=== PATIENT | female | born 1995 | race Caucasian/White ===

== ENCOUNTER 2016-10-05 16:51 | Inpatient (IN) | payer OTHER ==
[~2016-10-05] VITALS: Ht 170.2 cm; Wt 50.1 kg
[~2016-10-05 16:51] MED LIST: ESOM40CA PO; FLUD0.1T PO; HYDR5TAB PO; LINA290C PO; METO25TA4 PO; OXYC1TAB7 PO; SULF1TAB24 PO
--- NOTE | 2016-10-05 19:14 | PHYS DOC ---
General Chief Complaint: FEVER Stated Complaint: FEVER Time Seen by MD: 18:40 Source: patient, family Problems: History of Present Illness Initial Comments Patient with mother for fever. Patient is no immunodeficiency actually receives outpatient immunoglobulin infusions at this facility, most recently yesterday. Last night she developed a fever as high as 101. Mother's been giving Advil and Tylenol for this at home which does bring the fever down, but it comes right back up. Patient's also mixed headache, neck pain, back pain, and nausea. Her headache is generalized in nature. She has no vision changes but does have some photophobia. There is no earache or runny nose. There is no sore throat. She complains of pain in the hand as well as the back of the neck and the back. There is no real chest pain or shortness of breath. She does have some nausea but no vomiting today. She has had decreased by mouth intake. She has some epigastric discomfort but no other abdominal pain. No change in bowel or bladder habits noted. There is no acute focal extremity or neurologic complaints. Patient as an extensive medical history and is quite complicated. Most of her care is performed by her mother, who also provides most the details of history today. Other than Advil or Tylenol, the patient did go the primary care physician today and was subsequently referred to the ER for further evaluation. There is no other increase or decreasing factors noted. Patient's past medical history is unremarkable for primary mean deficiency disorder. She receives frequent immunoglobulin infusions, last yesterday. She also has Joseph's thyroiditis, reflux, adrenal insufficiency, asthma, arrhythmias, and has a feeding tube in place. This user supplement feedings only of the patient is able tolerate by mouth food and fluids. She also is intermittently cathetered she has neurogenic bladder and she is on a bowel program according mother. Patient parents had some surgery medical brain injury in intensity, and has a diffuse neuropathy of undetermined cause as well. 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 The patient is wheelchair-bound and the vast majority of care is accomplished by the mother. She is a nonsmoker and nonuser of ethanol. Allergies: Coded Allergies: erythromycin base (Verified Allergy, Intermediate, 11/12/15) I S O L A T I O N *CONTACT* (Verified Allergy, Unknown, 11/13/15) +nasal MRSA 5-4-16 Past Medical History Medical History: other Psychosocial History: other Family History Significant Family History: no pertinent family hx Social History Smoker: non-smoker Alcohol: none Review of Systems All Other Systems: Reviewed and Negative Physical Exam General Appearance: WD/WN, no apparent distress Eyes: bilateral eye normal inspection Ear, Nose, Throat: normal ENT inspection, normal pharynx Neck: full range of motion, supple, normal inspection Respiratory: lungs clear, normal breath sounds, no respiratory distress Cardiovascular: regular rate, rhythm, no edema Gastrointestinal: non tender, soft, no organomegaly, other Back: no CVA tenderness, no vertebral tenderness Extremities: non-tender, normal inspection Neurologic/Psychiatric: alert, normal mood/affect, oriented x 3, other Skin: normal color Lymphatic: no adenopathy Comments Generally this is a pale, chronically ill-appearing white female in no acute somatic distress. Vitals are as noted. Pertinent findings on physical exam shows ears and throat to be clear. Pupils are equal and reactive light and accommodation. Extraocular movements are intact. The scalp is diffusely tender without signs of trauma. Neck is supple without gross adenopathy or JVD. There' s no swollen thyroid palpated. The patient moves the head through the full range of motion with some complaints of pain in the back of the neck. However, Kernig's and Brudzinski's are negative. Chest is clear cardiac exam shows regular rate and rhythm without murmur. The abdomen is soft and nontender without mass or megaly. There is no perineal findings. A feeding tube in place in left upper quadrant. The site looks good. Back shows no CVA tenderness. Externally show no rashes, cyanosis, or edema. Neurologic exam finds patient be awake alert oriented but with a flat affect and appears depressed. Cranial nerves II through XII appear grossly intact. Patient holds left arm flaccid with 1 over 5 strength in her known brachial plexus injury. She has good 5 over 5 strength in the right upper extremity. She has bilateral lower extremity weakness 2 over 5. There are no gross sensory deficits. Remainder of physical exam is clinically unremarkable. Orders, Labs, Meds Old charts note multiple outpatient visits for Privigen infusion. Her most recent infusion was actually done yesterday is now patient. She's been admitted the ER for syncope, headache, and adverse reaction to immunoglobulins. She was last admitted hospital in May of last year systemic inflammatory response syndrome with history of chronic immune deficiency and year retention as well as a history of DVT.. There is no specific infection identified. She was treated with broad-spectrum antibiotics and infectious disease was consult. It was noted that if she was improved, she can probably go home without further antibiotics. Labs today show white count of 5.7 with 86 polys and 6 lymphs. Hemoglobin 12.6. Chem profile and acetone are negative. Urinalysis shows only equivocal evidence for UTI 5-10 white cells few bacteria positive nitrate and trace leukocyte esterase. Blood cultures have been taken and sent to the lab. Chest x-ray shows a port in place. There are no acute changes seen by the emergency physician. 2300 Patient resting comfortably in the ER. Did apologize to patient and family on multiple occasions for place and care. Some are related to patient volume, as well as to obtain catheterized urine sample. Patient and her mother are both very gracious in understanding indicate this and the busiest they've ever seen the ED. I reevaluated the patient twice during her ED stay. She says that her somatic pain is decreased, but that just seems to make her headache more prominent. She is continuing to complain of some neck pain. I examination, however, she continues to have no real meningeal signs. She seems to indicate when she moves her head or tenderness and pain is more over the right SCM muscle , and there is some mild tenderness at that area. There is really no nuchal rigidity or specific signs of meningitis, and she overall appears to be somewhat more perky and interactive now than earlier. She did feel warm and I retook her temperature. Was 102.7 by physician evaluation. I discussed with the mother the and the patient the uncertain cause of her fever and generalized illness. It looks like in the past due to her immunodeficiency, she's been placed on broad-spectrum antibodies, admitted, and absurd with consult by infectious disease. I think given this scenario with a persistent fever and no source, that is a reasonable course of action at this time. Flu swabs have been obtained but results are not back at this time. I don't think the patient has meningeal signs this time, certainly should she have increasing headache or nuchal rigidity LP can be done. Mother is comfortable deferring lumbar puncture at this time as is the patient. Patient's primary care physician is not admitting tonight. I discussed the case with Dr. Darling of the hospitalist service. The mother. He knows Dr. Brown. He does not recall the patient. However, he graciously agrees to accept the patient for observation admission with broad-spectrum antibiotic coverage and infectious disease consultation. We' ll treat the patient symptomatically for fever with Tylenol as well as for any headache or nausea she might have. I have started some meropenem per the May guide for broad-spectrum coverage the patient was immunosuppression. I ordered urine culture in addition to blood cultures. She is resting comfortably at this time, in the company of her mother and an absolutely delightful service dog, awaiting transfer to the floor and hospitalist care. SERGE CAT MD Oct 05, 2016 19:14
[2016-10-05] MEDS ORDERED: IV NORMAL SALINE 1,000ML 1,000 ML IV ONE (19:15)
[2016-10-05] MEDS ORDERED: FENTANYL PF 100 MCG/2 ML VIAL. IV ONE (19:30)
[2016-10-05] MEDS ORDERED: ONDANSETRON PF 4 MG/2 ML VIAL. IV ONE (19:30)
--- NOTE | 2016-10-05 20:01 | PHYS DOC ---
General Chief Complaint: FEVER Stated Complaint: FEVER Time Seen by MD: 18:40 Problems: History of Present Illness Allergies: Coded Allergies: erythromycin base (Verified Allergy, Intermediate, 11/12/15) I S O L A T I O N *CONTACT* (Verified Allergy, Unknown, 11/13/15) +nasal MRSA 11-12-15 Past Medical History Medical History: other Surgical History: noncontributory Family History Significant Family History: no pertinent family hx Orders, Labs, Meds Old charts note multiple outpatient visits for Privigen infusion. Her most recent infusion was actually done yesterday is now patient. She's been admitted the ER for syncope, headache, and adverse reaction to immunoglobulins. She was last admitted hospital in November of last year systemic inflammatory response syndrome with history of chronic immune deficiency and year retention as well as a history of DVT.. There is no specific infection identified. She was treated with broad-spectrum antibiotics and infectious disease was consult. It was noted that if she was improved, she can probably go home without further antibiotics. SERGE CAT MD Oct 05, 2016 20:01
[2016-10-05 20:33] LABS: BASO % 0 % (0-3); EOS % 0 % (0-3); HEMATOCRIT 37.9 % (36.0-47.0); HEMOGLOBIN 12.6 g/dL (12.0-15.5); LYMPH # 0.5 x10^3/uL (1.0-4.8); LYMPH % 9 % (24-48); MEAN CORPUSCULAR HEMOGLOBIN 30 pg (25-35); MEAN CORPUSCULAR HGB CONC 33 g/dL (31-37); MEAN CORPUSCULAR VOLUME 91 fL (79-100); MONO # 0.3 x10^3/uL (0.0-1.1); MONO % 6 % (0-9); NEUT # 4.9 x10^3uL (1.8-7.7); NEUT % 86 % (31-73); PLATELET COUNT 153 x10^3/uL (140-400); RED BLOOD COUNT 4.15 x10^6/uL (3.50-5.40); RED CELL DISTRIBUTION WIDTH 12.6 % (11.5-14.5); WHITE BLOOD COUNT 5.7 x10^3/uL (4.0-11.0)
[2016-10-05 20:39] LABS: ALBUMIN 3.5 g/dL (3.4-5.0); ALBUMIN/GLOBULIN RATIO 0.8 (1.0-1.7); C REACTIVE PROTEIN 33.8 mg/L (0-3.3); CALCIUM 8.5 mg/dL (8.5-10.1); CREATININE 0.6 mg/dL (0.6-1.0); GFR 126.2; POTASSIUM 3.6 mmol/L (3.5-5.1); TOTAL BILIRUBIN 0.4 mg/dL (0.2-1.0); TOTAL PROTEIN 8.1 g/dL (6.4-8.2)
[2016-10-05] MEDS ORDERED: MORPHINE SULFATE 2 MG/ML DISP.SYRIN. ONE (21:24)
[2016-10-05 21:40] LABS: BACTERIA,URINE FEW /HPF (0-FEW); BILIRUBIN,URINE NEG (NEG); CLARITY,URINE CLOUDY; COLOR,URINE YELLOW; GLUCOSE,URINE NEG (NEG); NITRITE,URINE POS (NEG); UROBILINOGEN,URINE 1 mg/dL (0.2 mg/dL)
[2016-10-05 21:41] LABS: AMORPHOUS SEDIMENT,UR PRESENT /HPF; SQUAMOUS EPITHELIAL CELL,UR OCC /LPF
[2016-10-05] MEDS ORDERED: MORPHINE SULFATE 2 MG/ML DISP.SYRIN. IV ONE (21:45)
[2016-10-05] MEDS: PROMETHAZINE 12.5 MG in IV NORMAL SALINE 50ML 50 ML IV PRN (22:00)
[2016-10-05 22:01] LABS: SEDIMENTATION RATE 4 (0-25)
[2016-10-05 23:45] LABS: INFLUENZA A PATIENT NEGATIVE (NEGATIVE); INFLUENZA B PATIENT NEGATIVE (NEGATIVE)
[2016-10-06] VITALS (9 sets, daily range): BP systolic 73–108; BP diastolic 33–68
[2016-10-06] MEDS ORDERED: ACETAMINOPHEN 500 MG TABLET PO PRN (01:00)
[2016-10-06] MEDS: IV DEXTROSE 5% - 0.9 % NACL 1,000 ML IV SCH ×2 (01:28→09:36)
[2016-10-06] MEDS: FENTANYL PF 100 MCG/2 ML VIAL. IV PRN ×6 (01:31→23:57)
[2016-10-06] MEDS: ONDANSETRON PF 4 MG/2 ML VIAL. IV PRN ×2 (01:32→09:47)
--- NOTE | 2016-10-06 02:33 | ACF ---
Admission Criteria Forms FEVER Clinical Indications for Inpatient Care (Place 'X' for any and all applicable criteria): Ongoing inpatient care may be indicated for fever with ANY ONE of the following[ D] (5)(27)(28)(29)(30)(31): [ ]I. Bacteremia [ ]II. Evidence of significant systemic illness as indicated by ANY ONE of the following: [ ]a) Persistently high temperatures greater than 103.1 degrees F ( 39.5 degrees C) (oral) [ ]b) New-onset hypoxia [ ]c) Hemodynamic instability [ ]d) Mental status changes [ ]e) Decreased urine output due to developing renal insufficiency [ ]f) New focal neurologic deficit (eg, stroke) [ ]g) Seizures [ ]h) Rigors [ ]i) Dehydration or hypovolemia [ ]j) Inadequate oral intake [X]III. Patient in the immediate postoperative period with ANY ONE of the following (E)(23)(24): [ ]a) Evidence of specific localizing infection requiring ongoing inpatient evaluation or treatment (eg,abscess, severe pneumonia, wound infection ) [ X]b) Known or suspected cause of fever requiring ongoing inpatient evaluation or treatment (eg, DVT) [ ]c) Evidence of malignant hyperthermia (eg, unexplained tachycardia and muscle rigidity after depolarizing muscular blocking agent or inhaled anesthetic agent) [ ]IV. Suspected cause requiring acute care (eg, endocarditis, meningitis) [ ]V. High suspicion of bacteremia as indicated by severe constitutional symptoms in patient at high risk as indicated by ANY ONE of the following: [ ]a) Immunocompromised state [D](22) [ ]b) Age <3 years or >65 years [ ]c) Severe comorbidities (eg, poorly controlled diabetes, severe COPD) [ ]. High suspicion for fungal infection as indicated by ANY ONE of the following (22)(25): [ ]a) Febrile neutropenia (WBC <500/mm3 (0.5 X 109/L)) for >4 days despite broad spectrum antibiotics [ ]b) Imaging findings suggestive of fungal infection [ ]c) Immunocompromised state [ ]d) Immunocompromised patient colonized with Aspergillus species [ ]VII. Evidence of infection of medical devices such as implanted catheters or exposed hardware [ ]VIII. Suspected neuroleptic malignant syndrome as evidenced by ALL of the following (15): [ ]a) Recent use of neuroleptic medication (eg, haloperidol, prochlorperazine, metoclopramide) [ ]b) New-onset muscle rigidity Extended stay beyond goal length of stay for primary condition may be needed until ALL of the following are present(16)(17)(18)(19)(20)(21): [ ]a) Temperature status acceptable as indicated by ANY ONE of the following: [ ]i) Temp <38.1C (100.5 F) (oral) [ ]ii) Temp as expected for disease process and care performable at next level of care [ ]b) Hemodynamic stability [ ]c) Cultures negative or infection identified and under adequate treatment [ ]d) Behavior or mental status abnormalities absent or manageable at lower level of care (Also use Mental Status Change Criteria Form) for further information. [ ]e) Medical comorbidities absent or manageable at a lower level of care The original [facility] content created by [facility] has been revised. The portions of the content which have been revised are identified through the use of italic text or in bold, and [facility] has neither reviewed nor approved the modified material. All other unmodified content is copyright [facility]. Please see references footnoted in the original [facility] [employer] edition 2016 MUSTAPHA HERNANDEZ Oct 06, 2016 02:33
[2016-10-06] MEDS ORDERED: MEROPENEM 1 GM VIAL IV ONE (05:08)
[2016-10-06] MEDS ORDERED: IV NORMAL SALINE 100ML 100 ML ONE (05:08)
[2016-10-06] MEDS: MEROPENEM 1 GM in IV NORMAL SALINE 100ML 100 ML IV SCH ×3 (05:35→21:37)
[2016-10-06] MEDS ORDERED: MEROPENEM 1 GM in IV NORMAL SALINE 100ML 100 ML IV SCH (06:00)
[2016-10-06 06:32] LABS: BASO % 1 % (0-3); EOS % 0 % (0-3); HEMOGLOBIN 11.1 g/dL (12.0-15.5); LYMPH # 0.6 x10^3/uL (1.0-4.8); LYMPH % 20 % (24-48); MEAN CORPUSCULAR HEMOGLOBIN 31 pg (25-35); MEAN CORPUSCULAR HGB CONC 34 g/dL (31-37); MEAN CORPUSCULAR VOLUME 92 fL (79-100); MONO # 0.3 x10^3/uL (0.0-1.1); MONO % 8 % (0-9); NEUT # 2.2 x10^3uL (1.8-7.7); NEUT % 70 % (31-73); PLATELET COUNT 126 x10^3/uL (140-400); RED CELL DISTRIBUTION WIDTH 12.9 % (11.5-14.5); WHITE BLOOD COUNT 3.1 x10^3/uL (4.0-11.0)
[2016-10-06 06:34] LABS: ALBUMIN 2.8 g/dL (3.4-5.0); ALBUMIN/GLOBULIN RATIO 0.7 (1.0-1.7); CALCIUM 7.6 mg/dL (8.5-10.1); CREATININE 0.6 mg/dL (0.6-1.0); GFR 126.2; POTASSIUM 3.1 mmol/L (3.5-5.1); TOTAL BILIRUBIN 0.3 mg/dL (0.2-1.0); TOTAL PROTEIN 6.6 g/dL (6.4-8.2)
--- NOTE | 2016-10-06 08:50 | RAD ---
Portable chest, 10/05/2016: History: Fever, immunodeficiency disease Comparison is made to a study from 06/28/2016. A left Port-A-Cath remains in place with its tip lying in the inferior aspect of the superior vena cava. The heart size and pulmonary vascularity are normal. No pulmonary infiltrates are seen. There is no evidence of pleural fluid. There is a mild thoracolumbar scoliosis. IMPRESSION: No acute cardiopulmonary abnormality is detected.
[2016-10-06] MEDS ORDERED: HYDROCORTISONE 10 MG TABLET PO SCH (09:00)
[2016-10-06] MEDS: METOPROLOL TART IMMED RELEASE 25 MG TABLET PO SCH ×2 (09:37→21:00)
[2016-10-06] MEDS: FLUDROCORTISONE 0.1 MG TABLET PO SCH (11:42)
[2016-10-06] MEDS: PANTOPRAZOLE 40 MG TABLET. PO SCH (11:42)
[2016-10-06] MEDS: PROMETHAZINE 12.5 MG in IV NORMAL SALINE 50ML 50 ML IV PRN ×2 (13:37→23:58)
--- NOTE | 2016-10-06 14:14 | HP ---
ADMIT DATE: 10/06/2016 HISTORY OF PRESENT ILLNESS: The patient is a 21-year-old female patient, who came to the Emergency Room with fever. She apparently is known to have immune deficiency syndrome diagnosed about 6 years ago and she received her hemoglobin as an outpatient infusion with most recently done 2 days ago on Tuesday night, she had temperature up to 101 Fahrenheit. Her mother has been giving her Advil and Tylenol at home, but it does bring that fever down, but comes back again. She also complained of headache, neck pain, back pain, nausea. Her headache is generalized in nature. She has no vision changes, but does have some photophobia. There is no earache or runny nose. There is no sore throat. She complained of pain in her hand as well as neck and back. There is no chest pain or shortness of breath. She did complain of some nausea, but no vomiting. She has had decreased intake by mouth. She had some epigastric discomfort with no other abdominal pain, no change in bowel habits or bladder habit. She has no acute neurological deficit. She was seen in the Emergency Room, was evaluated. Blood cultures were drawn and was started on IV meropenem and was admitted for further evaluation and treatment. PAST MEDICAL HISTORY: Significant immune deficiency diagnosed about 6 years ago. She is followed by Dr. Huddleston. 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 She is normally wheelchair bound. She has neurogenic bladder, Joseph's thyroiditis, adrenal insufficiency, iron deficiency for which she received iron infusions intravenously. She has also B12 deficiency anemia, has had the history of septic cholangitis, multiple bacterial infection, gastroesophageal reflux disease, DVT and bronchial asthma. PAST SURGICAL HISTORY: Significant for fundoplication x 2, percutaneous endoscopic gastrostomy tube placement, spinal stimulator, nerve stimulator, Port-A-Cath placement twice, tonsillectomy and adenoidectomy. FAMILY HISTORY: Unremarkable. She has 2 brothers, who are healthy and her parents are healthy. SOCIAL HISTORY: She does not smoke, drink alcohol or use any recreational drugs. She lives with her parents. ALLERGIES: She is allergic to ERYTHROMYCIN BASE. MEDICATIONS: She is currently on the following medications: She is on Nexium 1 capsule once a day, fludrocortisone 100 mcg once a day, hydrocortisone 5 mg twice a day, linaclotide Linzess 90 mcg once a day, metoprolol tartrate 25 mg p.o. b.i.d. and oxycodone/APAP 5/325 one tablet every 6 hours for pain. REVIEW OF SYSTEMS: The patient denied any blurring of vision, cataract, glaucoma or macular degeneration. Did complain of photophobia. Denied any headache, tinnitus or sensorineural deafness. Denied any nosebleeds, stuffy nose or postnasal drip. Denied any sore throat, sore tongue, toothache, hoarseness of voice or difficulty swallowing. Did complain of nausea, but no vomiting. Did complain of epigastric pain, but no diarrhea or constipation. Denied any hematemesis, melena or hematochezia. Denied any dysuria, frequency or hematuria. Denied any chest pain, shortness of breath, orthopnea or paroxysmal nocturnal dyspnea. Denied any cough, phlegm or hemoptysis. Biggest complaint is severe headache, neck pain and back pain. PHYSICAL EXAMINATION: GENERAL: On arrival to the Emergency Room; she was pale, cachectic, but not jaundiced, cyanosis or thyromegaly. No jugular venous distention. No limb edema. VITAL SIGNS: Her heart rate was 97, blood pressure was 108/68, temperature was 100, respiratory rate was 16, and oxygen saturation was 98%. HEAD, EYES, EARS, NOSE AND THROAT: Showed normocephalic, atraumatic. NECK: Supple. HEART: Showed normal first and second heart sounds with no gallop, rub or murmur. CHEST: Clear to auscultation. No crepitation or rhonchi. ABDOMEN: Distended, soft, nontender. No guarding or rigidity. No organomegaly. She had gastrostomy tube in place. NEUROLOGIC: She is awake, alert, responds appropriately. Cranial nerves intact. EXTREMITIES: She moves right upper extremity. She has flaccid paralysis of left upper extremity and also paraplegia. She has no neck rigidity and Kernig's sign cannot be elicited. LABORATORY DATA: In the Emergency Room showed serum sodium 138, potassium 3.6, chloride 104, bicarbonate 23, anion gap of 11, BUN 9, creatinine 0.6, estimated GFR was 126 mL per minute. Her glucose was 87, calcium was 8.5. Total bilirubin, AST, ALT, alkaline phosphatase were normal. Her total protein was 8.1, albumin was 3.5. Amylase and lipase were normal. Her C-reactive protein was at 3.8. White cell count was 5700, hemoglobin 12.6, hematocrit 38, MCV 91, and platelet count of 153,000 with a manual differential showed 86% polymorphs, 9% lymphocytes, 6% monocytes. She had had a chest x-ray done, which was unremarkable and showed no that there are no acute cardiopulmonary abnormalities detected. ASSESSMENT AND PLAN: The patient was admitted and started on IV meropenem, IV and pain medication as well as Phenergan for nausea and vomiting. There urinalysis was essentially unremarkable. We will obviously await the result of the culture and sensitivity and decide on further management accordingly. SHANNAN COYNE MD DR: KERVIN/anthony JOB#: [id number] / [id number]
[2016-10-06] MEDS: HYDROCORTISONE SOD SUCC/PF 100 MG/2 ML VIAL. IV SCH ×2 (15:05→21:37)
[2016-10-06] MEDS: POTASSIUM CL 40MEQ D5-0.45NACL 1,000 ML IV SCH ×2 (15:05→21:36)
--- NOTE | 2016-10-06 23:08 | PN ---
DATE: 10/06/2016 SUBJECTIVE: The patient is resting slightly propped up in bed, in no apparent respiratory distress. She continued to complain of headache and neck pain. However, her temperature is down. Temperature went up to 103 Fahrenheit this morning. However, by the time I saw her this afternoon, her temperature is down at 98.4 and again at 99.3. PHYSICAL EXAMINATION: GENERAL: When I examined her, she looked pale, but no jaundice, cyanosis, or thyromegaly. No jugular venous distension. No limb edema. VITAL SIGNS: Her heart rate was 87, blood pressure was 92/58, temperature was 99.3, respiratory rate was 20, and oxygen saturation was 98%. HEAD, EYES, EARS, NOSE, AND THROAT: Normocephalic, atraumatic. NECK: Supple. HEART: Showed normal first and second heart sounds. No gallop, rub, or murmur. CHEST: Clear to auscultation. No crepitation or rhonchi. ABDOMEN: Distended, soft, nontender. No guarding or rigidity. No organomegaly. Hernial orifices intact. Bowel sounds normal. NEUROLOGIC: She was awake, alert, responding appropriately. Cranial nerves intact. She moves the right upper extremity. She has flaccid paralysis to ____ paraplegia. She is mostly bed bound and chair bound. Her intake over the last 24 hours was 1200. No output was recorded. LABORATORY DATA: Her lab work this morning showed white cell count is 3100, hemoglobin 11, hematocrit 33, MCV 92, and platelet count 126,000. Her chemistry showed serum sodium 140, potassium 3.1, chloride 107, bicarbonate 25, anion gap of 8, BUN 7, creatinine 0.6, estimated GFR was 126 mL per minute. Her glucose was 103, calcium was 7.6. Total bilirubin, AST, ALT, alkaline phosphatase were normal. Total protein was 6.6, albumin was 2.8. ASSESSMENT: This is a 21-year-old female the patient with immunodeficiency syndrome. She came with febrile illness with ____ of infections not very clear. She has a Port-A-Cath; however, her white cell count is actually ____ trending down. I did speak with Dr. Huddleston and he recommended to continue with the same management. There is no need now for vancomycin. There is no need for lumbar puncture. I did increase hydrocortisone to ____ dose of 100 mg 3 times a day intravenously and continue with all other treatment. Her potassium is low, so I switched her to D5 half normal with 40 mEq of potassium chloride and we will repeat all her lab works tomorrow and decide on further management accordingly. SHANNAN COYNE MD DR: KERVIN/anthony JOB#: [id number] / [id number]
[2016-10-06] MEDS ORDERED: PROMETHAZINE 25 MG/ML VIAL IV ONE (23:52)
[2016-10-06] MEDS ORDERED: IV NORMAL SALINE 50ML 50 ML ONE (23:52)
[2016-10-07 05:20] VITALS: BP 93/51
[2016-10-07] MEDS: POTASSIUM CL 40MEQ D5-0.45NACL 1,000 ML IV SCH ×3 (05:28→20:41)
[2016-10-07] MEDS: MEROPENEM 1 GM in IV NORMAL SALINE 100ML 100 ML IV SCH ×3 (05:28→20:40)
[2016-10-07] MEDS: HYDROCORTISONE SOD SUCC/PF 100 MG/2 ML VIAL. IV SCH ×3 (05:29→20:40)
[2016-10-07] MEDS: FENTANYL PF 100 MCG/2 ML VIAL. IV PRN ×4 (05:31→20:40)
[2016-10-07 06:11] LABS: BASO % 0 % (0-3); EOS % 0 % (0-3); HEMATOCRIT 32.3 % (36.0-47.0); HEMOGLOBIN 10.9 g/dL (12.0-15.5); LYMPH # 0.5 x10^3/uL (1.0-4.8); LYMPH % 21 % (24-48); MEAN CORPUSCULAR HEMOGLOBIN 31 pg (25-35); MEAN CORPUSCULAR HGB CONC 34 g/dL (31-37); MEAN CORPUSCULAR VOLUME 91 fL (79-100); MONO # 0.3 x10^3/uL (0.0-1.1); MONO % 10 % (0-9); NEUT # 1.8 x10^3uL (1.8-7.7); NEUT % 69 % (31-73); PLATELET COUNT 151 x10^3/uL (140-400); RED BLOOD COUNT 3.55 x10^6/uL (3.50-5.40); WHITE BLOOD COUNT 2.7 x10^3/uL (4.0-11.0)
[2016-10-07 06:26] LABS: ALBUMIN 2.8 g/dL (3.4-5.0); ALBUMIN/GLOBULIN RATIO 0.7 (1.0-1.7); CALCIUM 8.3 mg/dL (8.5-10.1); CREATININE 0.5 mg/dL (0.6-1.0); GFR 155.7; POTASSIUM 3.8 mmol/L (3.5-5.1); TOTAL BILIRUBIN 0.2 mg/dL (0.2-1.0); TOTAL PROTEIN 6.8 g/dL (6.4-8.2)
[2016-10-07] MEDS: METOPROLOL TART IMMED RELEASE 25 MG TABLET PO SCH ×2 (09:26→20:50)
[2016-10-07] MEDS: PANTOPRAZOLE 40 MG TABLET. PO SCH (12:39)
[2016-10-07] MEDS: FLUDROCORTISONE 0.1 MG TABLET PO SCH (12:39)
[2016-10-07] MEDS: PROMETHAZINE 12.5 MG in IV NORMAL SALINE 50ML 50 ML IV PRN (14:44)
[2016-10-07 14:59] VITALS: BP 97/58
[2016-10-07 19:41] VITALS: BP 106/56
[2016-10-07] MEDS: ENOXAPARIN 40 MG/0.4 ML DISP.SYRIN. SQ SCH (20:41)
[2016-10-07] MEDS ORDERED: PROMETHAZINE 25 MG/ML VIAL IV ONE (23:06)
[2016-10-07] MEDS ORDERED: IV NORMAL SALINE 50ML 50 ML ONE (23:06)
--- NOTE | 2016-10-08 03:00 | PN ---
DATE: 10/07/2016 SUBJECTIVE: The patient is resting slightly propped up and feeling much better today. The headache is much improved, although she continues to have neck pain. Her appetite has improved. She is eating and drinking. She has been afebrile and apparently her blood culture showed the growth of gram-positive cocci seen of two bottles. Once it was drawn ____ identification and sensitivity is still pending at the time of this dictation. PHYSICAL EXAMINATION: GENERAL: When I examined her, she looked well and was definitely more awake and alert. Slightly pale, but no jaundice, cyanosis, or thyromegaly. No jugular venous distention. No limb edema. VITAL SIGNS: Her heart rate was 66, blood pressure was 93/51, temperature was 98.4, respiratory rate was 16, and oxygen saturation was 98% on room air. HEAD, EYES, EARS, NOSE AND THROAT: Showed normocephalic and atraumatic. NECK: Supple. HEART: Showed normal first and second heart sounds with no gallop, rub, or murmur. CHEST: Clear to auscultation. No crepitation or rhonchi. ABDOMEN: Distended, soft, and nontender. No guarding or rigidity. No organomegaly. Hernial orifices are intact. Bowel sounds normal. NEUROLOGIC: She was awake, alert, and definitely feeling better. All her cranial nerves intact. She moves upper extremities without difficulty. She has left upper monoplegia and bilateral paraplegia. Her intake over the last 24 hours was 4470. LABORATORY DATA: Her lab work showed white cell count down to 2700, hemoglobin 11, hematocrit 32, MCV 91, and platelet count of 151,000. Her chemistry showed a serum sodium 140, potassium 3.8, chloride 109, bicarbonate 24, anion gap of 7, BUN 3, creatinine 0.5, and estimated GFR was 55 mL per minute. Her glucose was 122 mg/dL and calcium was 8.3. Total bilirubin, AST, ALT, and alkaline phosphatase are normal. Total protein was 6.8 and albumin 2.8. Amylase and lipase normal. TSH was 0.83. Urinalysis was unremarkable. Her serology was negative for influenza A and B and group A streptococcus. ASSESSMENT: A 21-year-old female patient with immune deficiency syndrome and sepsis growing gram-positive cocci that seems to be responding to meropenem; adrenal insufficiency for which I put her on stress dose of hydrocortisone at 100 mg 3 times a day. She has also Joseph's thyroiditis; however, her thyroid function test is normal. PLAN: My plan is to continue with current treatment. Continue with IV fluid. We will await for the identification and sensitivity of the bacteria tomorrow and we will adjust antibiotics accordingly. SHANNAN COYNE MD DR: KERVIN/anthony JOB#: [id number] / [id number]
[2016-10-08] MEDS: POTASSIUM CL 40MEQ D5-0.45NACL 1,000 ML IV SCH ×3 (04:58→16:51)
[2016-10-08] MEDS: MEROPENEM 1 GM in IV NORMAL SALINE 100ML 100 ML IV SCH ×3 (04:59→20:15)
[2016-10-08] MEDS: HYDROCORTISONE SOD SUCC/PF 100 MG/2 ML VIAL. IV SCH ×3 (04:59→20:15)
[2016-10-08 05:21] VITALS: BP 107/69
[2016-10-08] MEDS: FENTANYL PF 100 MCG/2 ML VIAL. IV PRN ×3 (05:22→16:45)
[2016-10-08] MEDS ORDERED: PROMETHAZINE 25 MG/ML VIAL IV ONE ×2 (05:37→14:11)
[2016-10-08] MEDS ORDERED: IV NORMAL SALINE 50ML 0 ML ONE (05:37)
[2016-10-08] MEDS: PROMETHAZINE 12.5 MG in IV NORMAL SALINE 50ML 50 ML IV PRN ×2 (05:44→15:06)
[2016-10-08] MEDS ORDERED: KETOROLAC 30 MG/ML VIAL. IV ONE (06:30)
[2016-10-08 06:41] LABS: BASO % 0 % (0-3); EOS % 0 % (0-3); HEMATOCRIT 30.7 % (36.0-47.0); HEMOGLOBIN 10.4 g/dL (12.0-15.5); LYMPH # 0.9 x10^3/uL (1.0-4.8); LYMPH % 16 % (24-48); MEAN CORPUSCULAR HEMOGLOBIN 31 pg (25-35); MEAN CORPUSCULAR HGB CONC 34 g/dL (31-37); MEAN CORPUSCULAR VOLUME 91 fL (79-100); MONO # 0.7 x10^3/uL (0.0-1.1); MONO % 12 % (0-9); NEUT # 4.1 x10^3uL (1.8-7.7); NEUT % 72 % (31-73); PLATELET COUNT 144 x10^3/uL (140-400); RED BLOOD COUNT 3.39 x10^6/uL (3.50-5.40); RED CELL DISTRIBUTION WIDTH 12.7 % (11.5-14.5); WHITE BLOOD COUNT 5.7 x10^3/uL (4.0-11.0)
[2016-10-08 07:06] LABS: ALBUMIN 2.6 g/dL (3.4-5.0); ALBUMIN/GLOBULIN RATIO 0.7 (1.0-1.7); CALCIUM 8.1 mg/dL (8.5-10.1); GFR 126.2; POTASSIUM 3.6 mmol/L (3.5-5.1); TOTAL BILIRUBIN 0.1 mg/dL (0.2-1.0); TOTAL PROTEIN 6.4 g/dL (6.4-8.2)
[2016-10-08 07:19] LABS: CREATININE 0.6 mg/dL (0.6-1.0)
[2016-10-08] MEDS: METOPROLOL TART IMMED RELEASE 25 MG TABLET PO SCH ×2 (08:48→19:27)
[2016-10-08 10:30] VITALS: BP 115/66
[2016-10-08] MEDS: PANTOPRAZOLE 40 MG TABLET. PO SCH (12:15)
[2016-10-08] MEDS: FLUDROCORTISONE 0.1 MG TABLET PO SCH (12:15)
[2016-10-08] MEDS: ONDANSETRON PF 4 MG/2 ML VIAL. IV PRN (12:22)
[2016-10-08] MEDS ORDERED: IV NORMAL SALINE 50ML 50 ML ONE (14:12)
[2016-10-08 14:22] VITALS: BP 100/62
[2016-10-08] MEDS: KETOROLAC 15 MG/ML VIAL. IV PRN (20:15)
[2016-10-08] MEDS: ENOXAPARIN 40 MG/0.4 ML DISP.SYRIN. SQ SCH (20:15)
[2016-10-08 20:27] VITALS: BP 110/64
[2016-10-09] MEDS: FENTANYL PF 100 MCG/2 ML VIAL. IV PRN ×5 (00:13→23:26)
[2016-10-09] MEDS: PROMETHAZINE 12.5 MG in IV NORMAL SALINE 50ML 50 ML IV PRN ×3 (00:13→18:50)
[2016-10-09] MEDS: POTASSIUM CL 40MEQ D5-0.45NACL 1,000 ML IV SCH ×3 (01:12→19:41)
--- NOTE | 2016-10-09 02:03 | PN ---
DATE: 10/08/2016 SUBJECTIVE: The patient is resting, slightly propped up in bed, in no apparent distress. She continued to complain of headache that responds to pain medication. She is afebrile. Her white cell count continues to be normal. Her urine culture grew more than 100,000 colony forming units per mL of gram-negative rods, the identification and sensitivity which is still pending. Her blood culture also grew gram-positive cocci, the identification and sensitivity is still pending at the time of this dictation. PHYSICAL EXAMINATION: GENERAL: When I examined her this afternoon, she looked well and was clearly in no apparent respiratory distress, pale, but not jaundiced, cyanosed. No lymphadenopathy or thyromegaly. No jugular venous distention. No limb edema. VITAL SIGNS: Her heart rate was 76, blood pressure was 115/66, temperature was 98.6, respiratory rate was 20, and oxygen saturation was 98%. The rest of clinical examination is stable and has not really changed. Her intake over the last 24-hour was 3850. No output was recorded. LABORATORY DATA: Showed a white cell count of 5700, hemoglobin 10.4, hematocrit 30.7, MCV 91, and platelet count of 144,000. Serum sodium was 142, potassium 3.6, chloride 109, bicarbonate 25, anion gap of 8, BUN 2, creatinine 0.6, estimated GFR was 126 mL per minute, her glucose was 97, calcium was 8.1. Total bilirubin, AST, ALT, alkaline phosphatase were normal. Total protein 6.4, albumin was 0.7. ASSESSMENT: 1. A 21-year-old female patient with immune deficiency syndrome. 2. She came in with febrile illness without obvious source of infection. 3. She has a Port-A-Cath; however, her white cell count remained normal. 4. She did grow more than 100,000 colony-forming units per mL of gram-negative rods in her urine and grew also gram-positive cocci from her blood. The identification and sensitivity of both organism is still pending at the time of this dictation. 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 PLAN: My plan is to continue with IV fluid, continue with pain management, continue with IV meropenem, and continue with stress dose of hydrocortisone once we will be able to narrow the antibiotic, once we have the identification and sensitivity report of organisms. SHANNAN COYNE MD DR: KERVIN/anthony JOB#: [id number] / [id number]
[2016-10-09] MEDS: MEROPENEM 1 GM in IV NORMAL SALINE 100ML 100 ML IV SCH ×3 (05:00→21:23)
[2016-10-09] MEDS: HYDROCORTISONE SOD SUCC/PF 100 MG/2 ML VIAL. IV SCH ×3 (05:01→21:23)
[2016-10-09] MEDS: KETOROLAC 15 MG/ML VIAL. IV PRN ×2 (05:01→14:54)
[2016-10-09 06:07] LABS: CREATININE 0.5 mg/dL (0.6-1.0); GFR 155.7; POTASSIUM 3.4 mmol/L (3.5-5.1)
[2016-10-09 06:20] LABS: HEMATOCRIT 27.8 % (36.0-47.0); HEMOGLOBIN 9.5 g/dL (12.0-15.5); RED BLOOD COUNT 3.05 x10^6/uL (3.50-5.40); RED CELL DISTRIBUTION WIDTH 12.7 % (11.5-14.5); WHITE BLOOD COUNT 5.2 x10^3/uL (4.0-11.0)
[2016-10-09 06:32] VITALS: BP 106/69
[2016-10-09] MEDS: METOPROLOL TART IMMED RELEASE 25 MG TABLET PO SCH ×2 (09:00→21:00)
[2016-10-09] MEDS ORDERED: PROMETHAZINE 25 MG/ML VIAL IV ONE (09:28)
[2016-10-09] MEDS ORDERED: IV NORMAL SALINE 50ML 0 ML ONE (09:28)
[2016-10-09 13:31] VITALS: BP 94/59
[2016-10-09] MEDS: PANTOPRAZOLE 40 MG TABLET. PO SCH (14:49)
[2016-10-09] MEDS: FLUDROCORTISONE 0.1 MG TABLET PO SCH (14:49)
[2016-10-09 20:01] VITALS: BP 103/71
[2016-10-09] MEDS: ENOXAPARIN 40 MG/0.4 ML DISP.SYRIN. SQ SCH (21:22)
[2016-10-09] MEDS: POTASSIUM CHLORIDE 20 MEQ TABLET.ER. PO SCH (21:22)
--- NOTE | 2016-10-09 21:27 | PN ---
DATE: 10/09/2016 SUBJECTIVE: The patient is resting, slightly propped up in bed, in no apparent distress. She continued to have headache and neck pain; however, she is eating and drinking. She has been afebrile over the last 72 hours. Her urine culture has grown Escherichia coli, which is pansensitive. However, the blood culture has grown 2 species of ____ cocci, the identification and sensitivity, which is still pending. PHYSICAL EXAMINATION: GENERAL: When I examined her this afternoon, she was pale, but no jaundice, cyanosis, or thyromegaly. No jugular venous distention. No limb edema. VITAL SIGNS: Her heart rate was 69, blood pressure was 94/59, temperature was 98.7, respiratory rate was 20, and oxygen saturation was 98%. HEAD, EYES, EARS, NOSE AND THROAT: Showed normocephalic, atraumatic. NECK: Supple. The rest of clinical examination is unremarkable, has not really changed. Her intake over the last 24 hours was 3850, no output was recorded. LABORATORY DATA: As of this morning, her white cell count was 5200, hemoglobin 9.5, hematocrit 27.8, MCV 91, and platelet count of 142,000. Her chemistry showed a serum sodium 142, potassium 3.4, chloride 109, bicarbonate 25, anion gap of 8, BUN 3, creatinine was 0.5, estimated GFR was 155 mL per minute. Her glucose was 116 and calcium was 8. ASSESSMENT: 1. A 21-year-old female patient with immunodeficiency syndrome. 2. She came in with febrile illness without obvious source of infection. 3. She has a Port-A-Cath; however, white cell count remained normal, though she did grow more than 100,000 colony forming units per mL of gram-negative rods that identified as Escherichia coli that is pansensitive. She also has grown Gram-positive cocci from blood culture. The identification and sensitivity is still pending. 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 6. Traumatic brain injury. PLAN: To cut down on IV fluid and start her on potassium supplement orally. Hopefully, we will have the identification and sensitivity of the gram-positive cocci tomorrow and we can discharge her home to continue treatment as an outpatient. SHANNAN COYNE MD DR: Jessica JOB#: [id number] / [id number]
[2016-10-09] MEDS: ONDANSETRON PF 4 MG/2 ML VIAL. IV PRN (23:27)
[2016-10-10] MEDS ORDERED: PROMETHAZINE 25 MG/ML VIAL IV ONE (00:33)
[2016-10-10] MEDS ORDERED: IV NORMAL SALINE 50ML 50 ML ONE (00:34)
[2016-10-10] MEDS: HYDROCORTISONE SOD SUCC/PF 100 MG/2 ML VIAL. IV SCH ×2 (05:01→13:34)
[2016-10-10] MEDS: MEROPENEM 1 GM in IV NORMAL SALINE 100ML 100 ML IV SCH ×2 (05:02→13:12)
[2016-10-10] MEDS: FENTANYL PF 100 MCG/2 ML VIAL. IV PRN ×2 (05:30→10:40)
[2016-10-10 05:32] VITALS: BP 122/83
[2016-10-10 05:38] LABS: CALCIUM 8.2 mg/dL (8.5-10.1); CREATININE 0.5 mg/dL (0.6-1.0); GFR 155.7; POTASSIUM 3.4 mmol/L (3.5-5.1)
[2016-10-10] MEDS: POTASSIUM CHLORIDE 20 MEQ TABLET.ER. PO SCH (07:38)
[2016-10-10] MEDS: METOPROLOL TART IMMED RELEASE 25 MG TABLET PO SCH (07:39)
[2016-10-10] MEDS: PROMETHAZINE 12.5 MG in IV NORMAL SALINE 50ML 50 ML IV PRN (07:45)
[2016-10-10] MEDS: KETOROLAC 15 MG/ML VIAL. IV PRN (07:45)
[2016-10-10] MEDS: POTASSIUM CL 40MEQ D5-0.45NACL 1,000 ML IV SCH (10:45)
[2016-10-10 10:55] VITALS: BP 118/69
[2016-10-10] MEDS: FLUDROCORTISONE 0.1 MG TABLET PO SCH (11:26)
[2016-10-10] MEDS: PANTOPRAZOLE 40 MG TABLET. PO SCH (11:26)
[2016-10-10] MEDS ORDERED: OXYC5TAB PO (13:07)
[2016-10-10] MEDS ORDERED: CEFTRIAXONE SODIUM 1 GM in IV NORMAL SALINE 50ML 50 ML IV ONE (13:15)
--- NOTE | 2016-10-10 13:56 | DS ---
DATE OF DISCHARGE: 10/10/2016 HOSPITAL COURSE: This is a 21-year-old female patient, who is known to have immune deficiency for which she gets immunoglobulin intravenously on a regular basis and who was brought to the Emergency Room with a complaint of fever, headache, neck pain, back pain, nausea. She has no vision changes, but does have some photophobia. No earache or runny nose. There is no sore throat. She was admitted and was started on IV fluid, IV meropenem after obtaining appropriate cultures including blood and urine. She actually remained afebrile for the last 4 days. Her white cell count was normal. Her urine culture grew more than 100,000 colony forming units per mL of Escherichia coli sensitive to almost all antibiotics and her blood culture grew Streptococcus salivarius as well as Streptococcus mitis. All the 3 bacteria are sensitive to ceftriaxone. I spoke with , he recommended treating her with IV ceftriaxone 1 gram daily for 10 days, to arrange for her to have an echocardiogram as an outpatient and to repeat her blood culture and to monitor her lab work. She should continue with tapering course of hydrocortisone as directed. PHYSICAL EXAMINATION: GENERAL: When I saw her this afternoon, she looked well and was clearly in no apparent respiratory distress. She was slightly pale, but no jaundice, cyanosis or thyromegaly. No jugular venous distention. No limb edema. VITAL SIGNS: Her heart rate was 60, blood pressure 118/69, temperature was 98.6, respiratory rate 20, and oxygen saturation was 97% on room air. The rest of the clinical exam is stable, has not really changed. Her intake over the last 24 hours was 3000, output was 2850. LABORATORY DATA: As of this morning, her serum sodium was 143, potassium 3.4, chloride 107, bicarbonate 28, anion gap of 8, BUN 3, creatinine 0.5, estimated GFR was 155 mL per minute. Her glucose was 101 and calcium was 8.2. Her total bilirubin, AST, ALT, and alkaline phosphatase were normal. Total protein was 6.4, albumin was 2.6. DISCHARGE MEDICATIONS: The patient was discharged home to continue on oxycodone immediate release 5 mg every 4 hours, Nexium 40 mg once a day, fludrocortisone acetate 100 mcg once a day, hydrocortisone 10 mg once a day for 2 days and then 10 mg in the morning and 5 in the afternoon for 2 days, eventually should go back to 5 mg twice a day. She is on Linzess 290 mcg once a day, metoprolol tartrate 25 mg p.o. b.i.d. FINAL DISCHARGE DIAGNOSES: 1. Immune deficiency syndrome. 2. Gram-positive bacteremia growing 2 strains of bacteria, Streptococcus salivarius and Streptococcus mitis. 3. Urinary tract infection growing Escherichia coli sensitive to almost all antibiotics. 4. Other issues include Roland disease. 5. Joseph's thyroiditis, although her TSH is normal. The patient will come as an outpatient daily for 10 days to get her IV antibiotics and she will follow with . on an as needed basis. SHANNAN COYNE MD DR: KERVIN/anthony JOB#: [id number] / [id number]
== END 2016-10-10 14:33 | disposition home or self-care (01) | DRG 872 ==
LOC: ER 16:51 → 1 SOUTH 23:30
PROVIDERS: ADMIT Internal Medicine; ATTEND Internal Medicine
DX: A41.9 Sepsis, unspecified organism (principal); N39.0 Urinary tract infection, site not specified; E27.1 Primary adrenocortical insufficiency; D84.9 Immunodeficiency, unspecified; M54.2 Cervicalgia; B96.20 Unspecified Escherichia coli [E. coli] as the cause of diseases classified elsewhere; K21.9 Gastro-esophageal reflux disease without esophagitis; E06.3 Autoimmune thyroiditis; B96.89 Other specified bacterial agents as the cause of diseases classified elsewhere; N31.9 Neuromuscular dysfunction of bladder, unspecified; J45.909 Unspecified asthma, uncomplicated; D51.9 Vitamin B12 deficiency anemia, unspecified; Z88.1 Allergy status to other antibiotic agents; Z87.820 Personal history of traumatic brain injury
CPT/HCPCS: 36415; 71010; 80048; 80053; 81001; 82010; 82150; 83690; 84443; 85027; 85651; 86140; 87040; 87070; 87086; 87186; 87205; 87804; 87880; 96361; 96374; 96375; J0696; J1650; J1885; J2185; J2270; J2405; J2550; J3010; J7042; 99285-25; J7030

== ENCOUNTER 2017-01-02 21:00 | Emergency (ER) | payer OTHER ==
[~2017-01-02 21:00] MED LIST changes: +OXYC5TAB PO
[2017-01-02 21:25] VITALS: BP 117/87
--- NOTE | 2017-01-02 21:51 | PHYS DOC ---
Past History Past Medical History: Asthma, DVT, GERD, Other Additional Past Medical Histor: history of TBI, history of autoimmune disorder. Past Surgical History: Tonsillectomy, Other Smoking: Non-smoker Alcohol Use: None Drug Use: None Adult General Chief Complaint Chief Complaint: HIP PAIN HPI HPI Is a very pleasant 21-year-old female with a history of traumatic brain injury and residual weakness in her lower extremities bilaterally so she is now wheelchair bound. She's had a history of prior surgery to the right hip and a history of sepsis in the past. She presents with right hip pain that began spontaneously with no occult trauma. She did not feel a pop or she did not sustain a fall or an injury while TRANSFERRING. She notes a dull ache in her hip is worse with range of motion although not reproducible on exam. She says is mostly dull and 810 most of the time with sharp as weeks of pain that become tendon a 10. She denies any fevers, chills, nausea, vomiting, UTI symptoms or vaginal bleeding or discharge. She denies any localized swelling or rash. She denies any change to medications. Is concerned without actual immune system she may be suffering from an infection. She receives frequent immunoglobulin infusions. She also has Joseph's thyroiditis, reflux, adrenal insufficiency, asthma, arrhythmias, and has a feeding tube in place. This user supplement feedings only of the patient is able tolerate by mouth food and fluids. She also is intermittently cathetered she has neurogenic bladder and she is on a bowel program according mother. Patient parents had some surgery and has a diffuse neuropathy of undetermined cause as well. 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 The patient is wheelchair-bound and the vast majority of care is accomplished by the mother. She is a nonsmoker and nonuser of ethanol. Review of Systems Review of Systems Constitutional: Denies fever or chills [] Eyes: Denies change in visual acuity, redness, or eye pain [] HENT: Denies nasal congestion or sore throat [] Respiratory: Denies cough or shortness of breath [] Cardiovascular: No additional information not addressed in HPI [] GI: Denies abdominal pain, nausea, vomiting, bloody stools or diarrhea [] : Denies dysuria or hematuria [] Musculoskeletal: She is complaining primarily of right hip pain. Integument: Denies rash or skin lesions [] Neurologic: Denies headache, focal weakness or sensory changes [] Endocrine: Denies polyuria or polydipsia [] Current Medications Current Medications Current Medications Medications (Trade) Dose Ordered Sig/Jimmy Start Time Stop Time Status Last Admin Dose Admin Acetaminophen/ Hydrocodone Bitart (Lortab 5/325) 2 tab 1X ONCE 01/02/17 22:00 01/02/17 22:01 Allergies Allergies Allergies Coded Allergies Type Severity Reaction Last Updated Verified erythromycin base Allergy Intermediate 11/12/15 Yes I S O L A T I O N *CONTACT* Allergy Unknown 11/13/15 Yes Physical Exam Physical Exam Constitutional: She is thin and mildly pale but she is well-nourished because of a G-tube has been placed in her abdomen secondary to traumatic brain injury she was not eating. HENT: Normocephalic, atraumatic, bilateral external ears normal, oropharynx moist, no oral exudates, nose normal. [] Eyes: PERRLA, EOMI, conjunctiva normal, no discharge. [] Neck: Normal range of motion, no tenderness, supple, no stridor. [] Cardiovascular:Heart rate regular rhythm, no murmur [] Lungs & Thorax: Bilateral breath sounds clear to auscultation [] Abdomen: Bowel sounds normal, soft, no tenderness, no masses, no pulsatile masses. [] Skin: Warm, dry, no erythema, no rash. [] Extremities: Her muscles are thin and cachectic, she has normal rom at the hip with no clicking or popping with rom. no warmth or swelling in the joint. no rash. no pain with axial loading of the joint. Neurologic: Alert and oriented X 3, normal motor function, normal sensory function, no focal deficits noted. [] Psychologic: Affect normal, judgement normal, mood normal. [] Current Patient Data Vital Signs Vital Signs Date Time Temp Pulse Resp B/P (MAP) Pulse Ox O2 Delivery O2 Flow Rate FiO2 01/02/17 21:25 98.9 90 18 99 Room Air EKG EKG [] Radiology/Procedures Radiology/Procedures [] [address] [address] IMAGING REPORT Signed PATIENT: МАРИЯ HARRIS ACCOUNT: [id number] : 1995 LOCATION: ER AGE: 21 SEX: F EXAM STATUS: PRE ER ORD. PHYSICIAN: LIBORIO RODRIGUEZ MD REASON: right hip pain non truamatic PROCEDURE: CT PELVIS WO CONTRAST CT pelvis without contrast HISTORY: Right hip pain Axial helical images were obtained of the pelvis without contrast and axial coronal and sagittal reconstruction was performed. The visualized osseous structures appear normal. There is a stimulator on the left. The uterus and bladder appear within normal limits and ovaries appear within normal limits. There is no free fluid or free air. There is no pericolonic inflammation. There appears to be a tampon in place. IMPRESSION: No acute findings. Electronically signed by: Jean Conley III, MD (01/02/2017 10:37 PM) DICTATED AND SIGNED BY: JEAN CONLEY III, MD DATE: 01/02/172233 CC: LIBORIO RODRIGUEZ MD; ANNETTE SANDRA ~ Course & Med Decision Making Course & Med Decision Making Pertinent Labs and Imaging studies reviewed. (See chart for details) I have reviewed patient's nursing notes, [] Time is now 10:45 PM Patient tells me that their symptoms given during CC are improved. Although still present patient is getting a little nauseated. Laboratory work and radiology reports and not returned. Time is now 11:28 PM Patient tells me that their symptoms given during CC are improved but she is still nauseated. I will provide her him Zofran. We reviewed labs and radiology reports with patient and any family at bedside. She has no white count although she has a slight left shift, her sedimentation rate is still pending and her CRP is normal. CT scan is reviewed by me and read by the radiologist demonstrates no bony fracture, no fluid collection, no evidence of intrapelvic issue causing her pain. Her history of autoimmune disorder and inability to form a proper inflammatory response I do not believe this is a septic joint at this time but I would advise early follow-up with her primary care doctor tomorrow and schedule a possible MRI of the hip to ensure that she does not develop infection locally in her hip. At this point I do not believe this is a urinary tract infection. Patient is afebrile at this time she has no tenderness on axial loading into the hip itself. This may be a little osteoarthritis secondary to prior surgery. I would advise using oral pain medications and nausea medications and early follow-up with repeat evaluation by her primary care physician. Patient and family are okay with plan and will return here for any spiked fever or worsening symptoms despite treatment. Impression: Right hip pain of unclear etiology Disposition: PCP follow-up in the a.m. repeat evaluation referral for MRI of the hip. Dragon Disclaimer Dragon Disclaimer This chart was dictated in whole or in part using Voice Recognition software in a busy, high-work load, and often noisy Emergency Department environment. It may contain unintended and wholly unrecognized errors or omissions. Departure Departure: Impression: Primary Impression: Immune deficiency disorder Additional Impression: Hip pain, right Disposition: 01 HOME, SELF-CARE Condition: STABLE Referrals: ANNETTE SANDRA (PCP) Patient Instructions: Hip Pain, Nausea, Adult Additional Instructions: Although there is no evidence on my examination or with looking at your laboratory work that this is a septic joint, history of autoimmune disorder may prevent her from responding in a positive way. Although your CT scan not supine answer for your hip pain there is no evidence of fracture, fluid in the joint and is abnormal or localized soft tissue inflammation or infection. I would advise that we follow you up with her primary care doctor in the morning for referral for an MRI and possibly tapping the joint if your symptoms persist. Scripts Oxycodone Hcl/Acetaminophen (PERCOCET 5-325 MG TABLET) 1 Each Tablet 1-2 TAB PO Q4-6HRS, #10 TAB Prov: LIBORIO RODRIGUEZ MD 01/02/17 Ondansetron (ZOFRAN ODT) 8 Mg Tab.rapdis 8 MG PO TID for 7 Days Prov: LIBORIO RODRIGUEZ MD 01/02/17 Problem Qualifiers LIBORIO RODRIGUEZ MD Jan 02, 2017 21:51
[2017-01-02] MEDS ORDERED: HYDROcodone/APAP 5/325MG 1 TAB TABLET PO ONE (22:00)
[2017-01-02 22:13] LABS: BASO % 1 % (0-3); EOS % 0 % (0-3); HEMATOCRIT 39.4 % (36.0-47.0); HEMOGLOBIN 13.4 g/dL (12.0-15.5); LYMPH # 0.8 x10^3/uL (1.0-4.8); LYMPH % 13 % (24-48); MEAN CORPUSCULAR HEMOGLOBIN 30 pg (25-35); MEAN CORPUSCULAR HGB CONC 34 g/dL (31-37); MEAN CORPUSCULAR VOLUME 90 fL (79-100); MONO # 0.2 x10^3/uL (0.0-1.1); MONO % 3 % (0-9); NEUT % 83 % (31-73); PLATELET COUNT 261 x10^3/uL (140-400); RED BLOOD COUNT 4.39 x10^6/uL (3.50-5.40); RED CELL DISTRIBUTION WIDTH 12.4 % (11.5-14.5)
--- NOTE | 2017-01-02 22:40 | RAD ---
CT pelvis without contrast HISTORY: Right hip pain Axial helical images were obtained of the pelvis without contrast and axial coronal and sagittal reconstruction was performed. The visualized osseous structures appear normal. There is a stimulator on the left. The uterus and bladder appear within normal limits and ovaries appear within normal limits. There is no free fluid or free air. There is no pericolonic inflammation. There appears to be a tampon in place. IMPRESSION: No acute findings. Electronically signed by: Donte Ruggiero III, MD (01/02/2017 10:37 PM)
[2017-01-02 23:21] LABS: SEDIMENTATION RATE 34 (0-25)
[2017-01-02] MEDS ORDERED: ONDANSETRON ODT 4 MG TAB.RAPDIS PO ONE (23:30)
[2017-01-02] MEDS ORDERED: OXYC-323 PO (23:33)
[2017-01-02] MEDS ORDERED: ONDA8TAB12 PO (23:33)
[2017-01-03] MEDS ORDERED: HYDROmorphone PF 1 MG/ML DISP.SYRIN IM ONE (00:15)
== END 2017-01-02 23:57 | disposition home or self-care (01) ==
LOC: ER 21:00
DX: M25.551 Pain in right hip (principal); D84.9 Immunodeficiency, unspecified; R53.1 Weakness; J45.909 Unspecified asthma, uncomplicated; K21.9 Gastro-esophageal reflux disease without esophagitis; Z87.820 Personal history of traumatic brain injury; Z86.718 Personal history of other venous thrombosis and embolism; Z99.3 Dependence on wheelchair; Z98.890 Other specified postprocedural states; Z88.1 Allergy status to other antibiotic agents; Z91.041 Radiographic dye allergy status
CPT/HCPCS: 36415; 72192; 85027; 85651; 86140; 96372; 99285; J1170; Q0162

== ENCOUNTER 2017-01-06 21:38 | Inpatient (IN) | payer OTHER ==
[~2017-01-06] VITALS: Ht 168.9 cm; Wt 49.2 kg
[~2017-01-06 21:38] MED LIST changes: +ONDA8TAB12 PO; +OXYC-323 PO
[2017-01-06] MEDS ORDERED: IV NORMAL SALINE 1,000ML 1,000 ML IV ONE (23:00)
[2017-01-06] MEDS ORDERED: PROMETHAZINE 25 MG in IV NORMAL SALINE 50ML 50 ML IV ONE (23:15)
[2017-01-06] MEDS ORDERED: PROMETHAZINE 25 MG/ML VIAL IV ONE (23:15)
[2017-01-06] MEDS ORDERED: ACETAMINOPHEN 650 MG/20.3 ML SOLUTION. PO ONE (23:15)
[2017-01-06] MEDS ORDERED: fentaNYL PF 100 MCG/2 ML VIAL IV PRN (23:15)
[2017-01-06] MEDS ORDERED: IV NORMAL SALINE 50ML 50 ML ONE (23:16)
[2017-01-06 23:25] LABS: BASO % 0 % (0-3); EOS % 0 % (0-3); HEMATOCRIT 36.5 % (36.0-47.0); HEMOGLOBIN 12.3 g/dL (12.0-15.5); LYMPH # 0.3 x10^3/uL (1.0-4.8); LYMPH % 2 % (24-48); MEAN CORPUSCULAR HEMOGLOBIN 30 pg (25-35); MEAN CORPUSCULAR HGB CONC 34 g/dL (31-37); MEAN CORPUSCULAR VOLUME 89 fL (79-100); MONO # 0.2 x10^3/uL (0.0-1.1); MONO % 2 % (0-9); NEUT # 11.8 x10^3uL (1.8-7.7); NEUT % 96 % (31-73); PLATELET COUNT 159 x10^3/uL (140-400); RED BLOOD COUNT 4.08 x10^6/uL (3.50-5.40); RED CELL DISTRIBUTION WIDTH 12.5 % (11.5-14.5); WHITE BLOOD COUNT 12.3 x10^3/uL (4.0-11.0)
[2017-01-06 23:34] LABS: BILIRUBIN,URINE NEG (NEG); CLARITY,URINE CLEAR; COLOR,URINE YELLOW; GLUCOSE,URINE NEG (NEG)
[2017-01-06 23:35] LABS: BACTERIA,URINE 0 /HPF (0-FEW); NITRITE,URINE NEG (NEG); RBC,URINE 0 /HPF (0-2); SQUAMOUS EPITHELIAL CELL,UR FEW /LPF; UROBILINOGEN,URINE 1 mg/dL (0.2 mg/dL); WBC,URINE OCC /HPF (0-4)
[2017-01-06 23:38] LABS: ALBUMIN 3.6 g/dL (3.4-5.0); ALBUMIN/GLOBULIN RATIO 0.9 (1.0-1.7); CALCIUM 8.1 mg/dL (8.5-10.1); CREATININE 0.5 mg/dL (0.6-1.0); GFR 155.7; POTASSIUM 3.6 mmol/L (3.5-5.1); TOTAL BILIRUBIN 0.6 mg/dL (0.2-1.0); TOTAL PROTEIN 7.4 g/dL (6.4-8.2)
[2017-01-07] VITALS (14 sets, daily range): BP systolic 85–106; BP diastolic 48–67
[2017-01-07 00:13] LABS: BARBITURATES NEG (NEG); BENZODIAZEPINES NEG (NEG); CANNABINOIDS NEG (NEG); COCAINE NEG (NEG); METHADONE NEG (NEG); OPIATES POS (NEG); PHENCYCLIDINE NEG (NEG)
[2017-01-07 00:14] LABS: AMPHETAMINE/METHAMPHETAMINE NEG (NEG)
[2017-01-07] MEDS ORDERED: ACETAMINOPHEN 500 MG TABLET PO ONE (00:30)
[2017-01-07] MEDS ORDERED: IV NORMAL SALINE 1,000ML 1,000 ML IV ONE (00:45)
--- NOTE | 2017-01-07 01:16 | EKG ---
[address] [address] Test Date: 2017-01-06 Test Time: 22:47:28 Pat Name: МАРИЯ HARRIS Department: Room: Gender: F Hoisting Engineer: : 1995 Requested By: NINO WARD Order Number: [id number] Reading MD: Measurements Intervals [place] Rate: 123 P: 37 TN: 170 QRS: 84 QRSD: 70 T: -44 QT: 262 QTc: 380 Interpretive Statements SINUS TACHYCARDIA QRS(T) CONTOUR ABNORMALITY CONSISTENT WITH ANTEROSEPTAL INFARCT AGE UNDETERMINED T ABNORMALITY IN INFERIOR LEADS RI6.01 Unconfirmed report No previous ECG available for comparison
--- NOTE | 2017-01-07 02:14 | ED.ADGEN ---
Past History Past Medical History: Asthma, DVT, GERD, Other Additional Past Medical Histor: history of TBI, history of autoimmune disorder. 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 Patient is been evaluated for pain in the right hip over the past week. [place] at that time she was noted to have a urine concerning for infection, and hip which per her mother's report, had concern for possible infection. They did set up for an MRI of the hip, but it was delayed due to the patient's neural implant. Patient was seen in the emergency department at [facility] earlier today, at that time she was given a dose of Levaquin for a urinary tract infection per patient and family report. At that time the patient was not experiencing any fever, and her labs were normal, therefore she was discharged home with plan to follow-up with a [facility] for continued evaluation of her hip pain. They state that she was not discharged with antibiotics to be taken orally. Patient has since developed a fever, with a temperature of 100.2 at home, was given ibuprofen shortly before coming to the ED, currently is febrile with temperature 100.8 in the emergency part, tachycardic with a heart rate in the 120s, blood pressure of 90s over 60s, complaining of generalized malaise and right hip pain. She denies any abdominal pain, states that she's had 2 episodes of vomiting, and nausea today. Denies any focal weakness, numbness, tingling, any injuries, any headache, any respiratory or HEENT complaints. Patient states she has been compliant with all medications. Review of Systems Review of Systems Constitutional: Fever, chills, generalized malaise. Eyes: Denies change in visual acuity, redness, or eye pain [] HENT: Denies nasal congestion or sore throat [] Respiratory: Denies cough or shortness of breath [] Cardiovascular: No additional information not addressed in HPI [] GI: Denies abdominal pain, bloody stools or diarrhea. Complaining of nausea and vomiting.] : Denies dysuria or hematuria [] Musculoskeletal: Soreness and lower back, and pain in the right hip. Integument: Denies rash or skin lesions [] Neurologic: Denies headache, focal weakness or sensory changes [] Endocrine: Denies polyuria or polydipsia [] Current Medications Current Medications Current Medications Medications (Trade) Dose Ordered Sig/Jimmy Start Time Stop Time Status Last Admin Dose Admin Acetaminophen (Tylenol) 1,000 mg 1X ONCE 01/07/17 00:30 01/07/17 00:31 UNV 01/07/17 00:29 1,000 MG Fentanyl Citrate (Fentanyl 2ml Vial) 25 mcg PRN Q15MIN PRN 01/06/17 23:15 01/07/17 23:14 01/06/17 23:25 25 MCG Hydrocortisone Sodium Succinate (Solu-CORTEF) 100 mg 1X ONCE 01/07/17 00:45 01/07/17 00:46 UNV Piperacillin Sod/ Tazobactam Sod (Zosyn Per Pharmacy) 1 each PRN DAILY PRN 01/07/17 00:45 UNV Promethazine HCl (Phenergan) 25 mg STK-MED ONCE 01/06/17 23:15 01/06/17 23:16 DC Promethazine HCl 25 mg/Sodium Chloride 51 ml @ 101 mls/hr 1X ONCE 01/06/17 23:15 01/06/17 23:45 DC 01/06/17 23:25 101 MLS/HR Sodium Chloride 1,000 ml @ 1,000 mls/hr 1X ONCE 01/07/17 00:45 01/07/17 01:44 UNV Vancomycin HCl (Vanco Per Pharmacy) 1 each PRN DAILY PRN 01/07/17 00:45 UNV Allergies Allergies Allergies Coded Allergies Type Severity Reaction Last Updated Verified erythromycin base Allergy Intermediate 11/12/15 Yes I S O L A T I O N *CONTACT* Allergy Unknown 11/13/15 Yes Physical Exam Physical Exam Constitutional: Well developed, well nourished, no acute distress, non-toxic appearance. [] HENT: Normocephalic, atraumatic, bilateral external ears normal, oropharynx moist, no oral exudates, nose normal. [] Eyes: PERRLA, EOMI, conjunctiva normal, no discharge. [] Neck: Normal range of motion, no tenderness, supple, no stridor. [] Cardiovascular:Heart rate regular rhythm, no murmur [] Lungs & Thorax: Bilateral breath sounds clear to auscultation [] Abdomen: Bowel sounds normal, soft, no tenderness, no masses, no pulsatile masses. [] Skin: Warm, dry, no erythema, no rash. [] Back: No tenderness, no CVA tenderness. [] Extremities: No tenderness, no cyanosis, no clubbing, ROM intact, no edema. [] Neurologic: Alert and oriented X 3, normal motor function, normal sensory function, no focal deficits noted. [] Psychologic: Affect normal, judgement normal, mood normal. [] Current Patient Data Vital Signs Vital Signs Date Time Temp Pulse Resp B/P (MAP) Pulse Ox O2 Delivery O2 Flow Rate FiO2 01/06/17 23:25 20 100 Room Air Lab Results Laboratory Tests Test 01/06/17 22:30 01/06/17 23:00 Urine Opiates Screen Pos (NEG) Urine Methadone Screen Neg (NEG) Urine Barbiturates Neg (NEG) Urine Phencyclidine Screen Neg (NEG) Urine Amphetamine/Methamphetamine Neg (NEG) Urine Benzodiazepines Screen Neg (NEG) Urine Cocaine Screen Neg (NEG) Urine Cannabinoids Screen Neg (NEG) Urine Ethyl Alcohol Neg (NEG) White Blood Count 12.3 x10^3/uL (4.0-11.0) #H Red Blood Count 4.08 x10^6/uL (3.50-5.40) Hemoglobin 12.3 g/dL (12.0-15.5) Hematocrit 36.5 % (36.0-47.0) Mean Corpuscular Volume 89 fL (79-100) Mean Corpuscular Hemoglobin 30 pg (25-35) Mean Corpuscular Hemoglobin Concent 34 g/dL (31-37) Red Cell Distribution Width 12.5 % (11.5-14.5) Platelet Count 159 x10^3/uL (140-400) Neutrophils (%) (Auto) 96 % (31-73) H Lymphocytes (%) (Auto) 2 % (24-48) L Monocytes (%) (Auto) 2 % (0-9) Eosinophils (%) (Auto) 0 % (0-3) Basophils (%) (Auto) 0 % (0-3) Neutrophils # (Auto) 11.8 x10^3uL (1.8-7.7) H Lymphocytes # (Auto) 0.3 x10^3/uL (1.0-4.8) L Monocytes # (Auto) 0.2 x10^3/uL (0.0-1.1) Eosinophils # (Auto) 0.0 x10^3/uL (0.0-0.7) Basophils # (Auto) 0.0 x10^3/uL (0.0-0.2) Urine Collection Type U cath Urine Color Yellow Urine Clarity Clear Urine pH 7.0 Urine Specific [place] 1.015 Urine Protein 30 mg/dl (NEG-TRACE) Urine Glucose (UA) Neg mg/dL (NEG) Urine Ketones (Stick) 80 mg/dL (NEG) Urine Blood Neg (NEG) Urine Nitrite Neg (NEG) Urine Bilirubin Neg (NEG) Urine Urobilinogen Dipstick 1 mg/dL (0.2 mg/dL) Urine Leukocyte Esterase Neg (NEG) Urine RBC 0 /HPF (0-2) Urine WBC Occ /HPF (0-4) Urine Squamous Epithelial Cells Few /LPF Urine Bacteria 0 /HPF (0-FEW) Sodium Level 136 mmol/L (136-145) Potassium Level 3.6 mmol/L (3.5-5.1) Chloride Level 101 mmol/L (98-107) Carbon Dioxide Level 22 mmol/L (21-32) Anion Gap 13 (6-14) Blood Urea Nitrogen 5 mg/dL (7-20) L Creatinine 0.5 mg/dL (0.6-1.0) L Estimated GFR (Cockcroft-Gault) 155.7 BUN/Creatinine Ratio 10 (6-20) Glucose Level 97 mg/dL (70-99) Lactic Acid Level 0.9 mmol/L (0.4-2.0) Calcium Level 8.1 mg/dL (8.5-10.1) L Total Bilirubin 0.6 mg/dL (0.2-1.0) Aspartate Amino Transferase (AST) 11 U/L (15-37) L Alanine Aminotransferase (ALT) 12 U/L (14-59) L Alkaline Phosphatase 57 U/L (46-116) Total Protein 7.4 g/dL (6.4-8.2) Albumin 3.6 g/dL (3.4-5.0) Albumin/Globulin Ratio 0.9 (1.0-1.7) L EKG EKG EC: Sinus tachycardia, heart rate 123 beats minute, QTC of 380, CO of 170 , QRS of 70, patient with contour abnormality noted in the inferior and anterioseptal leads, but no ST depressions or elevations, abnormal ECG, but does not meet STEMI criteria. As interpreted by me. [] Radiology/Procedures Radiology/Procedures Chest x-ray: One view: Normal cardiopulmonary silhouette, no infiltrates, no effusions, no pneumothorax, no soft tissue or bony abnormalities identified. As interpreted by me. [] Course & Med Decision Making Course & Med Decision Making Pertinent Labs and Imaging studies reviewed. (See chart for details) [] Final Impression Final Impression Patient with presentation concerning for sepsis, laboratory studies, including urine, and blood cultures were obtained. Urinalysis did not reveal any anterior other concerning findings, however patient has received antibiotics today per her report, which may cloud the issue somewhat. Patient does have a leukocytosis of 12.3, concerning in light of her medical history, with fever, and relative hypotension. Lactic at 0.9. Patient received IV fluid bolus 2, Tylenol the emergency department, on reevaluation heart rate is 100, temperature is 99.2, blood pressure is 93/46, she is resting more comfortably after receiving pain medication and antiemetics as well. I had lengthy discussion at bedside with patient and mother, at this time we have not identified a source for the infection, with the patient's history and presenting illness, she is agreeable for admission to the hospital for broad- spectrum antibiotics and additional monitoring and evaluation. She states she is feeling better at this time after receiving antiemetics and pain medication as stated. I did discuss findings as above with Dr. Boyce, who is familiar with the patient from previous admissions, patient accepted his service as a full admission to the ICU, will start broad-spectrum antibiotics with Zosyn and vancomycin per pharmacy, patient also administered stress dose steroids, with 100 mg of hydrocortisone given IV 1, will continue IV fluids, repeat laboratory studies in the morning, and close monitoring. Bridge orders entered per discussion. Problems: Dragon Disclaimer Dragon Disclaimer This electronic medical record was generated, in whole or in part, using a voice recognition dictation system. Departure: Impression: Primary Impression: Fever Additional Impression: SIRS (systemic inflammatory response syndrome) Disposition: 09 ADMITTED INPATIENT Admitting Physician: Hussein Boyce Condition: IMPROVED NINO WARD DO Jan 07, 2017 02:14
[2017-01-07] MEDS ORDERED: ACETAMINOPHEN 325 MG TABLET PO PRN (02:30)
[2017-01-07] MEDS ORDERED: ONDANSETRON PF 4 MG/2 ML VIAL. IV PRN (02:30)
[2017-01-07] MEDS: IV NORMAL SALINE 1,000ML 1,000 ML IV SCH ×4 (02:30→22:42)
[2017-01-07] MEDS ORDERED: HYDROCORTISONE SOD SUCC/PF 100 MG/2 ML VIAL. IV ONE (02:45)
[2017-01-07] MEDS ORDERED: VANCOMYCIN 1 GM in IV NORMAL SALINE 250ML 250 ML IV ONE (03:00)
[2017-01-07] MEDS ORDERED: PIP/TAZO PER PHARMACY MC PRN (04:00)
[2017-01-07] MEDS ORDERED: PIPERACILLIN/TAZOBACTAM 3.375 GM in IV NORMAL SALINE 50ML 50 ML IV ONE (04:00)
[2017-01-07] MEDS ORDERED: diphenhydrAMINE 50 MG/ML VIAL IVP ONE (04:45)
[2017-01-07] MEDS ORDERED: PROM25TA10 PO (04:47)
[2017-01-07] MEDS ORDERED: ONDA8TAB12 PO (04:47)
[2017-01-07] MEDS ORDERED: METO10TA81 PO (04:47)
[2017-01-07] MEDS ORDERED: HYDR-971 PO (04:47)
[2017-01-07] MEDS ORDERED: BUDE10.22 IH (04:47)
[2017-01-07] MEDS ORDERED: ALBU18HF IH (04:47)
[2017-01-07] MEDS ORDERED: ALBU2.5V5 NEB (04:47)
[2017-01-07] MEDS ORDERED: VANCOMYCIN 1 GM VIAL. ONE (05:32)
[2017-01-07] MEDS ORDERED: IV NORMAL SALINE 50ML 50 ML ONE ×2 (05:32→22:48)
[2017-01-07] MEDS ORDERED: IV NORMAL SALINE 250ML 250 ML ONE (05:32)
[2017-01-07] MEDS ORDERED: PIPERACILLIN/TAZOBACTAM 3.375 GM VIAL IV ONE (05:32)
--- NOTE | 2017-01-07 07:30 | RAD ---
Portable AP upright view CXR: Clinical indications: Fever and tachycardia Comparison: October 05, 2016.. Findings: No acute lung infiltrate or pleural effusion or pulmonary edema or lung mass or pneumothorax is seen. The heart size, pulmonary vasculature, mediastinum and both mikki are unremarkable. Scoliosis is seen. Left subclavian Port-A-Cath is in place and unchanged in position. A PEG tube is in place. Impression: No acute radiographic abnormality is seen.
[2017-01-07] MEDS: VANCOMYCIN PER PHARMACY MC PRN (08:05)
[2017-01-07] MEDS: fentaNYL PF 100 MCG/2 ML VIAL IV PRN ×5 (08:20→21:07)
--- NOTE | 2017-01-07 10:22 | ACF ---
Admission Criteria Forms SEPSIS and OTHER FEBRILE ILLNESS, W/O FOCAL INFECTION Clinical Indications for Admission to Inpatient Care ( Place 'X' for any and all applicable criteria): Admission is indicated for ANY ONE of the following (1)(2)(3)(4): [ ] I. Bacteremia [ ]II. Suspected or identified specific infection requiring hospitalization (eg, meningitis, endocarditis) [ ]III. Hemodynamic instability [ ]IV. Altered mental status [X]V. Failure or unavailability of outpatient antimicrobial treatment [ ]. Hypoxemia [ ]VII. Seizures [ ]VIII. High-risk febrile neutropenia [ ]IX. Need for parenteral antibiotic in patient who is likely to abuse vascular access device (eg, injection drug user) [A](7) [ ]X. Temperature greater than 104.9 degrees F (40.5 degrees C) (oral) [ ]XI. Inpatient admission required rather than observation care because of ANY ONE of the following: [ ]1) Specific infection identified that is too severe for outpatient treatment or observation care trial [ ]2) Metabolic disorder (eg, hypoglycemia, hyperglycemia, metabolic acidosis) that is severe or persistent [ ]3) Temperature greater than 103.1 degrees F (39.5 degrees C) ( oral) that is not responsive to observation care treatment [ ]4) IV fluid to replace significant ongoing (eg, for over 24 hours) losses (> 3 L/m2 per day) [ ]5) Supplemental oxygen or respiratory treatments for over 24 hours that is performable only in acute inpatient setting [ ]6) Parenteral nutrition regimen need that must be implemented on inpatient basis [ ]7) Strict or protective (eg, laminar flow) isolation [ ]8) Other condition, treatment or monitoring requiring inpatient admission Extended stay beyond goal length of stay may be needed for(1)(3) [ ]a) Sepsis or septic shock(22) [ ]b) Positive blood cultures [ ]c) Insufficient oral intake [ ]d) High-risk febrile neutropenia(29)(30) [ ]e) Continued fever and clinical instability [ ]f) Clinically active comorbid illness (e.g,heart failure, renal failure , diabetes) The original [employer] content created by Roger Graf has been revised. The portions of the content which have been revised are identified through the use of italic text or in bold, and Roger Graf has neither reviewed nor approved the modified material. All other unmodified content is copyright [facility]. Please see references footnoted in the original [facility] edition 2016 Admission Criteria Met?: Yes ORVILLE MERCADO. Jan 07, 2017 10:22
[2017-01-07] MEDS ORDERED: ALBUTEROL SULFATE 8GM INHALER. IH PRN (10:30)
[2017-01-07] MEDS ORDERED: ALBUTEROL SULFATE 2.5 MG/3 ML NEBU. NEB PRN (10:30)
[2017-01-07] MEDS ORDERED: LINACLOTIDE 145 MCG CAPSULE. PO PRN (10:30)
[2017-01-07] MEDS: METOPROLOL TART IMMED RELEASE 25 MG TABLET PO SCH ×2 (10:47→20:40)
[2017-01-07] MEDS: ENOXAPARIN 30 MG/0.3 ML DISP.SYRIN. SQ SCH (10:56)
[2017-01-07] MEDS ORDERED: ONDANSETRON ODT 4 MG TAB.RAPDIS PO PRN (11:00)
[2017-01-07] MEDS ORDERED: HYDROCORTISONE 10 MG TABLET PO SCH (11:00)
[2017-01-07] MEDS: ALBUTEROL SULFATE 2.5 MG/3 ML NEBU. NEB SCH ×3 (11:07→20:51)
[2017-01-07] MEDS: PANTOPRAZOLE 40 MG TABLET. PO SCH (11:56)
[2017-01-07] MEDS: FLUDROCORTISONE 0.1 MG TABLET PO SCH (11:56)
[2017-01-07] MEDS: PIPERACILLIN/TAZOBACTAM 3.375 GM in IV NORMAL SALINE 50ML 50 ML IV SCH ×2 (11:56→18:01)
[2017-01-07] MEDS: HYDROCORTISONE SOD SUCC/PF 100 MG/2 ML VIAL. IV SCH ×2 (11:56→22:42)
[2017-01-07] MEDS: PROMETHAZINE 12.5 MG in IV NORMAL SALINE 50ML 50 ML IV PRN ×2 (11:57→22:54)
[2017-01-07] MEDS: VANCOMYCIN 750 MG in IV NORMAL SALINE 250ML 250 ML IV SCH ×2 (13:47→21:08)
[2017-01-07] MEDS: diphenhydrAMINE 50 MG/ML VIAL IVP PRN ×2 (13:58→21:08)
--- NOTE | 2017-01-07 16:47 | PDOC1 ---
History and Physicial Street and physical on [facility] Date of admission 01/06/17 REASON FOR ADMISSION: FEVER, RIGHT HIP PAIN, UTI, SEPSIS, BACTEREMIA HPI: This is a 21-year-old female presented to the emergency room complaining of fever, continued right hip pain. She has a history of "common variable immune deficiency"and PIDD. Yesterday she had a temperature of 102. She also had a temp of 99.8. Other than the hip pain she has had some vomiting. She receives her medical care at [facility] as well as is under the infectious disease care of Dr. Huddleston. PMI: She has a history of sepsis in September 2016 with bacteremia also Escherichia coli urinary tract infection. She has a history of traumatic brain injury, lower extremity neuropathy and motor dysfunction, common variable immune deficiency, narcotic induced constipation, [place]'s disease, neurogenic bladder , B12 deficiency, adrenal insufficiency. Allergies: erythromycin base Medications were reviewed and are available on the [facility] Review of systems positive for right-sided hip pain without history of injury. Positive for fever positive for weakness. Physical exam: Constitutional 21-year-old in no acute distress. Height 66.5 inches weight 101 pound. Radial appearing. Just received pain medication as is and is in no acute distress. HEENT eyes were clear,, throat clear, posterior pharynx unremarkable Neck was supple without adenopathy Cardiovascular regular rhythm and rate without murmur Lungs are clear to auscultation Abdomen soft nontender bowel sounds are positive the only area of concern is she has a deep right inguinal pain maneuvering of the leg does not produce increase in the right inguinal pain. Inguinal ligament is not necessarily is not tender. Skin is warm and dry Extremities are without edema neurologic he is alert and oriented 3 and there is dysfunction of the lower extremities Laboratory: Patient has positive urine culture from [place] from 07 January growing out Escherichia coli greater than 100,000. She has positive blood culture of gram-positive cocci in the hip ultrasound and CT of the abdomen and pelvis were negative. Laboratory she has an elevated white count. Assessment #1 sepsis with bacteremia and urinary tract infection growing out Escherichia coli #2 right inguinal pain question etiology #3 neurogenic bladder number for adrenal insufficiency #5 lower extremity weakness and neuropathy #6 TBI 7 history of bacteremia and UTI in September 2016 8 immune deficiency #9 [place]"s DZ PLAN: IV antibiotics, broad-spectrum, IV fluids, along the lines of the severe sepsis protocol. Treat her pain. Dose her with stress. Stress dose of hydrocortisone. Problems: (1) Sepsis (2) Immune deficiency disorder (3) Fever (4) SIRS (systemic inflammatory response syndrome) YOLI FINLEY DO Jan 07, 2017 16:47
[2017-01-07] MEDS: BUDESONIDE 0.5 MG/2 ML NEBU NEB SCH (20:51)
[2017-01-07] MEDS ORDERED: NON FORMULARY ITEM (Budesonide/Formoterol Fumarate (Symbicort 80-4.5 Mcg Inhaler) 2 PUFF) IH SCH (21:00)
[2017-01-07] MEDS ORDERED: PROMETHAZINE 25 MG/ML VIAL IV ONE (22:47)
[2017-01-08] MEDS: PIPERACILLIN/TAZOBACTAM 3.375 GM in IV NORMAL SALINE 50ML 50 ML IV SCH ×4 (00:09→18:00)
[2017-01-08] MEDS: fentaNYL PF 100 MCG/2 ML VIAL IV PRN ×6 (00:15→19:36)
[2017-01-08] MEDS: VANCOMYCIN 750 MG in IV NORMAL SALINE 250ML 250 ML IV SCH (04:53)
[2017-01-08 05:02] VITALS: BP 117/76
[2017-01-08] MEDS: diphenhydrAMINE 50 MG/ML VIAL IVP PRN ×3 (05:04→20:37)
[2017-01-08 05:11] LABS: BASO % 0 % (0-3); EOS % 0 % (0-3); HEMATOCRIT 29.6 % (36.0-47.0); LYMPH # 0.4 x10^3/uL (1.0-4.8); LYMPH % 11 % (24-48); MEAN CORPUSCULAR HEMOGLOBIN 31 pg (25-35); MEAN CORPUSCULAR HGB CONC 34 g/dL (31-37); MEAN CORPUSCULAR VOLUME 90 fL (79-100); MONO # 0.1 x10^3/uL (0.0-1.1); MONO % 3 % (0-9); NEUT # 2.8 x10^3uL (1.8-7.7); NEUT % 85 % (31-73); PLATELET COUNT 130 x10^3/uL (140-400); RED BLOOD COUNT 3.28 x10^6/uL (3.50-5.40); WHITE BLOOD COUNT 3.3 x10^3/uL (4.0-11.0)
[2017-01-08 05:17] LABS: CALCIUM 7.6 mg/dL (8.5-10.1); CREATININE 0.5 mg/dL (0.6-1.0); GFR 155.7; POTASSIUM 3.3 mmol/L (3.5-5.1)
[2017-01-08] MEDS: ALBUTEROL SULFATE 2.5 MG/3 ML NEBU. NEB SCH ×4 (06:03→20:29)
[2017-01-08] MEDS: HYDROCORTISONE SOD SUCC/PF 100 MG/2 ML VIAL. IV SCH ×3 (06:39→22:34)
[2017-01-08] MEDS: METOPROLOL TART IMMED RELEASE 25 MG TABLET PO SCH ×2 (08:51→20:36)
[2017-01-08 10:05] VITALS: BP 116/82
[2017-01-08] MEDS: VANCOMYCIN PER PHARMACY MC PRN ×2 (10:35→14:36)
[2017-01-08] MEDS: ENOXAPARIN 30 MG/0.3 ML DISP.SYRIN. SQ SCH (10:47)
[2017-01-08] MEDS: BUDESONIDE 0.5 MG/2 ML NEBU NEB SCH ×2 (11:52→20:29)
--- NOTE | 2017-01-08 12:10 | PDOC ---
PROGRESS NOTES Diagnosis Problem Problems Medical Problems: (1) Fever Status: Acute (2) SIRS (systemic inflammatory response syndrome) Status: Acute Assessment Problems Medical Problems: (1) Fever Status: Acute (2) SIRS (systemic inflammatory response syndrome) Status: Acute (3)Sepsis with bacteremia-2 positive blood cultures growing out gm positive cocci in chains (4) E. 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 I discussed her case with her ID physician Dr. Huddleston. Will continue on the current antibiotics until final cultures are back. DVT prophylaxis and receiving stress dose of hydrocortisone. Replace potassium. Subjective Had a reasonable night. Complaining of some neck pain and still complaining of the deep right groin pain. Mother states that she wanted to the leg table, [employer] and she had been to being aware she was sitting in some kind of apparatus and her brother was holding onto her. This certainly could explain pain in her groin. We're awaiting the results of her blood cultures as far as the final ID goes. She has a U Escherichia coli UTI. Taking in food and fluids adequately. Receiving vancomycin and Zosyn. Objective L 21-year-old in no acute distress. HEENT her eyes were clear nose was patent her throat was clear. Lungs were clear to auscultation cardiovascular regular rhythm without murmur abdomen soft nontender to palpation, no masses palpated Memories without edema Noted on her right thigh some areas where she had some bug bites at the [place]. He is around circular like nummular eczema barely above the skin. Slight site is free of any evidence of infection Vital Signs Date Time Temp Pulse Resp B/P (MAP) Pulse Ox O2 Delivery O2 Flow Rate FiO2 01/08/17 10:50 97 Room Air 01/08/17 10:05 98.4 57 20 116/82 (93) Intake and Output 01/08/17 07:00 Intake Total 2397.5 ml Output Total 2200 ml Balance 197.5 ml Intake Oral 460 ml IV Total 1937.5 ml Output Urine Total 2200 ml Physical Exam Also neck was palpated and just mild tenderness no nuchal rigidity whatsoever right groin could not produce the deep groin pain Review of Relevant I have reviewed the following items candelario (where applicable) has been applied. Blood cultures, urine culture, C, CMP Labs Laboratory Tests Test 01/06/17 22:30 01/06/17 23:00 01/07/17 05:00 01/08/17 05:00 Urine Opiates Screen Pos (NEG) Urine Methadone Screen Neg (NEG) Urine Barbiturates Neg (NEG) Urine Phencyclidine Screen Neg (NEG) Urine Amphetamine/Methamphetamine Neg (NEG) Urine Benzodiazepines Screen Neg (NEG) Urine Cocaine Screen Neg (NEG) Urine Cannabinoids Screen Neg (NEG) Urine Ethyl Alcohol Neg (NEG) White Blood Count 12.3 x10^3/uL (4.0-11.0) 3.3 x10^3/uL (4.0-11.0) Red Blood Count 4.08 x10^6/uL (3.50-5.40) 3.28 x10^6/uL (3.50-5.40) Hemoglobin 12.3 g/dL (12.0-15.5) 10.0 g/dL (12.0-15.5) Hematocrit 36.5 % (36.0-47.0) 29.6 % (36.0-47.0) Mean Corpuscular Volume 89 fL (79-100) 90 fL (79-100) Mean Corpuscular Hemoglobin 30 pg (25-35) 31 pg (25-35) Mean Corpuscular Hemoglobin Concent 34 g/dL (31-37) 34 g/dL (31-37) Red Cell Distribution Width 12.5 % (11.5-14.5) 13.0 % (11.5-14.5) Platelet Count 159 x10^3/uL (140-400) 130 x10^3/uL (140-400) Neutrophils (%) (Auto) 96 % (31-73) 85 % (31-73) Lymphocytes (%) (Auto) 2 % (24-48) 11 % (24-48) Monocytes (%) (Auto) 2 % (0-9) 3 % (0-9) Eosinophils (%) (Auto) 0 % (0-3) 0 % (0-3) Basophils (%) (Auto) 0 % (0-3) 0 % (0-3) Neutrophils # (Auto) 11.8 x10^3uL (1.8-7.7) 2.8 x10^3uL (1.8-7.7) Lymphocytes # (Auto) 0.3 x10^3/uL (1.0-4.8) 0.4 x10^3/uL (1.0-4.8) Monocytes # (Auto) 0.2 x10^3/uL (0.0-1.1) 0.1 x10^3/uL (0.0-1.1) Eosinophils # (Auto) 0.0 x10^3/uL (0.0-0.7) 0.0 x10^3/uL (0.0-0.7) Basophils # (Auto) 0.0 x10^3/uL (0.0-0.2) 0.0 x10^3/uL (0.0-0.2) Urine Collection Type U cath Urine Color Yellow Urine Clarity Clear Urine pH 7.0 Urine Specific [place] 1.015 Urine Protein 30 mg/dl (NEG-TRACE) Urine Glucose (UA) Neg mg/dL (NEG) Urine Ketones (Stick) 80 mg/dL (NEG) Urine Blood Neg (NEG) Urine Nitrite Neg (NEG) Urine Bilirubin Neg (NEG) Urine Urobilinogen Dipstick 1 mg/dL (0.2 mg/dL) Urine Leukocyte Esterase Neg (NEG) Urine RBC 0 /HPF (0-2) Urine WBC Occ /HPF (0-4) Urine Squamous Epithelial Cells Few /LPF Urine Bacteria 0 /HPF (0-FEW) Sodium Level 136 mmol/L (136-145) 141 mmol/L (136-145) Potassium Level 3.6 mmol/L (3.5-5.1) 3.3 mmol/L (3.5-5.1) Chloride Level 101 mmol/L (98-107) 109 mmol/L (98-107) Carbon Dioxide Level 22 mmol/L (21-32) 24 mmol/L (21-32) Anion Gap 13 (6-14) 8 (6-14) Blood Urea Nitrogen 5 mg/dL (7-20) 2 mg/dL (7-20) Creatinine 0.5 mg/dL (0.6-1.0) 0.5 mg/dL (0.6-1.0) Estimated GFR (Cockcroft-Gault) 155.7 155.7 BUN/Creatinine Ratio 10 (6-20) Glucose Level 97 mg/dL (70-99) 140 mg/dL (70-99) Lactic Acid Level 0.9 mmol/L (0.4-2.0) Calcium Level 8.1 mg/dL (8.5-10.1) 7.6 mg/dL (8.5-10.1) Total Bilirubin 0.6 mg/dL (0.2-1.0) Aspartate Amino Transf (AST/SGOT) 11 U/L (15-37) Alanine Aminotransferase (ALT/SGPT) 12 U/L (14-59) Alkaline Phosphatase 57 U/L (46-116) Total Protein 7.4 g/dL (6.4-8.2) Albumin 3.6 g/dL (3.4-5.0) Albumin/Globulin Ratio 0.9 (1.0-1.7) Nasal Screen MRSA (PCR) Positive (Negative) Microbiology 01/06/17 Blood Culture - Preliminary, Resulted NO GROWTH AFTER 1 DAY Medications Current Medications Sodium Chloride 1,000 ml @ 1,000 mls/hr 1X ONCE IV Last administered on 23:25; Start 01/06/17 at 23:00; Stop 01/06/17 at 23:59; Status DC Acetaminophen (Tylenol) 1,000 mg 1X ONCE PO ; Start 01/06/17 at 23:15; Stop at 00:22; Status DC Promethazine HCl 25 mg/Sodium Chloride 51 ml @ 101 mls/hr 1X ONCE IV Last administered on 01/06/17 23:25; Start 01/06/17 at 23:15; Stop 01/06/17 at 23:45 ; Status DC Fentanyl Citrate (Fentanyl 2ml Vial) 25 mcg PRN Q15MIN PRN IV PAIN GREATER THAN 3/10 Last administered on 01/06/17 23:25; Start 01/06/17 at 23:15; Stop at 10:48; Status DC Promethazine HCl (Phenergan) 25 mg STK-MED ONCE IV ; Start 01/06/17 at 23:15; Stop 01/06/17 at 23:16; Status DC Sodium Chloride 50 ml @ As Directed STK-MED ONCE .ROUTE ; Start 01/06/17 at 23: 16; Stop 01/06/17 at 23:17; Status DC Acetaminophen (Tylenol) 1,000 mg 1X ONCE PO Last administered on 01/07/17 00: 29; Start 01/07/17 at 00:30; Stop 01/07/17 at 02:41; Status DC Sodium Chloride 1,000 ml @ 1,000 mls/hr 1X ONCE IV Last administered on 02:30; Start 01/07/17 at 00:45; Stop 01/07/17 at 02:41; Status DC Vancomycin HCl (Vanco Per Pharmacy) 1 each PRN DAILY PRN MC SEE COMMENTS Last administered on 01/08/17 10:35; Start 01/07/17 at 00:45 Piperacillin Sod/ Tazobactam Sod (Zosyn Per Pharmacy) 1 each PRN DAILY PRN MC SEE COMMENTS Last administered on 01/08/17 10:34; Start 01/07/17 at 04:00 Hydrocortisone Sodium Succinate (Solu-CORTEF) 100 mg 1X ONCE IV Last administered on 01/07/17 03:00; Start 01/07/17 at 02:45; Stop 01/07/17 at 02:46 ; Status DC Ondansetron HCl (Zofran) 4 mg PRN Q4HRS PRN IV NAUSEA/VOMITING; Start 01/07/17 at 02:30; Stop 01/08/17 at 02:29; Status DC Fentanyl Citrate (Fentanyl 2ml Vial) 50 mcg PRN Q2HR PRN IV PAIN Last administered on 01/08/17 00:15; Start 01/07/17 at 02:30; Stop 01/08/17 at 02:29; Status DC Sodium Chloride 1,000 ml @ 150 mls/hr Q6H40M IV Last administered on 22:42; Start 01/07/17 at 02:30; Stop 01/08/17 at 02:29; Status DC Acetaminophen (Tylenol) 650 mg PRN Q4HRS PRN PO FEVER Last administered on 01/07 22:42; Start 01/07/17 at 02:30; Stop 01/08/17 at 02:29; Status DC Vancomycin HCl 1 gm/Sodium Chloride 250 ml @ 250 mls/hr ONCE ONCE IV ; Start 01/07/17 at 03:00; Stop 01/07/17 at 03:59; Status DC Piperacillin Sod/ Tazobactam Sod 3.375 gm/Sodium Chloride 50 ml @ 100 mls/hr 1X ONCE IV Last administered on 01/07/17 05:58; Start 01/07/17 at 04:00; Stop 01/07/17 at 04:29; Status DC Diphenhydramine HCl (Benadryl) 25 mg 1X ONCE IVP Last administered on 05:57; Start 01/07/17 at 04:45; Stop 01/07/17 at 04:46; Status DC Piperacillin Sod/ Tazobactam Sod 3.375 gm/Sodium Chloride 50 ml @ 100 mls/hr Q6HRS IV Last administered on 01/08/17 06:39; Start 01/07/17 at 12:00 Vancomycin HCl 1 gm STK-MED ONCE .ROUTE Last administered on 01/07/17 06:37; Start 01/07/17 at 05:32; Stop 01/07/17 at 05:33; Status DC Piperacillin Sod/ Tazobactam Sod (Zosyn) 3.375 gm STK-MED ONCE IV ; Start at 05:32; Stop 01/07/17 at 05:33; Status DC Sodium Chloride 250 ml @ As Directed STK-MED ONCE .ROUTE Last administered on 01/07/17 06:37; Start 01/07/17 at 05:32; Stop 01/07/17 at 05:33; Status DC Sodium Chloride 50 ml @ As Directed STK-MED ONCE .ROUTE ; Start 01/07/17 at 05: 32; Stop 01/07/17 at 05:33; Status DC Vancomycin HCl 750 mg/Sodium Chloride 250 ml @ 250 mls/hr Q8H IV Last administered on 01/08/17 04:53; Start 01/07/17 at 13:00 Vancomycin HCl 1 each 1X ONCE MC ; Start 01/08/17 at 12:30; Stop 01/08/17 at 12: 31 Albuterol Sulfate (Ventolin) 2.5 mg PRN Q4HRS PRN NEB SHORTNESS OF BREATH; Start 01/07/17 at 10:30 Albuterol Sulfate (Ventolin Hfa) 2 puff PRN Q4HRS PRN IH SHORTNESS OF BREATH; Start 01/07/17 at 10:30; Status UNV Fludrocortisone Acetate (Florinef) 0.1 mg NOON PO Last administered on 11:56; Start 01/07/17 at 12:00 Acetaminophen/ Hydrocodone Bitart (Lortab 5/325) 1 tab PRN Q6HRS PRN PO PAIN; Start 01/07/17 at 10:30 Metoclopramide HCl (Reglan) 10 mg PRN TID PRN PO NAUSEA/VOMITING; Start at 10:30 Metoprolol Tartrate (Lopressor) 25 mg BID PO Last administered on 01/08/17 08: 51; Start 01/07/17 at 10:30 Promethazine HCl (Phenergan) 25 mg PRN Q4HRS PRN PO NAUSEA/VOMITING; Start at 10:30 Non-Formulary Medication 2 puff BID IH ; Start 01/07/17 at 21:00; Stop 01/07/17 at 21:00; Status DC Pantoprazole Sodium (Protonix) 40 mg NOON PO Last administered on 01/07/17 11: 56; Start 01/07/17 at 12:00 Hydrocortisone (Cortef) 5 mg BID PO Last administered on 01/07/17 11:16; Start 01/07/17 at 11:00; Stop 01/07/17 at 11:39; Status DC Non-Formulary Medication 290 mcg PRN DAILY PRN PO CONSTIPATION; Start 01/07/17 at 10:30; Status UNV Ondansetron HCl (Zofran Odt) 8 mg PRN Q4HRS PRN PO NAUSEA/VOMITING; Start 01/07 at 11:00 Enoxaparin Sodium (Lovenox) 30 mg Q24H SQ Last administered on 01/08/17 10:47; Start 01/07/17 at 10:30 Albuterol Sulfate (Ventolin) 2.5 mg Q6H NEB Last administered on 01/08/17 06:03 ; Start 01/07/17 at 11:00 Budesonide (Pulmicort) 0.5 mg RTBID NEB Last administered on 01/07/17 20:51; Start 01/07/17 at 20:00 Promethazine HCl 12.5 mg/Sodium Chloride 50.5 ml @ 101 mls/hr PRN Q6HRS PRN IV NAUSEA/VOMITING Last administered on 01/07/17 22:54; Start 01/07/17 at 11:15 Hydrocortisone Sodium Succinate (Solu-CORTEF) 100 mg Q8HRS IV Last administered on 01/08/17 06:39; Start 01/07/17 at 12:00 Diphenhydramine HCl (Benadryl) 25 mg PRN Q6HRS PRN IVP ITCHING Last administered on 01/08/17 05:04; Start 01/07/17 at 14:00 Promethazine HCl (Phenergan) 25 mg STK-MED ONCE IV ; Start 01/07/17 at 22:47; Stop 01/07/17 at 22:48; Status DC Sodium Chloride 50 ml @ As Directed STK-MED ONCE .ROUTE ; Start 01/07/17 at 22: 48; Stop 01/07/17 at 22:49; Status DC Fentanyl Citrate (Fentanyl 2ml Vial) 50 mcg PRN Q2HR PRN IV PAIN Last administered on 01/08/17 10:18; Start 01/08/17 at 04:00 Active Scripts Active Reported Albuterol Sulfate Neb Soln (Albuterol Sulfate) 2.5 Mg/3 Ml Vial.neb 2.5 Mg NEB PRN Q4HRS PRN Ventolin Hfa Inhaler (Albuterol Sulfate) 18 Gm Hfa.aer.ad 2 Puff IH PRN Q4HRS PRN Symbicort 80-4.5 Mcg Inhaler (Budesonide/Formoterol Fumarate) 10.2 Gm Hfa.aer.ad 2 Puff IH BID [place] 5-325 Tablet (Hydrocodone Bit/Acetaminophen) 1 Each Tablet 1-2 Tab PO Q4- 6HRS Reglan (Metoclopramide Hcl) 10 Mg Tablet 10 Mg PO PRN TID PRN Promethazine Hcl 25 Mg Tablet 25 Mg PO PRN Q4HRS PRN Zofran Odt (Ondansetron) 8 Mg Tab.rapdis 8 Mg PO PRN Q4HRS PRN Metoprolol Tartrate 25 Mg Tablet 25 Mg PO BID Nexium Capsule (Esomeprazole Magnesium) 40 Mg Capsule.dr 40 Mg PO NOON Fludrocortisone Acetate 0.1 Mg Tablet 0.1 Mg PO NOON Cortef (Hydrocortisone) 5 Mg Tablet 5 Mg PO BID Linzess (Linaclotide) 290 Mcg Capsule 290 Mcg PO PRN DAILY PRN Vitals/I & O Vital Sign - Last 24 Hours 01/07/17 01/07/17 01/07/17 01/07/17 12:06 13:40 13:49 14:49 Pulse 75 78 69 66 Resp 21 21 22 20 B/P (MAP) 95/52 (66) 97/61 (73) 105/54 (71) 98/58 (71) Pulse Ox 99 100 100 99 O2 Delivery Room Air Room Air Room Air Room Air 01/07/17 01/07/17 01/07/17 01/07/17 15:49 19:17 20:30 20:40 Temp 98.7 Pulse 62 69 69 Resp 14 18 B/P (MAP) 100/54 (69) 106/64 (78) 106/64 Pulse Ox 98 99 O2 Delivery Room Air Room Air Room Air 01/07/17 01/07/17 01/07/17 01/07/17 20:55 20:58 21:07 22:38 Temp 99.0 Pulse 100 Resp 18 20 B/P (MAP) 99/67 (78) Pulse Ox 97 100 O2 Delivery Room Air Room Air Room Air Room Air 01/08/17 01/08/17 01/08/17 01/08/17 00:15 00:45 04:13 04:45 Resp 18 18 18 18 O2 Delivery Room Air Room Air Room Air 01/08/17 01/08/17 01/08/17 01/08/17 05:02 06:05 07:28 08:00 Temp 98.4 Pulse 65 Resp 18 B/P (MAP) 117/76 (90) Pulse Ox 99 96 96 O2 Delivery Room Air Room Air Room Air Room Air 01/08/17 01/08/17 01/08/17 01/08/17 08:51 10:05 10:18 10:50 Temp 98.4 Pulse 61 57 Resp 20 B/P (MAP) 116/76 116/82 (93) Pulse Ox 97 97 97 O2 Delivery Room Air Room Air Room Air Intake and Output 01/07/17 01/07/17 01/08/17 15:00 23:00 07:00 Intake Total 450.5 ml 1487 ml 460 ml Output Total 625 ml 1575 ml Balance 450.5 ml 862 ml -1115 ml YOLI FINLEY DO Jan 08, 2017 12:10
[2017-01-08] MEDS: PANTOPRAZOLE 40 MG TABLET. PO SCH (12:16)
[2017-01-08] MEDS: FLUDROCORTISONE 0.1 MG TABLET PO SCH (12:16)
[2017-01-08] MEDS ORDERED: IV NORMAL SALINE 250ML 250 ML ONE (12:24)
[2017-01-08] MEDS ORDERED: POTASSIUM CHLORIDE 20 MEQ TABLET.ER. PO ONE ×2 (12:30→17:00)
[2017-01-08] MEDS: PROMETHAZINE 12.5 MG in IV NORMAL SALINE 50ML 50 ML IV PRN (12:49)
[2017-01-08 13:51] LABS: VANC TR 6.5 mcg/mL (10.0-20.0)
[2017-01-08 15:07] VITALS: BP 122/81
[2017-01-08] MEDS: IV NORMAL SALINE 1,000ML 1,000 ML IV SCH (16:35)
[2017-01-08 18:16] VITALS: BP 124/79
[2017-01-08] MEDS ORDERED: IV NORMAL SALINE 50ML 50 ML ONE ×4 (18:37→23:50)
[2017-01-08] MEDS ORDERED: PIPERACILLIN/TAZOBACTAM 3.375 GM VIAL IV ONE ×2 (18:37→23:46)
[2017-01-08] MEDS: VANCOMYCIN 1 GM in IV NORMAL SALINE 250ML 250 ML IV SCH (20:42)
[2017-01-08] MEDS ORDERED: PROMETHAZINE 25 MG/ML VIAL IV ONE (23:49)
[2017-01-08 23:52] VITALS: BP 128/87
[2017-01-09] MEDS: fentaNYL PF 100 MCG/2 ML VIAL IV PRN ×6 (00:22→20:15)
[2017-01-09] MEDS: IV NORMAL SALINE 1,000ML 1,000 ML IV SCH (02:00)
[2017-01-09] MEDS: diphenhydrAMINE 50 MG/ML VIAL IVP PRN ×2 (04:44→12:59)
[2017-01-09] MEDS: VANCOMYCIN 1 GM in IV NORMAL SALINE 250ML 250 ML IV SCH (04:45)
[2017-01-09 05:47] LABS: HEMATOCRIT 32.4 % (36.0-47.0); HEMOGLOBIN 10.8 g/dL (12.0-15.5); RED BLOOD COUNT 3.59 x10^6/uL (3.50-5.40); RED CELL DISTRIBUTION WIDTH 12.8 % (11.5-14.5); WHITE BLOOD COUNT 5.4 x10^3/uL (4.0-11.0)
[2017-01-09] MEDS: ALBUTEROL SULFATE 2.5 MG/3 ML NEBU. NEB SCH ×4 (05:59→20:36)
[2017-01-09 06:04] VITALS: BP 156/104
[2017-01-09 06:05] LABS: ALBUMIN 2.8 g/dL (3.4-5.0); ALBUMIN/GLOBULIN RATIO 0.8 (1.0-1.7); CALCIUM 7.7 mg/dL (8.5-10.1); CREATININE 0.5 mg/dL (0.6-1.0); GFR 155.7; MAGNESIUM 1.7 mg/dL (1.8-2.4); TOTAL BILIRUBIN 0.2 mg/dL (0.2-1.0); TOTAL PROTEIN 6.1 g/dL (6.4-8.2)
[2017-01-09] MEDS: PIPERACILLIN/TAZOBACTAM 3.375 GM in IV NORMAL SALINE 50ML 50 ML IV SCH ×3 (06:27)
[2017-01-09] MEDS: HYDROCORTISONE SOD SUCC/PF 100 MG/2 ML VIAL. IV SCH ×3 (06:27→22:02)
[2017-01-09] MEDS ORDERED: MAGNESIUM SULFATE 2GM 50 ML IV ONE (06:30)
[2017-01-09] MEDS: METOPROLOL TART IMMED RELEASE 25 MG TABLET PO SCH ×2 (07:56→20:14)
[2017-01-09] MEDS: POTASSIUM CHLORIDE 20 MEQ TABLET.ER. PO SCH ×3 (07:57→17:58)
[2017-01-09] MEDS: POTASSIUM CHLORIDE 40 MEQ in IV 1/2 NORMAL SALINE 1,000 ML IV SCH ×2 (07:58→20:20)
[2017-01-09 08:12] VITALS: BP 143/90
[2017-01-09] MEDS: MICAFUNGIN 100 MG in IV DEXTROSE 5% 100 ML IV SCH (10:12)
[2017-01-09] MEDS: ENOXAPARIN 30 MG/0.3 ML DISP.SYRIN. SQ SCH (10:13)
[2017-01-09] MEDS: BUDESONIDE 0.5 MG/2 ML NEBU NEB SCH ×2 (11:25→20:36)
[2017-01-09] MEDS: FLUDROCORTISONE 0.1 MG TABLET PO SCH (11:55)
[2017-01-09] MEDS: PANTOPRAZOLE 40 MG TABLET. PO SCH (11:55)
[2017-01-09 12:01] VITALS: BP 117/77
--- NOTE | 2017-01-09 15:21 | PDOC ---
PROGRESS NOTES Diagnosis Problem Problems Medical Problems: (1) Fever Status: Acute (2) SIRS (systemic inflammatory response syndrome) #3 sepsis with bacteremia growing out strep viridans For sepsis with fungemia growing out yeast 5 right groin pain #6 immune deficiency assessment pain management a Port-A-Cath status #7 mild hypokalemia #8 traumatic brain injury #9 Sharpe catheter 10 normochromic normocytic anemia 11 DVT prophylaxis Status: Acute Assessment Problems Medical Problems: (1) Fever Status: Acute (2) SIRS (systemic inflammatory response syndrome) Status: Acute PLAN The plan is for her to start on the micafungin and she has already received a dose. She will continue on Rocephin. At some point next week she will have to most likely be transferred to [place] to have the Port-A-Cath removed. And some other type of IV access done. For now she remains in isolation under the care of her mother the nursing staff and is actually doing quite well. She is being medicated for pain. And we'll give her Benadryl as needed Subjective 21-year-old female admitted for positive cultures. 2 blood cultures have grown out strep viridans. Sensitivities are still pending. 2 more sets of blood cultures have grown out [place]. These of the blood cultures from [place]. I discussed her case with Dr. Ibarra and she will will start on antifungal IV today as well as downgrading the other antibiotics and will be just on Rocephin. I have discussed this with her mother. Became a little itchy Starting the DARIUSZ FUNGiN did get some relief with Benadryl. She is having excellent urine output. Also Dr. Pickard said that the Port-A-Cath will have to come out after 2 or 3 days on the antifungal medication. She will need continued IV access. Do not think we will be able to take support out here at [facility] so she possibly will need to be transferred to [facility] early next week. Objective Vital Signs Date Time Temp Pulse Resp B/P (MAP) Pulse Ox O2 Delivery O2 Flow Rate FiO2 01/09/17 13:04 98 Room Air 01/09/17 12:01 98.5 60 18 117/77 (90) Intake and Output 01/09/17 07:00 Intake Total 721 ml Output Total 1000 ml Balance -279 ml Intake Oral 721 ml Output Urine Total 1000 ml Physical Exam Color is pale, tongue is moist, eyes are clear, her neck was supple, her lungs were clear, cardiovascular regular rhythm and rate, abdomen soft nontender, Sharpe catheter in place draining large amounts of yellow urine, extremities without edema. Review of Relevant Blood cultures were reviewed .I have reviewed the following items candelario (where applicable) has been applied. Labs Laboratory Tests Test 01/08/17 05:00 01/08/17 13:00 01/09/17 05:40 White Blood Count 3.3 x10^3/uL (4.0-11.0) 5.4 x10^3/uL (4.0-11.0) Red Blood Count 3.28 x10^6/uL (3.50-5.40) 3.59 x10^6/uL (3.50-5.40) Hemoglobin 10.0 g/dL (12.0-15.5) 10.8 g/dL (12.0-15.5) Hematocrit 29.6 % (36.0-47.0) 32.4 % (36.0-47.0) Mean Corpuscular Volume 90 fL (79-100) 90 fL (79-100) Mean Corpuscular Hemoglobin 31 pg (25-35) 30 pg (25-35) Mean Corpuscular Hemoglobin Concent 34 g/dL (31-37) 33 g/dL (31-37) Red Cell Distribution Width 13.0 % (11.5-14.5) 12.8 % (11.5-14.5) Platelet Count 130 x10^3/uL (140-400) 186 x10^3/uL (140-400) Neutrophils (%) (Auto) 85 % (31-73) Lymphocytes (%) (Auto) 11 % (24-48) Monocytes (%) (Auto) 3 % (0-9) Eosinophils (%) (Auto) 0 % (0-3) Basophils (%) (Auto) 0 % (0-3) Neutrophils # (Auto) 2.8 x10^3uL (1.8-7.7) Lymphocytes # (Auto) 0.4 x10^3/uL (1.0-4.8) Monocytes # (Auto) 0.1 x10^3/uL (0.0-1.1) Eosinophils # (Auto) 0.0 x10^3/uL (0.0-0.7) Basophils # (Auto) 0.0 x10^3/uL (0.0-0.2) Sodium Level 141 mmol/L (136-145) 144 mmol/L (136-145) Potassium Level 3.3 mmol/L (3.5-5.1) 3.0 mmol/L (3.5-5.1) Chloride Level 109 mmol/L (98-107) 110 mmol/L (98-107) Carbon Dioxide Level 24 mmol/L (21-32) 27 mmol/L (21-32) Anion Gap 8 (6-14) 7 (6-14) Blood Urea Nitrogen 2 mg/dL (7-20) 2 mg/dL (7-20) Creatinine 0.5 mg/dL (0.6-1.0) 0.5 mg/dL (0.6-1.0) Estimated GFR (Cockcroft-Gault) 155.7 155.7 Glucose Level 140 mg/dL (70-99) 113 mg/dL (70-99) Calcium Level 7.6 mg/dL (8.5-10.1) 7.7 mg/dL (8.5-10.1) Vancomycin Level Trough 6.5 mcg/mL (10.0-20.0) Vancomycin Last Dose Date 01/08/2017 Vancomycin Last Dose Time 0500 BUN/Creatinine Ratio 4 (6-20) Magnesium Level 1.7 mg/dL (1.8-2.4) Total Bilirubin 0.2 mg/dL (0.2-1.0) Aspartate Amino Transf (AST/SGOT) 29 U/L (15-37) Alanine Aminotransferase (ALT/SGPT) 58 U/L (14-59) Alkaline Phosphatase 53 U/L (46-116) Total Protein 6.1 g/dL (6.4-8.2) Albumin 2.8 g/dL (3.4-5.0) Albumin/Globulin Ratio 0.8 (1.0-1.7) Microbiology 01/06/17 Blood Culture - Preliminary, Resulted 01/06/17 Blood Culture Result 1 (AYAH) - Preliminary, Resulted Medications Current Medications Sodium Chloride 1,000 ml @ 1,000 mls/hr 1X ONCE IV Last administered on 23:25; Start 01/06/17 at 23:00; Stop 01/06/17 at 23:59; Status DC Acetaminophen (Tylenol) 1,000 mg 1X ONCE PO ; Start 01/06/17 at 23:15; Stop at 00:22; Status DC Promethazine HCl 25 mg/Sodium Chloride 51 ml @ 101 mls/hr 1X ONCE IV Last administered on 01/06/17 23:25; Start 01/06/17 at 23:15; Stop 01/06/17 at 23:45 ; Status DC Fentanyl Citrate (Fentanyl 2ml Vial) 25 mcg PRN Q15MIN PRN IV PAIN GREATER THAN 3/10 Last administered on 01/06/17 23:25; Start 01/06/17 at 23:15; Stop at 10:48; Status DC Promethazine HCl (Phenergan) 25 mg STK-MED ONCE IV ; Start 01/06/17 at 23:15; Stop 01/06/17 at 23:16; Status DC Sodium Chloride 50 ml @ As Directed STK-MED ONCE .ROUTE ; Start 01/06/17 at 23: 16; Stop 01/06/17 at 23:17; Status DC Acetaminophen (Tylenol) 1,000 mg 1X ONCE PO Last administered on 01/07/17 00: 29; Start 01/07/17 at 00:30; Stop 01/07/17 at 02:41; Status DC Sodium Chloride 1,000 ml @ 1,000 mls/hr 1X ONCE IV Last administered on 02:30; Start 01/07/17 at 00:45; Stop 01/07/17 at 02:41; Status DC Vancomycin HCl (Vanco Per Pharmacy) 1 each PRN DAILY PRN MC SEE COMMENTS Last administered on 01/08/17 14:36; Start 01/07/17 at 00:45; Stop 01/09/17 at 10:00; Status DC Piperacillin Sod/ Tazobactam Sod (Zosyn Per Pharmacy) 1 each PRN DAILY PRN MC SEE COMMENTS Last administered on 01/08/17 10:34; Start 01/07/17 at 04:00; Stop 01/09/17 at 10:00; Status DC Hydrocortisone Sodium Succinate (Solu-CORTEF) 100 mg 1X ONCE IV Last administered on 01/07/17 03:00; Start 01/07/17 at 02:45; Stop 01/07/17 at 02:46 ; Status DC Ondansetron HCl (Zofran) 4 mg PRN Q4HRS PRN IV NAUSEA/VOMITING; Start 01/07/17 at 02:30; Stop 01/08/17 at 02:29; Status DC Fentanyl Citrate (Fentanyl 2ml Vial) 50 mcg PRN Q2HR PRN IV PAIN Last administered on 01/08/17 00:15; Start 01/07/17 at 02:30; Stop 01/08/17 at 02:29; Status DC Sodium Chloride 1,000 ml @ 150 mls/hr Q6H40M IV Last administered on 22:42; Start 01/07/17 at 02:30; Stop 01/08/17 at 02:29; Status DC Acetaminophen (Tylenol) 650 mg PRN Q4HRS PRN PO FEVER Last administered on 01/07 22:42; Start 01/07/17 at 02:30; Stop 01/08/17 at 02:29; Status DC Vancomycin HCl 1 gm/Sodium Chloride 250 ml @ 250 mls/hr ONCE ONCE IV ; Start 01/07/17 at 03:00; Stop 01/07/17 at 03:59; Status DC Piperacillin Sod/ Tazobactam Sod 3.375 gm/Sodium Chloride 50 ml @ 100 mls/hr 1X ONCE IV Last administered on 01/07/17 05:58; Start 01/07/17 at 04:00; Stop 01/07/17 at 04:29; Status DC Diphenhydramine HCl (Benadryl) 25 mg 1X ONCE IVP Last administered on 05:57; Start 01/07/17 at 04:45; Stop 01/07/17 at 04:46; Status DC Piperacillin Sod/ Tazobactam Sod 3.375 gm/Sodium Chloride 50 ml @ 100 mls/hr Q6HRS IV Last administered on 01/09/17 06:27; Start 01/07/17 at 12:00; Stop 01/09/17 at 09:32; Status DC Vancomycin HCl 1 gm STK-MED ONCE .ROUTE Last administered on 01/07/17 06:37; Start 01/07/17 at 05:32; Stop 01/07/17 at 05:33; Status DC Piperacillin Sod/ Tazobactam Sod (Zosyn) 3.375 gm STK-MED ONCE IV ; Start at 05:32; Stop 01/07/17 at 05:33; Status DC Sodium Chloride 250 ml @ As Directed STK-MED ONCE .ROUTE Last administered on 01/07/17 06:37; Start 01/07/17 at 05:32; Stop 01/07/17 at 05:33; Status DC Sodium Chloride 50 ml @ As Directed STK-MED ONCE .ROUTE ; Start 01/07/17 at 05: 32; Stop 01/07/17 at 05:33; Status DC Vancomycin HCl 750 mg/Sodium Chloride 250 ml @ 250 mls/hr Q8H IV Last administered on 01/08/17 04:53; Start 01/07/17 at 13:00; Stop 01/08/17 at 14:08; Status DC Vancomycin HCl 1 each 1X ONCE MC Last administered on 01/08/17 12:30; Start at 12:30; Stop 01/08/17 at 12:31; Status DC Albuterol Sulfate (Ventolin) 2.5 mg PRN Q4HRS PRN NEB SHORTNESS OF BREATH; Start 01/07/17 at 10:30 Albuterol Sulfate (Ventolin Hfa) 2 puff PRN Q4HRS PRN IH SHORTNESS OF BREATH; Start 01/07/17 at 10:30; Status UNV Fludrocortisone Acetate (Florinef) 0.1 mg NOON PO Last administered on 11:55; Start 01/07/17 at 12:00 Acetaminophen/ Hydrocodone Bitart (Lortab 5/325) 1 tab PRN Q6HRS PRN PO PAIN; Start 01/07/17 at 10:30 Metoclopramide HCl (Reglan) 10 mg PRN TID PRN PO NAUSEA/VOMITING; Start at 10:30 Metoprolol Tartrate (Lopressor) 25 mg BID PO Last administered on 01/09/17 07: 56; Start 01/07/17 at 10:30 Promethazine HCl (Phenergan) 25 mg PRN Q4HRS PRN PO NAUSEA/VOMITING; Start at 10:30 Non-Formulary Medication 2 puff BID IH ; Start 01/07/17 at 21:00; Stop 01/07/17 at 21:00; Status DC Pantoprazole Sodium (Protonix) 40 mg NOON PO Last administered on 01/09/17 11: 55; Start 01/07/17 at 12:00 Hydrocortisone (Cortef) 5 mg BID PO Last administered on 01/07/17 11:16; Start 01/07/17 at 11:00; Stop 01/07/17 at 11:39; Status DC Non-Formulary Medication 290 mcg PRN DAILY PRN PO CONSTIPATION; Start 01/07/17 at 10:30; Status UNV Ondansetron HCl (Zofran Odt) 8 mg PRN Q4HRS PRN PO NAUSEA/VOMITING; Start 01/07 at 11:00 Enoxaparin Sodium (Lovenox) 30 mg Q24H SQ Last administered on 01/09/17 10:13; Start 01/07/17 at 10:30 Albuterol Sulfate (Ventolin) 2.5 mg Q6H NEB Last administered on 01/09/17 11:25 ; Start 01/07/17 at 11:00 Budesonide (Pulmicort) 0.5 mg RTBID NEB Last administered on 01/09/17 11:25; Start 01/07/17 at 20:00 Promethazine HCl 12.5 mg/Sodium Chloride 50.5 ml @ 101 mls/hr PRN Q6HRS PRN IV NAUSEA/VOMITING Last administered on 01/08/17 12:49; Start 01/07/17 at 11:15 Hydrocortisone Sodium Succinate (Solu-CORTEF) 100 mg Q8HRS IV Last administered on 01/09/17 14:45; Start 01/07/17 at 12:00 Diphenhydramine HCl (Benadryl) 25 mg PRN Q6HRS PRN IVP ITCHING Last administered on 01/09/17 12:59; Start 01/07/17 at 14:00 Promethazine HCl (Phenergan) 25 mg STK-MED ONCE IV ; Start 01/07/17 at 22:47; Stop 01/07/17 at 22:48; Status DC Sodium Chloride 50 ml @ As Directed STK-MED ONCE .ROUTE ; Start 01/07/17 at 22: 48; Stop 01/07/17 at 22:49; Status DC Fentanyl Citrate (Fentanyl 2ml Vial) 50 mcg PRN Q2HR PRN IV PAIN Last administered on 01/09/17 12:27; Start 01/08/17 at 04:00 Potassium Chloride (Klor-Con) 20 meq 1X ONCE PO Last administered on 01/08/17 12:47; Start 01/08/17 at 12:30; Stop 01/08/17 at 12:31; Status DC Sodium Chloride 250 ml @ As Directed STK-MED ONCE .ROUTE Last administered on 01/08/17 12:47; Start 01/08/17 at 12:24; Stop 01/08/17 at 12:25; Status DC Sodium Chloride 1,000 ml @ 100 mls/hr Q10H IV Last administered on 01/08/17 16 :35; Start 01/08/17 at 16:00; Stop 01/09/17 at 06:14; Status DC Vancomycin HCl 1 gm/Sodium Chloride 250 ml @ 250 mls/hr Q8H IV Last administered on 01/09/17 04:45; Start 01/08/17 at 21:00; Stop 01/09/17 at 09:32; Status DC Vancomycin HCl 1 each 1X ONCE MC ; Start 01/09/17 at 20:30; Stop 01/09/17 at 20: 31; Status Cancel Potassium Chloride (Klor-Con) 20 meq 1X ONCE PO Last administered on 01/08/17 16:34; Start 01/08/17 at 17:00; Stop 01/08/17 at 17:01; Status DC Piperacillin Sod/ Tazobactam Sod (Zosyn) 3.375 gm STK-MED ONCE IV Last administered on 01/08/17 18:37; Start 01/08/17 at 18:37; Stop 01/08/17 at 18:38; Status DC Sodium Chloride 50 ml @ As Directed STK-MED ONCE .ROUTE Last administered on 18:37; Start 01/08/17 at 18:37; Stop 01/08/17 at 18:38; Status DC Sodium Chloride 50 ml @ As Directed STK-MED ONCE .ROUTE Last administered on 18:45; Start 01/08/17 at 18:45; Stop 01/08/17 at 18:46; Status DC Piperacillin Sod/ Tazobactam Sod (Zosyn) 3.375 gm STK-MED ONCE IV Last administered on 01/09/17 00:22; Start 01/08/17 at 23:46; Stop 01/08/17 at 23:47; Status DC Sodium Chloride 50 ml @ As Directed STK-MED ONCE .ROUTE Last administered on 23:46; Start 01/08/17 at 23:46; Stop 01/08/17 at 23:47; Status DC Promethazine HCl (Phenergan) 25 mg STK-MED ONCE IV Last administered on 00:21; Start 01/08/17 at 23:49; Stop 01/08/17 at 23:50; Status DC Sodium Chloride 50 ml @ As Directed STK-MED ONCE .ROUTE Last administered on 23:50; Start 01/08/17 at 23:50; Stop 01/08/17 at 23:51; Status DC Magnesium Sulfate 50 ml @ 25 mls/hr 1X ONCE IV Last administered on 01/09/17 07:57; Start 01/09/17 at 06:30; Stop 01/09/17 at 08:29; Status DC Potassium Chloride 40 meq/ Sodium Chloride 1,020 ml @ 75 mls/hr [id number] IV Last administered on 01/09/17 07:58; Start 01/09/17 at 06:30 Potassium Chloride (Klor-Con) 20 meq TIDWMEALS PO Last administered on 11:56; Start 01/09/17 at 08:00 Micafungin Sodium 100 mg/Dextrose 100 ml @ 100 mls/hr Q24H IV Last administered on 01/09/17 10:12; Start 01/09/17 at 10:00 Ceftriaxone Sodium 1 gm/ Sodium Chloride 50 ml @ 100 mls/hr Q24H IV ; Start 01/09/17 at 11:00; Stop 01/09/17 at 11:00; Status DC Ceftriaxone Sodium 1 gm/ Sodium Chloride 50 ml @ 100 mls/hr Q24H IV ; Start 01/09/17 at 11:00; Stop 01/09/17 at 11:00; Status DC Ceftriaxone Sodium 1 gm/ Sodium Chloride 50 ml @ 100 mls/hr Q24H IV Last administered on 01/09/17t 11:56; Start 01/09/17 at 11:00 Active Scripts Active Reported Albuterol Sulfate Neb Soln (Albuterol Sulfate) 2.5 Mg/3 Ml Vial.neb 2.5 Mg NEB PRN Q4HRS PRN Ventolin Hfa Inhaler (Albuterol Sulfate) 18 Gm Hfa.aer.ad 2 Puff IH PRN Q4HRS PRN Symbicort 80-4.5 Mcg Inhaler (Budesonide/Formoterol Fumarate) 10.2 Gm Hfa.aer.ad 2 Puff IH BID [place] 5-325 Tablet (Hydrocodone Bit/Acetaminophen) 1 Each Tablet 1-2 Tab PO Q4- 6HRS Reglan (Metoclopramide Hcl) 10 Mg Tablet 10 Mg PO PRN TID PRN Promethazine Hcl 25 Mg Tablet 25 Mg PO PRN Q4HRS PRN Zofran Odt (Ondansetron) 8 Mg Tab.rapdis 8 Mg PO PRN Q4HRS PRN Metoprolol Tartrate 25 Mg Tablet 25 Mg PO BID Nexium Capsule (Esomeprazole Magnesium) 40 Mg Capsule.dr 40 Mg PO NOON Fludrocortisone Acetate 0.1 Mg Tablet 0.1 Mg PO NOON Cortef (Hydrocortisone) 5 Mg Tablet 5 Mg PO BID Linzess (Linaclotide) 290 Mcg Capsule 290 Mcg PO PRN DAILY PRN Vitals/I & O Vital Sign - Last 24 Hours 01/08/17 01/08/17 01/08/17 01/08/17 16:55 18:16 19:36 20:00 Temp 99.0 Pulse 68 Resp 20 16 B/P (MAP) 124/79 (94) Pulse Ox 100 98 O2 Delivery Room Air Room Air Room Air 01/08/17 01/08/17 01/08/17 01/08/17 20:06 20:30 20:35 20:36 Pulse 50 Resp 16 B/P (MAP) 124/79 Pulse Ox 97 O2 Delivery Room Air Room Air 01/08/17 01/09/17 01/09/1717 23:52 00:22 05:31 06:00 Temp 99.1 Pulse 50 Resp 18 B/P (MAP) 128/87 (101) Pulse Ox 99 99 99 99 O2 Delivery Room Air Room Air Room Air Room Air 01/09/17 01/09/17 01/09/17 01/09/17 06:04 07:56 08:00 08:12 Temp 98.2 Pulse 57 57 66 Resp 16 18 B/P (MAP) 156/104 (121) 156/104 143/90 (107) Pulse Ox 99 99 O2 Delivery Room Air Room Air Room Air 01/09/17 01/09/17 01/09/17 01/09/17 11:25 11:25 12:01 12:27 Temp 98.5 Pulse 60 Resp 18 B/P (MAP) 117/77 (90) Pulse Ox 98 98 98 98 O2 Delivery Room Air Room Air Room Air Room Air 01/09/17 13:04 Pulse Ox 98 O2 Delivery Room Air Intake and Output 01/08/17 01/08/17 01/09/17 15:00 23:00 07:00 Intake Total 480 ml 241 ml 0 ml Output Total 1000 ml Balance 480 ml -759 ml 0 ml Nutrition Consultation Malnutrition Findings: Body Fat Depletion (Non Severe: Mild Depletion YOLI FINLEY DO Jan 09, 2017 15:21
[2017-01-09 16:35] VITALS: BP 142/90
[2017-01-09] MEDS: PROMETHAZINE 12.5 MG in IV NORMAL SALINE 50ML 50 ML IV PRN (16:58)
[2017-01-09 19:31] VITALS: BP 123/79
[2017-01-09] MEDS: PROMETHAZINE 25 MG TABLET. PO PRN (20:15)
[2017-01-10] MEDS: HYDROCORTISONE SOD SUCC/PF 100 MG/2 ML VIAL. IV SCH ×3 (05:28→21:18)
[2017-01-10 05:31] VITALS: BP 137/88
[2017-01-10] MEDS: fentaNYL PF 100 MCG/2 ML VIAL IV PRN ×6 (05:39→22:44)
[2017-01-10] MEDS: ALBUTEROL SULFATE 2.5 MG/3 ML NEBU. NEB SCH ×4 (05:45→21:29)
[2017-01-10 06:15] LABS: BASO % 0 % (0-3); EOS % 0 % (0-3); HEMATOCRIT 33.2 % (36.0-47.0); HEMOGLOBIN 11.2 g/dL (12.0-15.5); LYMPH # 1.4 x10^3/uL (1.0-4.8); LYMPH % 25 % (24-48); MEAN CORPUSCULAR HEMOGLOBIN 30 pg (25-35); MEAN CORPUSCULAR HGB CONC 34 g/dL (31-37); MEAN CORPUSCULAR VOLUME 89 fL (79-100); MONO # 0.3 x10^3/uL (0.0-1.1); MONO % 6 % (0-9); NEUT # 3.9 x10^3uL (1.8-7.7); NEUT % 69 % (31-73); PLATELET COUNT 183 x10^3/uL (140-400); RED BLOOD COUNT 3.71 x10^6/uL (3.50-5.40); WHITE BLOOD COUNT 5.7 x10^3/uL (4.0-11.0)
[2017-01-10 06:28] LABS: ALBUMIN/GLOBULIN RATIO 0.8 (1.0-1.7); CALCIUM 8.2 mg/dL (8.5-10.1); CREATININE 0.5 mg/dL (0.6-1.0); GFR 155.7; POTASSIUM 3.2 mmol/L (3.5-5.1); TOTAL BILIRUBIN 0.2 mg/dL (0.2-1.0); TOTAL PROTEIN 6.6 g/dL (6.4-8.2)
[2017-01-10] MEDS: METOPROLOL TART IMMED RELEASE 25 MG TABLET PO SCH ×2 (08:01→21:18)
[2017-01-10] MEDS: POTASSIUM CHLORIDE 20 MEQ TABLET.ER. PO SCH ×3 (08:01→18:22)
[2017-01-10] MEDS: PROMETHAZINE 12.5 MG in IV NORMAL SALINE 50ML 50 ML IV PRN ×3 (08:42→22:44)
[2017-01-10] MEDS: diphenhydrAMINE 50 MG/ML VIAL IVP PRN (10:11)
[2017-01-10] MEDS: MICAFUNGIN 100 MG in IV DEXTROSE 5% 100 ML IV SCH (10:13)
[2017-01-10] MEDS: ENOXAPARIN 30 MG/0.3 ML DISP.SYRIN. SQ SCH (10:13)
[2017-01-10 10:57] VITALS: BP_SYST 115; BP_SYST 160; BP_DIAS 74; BP_DIAS 78
[2017-01-10] MEDS: BUDESONIDE 0.5 MG/2 ML NEBU NEB SCH ×2 (11:26→21:29)
[2017-01-10] MEDS: FLUDROCORTISONE 0.1 MG TABLET PO SCH (11:48)
[2017-01-10] MEDS: POTASSIUM CHLORIDE 40 MEQ in IV 1/2 NORMAL SALINE 1,000 ML IV SCH ×2 (11:52→21:19)
[2017-01-10] MEDS: PANTOPRAZOLE 40 MG TABLET. PO SCH (11:52)
--- NOTE | 2017-01-10 14:59 | PDOC ---
PROGRESS NOTES Diagnosis ANEMIA: Other (immune defeciency ) SEPSIS: Streptococcus, Other (yeast) SEVERE SEPSIS: Other (hypokalemia) Problem Problems Medical Problems: (1) Fever Status: Acute (2) SIRS (systemic inflammatory response syndrome) Status: Acute Assessment Problems Medical Problems: (1) Fever Status: Acute (2) SIRS (systemic inflammatory response syndrome) Status: Acute Problems: Objective Vital Signs Date Time Temp Pulse Resp B/P (MAP) Pulse Ox O2 Delivery O2 Flow Rate FiO2 01/10/17 11:27 98 Room Air 01/10/17 11:15 20 01/10/17 10:57 98.5 57 115/74 (88) Intake and Output 01/10/17 07:00 Intake Total 920 ml Output Total 5900 ml Balance -4980 ml Intake Oral 920 ml Output Urine Total 5900 ml Review of Relevant I have reviewed the following items candelario (where applicable) has been applied. Labs Laboratory Tests Test 01/09/17 05:40 01/10/17 05:35 White Blood Count 5.4 x10^3/uL (4.0-11.0) 5.7 x10^3/uL (4.0-11.0) Red Blood Count 3.59 x10^6/uL (3.50-5.40) 3.71 x10^6/uL (3.50-5.40) Hemoglobin 10.8 g/dL (12.0-15.5) 11.2 g/dL (12.0-15.5) Hematocrit 32.4 % (36.0-47.0) 33.2 % (36.0-47.0) Mean Corpuscular Volume 90 fL (79-100) 89 fL (79-100) Mean Corpuscular Hemoglobin 30 pg (25-35) 30 pg (25-35) Mean Corpuscular Hemoglobin Concent 33 g/dL (31-37) 34 g/dL (31-37) Red Cell Distribution Width 12.8 % (11.5-14.5) 13.0 % (11.5-14.5) Platelet Count 186 x10^3/uL (140-400) 183 x10^3/uL (140-400) Sodium Level 144 mmol/L (136-145) 141 mmol/L (136-145) Potassium Level 3.0 mmol/L (3.5-5.1) 3.2 mmol/L (3.5-5.1) Chloride Level 110 mmol/L (98-107) 105 mmol/L (98-107) Carbon Dioxide Level 27 mmol/L (21-32) 29 mmol/L (21-32) Anion Gap 7 (6-14) 7 (6-14) Blood Urea Nitrogen 2 mg/dL (7-20) 3 mg/dL (7-20) Creatinine 0.5 mg/dL (0.6-1.0) 0.5 mg/dL (0.6-1.0) Estimated GFR (Cockcroft-Gault) 155.7 155.7 BUN/Creatinine Ratio 4 (6-20) 6 (6-20) Glucose Level 113 mg/dL (70-99) 93 mg/dL (70-99) Calcium Level 7.7 mg/dL (8.5-10.1) 8.2 mg/dL (8.5-10.1) Magnesium Level 1.7 mg/dL (1.8-2.4) 2.0 mg/dL (1.8-2.4) Total Bilirubin 0.2 mg/dL (0.2-1.0) 0.2 mg/dL (0.2-1.0) Aspartate Amino Transf (AST/SGOT) 29 U/L (15-37) 18 U/L (15-37) Alanine Aminotransferase (ALT/SGPT) 58 U/L (14-59) 48 U/L (14-59) Alkaline Phosphatase 53 U/L (46-116) 51 U/L (46-116) Total Protein 6.1 g/dL (6.4-8.2) 6.6 g/dL (6.4-8.2) Albumin 2.8 g/dL (3.4-5.0) 3.0 g/dL (3.4-5.0) Albumin/Globulin Ratio 0.8 (1.0-1.7) 0.8 (1.0-1.7) Neutrophils (%) (Auto) 69 % (31-73) Lymphocytes (%) (Auto) 25 % (24-48) Monocytes (%) (Auto) 6 % (0-9) Eosinophils (%) (Auto) 0 % (0-3) Basophils (%) (Auto) 0 % (0-3) Neutrophils # (Auto) 3.9 x10^3uL (1.8-7.7) Lymphocytes # (Auto) 1.4 x10^3/uL (1.0-4.8) Monocytes # (Auto) 0.3 x10^3/uL (0.0-1.1) Eosinophils # (Auto) 0.0 x10^3/uL (0.0-0.7) Basophils # (Auto) 0.0 x10^3/uL (0.0-0.2) Microbiology 01/06/17 Blood Culture - Preliminary, Resulted 01/06/17 Blood Culture Result 1 (AYAH) - Preliminary, Resulted Medications Current Medications Sodium Chloride 1,000 ml @ 1,000 mls/hr 1X ONCE IV Last administered on 23:25; Start 01/06/17 at 23:00; Stop 01/06/17 at 23:59; Status DC Acetaminophen (Tylenol) 1,000 mg 1X ONCE PO ; Start 01/06/17 at 23:15; Stop at 00:22; Status DC Promethazine HCl 25 mg/Sodium Chloride 51 ml @ 101 mls/hr 1X ONCE IV Last administered on 01/06/17 23:25; Start 01/06/17 at 23:15; Stop 01/06/17 at 23:45 ; Status DC Fentanyl Citrate (Fentanyl 2ml Vial) 25 mcg PRN Q15MIN PRN IV PAIN GREATER THAN 3/10 Last administered on 01/06/17 23:25; Start 01/06/17 at 23:15; Stop at 10:48; Status DC Promethazine HCl (Phenergan) 25 mg STK-MED ONCE IV ; Start 01/06/17 at 23:15; Stop 01/06/17 at 23:16; Status DC Sodium Chloride 50 ml @ As Directed STK-MED ONCE .ROUTE ; Start 01/06/17 at 23: 16; Stop 01/06/17 at 23:17; Status DC Acetaminophen (Tylenol) 1,000 mg 1X ONCE PO Last administered on 01/07/17 00: 29; Start 01/07/17 at 00:30; Stop 01/07/17 at 02:41; Status DC Sodium Chloride 1,000 ml @ 1,000 mls/hr 1X ONCE IV Last administered on 02:30; Start 01/07/17 at 00:45; Stop 01/07/17 at 02:41; Status DC Vancomycin HCl (Vanco Per Pharmacy) 1 each PRN DAILY PRN MC SEE COMMENTS Last administered on 01/08/17 14:36; Start 01/07/17 at 00:45; Stop 01/09/17 at 10:00; Status DC Piperacillin Sod/ Tazobactam Sod (Zosyn Per Pharmacy) 1 each PRN DAILY PRN MC SEE COMMENTS Last administered on 01/08/17 10:34; Start 01/07/17 at 04:00; Stop 01/09/17 at 10:00; Status DC Hydrocortisone Sodium Succinate (Solu-CORTEF) 100 mg 1X ONCE IV Last administered on 01/07/17 03:00; Start 01/07/17 at 02:45; Stop 01/07/17 at 02:46 ; Status DC Ondansetron HCl (Zofran) 4 mg PRN Q4HRS PRN IV NAUSEA/VOMITING; Start 01/07/17 at 02:30; Stop 01/08/17 at 02:29; Status DC Fentanyl Citrate (Fentanyl 2ml Vial) 50 mcg PRN Q2HR PRN IV PAIN Last administered on 01/08/17 00:15; Start 01/07/17 at 02:30; Stop 01/08/17 at 02:29; Status DC Sodium Chloride 1,000 ml @ 150 mls/hr Q6H40M IV Last administered on 22:42; Start 01/07/17 at 02:30; Stop 01/08/17 at 02:29; Status DC Acetaminophen (Tylenol) 650 mg PRN Q4HRS PRN PO FEVER Last administered on 01/07 22:42; Start 01/07/17 at 02:30; Stop 01/08/17 at 02:29; Status DC Vancomycin HCl 1 gm/Sodium Chloride 250 ml @ 250 mls/hr ONCE ONCE IV ; Start 01/07/17 at 03:00; Stop 01/07/17 at 03:59; Status DC Piperacillin Sod/ Tazobactam Sod 3.375 gm/Sodium Chloride 50 ml @ 100 mls/hr 1X ONCE IV Last administered on 01/07/17 05:58; Start 01/07/17 at 04:00; Stop 01/07/17 at 04:29; Status DC Diphenhydramine HCl (Benadryl) 25 mg 1X ONCE IVP Last administered on 05:57; Start 01/07/17 at 04:45; Stop 01/07/17 at 04:46; Status DC Piperacillin Sod/ Tazobactam Sod 3.375 gm/Sodium Chloride 50 ml @ 100 mls/hr Q6HRS IV Last administered on 01/09/17 06:27; Start 01/07/17 at 12:00; Stop 01/09/17 at 09:32; Status DC Vancomycin HCl 1 gm STK-MED ONCE .ROUTE Last administered on 01/07/17 06:37; Start 01/07/17 at 05:32; Stop 01/07/17 at 05:33; Status DC Piperacillin Sod/ Tazobactam Sod (Zosyn) 3.375 gm STK-MED ONCE IV ; Start at 05:32; Stop 01/07/17 at 05:33; Status DC Sodium Chloride 250 ml @ As Directed STK-MED ONCE .ROUTE Last administered on 01/07/17 06:37; Start 01/07/17 at 05:32; Stop 01/07/17 at 05:33; Status DC Sodium Chloride 50 ml @ As Directed STK-MED ONCE .ROUTE ; Start 01/07/17 at 05: 32; Stop 01/07/17 at 05:33; Status DC Vancomycin HCl 750 mg/Sodium Chloride 250 ml @ 250 mls/hr Q8H IV Last administered on 01/08/17 04:53; Start 01/07/17 at 13:00; Stop 01/08/17 at 14:08; Status DC Vancomycin HCl 1 each 1X ONCE MC Last administered on 01/08/17 12:30; Start at 12:30; Stop 01/08/17 at 12:31; Status DC Albuterol Sulfate (Ventolin) 2.5 mg PRN Q4HRS PRN NEB SHORTNESS OF BREATH; Start 01/07/17 at 10:30 Albuterol Sulfate (Ventolin Hfa) 2 puff PRN Q4HRS PRN IH SHORTNESS OF BREATH; Start 01/07/17 at 10:30; Status UNV Fludrocortisone Acetate (Florinef) 0.1 mg NOON PO Last administered on 11:48; Start 01/07/17 at 12:00 Acetaminophen/ Hydrocodone Bitart (Lortab 5/325) 1 tab PRN Q6HRS PRN PO PAIN; Start 01/07/17 at 10:30 Metoclopramide HCl (Reglan) 10 mg PRN TID PRN PO NAUSEA/VOMITING; Start at 10:30 Metoprolol Tartrate (Lopressor) 25 mg BID PO Last administered on 01/10/17 08: 01; Start 01/07/17 at 10:30 Promethazine HCl (Phenergan) 25 mg PRN Q4HRS PRN PO NAUSEA/VOMITING Last administered on 01/09/17 20:15; Start 01/07/17 at 10:30 Non-Formulary Medication 2 puff BID IH ; Start 01/07/17 at 21:00; Stop 01/07/17 at 21:00; Status DC Pantoprazole Sodium (Protonix) 40 mg NOON PO Last administered on 01/10/17 11: 52; Start 01/07/17 at 12:00 Hydrocortisone (Cortef) 5 mg BID PO Last administered on 01/07/17 11:16; Start 01/07/17 at 11:00; Stop 01/07/17 at 11:39; Status DC Non-Formulary Medication 290 mcg PRN DAILY PRN PO CONSTIPATION; Start 01/07/17 at 10:30; Status UNV Ondansetron HCl (Zofran Odt) 8 mg PRN Q4HRS PRN PO NAUSEA/VOMITING; Start 01/07 at 11:00 Enoxaparin Sodium (Lovenox) 30 mg Q24H SQ Last administered on 01/10/17 10:13; Start 01/07/17 at 10:30 Albuterol Sulfate (Ventolin) 2.5 mg Q6H NEB Last administered on 01/10/17 11:26 ; Start 01/07/17 at 11:00 Budesonide (Pulmicort) 0.5 mg RTBID NEB Last administered on 01/10/17 11:26; Start 01/07/17 at 20:00 Promethazine HCl 12.5 mg/Sodium Chloride 50.5 ml @ 101 mls/hr PRN Q6HRS PRN IV NAUSEA/VOMITING Last administered on 01/10/17 08:42; Start 01/07/17 at 11:15 Hydrocortisone Sodium Succinate (Solu-CORTEF) 100 mg Q8HRS IV Last administered on 01/10/17 14:21; Start 01/07/17 at 12:00 Diphenhydramine HCl (Benadryl) 25 mg PRN Q6HRS PRN IVP ITCHING Last administered on 01/10/17 10:11; Start 01/07/17 at 14:00 Promethazine HCl (Phenergan) 25 mg STK-MED ONCE IV ; Start 01/07/17 at 22:47; Stop 01/07/17 at 22:48; Status DC Sodium Chloride 50 ml @ As Directed STK-MED ONCE .ROUTE ; Start 01/07/17 at 22: 48; Stop 01/07/17 at 22:49; Status DC Fentanyl Citrate (Fentanyl 2ml Vial) 50 mcg PRN Q2HR PRN IV PAIN Last administered on 01/10/17 10:44; Start 01/08/17 at 04:00 Potassium Chloride (Klor-Con) 20 meq 1X ONCE PO Last administered on 01/08/17 12:47; Start 01/08/17 at 12:30; Stop 01/08/17 at 12:31; Status DC Sodium Chloride 250 ml @ As Directed STK-MED ONCE .ROUTE Last administered on 01/08/17 12:47; Start 01/08/17 at 12:24; Stop 01/08/17 at 12:25; Status DC Sodium Chloride 1,000 ml @ 100 mls/hr Q10H IV Last administered on 01/08/17 16 :35; Start 01/08/17 at 16:00; Stop 01/09/17 at 06:14; Status DC Vancomycin HCl 1 gm/Sodium Chloride 250 ml @ 250 mls/hr Q8H IV Last administered on 01/09/17 04:45; Start 01/08/17 at 21:00; Stop 01/09/17 at 09:32; Status DC Vancomycin HCl 1 each 1X ONCE MC ; Start 01/09/17 at 20:30; Stop 01/09/17 at 20: 31; Status Cancel Potassium Chloride (Klor-Con) 20 meq 1X ONCE PO Last administered on 01/08/17 16:34; Start 01/08/17 at 17:00; Stop 01/08/17 at 17:01; Status DC Piperacillin Sod/ Tazobactam Sod (Zosyn) 3.375 gm STK-MED ONCE IV Last administered on 01/08/17 18:37; Start 01/08/17 at 18:37; Stop 01/08/17 at 18:38; Status DC Sodium Chloride 50 ml @ As Directed STK-MED ONCE .ROUTE Last administered on 18:37; Start 01/08/17 at 18:37; Stop 01/08/17 at 18:38; Status DC Sodium Chloride 50 ml @ As Directed STK-MED ONCE .ROUTE Last administered on 18:45; Start 01/08/17 at 18:45; Stop 01/08/17 at 18:46; Status DC Piperacillin Sod/ Tazobactam Sod (Zosyn) 3.375 gm STK-MED ONCE IV Last administered on 01/09/17 00:22; Start 01/08/17 at 23:46; Stop 01/08/17 at 23:47; Status DC Sodium Chloride 50 ml @ As Directed STK-MED ONCE .ROUTE Last administered on 23:46; Start 01/08/17 at 23:46; Stop 01/08/17 at 23:47; Status DC Promethazine HCl (Phenergan) 25 mg STK-MED ONCE IV Last administered on 00:21; Start 01/08/17 at 23:49; Stop 01/08/17 at 23:50; Status DC Sodium Chloride 50 ml @ As Directed STK-MED ONCE .ROUTE Last administered on 23:50; Start 01/08/17 at 23:50; Stop 01/08/17 at 23:51; Status DC Magnesium Sulfate 50 ml @ 25 mls/hr 1X ONCE IV Last administered on 01/09/17 07:57; Start 01/09/17 at 06:30; Stop 01/09/17 at 08:29; Status DC Potassium Chloride 40 meq/ Sodium Chloride 1,020 ml @ 75 mls/hr [id number] IV Last administered on 01/10/17 11:52; Start 01/09/17 at 06:30 Potassium Chloride (Klor-Con) 20 meq TIDWMEALS PO Last administered on 11:49; Start 01/09/17 at 08:00 Micafungin Sodium 100 mg/Dextrose 100 ml @ 100 mls/hr Q24H IV Last administered on 01/10/17 10:13; Start 01/09/17 at 10:00 Ceftriaxone Sodium 1 gm/ Sodium Chloride 50 ml @ 100 mls/hr Q24H IV ; Start 01/09/17 at 11:00; Stop 01/09/17 at 11:00; Status DC Ceftriaxone Sodium 1 gm/ Sodium Chloride 50 ml @ 100 mls/hr Q24H IV ; Start 01/09/17 at 11:00; Stop 01/09/17 at 11:00; Status DC Ceftriaxone Sodium 1 gm/ Sodium Chloride 50 ml @ 100 mls/hr Q24H IV Last administered on 01/10/17 11:50; Start 01/09/17 at 11:00 Active Scripts Active Reported Albuterol Sulfate Neb Soln (Albuterol Sulfate) 2.5 Mg/3 Ml Vial.neb 2.5 Mg NEB PRN Q4HRS PRN Ventolin Hfa Inhaler (Albuterol Sulfate) 18 Gm Hfa.aer.ad 2 Puff IH PRN Q4HRS PRN Symbicort 80-4.5 Mcg Inhaler (Budesonide/Formoterol Fumarate) 10.2 Gm Hfa.aer.ad 2 Puff IH BID Orange 5-325 Tablet (Hydrocodone Bit/Acetaminophen) 1 Each Tablet 1-2 Tab PO Q4- 6HRS Reglan (Metoclopramide Hcl) 10 Mg Tablet 10 Mg PO PRN TID PRN Promethazine Hcl 25 Mg Tablet 25 Mg PO PRN Q4HRS PRN Zofran Odt (Ondansetron) 8 Mg Tab.rapdis 8 Mg PO PRN Q4HRS PRN Metoprolol Tartrate 25 Mg Tablet 25 Mg PO BID Nexium Capsule (Esomeprazole Magnesium) 40 Mg Capsule.dr 40 Mg PO NOON Fludrocortisone Acetate 0.1 Mg Tablet 0.1 Mg PO NOON Cortef (Hydrocortisone) 5 Mg Tablet 5 Mg PO BID Linzess (Linaclotide) 290 Mcg Capsule 290 Mcg PO PRN DAILY PRN Vitals/I & O Vital Sign - Last 24 Hours 01/09/17 01/09/17 01/09/17 01/09/17 16:35 16:36 16:42 19:20 Temp 98.6 Pulse 60 Resp 18 B/P (MAP) 142/90 (107) Pulse Ox 99 98 96 O2 Delivery Room Air Room Air Room Air Room Air 01/09/17 01/09/17 01/09/17 01/09/17 19:31 20:14 20:15 20:35 Temp 98.7 Pulse 66 66 Resp 20 18 B/P (MAP) 123/79 (94) 123/79 Pulse Ox 99 98 O2 Delivery Room Air Room Air Room Air 01/09/17 01/10/17 01/10/17 01/10/17 20:40 05:31 05:39 05:45 Temp 98.3 Pulse 51 Resp 18 24 B/P (MAP) 137/88 (104) Pulse Ox 97 98 O2 Delivery Room Air Room Air Room Air Room Air 01/10/17 01/10/17 01/10/17 01/10/17 08:01 08:07 08:13 10:44 Pulse 51 Resp 20 20 B/P (MAP) 137/88 Pulse Ox 98 98 O2 Delivery Room Air Room Air Room Air 01/10/17 01/10/17 01/10/17 01/10/17 10:57 11:15 11:26 11:27 Temp 98.5 Pulse 57 Resp 20 20 B/P (MAP) 115/74 (88) Pulse Ox 97 98 98 98 O2 Delivery Room Air Room Air Room Air Room Air Intake and Output 01/09/17 01/09/17 01/10/17 15:00 23:00 07:00 Intake Total 800 ml 120 ml Output Total 3800 ml 2100 ml Balance -3000 ml -1980 ml SHANNAN COYNE MD Jan 10, 2017 14:59
[2017-01-10] MEDS: METOCLOPRAMIDE 10 MG TABLET PO PRN (15:53)
[2017-01-10 16:57] VITALS: BP 120/75
[2017-01-10 18:45] VITALS: BP 123/77
[2017-01-10 22:04] VITALS: BP 121/77
[2017-01-10] MEDS ORDERED: PROMETHAZINE 25 MG/ML VIAL IV ONE (22:33)
[2017-01-10] MEDS ORDERED: IV NORMAL SALINE 50ML 50 ML ONE (22:33)
[2017-01-11] MEDS: fentaNYL PF 100 MCG/2 ML VIAL IV PRN ×7 (02:05→23:18)
[2017-01-11] MEDS: ALBUTEROL SULFATE 2.5 MG/3 ML NEBU. NEB SCH ×4 (04:49→20:28)
[2017-01-11 05:13] LABS: CALCIUM 8.1 mg/dL (8.5-10.1); CREATININE 0.6 mg/dL (0.6-1.0); GFR 126.2; POTASSIUM 3.5 mmol/L (3.5-5.1)
[2017-01-11 05:19] VITALS: BP 137/92
[2017-01-11] MEDS: HYDROCORTISONE SOD SUCC/PF 100 MG/2 ML VIAL. IV SCH ×3 (05:56→21:08)
[2017-01-11] MEDS: PROMETHAZINE 12.5 MG in IV NORMAL SALINE 50ML 50 ML IV PRN ×3 (08:33→23:18)
[2017-01-11] MEDS: METOPROLOL TART IMMED RELEASE 25 MG TABLET PO SCH ×2 (09:09→21:11)
[2017-01-11] MEDS: POTASSIUM CHLORIDE 20 MEQ TABLET.ER. PO SCH ×3 (09:09→17:42)
[2017-01-11] MEDS: BUDESONIDE 0.5 MG/2 ML NEBU NEB SCH ×2 (09:48→20:28)
[2017-01-11 10:19] VITALS: BP 128/88
[2017-01-11] MEDS: diphenhydrAMINE 50 MG/ML VIAL IVP PRN (10:32)
[2017-01-11] MEDS: MICAFUNGIN 100 MG in IV DEXTROSE 5% 100 ML IV SCH (10:41)
[2017-01-11] MEDS: ENOXAPARIN 30 MG/0.3 ML DISP.SYRIN. SQ SCH (10:41)
[2017-01-11] MEDS: FLUDROCORTISONE 0.1 MG TABLET PO SCH (11:28)
[2017-01-11] MEDS: PANTOPRAZOLE 40 MG TABLET. PO SCH (11:28)
[2017-01-11] MEDS: METOCLOPRAMIDE 10 MG TABLET PO PRN (12:30)
[2017-01-11] MEDS: POTASSIUM CHLORIDE 40 MEQ in IV 1/2 NORMAL SALINE 1,000 ML IV SCH (12:32)
--- NOTE | 2017-01-11 13:00 | PDOC ---
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 Streptococcal bacteremia 5 Fungemia 6 Roland Disease 7 Traumatic brain injury Assessment Problems Medical Problems: (1) Fever Status: Acute (2) SIRS (systemic inflammatory response syndrome) Status: Acute PLAN Continue I V Micafungin Continue I V Ceftriaxone Continue I V Fluids continue steroid replacement Monitor electrolytes Nutritional support Subjective Sleepy but arousal VSS Objective Vital Signs Date Time Temp Pulse Resp B/P (MAP) Pulse Ox O2 Delivery O2 Flow Rate FiO2 01/11/17 12:30 96 Room Air 01/11/17 10:19 98.0 57 20 128/88 (101) Intake and Output 01/11/17 07:00 Intake Total 2231.38 ml Output Total 2900 ml Balance -668.62 ml Intake Oral 870 ml IV Total 1361.38 ml Output Urine Total 2900 ml Physical Exam vss otherwise unremarkable Review of Relevant I have reviewed the following items candelario (where applicable) has been applied. Labs Laboratory Tests Test 01/10/17 05:35 01/11/17 04:59 White Blood Count 5.7 x10^3/uL (4.0-11.0) Red Blood Count 3.71 x10^6/uL (3.50-5.40) Hemoglobin 11.2 g/dL (12.0-15.5) Hematocrit 33.2 % (36.0-47.0) Mean Corpuscular Volume 89 fL (79-100) Mean Corpuscular Hemoglobin 30 pg (25-35) Mean Corpuscular Hemoglobin Concent 34 g/dL (31-37) Red Cell Distribution Width 13.0 % (11.5-14.5) Platelet Count 183 x10^3/uL (140-400) Neutrophils (%) (Auto) 69 % (31-73) Lymphocytes (%) (Auto) 25 % (24-48) Monocytes (%) (Auto) 6 % (0-9) Eosinophils (%) (Auto) 0 % (0-3) Basophils (%) (Auto) 0 % (0-3) Neutrophils # (Auto) 3.9 x10^3uL (1.8-7.7) Lymphocytes # (Auto) 1.4 x10^3/uL (1.0-4.8) Monocytes # (Auto) 0.3 x10^3/uL (0.0-1.1) Eosinophils # (Auto) 0.0 x10^3/uL (0.0-0.7) Basophils # (Auto) 0.0 x10^3/uL (0.0-0.2) Sodium Level 141 mmol/L (136-145) 139 mmol/L (136-145) Potassium Level 3.2 mmol/L (3.5-5.1) 3.5 mmol/L (3.5-5.1) Chloride Level 105 mmol/L (98-107) 104 mmol/L (98-107) Carbon Dioxide Level 29 mmol/L (21-32) 29 mmol/L (21-32) Anion Gap 7 (6-14) 6 (6-14) Blood Urea Nitrogen 3 mg/dL (7-20) 5 mg/dL (7-20) Creatinine 0.5 mg/dL (0.6-1.0) 0.6 mg/dL (0.6-1.0) Estimated GFR (Cockcroft-Gault) 155.7 126.2 BUN/Creatinine Ratio 6 (6-20) Glucose Level 93 mg/dL (70-99) 103 mg/dL (70-99) Calcium Level 8.2 mg/dL (8.5-10.1) 8.1 mg/dL (8.5-10.1) Magnesium Level 2.0 mg/dL (1.8-2.4) Total Bilirubin 0.2 mg/dL (0.2-1.0) Aspartate Amino Transf (AST/SGOT) 18 U/L (15-37) Alanine Aminotransferase (ALT/SGPT) 48 U/L (14-59) Alkaline Phosphatase 51 U/L (46-116) Total Protein 6.6 g/dL (6.4-8.2) Albumin 3.0 g/dL (3.4-5.0) Albumin/Globulin Ratio 0.8 (1.0-1.7) Microbiology 01/06/17 Blood Culture - Final, Complete 01/06/17 Blood Culture Result 1 (AYAH) - Final, Complete Medications Current Medications Sodium Chloride 1,000 ml @ 1,000 mls/hr 1X ONCE IV Last administered on 23:25; Start 01/06/17 at 23:00; Stop 01/06/17 at 23:59; Status DC Acetaminophen (Tylenol) 1,000 mg 1X ONCE PO ; Start 01/06/17 at 23:15; Stop at 00:22; Status DC Promethazine HCl 25 mg/Sodium Chloride 51 ml @ 101 mls/hr 1X ONCE IV Last administered on 01/06/17 23:25; Start 01/06/17 at 23:15; Stop 01/06/17 at 23:45 ; Status DC Fentanyl Citrate (Fentanyl 2ml Vial) 25 mcg PRN Q15MIN PRN IV PAIN GREATER THAN 3/10 Last administered on 01/06/17 23:25; Start 01/06/17 at 23:15; Stop at 10:48; Status DC Promethazine HCl (Phenergan) 25 mg STK-MED ONCE IV ; Start 01/06/17 at 23:15; Stop 01/06/17 at 23:16; Status DC Sodium Chloride 50 ml @ As Directed STK-MED ONCE .ROUTE ; Start 01/06/17 at 23: 16; Stop 01/06/17 at 23:17; Status DC Acetaminophen (Tylenol) 1,000 mg 1X ONCE PO Last administered on 01/07/17 00: 29; Start 01/07/17 at 00:30; Stop 01/07/17 at 02:41; Status DC Sodium Chloride 1,000 ml @ 1,000 mls/hr 1X ONCE IV Last administered on 02:30; Start 01/07/17 at 00:45; Stop 01/07/17 at 02:41; Status DC Vancomycin HCl (Vanco Per Pharmacy) 1 each PRN DAILY PRN MC SEE COMMENTS Last administered on 01/08/17 14:36; Start 01/07/17 at 00:45; Stop 01/09/17 at 10:00; Status DC Piperacillin Sod/ Tazobactam Sod (Zosyn Per Pharmacy) 1 each PRN DAILY PRN MC SEE COMMENTS Last administered on 01/08/17 10:34; Start 01/07/17 at 04:00; Stop 01/09/17 at 10:00; Status DC Hydrocortisone Sodium Succinate (Solu-CORTEF) 100 mg 1X ONCE IV Last administered on 01/07/17 03:00; Start 01/07/17 at 02:45; Stop 01/07/17 at 02:46 ; Status DC Ondansetron HCl (Zofran) 4 mg PRN Q4HRS PRN IV NAUSEA/VOMITING; Start 01/07/17 at 02:30; Stop 01/08/17 at 02:29; Status DC Fentanyl Citrate (Fentanyl 2ml Vial) 50 mcg PRN Q2HR PRN IV PAIN Last administered on 01/08/17 00:15; Start 01/07/17 at 02:30; Stop 01/08/17 at 02:29; Status DC Sodium Chloride 1,000 ml @ 150 mls/hr Q6H40M IV Last administered on 22:42; Start 01/07/17 at 02:30; Stop 01/08/17 at 02:29; Status DC Acetaminophen (Tylenol) 650 mg PRN Q4HRS PRN PO FEVER Last administered on 01/07 22:42; Start 01/07/17 at 02:30; Stop 01/08/17 at 02:29; Status DC Vancomycin HCl 1 gm/Sodium Chloride 250 ml @ 250 mls/hr ONCE ONCE IV ; Start 01/07/17 at 03:00; Stop 01/07/17 at 03:59; Status DC Piperacillin Sod/ Tazobactam Sod 3.375 gm/Sodium Chloride 50 ml @ 100 mls/hr 1X ONCE IV Last administered on 01/07/17 05:58; Start 01/07/17 at 04:00; Stop 01/07/17 at 04:29; Status DC Diphenhydramine HCl (Benadryl) 25 mg 1X ONCE IVP Last administered on 05:57; Start 01/07/17 at 04:45; Stop 01/07/17 at 04:46; Status DC Piperacillin Sod/ Tazobactam Sod 3.375 gm/Sodium Chloride 50 ml @ 100 mls/hr Q6HRS IV Last administered on 01/09/17 06:27; Start 01/07/17 at 12:00; Stop 01/09/17 at 09:32; Status DC Vancomycin HCl 1 gm STK-MED ONCE .ROUTE Last administered on 01/07/17 06:37; Start 01/07/17 at 05:32; Stop 01/07/17 at 05:33; Status DC Piperacillin Sod/ Tazobactam Sod (Zosyn) 3.375 gm STK-MED ONCE IV ; Start at 05:32; Stop 01/07/17 at 05:33; Status DC Sodium Chloride 250 ml @ As Directed STK-MED ONCE .ROUTE Last administered on 01/07/17 06:37; Start 01/07/17 at 05:32; Stop 01/07/17 at 05:33; Status DC Sodium Chloride 50 ml @ As Directed STK-MED ONCE .ROUTE ; Start 01/07/17 at 05: 32; Stop 01/07/17 at 05:33; Status DC Vancomycin HCl 750 mg/Sodium Chloride 250 ml @ 250 mls/hr Q8H IV Last administered on 01/08/17 04:53; Start 01/07/17 at 13:00; Stop 01/08/17 at 14:08; Status DC Vancomycin HCl 1 each 1X ONCE MC Last administered on 01/08/17 12:30; Start at 12:30; Stop 01/08/17 at 12:31; Status DC Albuterol Sulfate (Ventolin) 2.5 mg PRN Q4HRS PRN NEB SHORTNESS OF BREATH; Start 01/07/17 at 10:30 Albuterol Sulfate (Ventolin Hfa) 2 puff PRN Q4HRS PRN IH SHORTNESS OF BREATH; Start 01/07/17 at 10:30; Status UNV Fludrocortisone Acetate (Florinef) 0.1 mg NOON PO Last administered on 11:28; Start 01/07/17 at 12:00 Acetaminophen/ Hydrocodone Bitart (Lortab 5/325) 1 tab PRN Q6HRS PRN PO PAIN; Start 01/07/17 at 10:30 Metoclopramide HCl (Reglan) 10 mg PRN TID PRN PO NAUSEA/VOMITING Last administered on 01/11/17 12:30; Start 01/07/17 at 10:30 Metoprolol Tartrate (Lopressor) 25 mg BID PO Last administered on 01/11/17 09: 09; Start 01/07/17 at 10:30 Promethazine HCl (Phenergan) 25 mg PRN Q4HRS PRN PO NAUSEA/VOMITING Last administered on 01/09/17 20:15; Start 01/07/17 at 10:30 Non-Formulary Medication 2 puff BID IH ; Start 01/07/17 at 21:00; Stop 01/07/17 at 21:00; Status DC Pantoprazole Sodium (Protonix) 40 mg NOON PO Last administered on 01/11/17 11: 28; Start 01/07/17 at 12:00 Hydrocortisone (Cortef) 5 mg BID PO Last administered on 01/07/17 11:16; Start 01/07/17 at 11:00; Stop 01/07/17 at 11:39; Status DC Non-Formulary Medication 290 mcg PRN DAILY PRN PO CONSTIPATION; Start 01/07/17 at 10:30; Status UNV Ondansetron HCl (Zofran Odt) 8 mg PRN Q4HRS PRN PO NAUSEA/VOMITING; Start 01/07 at 11:00 Enoxaparin Sodium (Lovenox) 30 mg Q24H SQ Last administered on 01/11/17 10:41; Start 01/07/17 at 10:30 Albuterol Sulfate (Ventolin) 2.5 mg Q6H NEB Last administered on 01/11/17 09:48 ; Start 01/07/17 at 11:00 Budesonide (Pulmicort) 0.5 mg RTBID NEB Last administered on 01/11/17 09:48; Start 01/07/17 at 20:00 Promethazine HCl 12.5 mg/Sodium Chloride 50.5 ml @ 101 mls/hr PRN Q6HRS PRN IV NAUSEA/VOMITING Last administered on 01/11/17 08:33; Start 01/07/17 at 11:15 Hydrocortisone Sodium Succinate (Solu-CORTEF) 100 mg Q8HRS IV Last administered on 01/11/17 05:56; Start 01/07/17 at 12:00 Diphenhydramine HCl (Benadryl) 25 mg PRN Q6HRS PRN IVP ITCHING Last administered on 01/11/17 10:32; Start 01/07/17 at 14:00 Promethazine HCl (Phenergan) 25 mg STK-MED ONCE IV ; Start 01/07/17 at 22:47; Stop 01/07/17 at 22:48; Status DC Sodium Chloride 50 ml @ As Directed STK-MED ONCE .ROUTE ; Start 01/07/17 at 22: 48; Stop 01/07/17 at 22:49; Status DC Fentanyl Citrate (Fentanyl 2ml Vial) 50 mcg PRN Q2HR PRN IV PAIN Last administered on 01/11/17 12:30; Start 01/08/17 at 04:00 Potassium Chloride (Klor-Con) 20 meq 1X ONCE PO Last administered on 01/08/17 12:47; Start 01/08/17 at 12:30; Stop 01/08/17 at 12:31; Status DC Sodium Chloride 250 ml @ As Directed STK-MED ONCE .ROUTE Last administered on 01/08/17 12:47; Start 01/08/17 at 12:24; Stop 01/08/17 at 12:25; Status DC Sodium Chloride 1,000 ml @ 100 mls/hr Q10H IV Last administered on 01/08/17 16 :35; Start 01/08/17 at 16:00; Stop 01/09/17 at 06:14; Status DC Vancomycin HCl 1 gm/Sodium Chloride 250 ml @ 250 mls/hr Q8H IV Last administered on 01/09/17 04:45; Start 01/08/17 at 21:00; Stop 01/09/17 at 09:32; Status DC Vancomycin HCl 1 each 1X ONCE MC ; Start 01/09/17 at 20:30; Stop 01/09/17 at 20: 31; Status Cancel Potassium Chloride (Klor-Con) 20 meq 1X ONCE PO Last administered on 01/08/17 16:34; Start 01/08/17 at 17:00; Stop 01/08/17 at 17:01; Status DC Piperacillin Sod/ Tazobactam Sod (Zosyn) 3.375 gm STK-MED ONCE IV Last administered on 01/08/17 18:37; Start 01/08/17 at 18:37; Stop 01/08/17 at 18:38; Status DC Sodium Chloride 50 ml @ As Directed STK-MED ONCE .ROUTE Last administered on 18:37; Start 01/08/17 at 18:37; Stop 01/08/17 at 18:38; Status DC Sodium Chloride 50 ml @ As Directed STK-MED ONCE .ROUTE Last administered on 18:45; Start 01/08/17 at 18:45; Stop 01/08/17 at 18:46; Status DC Piperacillin Sod/ Tazobactam Sod (Zosyn) 3.375 gm STK-MED ONCE IV Last administered on 01/09/17 00:22; Start 01/08/17 at 23:46; Stop 01/08/17 at 23:47; Status DC Sodium Chloride 50 ml @ As Directed STK-MED ONCE .ROUTE Last administered on 23:46; Start 01/08/17 at 23:46; Stop 01/08/17 at 23:47; Status DC Promethazine HCl (Phenergan) 25 mg STK-MED ONCE IV Last administered on 00:21; Start 01/08/17 at 23:49; Stop 01/08/17 at 23:50; Status DC Sodium Chloride 50 ml @ As Directed STK-MED ONCE .ROUTE Last administered on 23:50; Start 01/08/17 at 23:50; Stop 01/08/17 at 23:51; Status DC Magnesium Sulfate 50 ml @ 25 mls/hr 1X ONCE IV Last administered on 01/09/17 07:57; Start 01/09/17 at 06:30; Stop 01/09/17 at 08:29; Status DC Potassium Chloride 40 meq/ Sodium Chloride 1,020 ml @ 75 mls/hr [id number] IV Last administered on 01/11/17 12:32; Start 01/09/17 at 06:30 Potassium Chloride (Klor-Con) 20 meq TIDWMEALS PO Last administered on 11:49; Start 01/09/17 at 08:00; Stop 01/10/17 at 15:01; Status DC Micafungin Sodium 100 mg/Dextrose 100 ml @ 100 mls/hr Q24H IV Last administered on 01/11/17 10:41; Start 01/09/17 at 10:00 Ceftriaxone Sodium 1 gm/ Sodium Chloride 50 ml @ 100 mls/hr Q24H IV ; Start 01/09/17 at 11:00; Stop 01/09/17 at 11:00; Status DC Ceftriaxone Sodium 1 gm/ Sodium Chloride 50 ml @ 100 mls/hr Q24H IV ; Start 01/09/17 at 11:00; Stop 01/09/17 at 11:00; Status DC Ceftriaxone Sodium 1 gm/ Sodium Chloride 50 ml @ 100 mls/hr Q24H IV Last administered on 01/11/17 11:28; Start 01/09/17 at 11:00 Potassium Chloride (Klor-Con) 40 meq TIDWMEALS PO Last administered on 11:28; Start 01/10/17 at 17:00 Promethazine HCl (Phenergan) 25 mg STK-MED ONCE IV ; Start 01/10/17 at 22:33; Stop 01/10/17 at 22:34; Status DC Sodium Chloride 50 ml @ As Directed STK-MED ONCE .ROUTE ; Start 01/10/17 at 22:33 ; Stop 01/10/17 at 22:34; Status DC Active Scripts Active Reported Albuterol Sulfate Neb Soln (Albuterol Sulfate) 2.5 Mg/3 Ml Vial.neb 2.5 Mg NEB PRN Q4HRS PRN Ventolin Hfa Inhaler (Albuterol Sulfate) 18 Gm Hfa.aer.ad 2 Puff IH PRN Q4HRS PRN Symbicort 80-4.5 Mcg Inhaler (Budesonide/Formoterol Fumarate) 10.2 Gm Hfa.aer.ad 2 Puff IH BID [place] 5-325 Tablet (Hydrocodone Bit/Acetaminophen) 1 Each Tablet 1-2 Tab PO Q4- 6HRS Reglan (Metoclopramide Hcl) 10 Mg Tablet 10 Mg PO PRN TID PRN Promethazine Hcl 25 Mg Tablet 25 Mg PO PRN Q4HRS PRN Zofran Odt (Ondansetron) 8 Mg Tab.rapdis 8 Mg PO PRN Q4HRS PRN Metoprolol Tartrate 25 Mg Tablet 25 Mg PO BID Nexium Capsule (Esomeprazole Magnesium) 40 Mg Capsule.dr 40 Mg PO NOON Fludrocortisone Acetate 0.1 Mg Tablet 0.1 Mg PO NOON Cortef (Hydrocortisone) 5 Mg Tablet 5 Mg PO BID Linzess (Linaclotide) 290 Mcg Capsule 290 Mcg PO PRN DAILY PRN Vitals/I & O Vital Sign - Last 24 Hours 01/10/17 01/10/17 01/10/17 01/10/17 15:53 16:30 16:57 18:23 Temp 98.5 Pulse 63 Resp 20 20 16 B/P (MAP) 120/75 (90) Pulse Ox 98 96 98 O2 Delivery Room Air Room Air Room Air 01/10/17 01/10/17 01/10/17 01/10/17 18:45 19:20 21:18 21:31 Temp 98.6 Pulse 65 65 Resp 18 B/P (MAP) 123/77 (92) 123/77 Pulse Ox 98 98 O2 Delivery Room Air Room Air Room Air 01/10/17 01/10/17 01/10/17 01/11/17 21:32 22:04 22:44 02:05 Pulse 64 Resp 18 18 18 B/P (MAP) 121/77 (92) Pulse Ox 98 99 O2 Delivery Room Air Room Air Room Air Room Air 01/11/17 01/11/17 01/11/17 01/11/17 02:35 04:50 05:19 05:56 Temp 98.0 Pulse 52 Resp 18 16 18 B/P (MAP) 137/92 (107) Pulse Ox 98 94 O2 Delivery Room Air Room Air Room Air 01/11/17 01/11/17 01/11/17 01/11/17 08:00 08:17 09:09 09:11 Pulse 56 B/P (MAP) 137/92 Pulse Ox 94 94 O2 Delivery Room Air Room Air Room Air 01/11/17 01/11/17 01/11/17 09:50 10:19 12:30 Temp 98.0 Pulse 57 Resp 20 B/P (MAP) 128/88 (101) Pulse Ox 97 96 96 O2 Delivery Room Air Room Air Room Air Intake and Output 01/10/17 01/10/17 01/11/17 15:00 23:00 07:00 Intake Total 200.5 ml 1880.88 ml 150 ml Output Total 1950 ml 950 ml Balance 200.5 ml -69.12 ml -800 ml Nutrition Consultation Malnutrition Findings: Body Fat Depletion (Non Severe: Mild Depletion SHANNAN COYNE MD Jan 11, 2017 13:00
[2017-01-11 16:10] VITALS: BP 115/74
[2017-01-11 19:57] VITALS: BP 120/76
[2017-01-11] MEDS ORDERED: PROMETHAZINE 25 MG/ML VIAL IV ONE (23:11)
[2017-01-11] MEDS ORDERED: IV NORMAL SALINE 50ML 50 ML ONE (23:11)
[2017-01-12] VITALS (16 sets, daily range): BP systolic 11–173; BP diastolic 60–104
[2017-01-12] MEDS: POTASSIUM CHLORIDE 40 MEQ in IV 1/2 NORMAL SALINE 1,000 ML IV SCH (04:17)
[2017-01-12] MEDS: fentaNYL PF 100 MCG/2 ML VIAL IV PRN ×6 (04:20→22:34)
[2017-01-12] MEDS: ALBUTEROL SULFATE 2.5 MG/3 ML NEBU. NEB SCH ×4 (05:00→20:44)
[2017-01-12] MEDS: HYDROCORTISONE SOD SUCC/PF 100 MG/2 ML VIAL. IV SCH ×3 (05:09→21:03)
[2017-01-12 05:27] LABS: BASO % 0 % (0-3); EOS % 0 % (0-3); HEMATOCRIT 35.2 % (36.0-47.0); HEMOGLOBIN 11.9 g/dL (12.0-15.5); LYMPH # 1.6 x10^3/uL (1.0-4.8); LYMPH % 19 % (24-48); MEAN CORPUSCULAR HEMOGLOBIN 30 pg (25-35); MEAN CORPUSCULAR HGB CONC 34 g/dL (31-37); MEAN CORPUSCULAR VOLUME 90 fL (79-100); MONO # 0.5 x10^3/uL (0.0-1.1); MONO % 6 % (0-9); NEUT # 6.6 x10^3uL (1.8-7.7); NEUT % 75 % (31-73); PLATELET COUNT 207 x10^3/uL (140-400); RED BLOOD COUNT 3.92 x10^6/uL (3.50-5.40); RED CELL DISTRIBUTION WIDTH 12.9 % (11.5-14.5); WHITE BLOOD COUNT 8.7 x10^3/uL (4.0-11.0)
[2017-01-12 06:07] LABS: % LYMPHS 26 % (24-48); % MONOS 3 % (0-10); % SEGS 69 % (35-66); PLT ESTIMATE ADEQUATE (ADEQUATE)
[2017-01-12 06:08] LABS: ANISOCYTOSIS SLIGHT
[2017-01-12 06:09] LABS: MICROCYTOSIS SLIGHT
[2017-01-12 07:34] LABS: ALBUMIN 2.8 g/dL (3.4-5.0); ALBUMIN/GLOBULIN RATIO 0.8 (1.0-1.7); CALCIUM 8.2 mg/dL (8.5-10.1); CREATININE 0.5 mg/dL (0.6-1.0); GFR 155.7; POTASSIUM 3.8 mmol/L (3.5-5.1); TOTAL BILIRUBIN 0.2 mg/dL (0.2-1.0); TOTAL PROTEIN 6.3 g/dL (6.4-8.2)
[2017-01-12] MEDS: POTASSIUM CHLORIDE 20 MEQ TABLET.ER. PO SCH ×4 (08:00→16:15)
[2017-01-12] MEDS: METOPROLOL TART IMMED RELEASE 25 MG TABLET PO SCH ×2 (09:00→21:02)
[2017-01-12] MEDS: BUDESONIDE 0.5 MG/2 ML NEBU NEB SCH ×2 (09:32→20:44)
[2017-01-12] MEDS: MICAFUNGIN 100 MG in IV DEXTROSE 5% 100 ML IV SCH (09:39)
[2017-01-12] MEDS: diphenhydrAMINE 50 MG/ML VIAL IVP PRN (09:39)
[2017-01-12] MEDS ORDERED: PROPOFOL 100 ML IV ONE (10:45)
[2017-01-12] MEDS: ENOXAPARIN 30 MG/0.3 ML DISP.SYRIN. SQ SCH (10:55)
[2017-01-12] MEDS ORDERED: LIDOCAINE 2% VISCOUS 15 ML SOLUTION. ONE (11:00)
[2017-01-12] MEDS ORDERED: BENZOCAINE ONE 20% MUCOSAL SPRAY. (11:00)
[2017-01-12] MEDS ORDERED: MIDAZOLAM HCL 5 MG/5 ML VIAL ONE (11:12)
[2017-01-12] MEDS ORDERED: LIDOCAINE 2% TOPICAL JELLY 30GM TUBE. TP ONE (11:15)
[2017-01-12] MEDS ORDERED: LIDOCAINE 2% VISCOUS 15 ML SOLUTION. SWSW ONE (11:15)
[2017-01-12] MEDS ORDERED: BENZOCAINE ONE 20% MUCOSAL SPRAY. MM (11:30)
[2017-01-12] MEDS: PROMETHAZINE 12.5 MG in IV NORMAL SALINE 50ML 50 ML IV PRN ×2 (13:24→22:34)
[2017-01-12] MEDS: FLUDROCORTISONE 0.1 MG TABLET PO SCH (14:10)
[2017-01-12] MEDS: PANTOPRAZOLE 40 MG TABLET. PO SCH (14:11)
--- NOTE | 2017-01-12 14:42 | PDOC ---
SUBJECTIVE: The patient continues to complain of weakness and poor appetite. Mostly bedbound. She did complain of pain in her throat after they did the transfusion echocardiogram which was negative for any valvular "vegetation OBJECTIVE: Vital Signs: Vital Signs Date Time Temp Pulse Resp B/P (MAP) Pulse Ox O2 Delivery O2 Flow Rate FiO2 01/12/17 14:22 98.4 77 18 104/60 (75) 98 Room Air I & O Intake and Output 01/12/17 07:00 Intake Total 3411.98 ml Output Total 2975 ml Balance 436.98 ml Intake Oral 1260 ml IV Total 2151.98 ml Output Urine Total 2975 ml Labs: Laboratory Tests Test 01/11/17 04:59 01/12/17 05:00 Sodium Level 139 mmol/L (136-145) 139 mmol/L (136-145) Potassium Level 3.5 mmol/L (3.5-5.1) 3.8 mmol/L (3.5-5.1) Chloride Level 104 mmol/L (98-107) 104 mmol/L (98-107) Carbon Dioxide Level 29 mmol/L (21-32) 31 mmol/L (21-32) Anion Gap 6 (6-14) 4 (6-14) Blood Urea Nitrogen 5 mg/dL (7-20) 6 mg/dL (7-20) Creatinine 0.6 mg/dL (0.6-1.0) 0.5 mg/dL (0.6-1.0) Estimated GFR (Cockcroft-Gault) 126.2 155.7 Glucose Level 103 mg/dL (70-99) 104 mg/dL (70-99) Calcium Level 8.1 mg/dL (8.5-10.1) 8.2 mg/dL (8.5-10.1) White Blood Count 8.7 x10^3/uL (4.0-11.0) Red Blood Count 3.92 x10^6/uL (3.50-5.40) Hemoglobin 11.9 g/dL (12.0-15.5) Hematocrit 35.2 % (36.0-47.0) Mean Corpuscular Volume 90 fL (79-100) Mean Corpuscular Hemoglobin 30 pg (25-35) Mean Corpuscular Hemoglobin Concent 34 g/dL (31-37) Red Cell Distribution Width 12.9 % (11.5-14.5) Platelet Count 207 x10^3/uL (140-400) Neutrophils (%) (Auto) 75 % (31-73) Lymphocytes (%) (Auto) 19 % (24-48) Monocytes (%) (Auto) 6 % (0-9) Eosinophils (%) (Auto) 0 % (0-3) Basophils (%) (Auto) 0 % (0-3) Neutrophils # (Auto) 6.6 x10^3uL (1.8-7.7) Lymphocytes # (Auto) 1.6 x10^3/uL (1.0-4.8) Monocytes # (Auto) 0.5 x10^3/uL (0.0-1.1) Eosinophils # (Auto) 0.0 x10^3/uL (0.0-0.7) Basophils # (Auto) 0.0 x10^3/uL (0.0-0.2) Segmented Neutrophils % 69 % (35-66) Lymphocytes % 26 % (24-48) Monocytes % 3 % (0-10) Platelet Estimate Adequate (ADEQUATE) Anisocytosis Slight Microcytosis Slight BUN/Creatinine Ratio 12 (6-20) Total Bilirubin 0.2 mg/dL (0.2-1.0) Aspartate Amino Transf (AST/SGOT) 9 U/L (15-37) Alanine Aminotransferase (ALT/SGPT) 31 U/L (14-59) Alkaline Phosphatase 50 U/L (46-116) Total Protein 6.3 g/dL (6.4-8.2) Albumin 2.8 g/dL (3.4-5.0) Albumin/Globulin Ratio 0.8 (1.0-1.7) Physical Exam: Constitutional: Well developed, well nourished, no acute distress, non-toxic appearance. HENT: Normocephalic, atraumatic, bilateral external ears normal, oropharynx moist, no oral exudates, nose normal. Eyes: REDDY, EOMI, conjunctiva normal, no discharge. Neck: Normal range of motion, no tenderness, supple, no stridor. Cardiovascular: JVP not elevated. No carotid bruit. Nor precordial pulsations or heaves. S1 N,S2N. No murmurs. No rubs or clicks. Thorax and Lungs: NOrmal respiration. Normal chest expansion. Normal to percuss. Equal breath sounds. No crackles. No wheeze. Abdomen: Bowel sounds normal, soft, no tenderness, no masses, no pulsatile masses. Skin: Warm, dry, no erythema, no rash. Back: No tenderness, no CVA tenderness. Extremities: Intact distal pulses, no tenderness, no cyanosis, no clubbing, ROM intact, no edema. Neurologic: Alert and oriented X 3, and has paraplegia and neurogenic bladder, normal sensory function,. Psychologic: Affect normal, judgement normal, mood normal. ASSESSMENT: streptococcal bacteremia Fungemia Archer disease Traumatic brain injury paraplegia Marked waekness and deconditioning PLAN: I'll continue ceftriaxone IV daily continue with micafungin 100 mg IV daily. Continue Synthroid replacement Continue electrolyte replacement I will contact Dr. Huddleston the infectious disease specialist see whether it is worthwhile starting her on her IV immunoglobulin earlier than normal Her blood culture grew Frances albicans that seems to be clinically responding. SHANNAN COYNE MD Jan 12, 2017 14:41
--- NOTE | 2017-01-12 16:36 | CARD ---
APPROVED REPORT EXAM: Transesophageal echocardiogram with color flow Doppler. INDICATION Infection:Rule out subacute bacterial endocarditis Reason For Test : Rule out endocarditis. PROCEDURE After obtaining informed consent, patient underwent transesophageal echo in the ICU. Type of Sedation : Conscious Sedation Sedation was administered by SUMIT Pichardo. Sedation was achieved with Versed 2 mg intravenously. Sedation was achieved with Fentanyl 50mg intravenously. Transesophageal probe was inserted and advanced into esophagus by [place] MD. The DANITA was performed without complications. Throughout the procedure, the blood pressure, pulse oximetry, cardiac rhythm, and rate were monitored . The patient tolerated the procedure without adverse effects. Recovery from conscious sedation was une ventful and vital signs were stable. LEFT VENTRICLE The left ventricle is normal size. There is normal left ventricular wall thickness. Left ventricle sy stolic function is normal. The Ejection Fraction is 65-70%. There is normal LV segmental wall motion. No left ventricle thrombus noted on this study. There is no ventricular septal defect visualized. RIGHT VENTRICLE The right ventricle is normal size. The right ventricular systolic function is normal. ATRIA The left atrium size is normal. The right atrium size is normal. There is an catheter noted at the SV C/RA junction, although a biofilm is noted on this catheter, a clear vegetation is not seen. The inte ratrial septum is intact with no evidence for an atrial septal defect or patent foramen ovale as note d on 2-D or Doppler imaging. There is no thrombus noted in the left atrial appendage. AORTIC VALVE The aortic valve is normal in structure and function. The aortic valve is trileaflet. Doppler and Col or Flow revealed no significant aortic regurgitation. There is no aortic valvular vegetation. MITRAL VALVE The mitral valve is normal in structure and function. There are no vegetations seen on mitral valve. A slight mitral valve prolapse is present on P2 of the posterior leaflet. Doppler and Color Flow reve aled trace to mild mitral regurgitation. TRICUSPID VALVE The tricuspid valve is normal in structure and function. Doppler and Color Flow revealed no significa nt tricuspid valve regurgitation noted. There is no tricuspid valve vegetation seen. PULMONIC VALVE The pulmonic valve is not well visualized but appears normal in structure and function. No vegetation seen on pulmonic valve. Doppler and Color Flow revealed no pulmonic valvular regurgitation. GREAT VESSELS The aortic root is normal in size. The ascending aorta is normal in size. Normal pulmonary venous ricardo w (Doppler). The IVC was visualized and appears normal in size. The SVC was visualized and appears no rmal in size.. PERICARDIAL EFFUSION There is no evidence of significant pericardial effusion. Critical Notification Critical Value: No <Conclusion> Left ventricle systolic function is normal. The Ejection Fraction is 65-70%. There is normal LV segmental wall motion. The right atrium size is normal. There is an catheter noted at the SVC/RA junction, although a biofil m is noted on this catheter, a clear vegetation is not seen.
[2017-01-13] MEDS: POTASSIUM CHLORIDE 40 MEQ in IV 1/2 NORMAL SALINE 1,000 ML IV SCH ×3 (01:06→20:17)
[2017-01-13] MEDS: fentaNYL PF 100 MCG/2 ML VIAL IV PRN ×4 (01:07→14:08)
[2017-01-13] MEDS: HYDROCORTISONE SOD SUCC/PF 100 MG/2 ML VIAL. IV SCH ×2 (05:17→14:08)
[2017-01-13 05:28] LABS: BASO % 0 % (0-3); EOS % 0 % (0-3); HEMATOCRIT 34.5 % (36.0-47.0); HEMOGLOBIN 11.6 g/dL (12.0-15.5); LYMPH # 1.4 x10^3/uL (1.0-4.8); LYMPH % 16 % (24-48); MEAN CORPUSCULAR HEMOGLOBIN 30 pg (25-35); MEAN CORPUSCULAR HGB CONC 34 g/dL (31-37); MEAN CORPUSCULAR VOLUME 90 fL (79-100); MONO # 0.6 x10^3/uL (0.0-1.1); MONO % 7 % (0-9); NEUT % 77 % (31-73); PLATELET COUNT 211 x10^3/uL (140-400); RED BLOOD COUNT 3.84 x10^6/uL (3.50-5.40); RED CELL DISTRIBUTION WIDTH 12.7 % (11.5-14.5)
[2017-01-13 05:39] LABS: ALBUMIN 2.8 g/dL (3.4-5.0); ALBUMIN/GLOBULIN RATIO 0.8 (1.0-1.7); CALCIUM 7.9 mg/dL (8.5-10.1); CREATININE 0.4 mg/dL (0.6-1.0); GFR 201.5; POTASSIUM 3.5 mmol/L (3.5-5.1); TOTAL BILIRUBIN 0.2 mg/dL (0.2-1.0); TOTAL PROTEIN 6.1 g/dL (6.4-8.2)
[2017-01-13] MEDS: ALBUTEROL SULFATE 2.5 MG/3 ML NEBU. NEB SCH ×4 (05:48→20:54)
[2017-01-13 05:50] VITALS: BP 125/81
[2017-01-13] MEDS ORDERED: PROMETHAZINE 25 MG/ML VIAL IV ONE (06:05)
[2017-01-13] MEDS ORDERED: IV NORMAL SALINE 50ML 50 ML ONE (06:05)
[2017-01-13] MEDS: PROMETHAZINE 12.5 MG in IV NORMAL SALINE 50ML 50 ML IV PRN ×2 (06:14→12:39)
[2017-01-13] MEDS: diphenhydrAMINE 50 MG/ML VIAL IVP PRN (09:07)
[2017-01-13] MEDS: FLUCONAZOLE 100MG/50ML PREMIX 50 ML IV SCH (09:08)
[2017-01-13] MEDS: METOPROLOL TART IMMED RELEASE 25 MG TABLET PO SCH ×2 (09:08→20:15)
[2017-01-13] MEDS: POTASSIUM CHLORIDE 20 MEQ TABLET.ER. PO SCH ×3 (09:08→17:14)
[2017-01-13] MEDS: HYDROcodone/APAP 5/325MG 1 TAB TABLET PO PRN ×2 (09:08→17:28)
[2017-01-13] MEDS: ENOXAPARIN 30 MG/0.3 ML DISP.SYRIN. SQ SCH (09:09)
[2017-01-13 09:38] VITALS: BP 139/87
[2017-01-13] MEDS: PANTOPRAZOLE 40 MG TABLET. PO SCH (11:46)
[2017-01-13] MEDS: FLUDROCORTISONE 0.1 MG TABLET PO SCH (11:47)
[2017-01-13] MEDS: BUDESONIDE 0.5 MG/2 ML NEBU NEB SCH ×2 (12:06→20:53)
--- NOTE | 2017-01-13 16:01 | PDOC ---
SUBJECTIVE: Continues to be weak and mostly sleepy Eating a little bit more OBJECTIVE: The patient is sleepy but arousable Vital Signs: Vital Signs Date Time Temp Pulse Resp B/P (MAP) Pulse Ox O2 Delivery O2 Flow Rate FiO2 01/13/17 14:08 96 Room Air 01/13/17 09:38 98.4 60 20 139/87 (104) I & O Intake and Output 01/13/17 07:00 Intake Total 2241.16 ml Output Total 2050 ml Balance 191.16 ml Intake Oral 580 ml IV Total 1661.16 ml Output Urine Total 2050 ml Labs: Laboratory Tests Test 01/12/17 05:00 01/13/17 05:20 White Blood Count 8.7 x10^3/uL (4.0-11.0) 9.0 x10^3/uL (4.0-11.0) Red Blood Count 3.92 x10^6/uL (3.50-5.40) 3.84 x10^6/uL (3.50-5.40) Hemoglobin 11.9 g/dL (12.0-15.5) 11.6 g/dL (12.0-15.5) Hematocrit 35.2 % (36.0-47.0) 34.5 % (36.0-47.0) Mean Corpuscular Volume 90 fL (79-100) 90 fL (79-100) Mean Corpuscular Hemoglobin 30 pg (25-35) 30 pg (25-35) Mean Corpuscular Hemoglobin Concent 34 g/dL (31-37) 34 g/dL (31-37) Red Cell Distribution Width 12.9 % (11.5-14.5) 12.7 % (11.5-14.5) Platelet Count 207 x10^3/uL (140-400) 211 x10^3/uL (140-400) Neutrophils (%) (Auto) 75 % (31-73) 77 % (31-73) Lymphocytes (%) (Auto) 19 % (24-48) 16 % (24-48) Monocytes (%) (Auto) 6 % (0-9) 7 % (0-9) Eosinophils (%) (Auto) 0 % (0-3) 0 % (0-3) Basophils (%) (Auto) 0 % (0-3) 0 % (0-3) Neutrophils # (Auto) 6.6 x10^3uL (1.8-7.7) 7.0 x10^3uL (1.8-7.7) Lymphocytes # (Auto) 1.6 x10^3/uL (1.0-4.8) 1.4 x10^3/uL (1.0-4.8) Monocytes # (Auto) 0.5 x10^3/uL (0.0-1.1) 0.6 x10^3/uL (0.0-1.1) Eosinophils # (Auto) 0.0 x10^3/uL (0.0-0.7) 0.0 x10^3/uL (0.0-0.7) Basophils # (Auto) 0.0 x10^3/uL (0.0-0.2) 0.0 x10^3/uL (0.0-0.2) Segmented Neutrophils % 69 % (35-66) Lymphocytes % 26 % (24-48) Monocytes % 3 % (0-10) Platelet Estimate Adequate (ADEQUATE) Anisocytosis Slight Microcytosis Slight Sodium Level 139 mmol/L (136-145) 138 mmol/L (136-145) Potassium Level 3.8 mmol/L (3.5-5.1) 3.5 mmol/L (3.5-5.1) Chloride Level 104 mmol/L (98-107) 103 mmol/L (98-107) Carbon Dioxide Level 31 mmol/L (21-32) 33 mmol/L (21-32) Anion Gap 4 (6-14) 2 (6-14) Blood Urea Nitrogen 6 mg/dL (7-20) 9 mg/dL (7-20) Creatinine 0.5 mg/dL (0.6-1.0) 0.4 mg/dL (0.6-1.0) Estimated GFR (Cockcroft-Gault) 155.7 201.5 BUN/Creatinine Ratio 12 (6-20) 23 (6-20) Glucose Level 104 mg/dL (70-99) 95 mg/dL (70-99) Calcium Level 8.2 mg/dL (8.5-10.1) 7.9 mg/dL (8.5-10.1) Total Bilirubin 0.2 mg/dL (0.2-1.0) 0.2 mg/dL (0.2-1.0) Aspartate Amino Transf (AST/SGOT) 9 U/L (15-37) 7 U/L (15-37) Alanine Aminotransferase (ALT/SGPT) 31 U/L (14-59) 24 U/L (14-59) Alkaline Phosphatase 50 U/L (46-116) 50 U/L (46-116) Total Protein 6.3 g/dL (6.4-8.2) 6.1 g/dL (6.4-8.2) Albumin 2.8 g/dL (3.4-5.0) 2.8 g/dL (3.4-5.0) Albumin/Globulin Ratio 0.8 (1.0-1.7) 0.8 (1.0-1.7) ASSESSMENT: Vital signs are stable the rset of physical exam is stable Problem List: Immune deficiency disorder Sepsis SIRS (systemic inflammatory response syndrome) PLAN: To continue I V Ceftriaxone To continue I V Fluconazole D/C IV HYRDOCORTISONE Switch to oral hydrocortisone 15mg po tid await the results of blood c/s SHANNAN COYNE MD Jan 13, 2017 16:01
[2017-01-13 16:44] VITALS: BP 115/74
[2017-01-13 19:10] VITALS: BP 117/74
[2017-01-13] MEDS: PROMETHAZINE 25 MG TABLET. PO PRN (20:14)
[2017-01-13] MEDS: HYDROCORTISONE 10 MG TABLET PO SCH (20:15)
[2017-01-13 23:27] VITALS: BP 111/68
[2017-01-14] MEDS ORDERED: IV NORMAL SALINE 50ML 50 ML ONE (00:20)
[2017-01-14] MEDS ORDERED: PROMETHAZINE 25 MG/ML VIAL IV ONE (00:20)
[2017-01-14] MEDS: PROMETHAZINE 12.5 MG in IV NORMAL SALINE 50ML 50 ML IV PRN ×2 (00:26→14:17)
[2017-01-14] MEDS: fentaNYL PF 100 MCG/2 ML VIAL IV PRN ×4 (00:27→14:17)
[2017-01-14] MEDS: ALBUTEROL SULFATE 2.5 MG/3 ML NEBU. NEB SCH ×3 (05:00→15:36)
[2017-01-14 05:48] VITALS: BP 117/77
[2017-01-14 06:39] LABS: CALCIUM 7.9 mg/dL (8.5-10.1); CREATININE 0.4 mg/dL (0.6-1.0); GFR 201.5
[2017-01-14 06:42] LABS: POTASSIUM 2.9 mmol/L (3.5-5.1)
[2017-01-14] MEDS ORDERED: POTASSIUM CHLORIDE 20 MEQ TABLET.ER. PO ONE ×3 (08:00→12:00)
[2017-01-14] MEDS: BUDESONIDE 0.5 MG/2 ML NEBU NEB SCH (08:00)
[2017-01-14] MEDS: PROMETHAZINE 25 MG TABLET. PO PRN (08:10)
[2017-01-14] MEDS: diphenhydrAMINE 50 MG/ML VIAL IVP PRN ×2 (08:10→10:02)
[2017-01-14] MEDS: ENOXAPARIN 30 MG/0.3 ML DISP.SYRIN. SQ SCH (08:10)
[2017-01-14] MEDS: FLUCONAZOLE 100MG/50ML PREMIX 50 ML IV SCH (08:10)
[2017-01-14] MEDS: METOPROLOL TART IMMED RELEASE 25 MG TABLET PO SCH (08:11)
[2017-01-14] MEDS: HYDROcodone/APAP 5/325MG 1 TAB TABLET PO PRN (08:11)
[2017-01-14] MEDS: POTASSIUM CHLORIDE 40 MEQ in IV 1/2 NORMAL SALINE 1,000 ML IV SCH (08:12)
[2017-01-14] MEDS: HYDROCORTISONE 10 MG TABLET PO SCH ×2 (08:13→12:21)
[2017-01-14 10:40] VITALS: BP 136/90
[2017-01-14] MEDS: FLUDROCORTISONE 0.1 MG TABLET PO SCH (12:00)
[2017-01-14] MEDS: PANTOPRAZOLE 40 MG TABLET. PO SCH (12:20)
[2017-01-14 14:07] VITALS: BP 113/71
[2017-01-14] MEDS ORDERED: HYDR10TA PO (16:11)
[2017-01-14] MEDS ORDERED: POTA20TA82 PO (16:13)
[2017-01-14 16:20] LABS: CALCIUM 7.9 mg/dL (8.5-10.1); CREATININE 0.5 mg/dL (0.6-1.0); GFR 155.7; POTASSIUM 3.8 mmol/L (3.5-5.1)
[2017-01-14] MEDS ORDERED: CEFT1FRO2 IV (16:25)
--- NOTE | 2017-01-14 16:36 | PDOC3 ---
Discharge Summary Visit Information Date of Admission: Jan 07, 2017 Date of Discharge: Jan 14, 2017 Admitting Diagnosis: streptococcal bacteremia gabbi albican sepsis Admitting Diagnosis Comments She did grew E coli sensitive to rociphen Final Diagnosis Problems Medical Problems: (1) Fever Status: Acute (2) SIRS (systemic inflammatory response syndrome) Status: Acute Problems: Brief Hospital Course Allergies Allergies Coded Allergies Type Severity Reaction Last Updated Verified erythromycin base Allergy Intermediate 11/12/15 Yes I S O L A T I O N *CONTACT* Allergy Unknown 11/13/15 Yes Vital Signs Vital Signs Date Time Temp Pulse Resp B/P (MAP) Pulse Ox O2 Delivery O2 Flow Rate FiO2 01/14/17 14:07 98.7 69 20 113/71 (85) 98 Room Air Lab Results Laboratory Tests Test 01/13/17 05:20 01/14/17 05:50 01/14/17 16:00 White Blood Count 9.0 x10^3/uL (4.0-11.0) Red Blood Count 3.84 x10^6/uL (3.50-5.40) Hemoglobin 11.6 g/dL (12.0-15.5) Hematocrit 34.5 % (36.0-47.0) Mean Corpuscular Volume 90 fL (79-100) Mean Corpuscular Hemoglobin 30 pg (25-35) Mean Corpuscular Hemoglobin Concent 34 g/dL (31-37) Red Cell Distribution Width 12.7 % (11.5-14.5) Platelet Count 211 x10^3/uL (140-400) Neutrophils (%) (Auto) 77 % (31-73) Lymphocytes (%) (Auto) 16 % (24-48) Monocytes (%) (Auto) 7 % (0-9) Eosinophils (%) (Auto) 0 % (0-3) Basophils (%) (Auto) 0 % (0-3) Neutrophils # (Auto) 7.0 x10^3uL (1.8-7.7) Lymphocytes # (Auto) 1.4 x10^3/uL (1.0-4.8) Monocytes # (Auto) 0.6 x10^3/uL (0.0-1.1) Eosinophils # (Auto) 0.0 x10^3/uL (0.0-0.7) Basophils # (Auto) 0.0 x10^3/uL (0.0-0.2) Sodium Level 138 mmol/L (136-145) 140 mmol/L (136-145) 139 mmol/L (136-145) Potassium Level 3.5 mmol/L (3.5-5.1) 2.9 mmol/L (3.5-5.1) 3.8 mmol/L (3.5-5.1) Chloride Level 103 mmol/L (98-107) 106 mmol/L (98-107) 105 mmol/L (98-107) Carbon Dioxide Level 33 mmol/L (21-32) 28 mmol/L (21-32) 32 mmol/L (21-32) Anion Gap 2 (6-14) 6 (6-14) 2 (6-14) Blood Urea Nitrogen 9 mg/dL (7-20) 4 mg/dL (7-20) 4 mg/dL (7-20) Creatinine 0.4 mg/dL (0.6-1.0) 0.4 mg/dL (0.6-1.0) 0.5 mg/dL (0.6-1.0) Estimated GFR (Cockcroft-Gault) 201.5 201.5 155.7 BUN/Creatinine Ratio 23 (6-20) Glucose Level 95 mg/dL (70-99) 110 mg/dL (70-99) 94 mg/dL (70-99) Calcium Level 7.9 mg/dL (8.5-10.1) 7.9 mg/dL (8.5-10.1) 7.9 mg/dL (8.5-10.1) Total Bilirubin 0.2 mg/dL (0.2-1.0) Aspartate Amino Transf (AST/SGOT) 7 U/L (15-37) Alanine Aminotransferase (ALT/SGPT) 24 U/L (14-59) Alkaline Phosphatase 50 U/L (46-116) Total Protein 6.1 g/dL (6.4-8.2) Albumin 2.8 g/dL (3.4-5.0) Albumin/Globulin Ratio 0.8 (1.0-1.7) Brief Hospital Course Ms. 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 culture for which she was treated with diflucan Urine c/s vivian E Coli sensitive to Rociphen Discharge Information Condition at Discharge: Improved, Comment Dischare Medications Current Medications Sodium Chloride 1,000 ml @ 1,000 mls/hr 1X ONCE IV Last administered on 23:25; Start 01/06/17 at 23:00; Stop 01/06/17 at 23:59; Status DC Acetaminophen (Tylenol) 1,000 mg 1X ONCE PO ; Start 01/06/17 at 23:15; Stop at 00:22; Status DC Promethazine HCl 25 mg/Sodium Chloride 51 ml @ 101 mls/hr 1X ONCE IV Last administered on 01/06/17 23:25; Start 01/06/17 at 23:15; Stop 01/06/17 at 23:45 ; Status DC Fentanyl Citrate (Fentanyl 2ml Vial) 25 mcg PRN Q15MIN PRN IV PAIN GREATER THAN 3/10 Last administered on 01/06/17 23:25; Start 01/06/17 at 23:15; Stop at 10:48; Status DC Promethazine HCl (Phenergan) 25 mg STK-MED ONCE IV ; Start 01/06/17 at 23:15; Stop 01/06/17 at 23:16; Status DC Sodium Chloride 50 ml @ As Directed STK-MED ONCE .ROUTE ; Start 01/06/17 at 23: 16; Stop 01/06/17 at 23:17; Status DC Acetaminophen (Tylenol) 1,000 mg 1X ONCE PO Last administered on 01/07/17 00: 29; Start 01/07/17 at 00:30; Stop 01/07/17 at 02:41; Status DC Sodium Chloride 1,000 ml @ 1,000 mls/hr 1X ONCE IV Last administered on 02:30; Start 01/07/17 at 00:45; Stop 01/07/17 at 02:41; Status DC Vancomycin HCl (Vanco Per Pharmacy) 1 each PRN DAILY PRN MC SEE COMMENTS Last administered on 01/08/17 14:36; Start 01/07/17 at 00:45; Stop 01/09/17 at 10:00; Status DC Piperacillin Sod/ Tazobactam Sod (Zosyn Per Pharmacy) 1 each PRN DAILY PRN MC SEE COMMENTS Last administered on 01/08/17 10:34; Start 01/07/17 at 04:00; Stop 01/09/17 at 10:00; Status DC Hydrocortisone Sodium Succinate (Solu-CORTEF) 100 mg 1X ONCE IV Last administered on 01/07/17 03:00; Start 01/07/17 at 02:45; Stop 01/07/17 at 02:46 ; Status DC Ondansetron HCl (Zofran) 4 mg PRN Q4HRS PRN IV NAUSEA/VOMITING; Start 01/07/17 at 02:30; Stop 01/08/17 at 02:29; Status DC Fentanyl Citrate (Fentanyl 2ml Vial) 50 mcg PRN Q2HR PRN IV PAIN Last administered on 01/08/17 00:15; Start 01/07/17 at 02:30; Stop 01/08/17 at 02:29; Status DC Sodium Chloride 1,000 ml @ 150 mls/hr Q6H40M IV Last administered on 22:42; Start 01/07/17 at 02:30; Stop 01/08/17 at 02:29; Status DC Acetaminophen (Tylenol) 650 mg PRN Q4HRS PRN PO FEVER Last administered on 01/07 22:42; Start 01/07/17 at 02:30; Stop 01/08/17 at 02:29; Status DC Vancomycin HCl 1 gm/Sodium Chloride 250 ml @ 250 mls/hr ONCE ONCE IV ; Start 01/07/17 at 03:00; Stop 01/07/17 at 03:59; Status DC Piperacillin Sod/ Tazobactam Sod 3.375 gm/Sodium Chloride 50 ml @ 100 mls/hr 1X ONCE IV Last administered on 01/07/17 05:58; Start 01/07/17 at 04:00; Stop 01/07/17 at 04:29; Status DC Diphenhydramine HCl (Benadryl) 25 mg 1X ONCE IVP Last administered on 05:57; Start 01/07/17 at 04:45; Stop 01/07/17 at 04:46; Status DC Piperacillin Sod/ Tazobactam Sod 3.375 gm/Sodium Chloride 50 ml @ 100 mls/hr Q6HRS IV Last administered on 01/09/17 06:27; Start 01/07/17 at 12:00; Stop 01/09/17 at 09:32; Status DC Vancomycin HCl 1 gm STK-MED ONCE .ROUTE Last administered on 01/07/17 06:37; Start 01/07/17 at 05:32; Stop 01/07/17 at 05:33; Status DC Piperacillin Sod/ Tazobactam Sod (Zosyn) 3.375 gm STK-MED ONCE IV ; Start at 05:32; Stop 01/07/17 at 05:33; Status DC Sodium Chloride 250 ml @ As Directed STK-MED ONCE .ROUTE Last administered on 01/07/17 06:37; Start 01/07/17 at 05:32; Stop 01/07/17 at 05:33; Status DC Sodium Chloride 50 ml @ As Directed STK-MED ONCE .ROUTE ; Start 01/07/17 at 05: 32; Stop 01/07/17 at 05:33; Status DC Vancomycin HCl 750 mg/Sodium Chloride 250 ml @ 250 mls/hr Q8H IV Last administered on 01/08/17 04:53; Start 01/07/17 at 13:00; Stop 01/08/17 at 14:08; Status DC Vancomycin HCl 1 each 1X ONCE MC Last administered on 01/08/17 12:30; Start at 12:30; Stop 01/08/17 at 12:31; Status DC Albuterol Sulfate (Ventolin) 2.5 mg PRN Q4HRS PRN NEB SHORTNESS OF BREATH; Start 01/07/17 at 10:30 Albuterol Sulfate (Ventolin Hfa) 2 puff PRN Q4HRS PRN IH SHORTNESS OF BREATH; Start 01/07/17 at 10:30; Status UNV Fludrocortisone Acetate (Florinef) 0.1 mg NOON PO Last administered on 12:00; Start 01/07/17 at 12:00 Acetaminophen/ Hydrocodone Bitart (Lortab 5/325) 1 tab PRN Q6HRS PRN PO PAIN Last administered on 01/14/17 08:11; Start 01/07/17 at 10:30 Metoclopramide HCl (Reglan) 10 mg PRN TID PRN PO NAUSEA/VOMITING Last administered on 01/11/17 12:30; Start 01/07/17 at 10:30 Metoprolol Tartrate (Lopressor) 25 mg BID PO Last administered on 01/14/17 08: 11; Start 01/07/17 at 10:30 Promethazine HCl (Phenergan) 25 mg PRN Q4HRS PRN PO NAUSEA/VOMITING Last administered on 01/14/17 08:10; Start 01/07/17 at 10:30 Non-Formulary Medication 2 puff BID IH ; Start 01/07/17 at 21:00; Stop 01/07/17 at 21:00; Status DC Pantoprazole Sodium (Protonix) 40 mg NOON PO Last administered on 01/14/17 12: 20; Start 01/07/17 at 12:00 Hydrocortisone (Cortef) 5 mg BID PO Last administered on 01/07/17 11:16; Start 01/07/17 at 11:00; Stop 01/07/17 at 11:39; Status DC Non-Formulary Medication 290 mcg PRN DAILY PRN PO CONSTIPATION; Start 01/07/17 at 10:30; Status UNV Ondansetron HCl (Zofran Odt) 8 mg PRN Q4HRS PRN PO NAUSEA/VOMITING; Start 01/07 at 11:00 Enoxaparin Sodium (Lovenox) 30 mg Q24H SQ Last administered on 01/14/17 08:10; Start 01/07/17 at 10:30 Albuterol Sulfate (Ventolin) 2.5 mg Q6H NEB Last administered on 01/14/17 05:00 ; Start 01/07/17 at 11:00 Budesonide (Pulmicort) 0.5 mg RTBID NEB Last administered on 01/13/17 20:53; Start 01/07/17 at 20:00 Promethazine HCl 12.5 mg/Sodium Chloride 50.5 ml @ 101 mls/hr PRN Q6HRS PRN IV NAUSEA/VOMITING Last administered on 01/14/17 14:17; Start 01/07/17 at 11:15 Hydrocortisone Sodium Succinate (Solu-CORTEF) 100 mg Q8HRS IV Last administered on 01/13/17 14:08; Start 01/07/17 at 12:00; Stop 01/13/17 at 15:55; Status DC Diphenhydramine HCl (Benadryl) 25 mg PRN Q6HRS PRN IVP ITCHING Last administered on 01/14/17 10:02; Start 01/07/17 at 14:00 Promethazine HCl (Phenergan) 25 mg STK-MED ONCE IV ; Start 01/07/17 at 22:47; Stop 01/07/17 at 22:48; Status DC Sodium Chloride 50 ml @ As Directed STK-MED ONCE .ROUTE ; Start 01/07/17 at 22: 48; Stop 01/07/17 at 22:49; Status DC Fentanyl Citrate (Fentanyl 2ml Vial) 50 mcg PRN Q2HR PRN IV PAIN Last administered on 01/14/17 14:17; Start 01/08/17 at 04:00 Potassium Chloride (Klor-Con) 20 meq 1X ONCE PO Last administered on 01/08/17 12:47; Start 01/08/17 at 12:30; Stop 01/08/17 at 12:31; Status DC Sodium Chloride 250 ml @ As Directed STK-MED ONCE .ROUTE Last administered on 01/08/17 12:47; Start 01/08/17 at 12:24; Stop 01/08/17 at 12:25; Status DC Sodium Chloride 1,000 ml @ 100 mls/hr Q10H IV Last administered on 01/08/17 16 :35; Start 01/08/17 at 16:00; Stop 01/09/17 at 06:14; Status DC Vancomycin HCl 1 gm/Sodium Chloride 250 ml @ 250 mls/hr Q8H IV Last administered on 01/09/17 04:45; Start 01/08/17 at 21:00; Stop 01/09/17 at 09:32; Status DC Vancomycin HCl 1 each 1X ONCE MC ; Start 01/09/17 at 20:30; Stop 01/09/17 at 20: 31; Status Cancel Potassium Chloride (Klor-Con) 20 meq 1X ONCE PO Last administered on 01/08/17 16:34; Start 01/08/17 at 17:00; Stop 01/08/17 at 17:01; Status DC Piperacillin Sod/ Tazobactam Sod (Zosyn) 3.375 gm STK-MED ONCE IV Last administered on 01/08/17 18:37; Start 01/08/17 at 18:37; Stop 01/08/17 at 18:38; Status DC Sodium Chloride 50 ml @ As Directed STK-MED ONCE .ROUTE Last administered on 18:37; Start 01/08/17 at 18:37; Stop 01/08/17 at 18:38; Status DC Sodium Chloride 50 ml @ As Directed STK-MED ONCE .ROUTE Last administered on 18:45; Start 01/08/17 at 18:45; Stop 01/08/17 at 18:46; Status DC Piperacillin Sod/ Tazobactam Sod (Zosyn) 3.375 gm STK-MED ONCE IV Last administered on 01/09/17 00:22; Start 01/08/17 at 23:46; Stop 01/08/17 at 23:47; Status DC Sodium Chloride 50 ml @ As Directed STK-MED ONCE .ROUTE Last administered on 23:46; Start 01/08/17 at 23:46; Stop 01/08/17 at 23:47; Status DC Promethazine HCl (Phenergan) 25 mg STK-MED ONCE IV Last administered on 00:21; Start 01/08/17 at 23:49; Stop 01/08/17 at 23:50; Status DC Sodium Chloride 50 ml @ As Directed STK-MED ONCE .ROUTE Last administered on 23:50; Start 01/08/17 at 23:50; Stop 01/08/17 at 23:51; Status DC Magnesium Sulfate 50 ml @ 25 mls/hr 1X ONCE IV Last administered on 01/09/17 07:57; Start 01/09/17 at 06:30; Stop 01/09/17 at 08:29; Status DC Potassium Chloride 40 meq/ Sodium Chloride 1,020 ml @ 75 mls/hr [id number] IV Last administered on 01/14/17 08:12; Start 01/09/17 at 06:30 Potassium Chloride (Klor-Con) 20 meq TIDWMEALS PO Last administered on 7/3/ 17at 11:49; Start 01/09/17 at 08:00; Stop 01/10/17 at 15:01; Status DC Micafungin Sodium 100 mg/Dextrose 100 ml @ 100 mls/hr Q24H IV Last administered on 01/12/17 09:39; Start 01/09/17 at 10:00; Stop 01/12/17 at 16:29; Status DC Ceftriaxone Sodium 1 gm/ Sodium Chloride 50 ml @ 100 mls/hr Q24H IV ; Start 01/09/17 at 11:00; Stop 01/09/17 at 11:00; Status DC Ceftriaxone Sodium 1 gm/ Sodium Chloride 50 ml @ 100 mls/hr Q24H IV ; Start 01/09/17 at 11:00; Stop 01/09/17 at 11:00; Status DC Ceftriaxone Sodium 1 gm/ Sodium Chloride 50 ml @ 100 mls/hr Q24H IV Last administered on 01/14/17 10:21; Start 01/09/17 at 11:00 Potassium Chloride (Klor-Con) 40 meq TIDWMEALS PO Last administered on 17:14; Start 01/10/17 at 17:00; Stop 01/14/17 at 07:07; Status DC Promethazine HCl (Phenergan) 25 mg STK-MED ONCE IV ; Start 01/10/17 at 22:33; Stop 01/10/17 at 22:34; Status DC Sodium Chloride 50 ml @ As Directed STK-MED ONCE .ROUTE ; Start 01/10/17 at 22:33 ; Stop 01/10/17 at 22:34; Status DC Promethazine HCl (Phenergan) 25 mg STK-MED ONCE IV ; Start 01/11/17 at 23:11; Stop 01/11/17 at 23:12; Status DC Sodium Chloride 50 ml @ As Directed STK-MED ONCE .ROUTE ; Start 01/11/17 at 23:11 ; Stop 01/11/17 at 23:12; Status DC Propofol 100 ml @ As Directed STK-MED ONCE IV ; Start 01/12/17 at 10:45; Stop at 10:46; Status DC Benzocaine (Hurricaine One) 1 spray STK-MED ONCE .ROUTE ; Start 01/12/17 at 11:00 ; Stop 01/12/17 at 11:01; Status DC Lidocaine HCl 15 ml STK-MED ONCE .ROUTE ; Start 01/12/17 at 11:00; Stop 01/12/17 at 11:01; Status DC Lidocaine HCl (Xylocaine 2% Topical 30gm Tube) 1 christine 1X ONCE TP Last administered on 01/12/17 11:50; Start 01/12/17 at 11:15; Stop 01/12/17 at 11:16; Status DC Benzocaine (Hurricaine One) 3 spray 1X ONCE MM Last administered on 01/12/17 11:18; Start 01/12/17 at 11:30; Stop 01/12/17 at 11:31; Status DC Lidocaine HCl 30 ml 1X ONCE SWSW Last administered on 01/12/17 11:17; Start at 11:15; Stop 01/12/17 at 11:16; Status DC Midazolam HCl (Versed) 5 mg STK-MED ONCE .ROUTE Last administered on 01/12/17 11:51; Start 01/12/17 at 11:12; Stop 01/12/17 at 11:13; Status DC Fluconazole/ Sodium Chloride 50 ml @ 100 mls/hr Q24H IV Last administered on 08:10; Start 01/13/17 at 09:00 Promethazine HCl (Phenergan) 25 mg STK-MED ONCE IV ; Start 01/13/17 at 06:05; Stop 01/13/17 at 06:06; Status DC Sodium Chloride 50 ml @ As Directed STK-MED ONCE .ROUTE ; Start 01/13/17 at 06:05 ; Stop 01/13/17 at 06:06; Status DC Hydrocortisone (Cortef) 15 mg TID PO Last administered on 01/14/17 12:21; Start 01/13/17 at 21:00 Promethazine HCl (Phenergan) 25 mg STK-MED ONCE IV ; Start 01/14/17 at 00:20; Stop 01/14/17 at 00:21; Status DC Sodium Chloride 50 ml @ As Directed STK-MED ONCE .ROUTE ; Start 01/14/17 at 00:20 ; Stop 01/14/17 at 00:21; Status DC Potassium Chloride (Klor-Con) 40 meq 1X ONCE PO Last administered on 01/14/17 08:11; Start 01/14/17 at 08:00; Stop 01/14/17 at 08:02; Status DC Potassium Chloride (Klor-Con) 40 meq 1X ONCE PO Last administered on 01/14/17 10:00; Start 01/14/17 at 10:00; Stop 01/14/17 at 10:01; Status DC Potassium Chloride (Klor-Con) 40 meq 1X ONCE PO Last administered on 01/14/17 12:20; Start 01/14/17 at 12:00; Stop 01/14/17 at 12:01; Status DC Potassium Chloride (Klor-Con) 40 meq [id number] PO ; Start 01/14/17 at 17:00 Active Scripts Active Reported Albuterol Sulfate Neb Soln (Albuterol Sulfate) 2.5 Mg/3 Ml Vial.neb 2.5 Mg NEB PRN Q4HRS PRN Ventolin Hfa Inhaler (Albuterol Sulfate) 18 Gm Hfa.aer.ad 2 Puff IH PRN Q4HRS PRN Symbicort 80-4.5 Mcg Inhaler (Budesonide/Formoterol Fumarate) 10.2 Gm Hfa.aer.ad 2 Puff IH BID [place] 5-325 Tablet (Hydrocodone Bit/Acetaminophen) 1 Each Tablet 1-2 Tab PO Q4- 6HRS Reglan (Metoclopramide Hcl) 10 Mg Tablet 10 Mg PO PRN TID PRN Promethazine Hcl 25 Mg Tablet 25 Mg PO PRN Q4HRS PRN Zofran Odt (Ondansetron) 8 Mg Tab.rapdis 8 Mg PO PRN Q4HRS PRN Metoprolol Tartrate 25 Mg Tablet 25 Mg PO BID Nexium Capsule (Esomeprazole Magnesium) 40 Mg Capsule.dr 40 Mg PO NOON Fludrocortisone Acetate 0.1 Mg Tablet 0.1 Mg PO NOON Cortef (Hydrocortisone) 5 Mg Tablet 5 Mg PO BID Linzess (Linaclotide) 290 Mcg Capsule 290 Mcg PO PRN DAILY PRN Patient Instructions Patient Instuctions Should come to the hospital daily for 1) rociphen 1 gram i v daily 2) diflucan 200 mg I V daily 3) check BMP daily 4) stop Fluodrocortisone SHANNAN COYNE MD Jan 14, 2017 16:36
[2017-01-14] MEDS ORDERED: POTASSIUM CHLORIDE 20 MEQ TABLET.ER. PO SCH (17:00)
== END 2017-01-14 18:15 | disposition home or self-care (01) | DRG 872 ==
LOC: ER 21:38 → ICU 01-07 02:28 → 1 SOUTH 01-07 17:43
PROVIDERS: ADMIT Family Medicine; ATTEND Family Medicine
DX: A40.8 Other streptococcal sepsis (principal); D83.9 Common variable immunodeficiency, unspecified; G82.20 Paraplegia, unspecified; N39.0 Urinary tract infection, site not specified; E27.1 Primary adrenocortical insufficiency; B49 Unspecified mycosis; D84.9 Immunodeficiency, unspecified; R65.20 Severe sepsis without septic shock; B96.20 Unspecified Escherichia coli [E. coli] as the cause of diseases classified elsewhere; E87.6 Hypokalemia; J45.909 Unspecified asthma, uncomplicated; K21.9 Gastro-esophageal reflux disease without esophagitis; D64.9 Anemia, unspecified; K59.03 Drug induced constipation; G57.90 Unspecified mononeuropathy of unspecified lower limb; E53.8 Deficiency of other specified B group vitamins; N31.9 Neuromuscular dysfunction of bladder, unspecified; T40.605A Adverse effect of unspecified narcotics, initial encounter; M25.551 Pain in right hip; Z79.51 Long term (current) use of inhaled steroids; Z79.899 Other long term (current) drug therapy; Z87.820 Personal history of traumatic brain injury; Z88.1 Allergy status to other antibiotic agents
CPT/HCPCS: 36415; 71010; 80048; 80053; 80202; 81001; 83605; 83735; 85007; 85027; 87040; 87205; 87641; 93005; 93312; 93325; 94640; 96374; 96375; G0481; J0696; J1200; J1450; J1650; J2248; J2250; J2543; J2550; J3010; J3370; J3475; J7030; J7050; J7613; J7626; J8597; Q0169; 99285-25

== ENCOUNTER 2017-03-16 20:36 | Inpatient (IN) | payer OTHER ==
[~2017-03-16] VITALS: Ht 168.9 cm; Wt 45.4 kg
[~2017-03-16 20:36] MED LIST changes: +ALBU18HF IH; +ALBU2.5V5 NEB; +BUDE10.22 IH; +CEFT1FRO2 IV; +HYDR-971 PO; +HYDR10TA PO; +METO10TA81 PO; +POTA20TA82 PO; +PROM25TA10 PO
--- NOTE | 2017-03-16 20:44 | ED.ADGEN ---
Past History Past Medical History: Asthma, DVT, GERD, UTI, Other Additional Past Medical Histor: history of TBI, history of autoimmune disorder. Past Surgical History: Tonsillectomy, Other Smoking: Non-smoker Alcohol Use: None Drug Use: None Adult General Chief Complaint Chief Complaint " I think my pic line is infected.. " Pt ".. she was to get another port.. at 3 week...its past 3 weeks now.. and it looks like port is coming out.. and sutures are out... and now she had a fever..." ( Mother) Miss Mirian Whatley is a 21 yr. old female with hx of KARI , and get IG infusions every other day. Pt. follows with Dr Huddleston and Dr. Deleon at [facility]. Pt. Follows with Dr. Perdomo . Pt. pic line Rt anti cubital has erythema, and pus at site. Sutures are gone, and some skin breakdown at suture site. HPI HPI Patient is a 21 year old female who presents with above hx and complaints of fever and chills. Pt. has hx. of Traumatic Brain Injury and Immunosuppression disorder. Patient's right antecubital PICC line appears to be infected at insertion site. PICC line has been in over 3 weeks. No streaking or adenopathy in right arm. Pt. had multiple episodes of SIRS, Sepsis, Strept bacteremia, Candid sepsis, Aseptic meningitis, patient follows with Dr. Huddleston - [facility], and receives compliment every other day. Pt. has had prior ports placement , planned new port placement this coming week. Pt. denies travel or ill contacts. Pt. is wheel chair bound secondary to Traumatic brain injury. Pt. to received Benadryl prior to vanco. given. Pt. Hx. TBI age 8, from fall - can move Rt. arm, but weak. Very limited motor function remaining limbs.-Chronic findings. Review of Systems Review of Systems Constitutional: Hx. fever or chills [] Eyes: Denies change in visual acuity, redness, or eye pain [] HENT: Denies nasal congestion or sore throat [] Respiratory: Denies cough or shortness of breath [] Cardiovascular: No additional information not addressed in HPI [] GI: Denies abdominal pain, nausea, vomiting, bloody stools or diarrhea [] : Denies dysuria or hematuria [] Musculoskeletal: Denies back pain or joint pain [] Integument: Denies rash or skin lesions [] Neurologic: Denies headache, focal weakness or sensory changes- from baseline TBI chronic findings Endocrine: Denies polyuria or polydipsia [] Family History Family History Non- contributory Current Medications Current Medications Current Medications Medications (Trade) Dose Ordered Sig/Jimmy Start Time Stop Time Status Last Admin Dose Admin Ceftriaxone Sodium 1 gm/ Sodium Chloride 50 ml @ 100 mls/hr 1X ONCE 03/16/17 23:30 03/16/17 23:39 DC Diphenhydramine HCl (Benadryl) 50 mg 1X ONCE 03/16/17 23:30 03/16/17 23:49 DC 03/16/17 23:30 50 MG Nitroglycerin (Nitrostat) 0.4 mg PRN Q5MIN PRN 03/16/17 21:15 03/16/17 23:41 DC Vancomycin HCl 1 gm/Sodium Chloride 250 ml @ 250 mls/hr 1X ONCE 03/16/17 23:30 03/17/17 00:29 DC 03/16/17 23:30 250 MLS/HR See Nursing for home meds Allergies Allergies Allergies Coded Allergies Type Severity Reaction Last Updated Verified erythromycin base Allergy Intermediate 11/12/15 Yes I S O L A T I O N *CONTACT* Allergy Unknown 11/13/15 Yes Physical Exam Physical Exam Constitutional: in mild distress, non-toxic appearance. [] HENT: Normocephalic, atraumatic, bilateral external ears normal, oropharynx moist, no oral exudates, nose normal. [] Eyes: PERRLA, EOMI, conjunctiva normal, no discharge. [] Neck: Normal range of motion, no tenderness, supple, no stridor. [] Scar. Cardiovascular:Heart rate regular rhythm, no murmur [] Lungs & Thorax: Bilateral breath sounds equal at apex on auscultation []Scars from previous ports. Abdomen: Bowel sounds normal, soft, no tenderness, no masses, no pulsatile masses. [] Skin: Warm, dry, no erythema, no rash. [] Except Rt. anti cubital cellulitis findings as per HPI. Back: No tenderness, no CVA tenderness. [] Extremities: Rt anti cubital tenderness and redness, as per HPI, , no cyanosis , no clubbing, ROM decreased due weakness, no edema. . Rt pic line site appears infected, pus and erythemic. Chronic limb weakness from old TBI, chronic findings - stable per family. Neurologic: Alert and oriented X 3, normal motor function, normal sensory function, no focal deficits noted. [] Psychologic: Affect normal, judgement normal, mood normal. [] Current Patient Data Vital Signs Vital Signs Date Time Temp Pulse Resp B/P (MAP) Pulse Ox O2 Delivery O2 Flow Rate FiO2 03/16/17 23:20 99.1 99 18 98 Room Air Lab Results Laboratory Tests Test 03/16/17 21:20 White Blood Count 9.9 x10^3/uL (4.0-11.0) Red Blood Count 4.54 x10^6/uL (3.50-5.40) Hemoglobin 13.6 g/dL (12.0-15.5) Hematocrit 40.1 % (36.0-47.0) Mean Corpuscular Volume 88 fL (79-100) Mean Corpuscular Hemoglobin 30 pg (25-35) Mean Corpuscular Hemoglobin Concent 34 g/dL (31-37) Red Cell Distribution Width 12.7 % (11.5-14.5) Platelet Count 237 x10^3/uL (140-400) Sodium Level 140 mmol/L (136-145) Potassium Level 3.6 mmol/L (3.5-5.1) Chloride Level 105 mmol/L (98-107) Carbon Dioxide Level 24 mmol/L (21-32) Anion Gap 11 (6-14) Blood Urea Nitrogen 7 mg/dL (7-20) Creatinine 0.5 mg/dL (0.6-1.0) L Estimated GFR (Cockcroft-Gault) 155.7 BUN/Creatinine Ratio 14 (6-20) Glucose Level 108 mg/dL (70-99) H Calcium Level 8.9 mg/dL (8.5-10.1) Total Bilirubin 0.3 mg/dL (0.2-1.0) Aspartate Amino Transferase (AST) 14 U/L (15-37) L Alanine Aminotransferase (ALT) 13 U/L (14-59) L Alkaline Phosphatase 72 U/L (46-116) Total Protein 7.8 g/dL (6.4-8.2) Albumin 3.7 g/dL (3.4-5.0) Albumin/Globulin Ratio 0.9 (1.0-1.7) L EKG EKG [] Radiology/Procedures Radiology/Procedures CXR pending at time of admit. [] Course & Med Decision Making Course & Med Decision Making Pertinent Labs and Imaging studies reviewed. (See chart for details) Discussed presentation, testing and tx. plan with 's ID- rack production worker and Dr. Ramon.- pt to be admitted for IV antibiotic and anti fungal, until cultures. Line pulled and tip line sent for cultures. Culture from and peripheral draws sent. Pt. is to be started on Vancomycin, Zosyn, and Micafungin. Dr. Perdomo is DrJohn. who planned for new port if infection cleared. [] Final Impression Final Impression 1. Fever and Chills 2. Hx. Immuno Suppression.- 3. Hx. Traumatic Brain Injury - quad plegic findings Problems: Dragon Disclaimer Dragon Disclaimer This electronic medical record was generated, in whole or in part, using a voice recognition dictation system. NAN MORGAN MD Mar 16, 2017 20:44
[2017-03-16] MEDS ORDERED: NITROGLYCERIN SUBLINGUAL 0.4 MG BOTTLE OF 25. SL PRN (21:15)
[2017-03-16 21:46] LABS: HEMATOCRIT 40.1 % (36.0-47.0); HEMOGLOBIN 13.6 g/dL (12.0-15.5); RED BLOOD COUNT 4.54 x10^6/uL (3.50-5.40); RED CELL DISTRIBUTION WIDTH 12.7 % (11.5-14.5); WHITE BLOOD COUNT 9.9 x10^3/uL (4.0-11.0)
[2017-03-16 21:57] LABS: ALBUMIN 3.7 g/dL (3.4-5.0); ALBUMIN/GLOBULIN RATIO 0.9 (1.0-1.7); CALCIUM 8.9 mg/dL (8.5-10.1); CREATININE 0.5 mg/dL (0.6-1.0); GFR 155.7; POTASSIUM 3.6 mmol/L (3.5-5.1); TOTAL BILIRUBIN 0.3 mg/dL (0.2-1.0); TOTAL PROTEIN 7.8 g/dL (6.4-8.2)
[2017-03-16] MEDS ORDERED: VANCOMYCIN 1 GM in IV NORMAL SALINE 250ML 250 ML IV ONE (23:30)
[2017-03-16] MEDS ORDERED: diphenhydrAMINE 50 MG/ML VIAL IVP ONE (23:30)
[2017-03-16] MEDS ORDERED: PIPERACILLIN/TAZOBACTAM 3.375 GM in IV NORMAL SALINE 50ML 50 ML IV ONE (23:45)
[2017-03-16] MEDS ORDERED: diphenhydrAMINE 50 MG/ML VIAL IV ONE (23:45)
[2017-03-16] MEDS ORDERED: PIPERACILLIN/TAZOBACTAM 3.375 GM VIAL IV ONE ×2 (23:48→23:58)
[2017-03-16] MEDS ORDERED: IV NORMAL SALINE 50ML 50 ML ONE (23:58)
[2017-03-17] MEDS ORDERED: IV RINGERS SOLUTION,LACTATED 1,000 ML IV ONE (00:30)
[2017-03-17] MEDS ORDERED: IV NORMAL SALINE 250ML 250 ML ONE ×2 (00:43→02:42)
[2017-03-17] MEDS ORDERED: VANCOMYCIN 1 GM VIAL. ONE (00:44)
[2017-03-17 01:44] VITALS: BP 111/77
[2017-03-17] MEDS ORDERED: PIP/TAZO PER PHARMACY MC PRN (02:30)
[2017-03-17] MEDS ORDERED: ONDANSETRON PF 4 MG/2 ML VIAL. IV PRN (02:30)
[2017-03-17] MEDS ORDERED: diphenhydrAMINE 50 MG/ML VIAL IVP PRN (02:30)
[2017-03-17] MEDS: MICAFUNGIN 100 MG in IV DEXTROSE 5% 100 ML IV SCH ×2 (02:50→23:40)
[2017-03-17] MEDS: diphenhydrAMINE 50 MG/ML VIAL IVP PRN ×4 (02:51→23:40)
[2017-03-17] MEDS: VANCOMYCIN PER PHARMACY MC PRN ×3 (02:54→03:02)
[2017-03-17 05:47] VITALS: BP 113/69
[2017-03-17] MEDS: PIPERACILLIN/TAZOBACTAM 3.375 GM in IV NORMAL SALINE 50ML 50 ML IV SCH ×3 (05:50→17:00)
[2017-03-17 06:47] LABS: BASO # 0.1 x10^3/uL (0.0-0.2); BASO % 1 % (0-3); EOS # 0.2 x10^3/uL (0.0-0.7); EOS % 2 % (0-3); HEMATOCRIT 34.9 % (36.0-47.0); HEMOGLOBIN 11.8 g/dL (12.0-15.5); LYMPH # 2.3 x10^3/uL (1.0-4.8); LYMPH % 22 % (24-48); MEAN CORPUSCULAR HEMOGLOBIN 30 pg (25-35); MEAN CORPUSCULAR HGB CONC 34 g/dL (31-37); MEAN CORPUSCULAR VOLUME 88 fL (79-100); MONO # 1.1 x10^3/uL (0.0-1.1); MONO % 10 % (0-9); NEUT % 66 % (31-73); PLATELET COUNT 199 x10^3/uL (140-400); RED BLOOD COUNT 3.96 x10^6/uL (3.50-5.40); RED CELL DISTRIBUTION WIDTH 12.5 % (11.5-14.5); WHITE BLOOD COUNT 10.7 x10^3/uL (4.0-11.0)
[2017-03-17 06:49] LABS: ALBUMIN 3.2 g/dL (3.4-5.0); ALBUMIN/GLOBULIN RATIO 0.9 (1.0-1.7); CALCIUM 8.6 mg/dL (8.5-10.1); CREATININE 0.5 mg/dL (0.6-1.0); GFR 155.7; MAGNESIUM 1.8 mg/dL (1.8-2.4); POTASSIUM 3.7 mmol/L (3.5-5.1); TOTAL BILIRUBIN 0.4 mg/dL (0.2-1.0); TOTAL PROTEIN 6.8 g/dL (6.4-8.2)
--- NOTE | 2017-03-17 07:55 | RAD ---
Portable chest, 03/17/2017: History: Fever and chills Comparison is made to a study from 01/06/2017. A left Port-A-Cath has been removed. The heart size and pulmonary vascularity are normal. No pulmonary infiltrates are seen. There is no evidence of pleural fluid. IMPRESSION: No acute cardiopulmonary abnormality is detected.
--- NOTE | 2017-03-17 08:01 | ACF ---
Admit Criteria Forms Admit Criteria Forms Admit Criteria Forms SEPSIS and Other Febrile Illness Without Focal Infection (Place 'X' for any and all applicable criteria): Admission to inpatient status for two midnights or more is indicated for ANY ONE of the following (1)(2)(3): [ ] I. Bacteremia [X]II. Suspected or identified specific infection requiring hospitalization (eg, meningitis, endocarditis) [ ]III. Hemodynamic instability [ ]IV. Temperature > 104.9 0F (40.5 0C) (oral) [ ]V. Core (rectal) temperature < 95 0F (35 0C) (eg, thought to be due to infection) [ ]. Altered mental status that is severe or persistent [ ]VII. Failure or unavailability of outpatient antimicrobial treatment [ ]VIII. Hypoxemia [ ]IX. Seizures [ ]X. New coagulopathy (eg, reduced platelet count consistent with disseminated intravascular coagulation) [ ]XI. Inpatient admission required [B] rather than observation care because of 1 or more of the following 1) Tachypnea not responsive to outpatient or observation treatment 2) Metabolic disorder (eg, hypoglycemia, hyperglycemia, metabolic acidosis ) that persists despite outpatient and observation care treatment 3) Evidence of end-organ dysfunction (eg, rising creatinine, myocardial ischemia, rising liver function tests) that is severe or persists despite observation care treatment 4) Temperature > 103.1 0F (39.5 0C) (oral) that is not responsive to observation care treatment 5) Dehydration that is severe or persistent 6) Parenteral antimicrobial regimen that must be implemented on inpatient basis (eg, infusion or monitoring needs beyond capabilities of outpatient parenteral therapy) 7) Strict or protective (eg, laminar flow) isolation 8) Other condition, treatment or monitoring requiring inpatient admission Extended stay beyond goal length of stay may be needed for(1)(3) [ ]a) Persistent Hypotension [ ]b) Positive blood cultures [ ]c) Lack of improvement on antimicrobial treatment (eg, continued fever) [ ]d) Active comorbid illness (eg, heart failure, renal failure) [ ]e) High-risk febrile neutropenia [ ]f) Insufficient oral intake [ ]g) insufficient oral intake The original [employer] content created by [employer] has been revised. The portions of the content which have been revised are identified through the use of italic text, and [employer] [employer] [facility] has neither reviewed nor approved the modified material. All other unmodified content is copyright [facility]. Please see references footnoted in the original [facility] edition 2014 LORELEI AVITIA Mar 17, 2017 08:01
[2017-03-17] MEDS: VANCOMYCIN 750 MG in IV NORMAL SALINE 250ML 250 ML IV SCH ×3 (08:14→23:30)
[2017-03-17] MEDS: HYDROCORTISONE SOD SUCC/PF 100 MG/2 ML VIAL. IV SCH ×3 (08:14→21:15)
[2017-03-17] MEDS ORDERED: MVI, ADULT NO.4 WITH VIT K 10 ML, FOLIC ACID 1 MG, THIAMINE 100 MG in IV DEXTROSE 5%-LA... IV SCH ×4 (09:00)
[2017-03-17] MEDS ORDERED: METOCLOPRAMIDE 10 MG TABLET PO PRN (09:30)
[2017-03-17] MEDS ORDERED: ALBUTEROL SULFATE 8GM INHALER. IH PRN (09:30)
[2017-03-17] MEDS ORDERED: ACETAMINOPHEN 500 MG TABLET PO PRN (09:30)
[2017-03-17] MEDS ORDERED: NON FORMULARY ITEM (Linaclotide (Linzess) 290 MCG) PO PRN (09:30)
[2017-03-17] MEDS ORDERED: ONDANSETRON ODT 4 MG TAB.RAPDIS PO PRN (10:15)
[2017-03-17] MEDS ORDERED: ALBUTEROL SULFATE 2.5 MG/3 ML NEBU. NEB PRN (10:15)
[2017-03-17] MEDS: ALBUTEROL SULFATE 2.5 MG/3 ML NEBU. NEB SCH ×4 (10:48→19:59)
[2017-03-17 11:05] VITALS: BP 101/61
[2017-03-17] MEDS: METOPROLOL TART IMMED RELEASE 25 MG TABLET PO SCH ×2 (11:25→21:15)
[2017-03-17] MEDS: PANTOPRAZOLE 40 MG TABLET. PO SCH (11:26)
[2017-03-17] MEDS: ENOXAPARIN 40 MG/0.4 ML DISP.SYRIN. SQ SCH (11:26)
[2017-03-17] MEDS: PROMETHAZINE 25 MG TABLET. PO PRN ×2 (11:42→23:46)
[2017-03-17] MEDS: HYDROcodone/APAP 5/325MG 1 TAB TABLET PO PRN ×3 (11:43→23:47)
[2017-03-17] MEDS ORDERED: LINACLOTIDE 145 MCG CAPSULE. PO SCH (12:00)
[2017-03-17] MEDS ORDERED: PANTOPRAZOLE 40 MG TABLET. PO ONE (12:00)
[2017-03-17] MEDS: MVI, ADULT NO.4 WITH VIT K 10 ML, FOLIC ACID 1 MG, THIAMINE 100 MG in IV DEXTROSE 5%-LA... IV SCH ×4 (12:13)
--- NOTE | 2017-03-17 14:38 | RAD ---
Right upper extremity venous duplex ultrasound 03/17/2017 Indication: Right upper extremity swelling. Recent PICC line removal. Discussion: Ultrasound evaluation of the right upper extremity is performed including color Doppler imaging spectral analysis. Evaluation of venous compressibility was also performed. There is partially occlusive thrombus within the right basilic vein (a superficial vein). Brachial veins, axillary vein, visualized subclavian vein are patent. Cephalic vein is patent. Impression: Partially occlusive, superficial venous thrombosis involving the right basilic vein.
[2017-03-17 15:19] VITALS: BP 100/65
--- NOTE | 2017-03-17 17:44 | HP ---
ADMIT DATE: 03/17/2017 REASON FOR ADMISSION: This is a 21-year-old female, who started having problems with her PICC line on Tuesday, it started hurting. Mother noted the stitches had come out. Tuesday called Dr. Huddleston, the Infectious Disease doctor noted that there was some oozing coming from there. She also had a fever of 100.5 at home. Presented to the Emergency Room and PICC line was pulled and she was admitted for possible cellulitis. PAST MEDICAL HISTORY: Common variable immunodeficiency, bacteremia, sepsis, E. coli urinary tract infections, traumatic brain injury, lower extremity neuropathy and motor dysfunction, narcotic-induced constipation, Sherburne's disease, neurogenic bladder, B12 deficiency, adrenal insufficiency. ALLERGIES: ERYTHROMYCIN BASE MEDICATIONS: Reviewed with her mother and are available on the MAR. SOCIAL HISTORY: As stated, she had a traumatic brain injury in high school and is confined to a wheelchair. She lives at home with her mother. She has a service dog. REVIEW OF SYSTEMS: As per HPI, pain in the right upper arm. OBJECTIVE: VITAL SIGNS: Temperature yesterday evening was 100.2, this morning 99, pulse 92, blood pressure 101/61, pulse ox 98% on room air. Height 66-1/2 inches and weight 98.38 pounds. GENERAL: This is a 21-year-old, in no acute distress. HEENT: Her eyes look good. Nose was patent. Throat was clear. Tongue was moist. NECK: Supple. LUNGS: Clear. CARDIOVASCULAR: Regular rhythm and rate. ABDOMEN: Soft, nontender. EXTREMITIES: Without edema. The right arm where the PICC line was has some external dermatitis with a little bit of drainage. The arm itself was slightly swollen. The chest x-ray is negative. LABORATORY DATA: White blood cell count was 10.7. Sed rate is 33. Hemoglobin 11.8, hematocrit 34.9. Chemistry normal except for albumin of 3.2, but that is after IV fluids. Culture of PICC line pending. Ultrasound of right upper arm pending. ASSESSMENT: 1. Cellulitis of the right upper arm. 2. Rule out ultrasound pending for deep venous thrombosis of the right upper venous system. 3. Combined immunodeficiency. 4. Traumatic brain injury. 5. History of bacteremia with fungemia. PLAN: Emergency Room doctor spoke with ID and will cover her with oral antibiotics for now until the culture comes back. ____ rule out DVT prophylaxis currently until the ultrasound comes back. YOLI FINLEY DO DR: LISA/anthony JOB#: [id number] / [id number]
[2017-03-17 19:15] VITALS: BP 104/63
[2017-03-17] MEDS: BUDESONIDE 0.5 MG/2 ML NEBU NEB SCH (19:59)
[2017-03-17] MEDS ORDERED: NON FORMULARY ITEM (Budesonide/Formoterol Fumarate (Symbicort 80-4.5 Mcg Inhaler) 2 PUFF) IH SCH (21:00)
[2017-03-17] MEDS: LINACLOTIDE 145 MCG CAPSULE. PO SCH (21:16)
[2017-03-17 23:00] VITALS: BP 101/58
[2017-03-17 23:38] LABS: VANC TR 7.5 mcg/mL (10.0-20.0)
[2017-03-18] MEDS: VANCOMYCIN PER PHARMACY MC PRN (00:37)
[2017-03-18] MEDS: PIPERACILLIN/TAZOBACTAM 3.375 GM in IV NORMAL SALINE 50ML 50 ML IV SCH ×5 (00:40→23:59)
[2017-03-18] MEDS: VANCOMYCIN 1 GM in IV NORMAL SALINE 250ML 250 ML IV SCH ×3 (01:11→16:22)
[2017-03-18] MEDS: ALBUTEROL SULFATE 2.5 MG/3 ML NEBU. NEB SCH ×4 (04:21→21:22)
[2017-03-18] MEDS: HYDROCORTISONE SOD SUCC/PF 100 MG/2 ML VIAL. IV SCH ×3 (05:25→21:22)
[2017-03-18 05:44] VITALS: BP 97/58
[2017-03-18 06:57] LABS: BASO % 0 % (0-3); EOS % 0 % (0-3); HEMATOCRIT 34.9 % (36.0-47.0); HEMOGLOBIN 12.2 g/dL (12.0-15.5); LYMPH # 1.3 x10^3/uL (1.0-4.8); LYMPH % 13 % (24-48); MEAN CORPUSCULAR HEMOGLOBIN 31 pg (25-35); MEAN CORPUSCULAR HGB CONC 35 g/dL (31-37); MEAN CORPUSCULAR VOLUME 89 fL (79-100); MONO # 0.5 x10^3/uL (0.0-1.1); MONO % 5 % (0-9); NEUT # 8.1 x10^3uL (1.8-7.7); NEUT % 82 % (31-73); PLATELET COUNT 204 x10^3/uL (140-400); RED BLOOD COUNT 3.92 x10^6/uL (3.50-5.40); RED CELL DISTRIBUTION WIDTH 12.7 % (11.5-14.5); WHITE BLOOD COUNT 9.9 x10^3/uL (4.0-11.0)
[2017-03-18 07:16] LABS: ALBUMIN 3.2 g/dL (3.4-5.0); ALBUMIN/GLOBULIN RATIO 0.9 (1.0-1.7); CALCIUM 8.3 mg/dL (8.5-10.1); CREATININE 0.6 mg/dL (0.6-1.0); GFR 126.2; MAGNESIUM 1.8 mg/dL (1.8-2.4); POTASSIUM 3.2 mmol/L (3.5-5.1); TOTAL BILIRUBIN 0.3 mg/dL (0.2-1.0); TOTAL PROTEIN 6.7 g/dL (6.4-8.2)
[2017-03-18] MEDS: diphenhydrAMINE 50 MG/ML VIAL IVP PRN ×3 (08:24→22:56)
[2017-03-18] MEDS: BUDESONIDE 0.5 MG/2 ML NEBU NEB SCH ×2 (09:00→21:22)
[2017-03-18] MEDS: METOPROLOL TART IMMED RELEASE 25 MG TABLET PO SCH ×2 (09:31→21:22)
[2017-03-18] MEDS: MVI, ADULT NO.4 WITH VIT K 10 ML, FOLIC ACID 1 MG, THIAMINE 100 MG in IV DEXTROSE 5%-LA... IV SCH ×4 (09:32)
[2017-03-18 11:15] VITALS: BP 110/69
[2017-03-18] MEDS ORDERED: PANTOPRAZOLE 40 MG TABLET. PO ONE (12:00)
[2017-03-18] MEDS: PANTOPRAZOLE 40 MG TABLET. PO SCH (12:21)
[2017-03-18] MEDS: POTASSIUM CHLORIDE 20 MEQ TABLET.ER. PO SCH ×2 (12:21→16:21)
[2017-03-18] MEDS: ENOXAPARIN 40 MG/0.4 ML DISP.SYRIN. SQ SCH (12:21)
[2017-03-18] MEDS: PROMETHAZINE 25 MG TABLET. PO PRN ×2 (12:43→23:17)
[2017-03-18] MEDS: HYDROcodone/APAP 5/325MG 1 TAB TABLET PO PRN ×3 (12:44→23:59)
[2017-03-18 15:15] VITALS: BP 110/69
[2017-03-18] MEDS ORDERED: POTASSIUM CHLORIDE 20 MEQ TABLET.ER. PO ONE (15:15)
[2017-03-18 19:19] VITALS: BP 123/80
[2017-03-18] MEDS: LINACLOTIDE 145 MCG CAPSULE. PO SCH (21:21)
[2017-03-18] MEDS: MICAFUNGIN 100 MG in IV DEXTROSE 5% 100 ML IV SCH (22:56)
[2017-03-18 23:16] VITALS: BP 146/87
[2017-03-19] MEDS: VANCOMYCIN 1 GM in IV NORMAL SALINE 250ML 250 ML IV SCH ×2 (00:18→07:47)
[2017-03-19] MEDS ORDERED: IV NORMAL SALINE 100ML 100 ML ONE (05:14)
[2017-03-19] MEDS: HYDROCORTISONE SOD SUCC/PF 100 MG/2 ML VIAL. IV SCH (05:17)
[2017-03-19] MEDS: PIPERACILLIN/TAZOBACTAM 3.375 GM in IV NORMAL SALINE 50ML 50 ML IV SCH (05:18)
[2017-03-19] MEDS: ALBUTEROL SULFATE 2.5 MG/3 ML NEBU. NEB SCH ×2 (05:21→11:43)
[2017-03-19] MEDS: PROMETHAZINE 25 MG TABLET. PO PRN ×2 (05:35→11:58)
[2017-03-19 05:50] VITALS: BP 135/89
[2017-03-19 07:41] LABS: VANC TR 27.6 mcg/mL (10.0-20.0)
[2017-03-19] MEDS: POTASSIUM CHLORIDE 20 MEQ TABLET.ER. PO SCH ×2 (07:55→12:00)
[2017-03-19] MEDS: METOPROLOL TART IMMED RELEASE 25 MG TABLET PO SCH (07:55)
[2017-03-19] MEDS: HYDROcodone/APAP 5/325MG 1 TAB TABLET PO PRN ×3 (08:07→11:58)
[2017-03-19] MEDS: VANCOMYCIN PER PHARMACY MC PRN (08:17)
[2017-03-19 09:36] LABS: CALCIUM 8.3 mg/dL (8.5-10.1); CREATININE 1.2 mg/dL (0.6-1.0); GFR 56.7; POTASSIUM 3.2 mmol/L (3.5-5.1)
[2017-03-19 09:44] LABS: HEMATOCRIT 30.5 % (36.0-47.0); HEMOGLOBIN 10.6 g/dL (12.0-15.5); RED BLOOD COUNT 3.45 x10^6/uL (3.50-5.40); RED CELL DISTRIBUTION WIDTH 12.6 % (11.5-14.5); WHITE BLOOD COUNT 10.2 x10^3/uL (4.0-11.0)
[2017-03-19 10:19] VITALS: BP 137/89
[2017-03-19] MEDS ORDERED: CEPH-264 PO (11:14)
[2017-03-19] MEDS: BUDESONIDE 0.5 MG/2 ML NEBU NEB SCH (11:44)
[2017-03-19] MEDS: PANTOPRAZOLE 40 MG TABLET. PO SCH (11:58)
[2017-03-19] MEDS ORDERED: PANTOPRAZOLE 40 MG TABLET. PO ONE (12:00)
[2017-03-19] MEDS ORDERED: CEPHALEXIN 250 MG CAPSULE PO SCH (12:04)
--- NOTE | 2017-03-19 14:19 | DS ---
DATE OF DISCHARGE: 03/19/2017 DISCHARGE DIAGNOSES: 1. Peripherally inserted central catheter line tip infection with Staphylococcus aureus. 2. Acute kidney injury secondary to nephrotoxic drugs. 3. Deep venous thrombosis prophylaxis. 4. Right superficial brachial vein thrombosis secondary to peripherally inserted central catheter line. 5. Chronic methicillin-resistant Staphylococcus aureus. 6. Combined immune deficiency, chronic. 7. Cellulitis surrounding the area of the peripherally inserted central catheter on the right arm. HOSPITAL COURSE: A 21-year-old female admitted with infected PICC line, which was removed. The area had a [id number] cellulitis, dermatitis surrounding the area. She was seen by wound, also she received triple antibiotic therapy, this was somewhat nephrotoxic and her creatinine had bumped up in spite of adequate fluid resuscitation. AYAH of the staph came back on the day of discharge. She grew out Staph aureus, it was resistant to penicillin. I discussed with Dr. Huddleston, her Infectious Disease doctor and recommended that she be discharged on p.o. Keflex. She has an appointment with him on Tuesday. She will be getting a PICC line at some point. OBJECTIVE PHYSICAL EXAMINATION: VITAL SIGNS: On the day of discharge, blood pressure 135/89, pulse 79, respirations 20, pulse ox 97% on room air, temperature 98.4. GENERAL: Color is pale. She looks well hydrated. HEENT: Tongue was moist. NECK: Supple. LUNGS: Clear. CARDIOVASCULAR: Regular rhythm and rate. ABDOMEN: Soft, mild midepigastric tenderness and nausea. EXTREMITIES: Without edema. PLAN: Discussed in detail with her mother. I did discuss that the external lines are not a good idea with all of her problems. She misunderstood what I said and thought that Dr. Huddleston was saying that she could have a Port-A-Cath. I reassured her. She did become very upset. She will be discharged home on Keflex. I have given her a 10-day prescription, she might check with Dr. Huddleston in the length of prescription. We will also await the other cultures. Mother will treat her hypokalemia at home and she has p.o. potassium at home and gave her a list of high potassium foods. YOLI FINLEY DO DR: LISA/anthony JOB#: [id number] / [id number]
[2017-03-19] MEDS ORDERED: VANCOMYCIN 750 MG in IV NORMAL SALINE 250ML 250 ML IV SCH (15:00)
--- NOTE | 2017-03-19 21:40 | PN ---
DATE: 03/18/2017 This is a late progress note. PROBLEMS: 1. Cellulitis of the right upper arm. 2. PICC line tip catheter growing out Staphylococcus aureus - Mitul pending. 2. Superficial thrombosis of the right cephalic vein. 3. Combined immunodeficiency. 4. Hypokalemia. 5. Methicillin-resistant Staphylococcus aureus positive, this is chronic. 6. Traumatic brain injury. 7. History of bacteremia. 8. Roland's disease. SUBJECTIVE: A 21-year-old female admitted with an infected PICC line. So far, her blood cultures have been negative, the PICC line tip is growing out Staph aureus. Mics are pending. Fungal culture is pending. She is little hypokalemic today, that will need to be replaced. She continues with her IV fluids and is slightly nauseated, otherwise, is doing fairly well. OBJECTIVE: VITAL SIGNS: Blood pressure 110/69, pulse 80, respirations 20, temperature 98.5, pulse ox is 96% on room air. GENERAL: Color is pale. HEENT: Her tongue is moist. Throat is clear. LUNGS: Clear. CARDIOVASCULAR: Regular rhythm and rate. ABDOMEN: Soft, nontender. EXTREMITIES: Without edema. LABORATORY DATA: Hemoglobin 12.2, hematocrit 34.9. Chemistry: Potassium 3.2 yesterday. Her albumin is 3.2, it was 3.7 on admission, probably due to dilutional. PLAN: Replace the potassium. She remains on vancomycin, Zosyn, and micafungin therapy. PICC line has been removed. She is on stress dose of her hydrocortisone and we will treat her nausea with Phenergan. YOLI FINLEY DO DR: LISA/anthony JOB#: [id number] / [id number]
== END 2017-03-19 13:00 | disposition home or self-care (01) | DRG 315 ==
LOC: ER 20:36 → 1 SOUTH 23:30 → UNDOADMIN 23:30 → ICU 23:30
PROVIDERS: ADMIT Family Medicine; ATTEND Family Medicine
PROC: 05PYX3Z Removal of Infusion Device from Upper Vein, External Approach (ICD-10-PCS; principal; 2017-03-17)
DX: T80.219A Unspecified infection due to central venous catheter, initial encounter (principal); D81.9 Combined immunodeficiency, unspecified; N17.9 Acute kidney failure, unspecified; T82.868A Thrombosis due to vascular prosthetic devices, implants and grafts, initial encounter; L03.113 Cellulitis of right upper limb; E27.1 Primary adrenocortical insufficiency; T50.995A Adverse effect of other drugs, medicaments and biological substances, initial encounter; N31.9 Neuromuscular dysfunction of bladder, unspecified; E87.6 Hypokalemia; J45.909 Unspecified asthma, uncomplicated; K21.9 Gastro-esophageal reflux disease without esophagitis; N14.1 Nephropathy induced by other drugs, medicaments and biological substances; B95.62 Methicillin resistant Staphylococcus aureus infection as the cause of diseases classified elsewhere; L30.9 Dermatitis, unspecified; Y84.8 Other medical procedures as the cause of abnormal reaction of the patient, or of later complication, without mention of misadventure at the time of the procedure; Z86.61 Personal history of infections of the central nervous system; Y92.89 Other specified places as the place of occurrence of the external cause; Z87.820 Personal history of traumatic brain injury; Z99.3 Dependence on wheelchair; Z87.440 Personal history of urinary (tract) infections; Z88.8 Allergy status to other drugs, medicaments and biological substances; Z90.49 Acquired absence of other specified parts of digestive tract; Z86.718 Personal history of other venous thrombosis and embolism; Z79.01 Long term (current) use of anticoagulants
CPT/HCPCS: 36415; 71010; 80048; 80053; 80202; 83605; 83735; 85025; 85027; 85651; 86140; 87040; 87070; 87102; 87641; 93971; 94640; 96365; 96368; 96375; J1200; J1650; J2248; J2405; J2543; J3370; J7050; J7120; J7613; J7626; J8597; Q0169; 99285-25

== ENCOUNTER 2017-09-08 20:38 | Inpatient (IN) | payer OTHER ==
[~2017-09-08] VITALS: Ht 168.9 cm; Wt 50.5 kg
[~2017-09-08 20:38] MED LIST changes: +CEPH-264 PO; -OXYC5TAB PO; +OXYC5TAB95 PO
[2017-09-08] MEDS ORDERED: IV NORMAL SALINE 1,000ML 500 ML IV SCH (21:11)
[2017-09-08] MEDS ORDERED: MORPHINE SULFATE 4 MG/ML DISP.SYRIN. IV/SQ PRN (21:15)
[2017-09-08] MEDS ORDERED: KETOROLAC 30 MG/ML VIAL. IV ONE (21:30)
[2017-09-08] MEDS ORDERED: cefTRIAXone IV Push 1 GM VIAL. IVP ONE (21:30)
[2017-09-08] MEDS ORDERED: ONDANSETRON PF 4 MG/2 ML VIAL. IV ONE (21:30)
--- NOTE | 2017-09-08 21:45 | PHYS DOC ---
General Chief Complaint: RAPID HEART RATE Stated Complaint: FAST HEART RATE,LIPS TINGLY,THINKS SEPTIC Time Seen by MD: 20:39 Source: patient, family Exam Limitations: no limitations Problems: History of Present Illness Initial Comments 22-year-old female brought to the ED by her mother for possible sepsis. Patient states that she developed left flank pain during the night last night, she awoke this morning with severe left-sided flank pain. She's had urinary frequency and thirst, throughout the day she has become achy all over and nauseous with face and lip tingling. Mom states this is how she typically presents with sepsis. Patient has neurogenic bladder mom caths, also history of kidney stones and DVT among others. Patient has immunodeficiency is treated with Privigen mom says she is had sepsis 3 times this past year. Due to her immunodeficiency patient typically does not manifest a fever, ED vitals: 99.2, 116, 20, 108/56, 97% room air. Patient denies cough, sore throat, dyspnea, nasal discharge, hematuria, diarrhea. 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, common variable immunodeficiency, neurogenic bladder, sepsis/bacteremia, Escherichia coli UTIs, lower extremity neuropathy and motor dysfunction, [place]'s disease, kidney stones, DVT, MRSA) Surgical History: other Family History Significant Family History: no pertinent family hx Social History Smoker: non-smoker Alcohol: none Drugs: none Review of Systems Constitutional: chills, denies diaphoresis, denies fever, malaise, weakness EENTM: denies eye pain, denies ear pain, denies nose pain, denies nose congestion, denies throat pain Respiratory: denies cough, denies shortness of breath, denies wheezing Cardiovascular: denies chest pain, palpitations, denies syncope Gastrointestinal: abdominal pain, denies diarrhea, nausea Genitourinary: see HPI, denies dysuria, frequency, denies hematuria Musculoskeletal: see HPI, back pain (left flank), denies joint swelling, muscle pain, denies neck pain Psychiatric/Neurological: see HPI, denies headache Hematologic/Lymphatic: see HPI, blood clots, denies easy bleeding, denies easy bruising Physical Exam General Appearance: no apparent distress (pale, ill-appearing) Ear, Nose, Throat: hearing grossly normal, normal ENT inspection (dry membranes ), normal pharynx Neck: non-tender, supple Respiratory: normal breath sounds, no respiratory distress Cardiovascular: normal peripheral pulses, tachycardia Gastrointestinal: normal bowel sounds, non tender, soft Back: no vertebral tenderness, CVA tenderness (L) Extremities: normal range of motion, non-tender, normal inspection Neurologic/Psychiatric: creative technologist II-XII nml as tested, no motor/sensory deficits, alert, oriented x 3, depressed affect Skin: pallor (poor turgor) Orders, Labs, Meds Urine preg neg UA: 5-10 WBCs, positive nitrites, Rocephin 1 g IV given WBC 2.6, potassium 3.0, lactic acid 1.6, d-dimer 6.9 CT abdomen to rule out kidney stones. PATIENT: МАРИЯ HARRIS ACCOUNT: [id number] : 1995 LOCATION: ER AGE: 22 SEX: F EXAM STATUS: REG ER ORD. PHYSICIAN: ANDREY AGUIAR DO REASON: L flank pain h/o stones PROCEDURE: CT ABDOMEN PELVIS WO CONTRAST Indication: Left flank pain. History of kidney stone. TECHNIQUE: CT abdomen and pelvis without IV contrast with multiplanar reformats. COMPARISON: None FINDINGS: Limited study due to lack of IV contrast. Heart is normal in size. No pericardial or pleural effusion. Clear lung bases. Noncontrast appearance of the Liver, spleen, gallbladder, pancreas, adrenals are within normal limits. No nephrolithiasis or hydronephrosis. No enlarged retroperitoneal or pelvic adenopathy. No bowel obstruction. G-tube noted. Appendix not visualized. Anteverted uterus. Bladder show no radiopaque stones. Right gluteal soft tissue spinal cord stimulator noted with its leads in the left presacral soft tissue. No free intraperitoneal air. No suspicious bony lesion. IMPRESSION: Limited study due to lack of IV contrast. 1. No nephrolithiasis or hydronephrosis. 2. No bowel obstruction. Electronically signed by: Edwin Garcia DO (09/08/2017 10:37 PM) [facility] DICTATED AND SIGNED BY: EDWIN GARCIA DO DATE: 09/08/172230 CC: YOLI CHEW MD; ANDREY AGUIAR DO ~ CTA of the chest with tachycardia and elevated d-dimer to rule out PE PATIENT: МАРИЯ HARRIS ACCOUNT: [id number] : 1995 LOCATION: ER AGE: 22 SEX: F EXAM STATUS: REG ER ORD. PHYSICIAN: ANDREY AGUIAR DO REASON: sob, tachycardia, elev d-dimer PROCEDURE: CT ANGIOGRAPHY CHEST CT ANGIOGRAPHY CHEST dated 09/09/2017 1:13 AM Indication: Elevated d-dimer, tachycardiaOmni 300, 75ml IV. SOB, Elevated d-dimer, tachycardia. Hx DVT. Hx powerport in chest. Previous angio test 11/12/2015 . Comparison: 11/12/2015 Technique: Contiguous axial imaging the chest performed following the intravenous administration of 75 cc Omnipaque 300. Study performed as dedicated PE protocol with thin cut coronal MIPS 3-D reconstruction. One or more of the following individualized dose reduction techniques were utilized for this examination: 1. Automated exposure control 2. Adjustment of the mA and/or kV according to patient size 3. Use of iterative reconstruction technique Findings: Contrast bolus is adequate. No evidence of central, lobar or segmental pulmonary embolus. Subsegmental branches not well evaluated based on technique. Heart size within normal limits. No pericardial effusion. No mediastinal or axillary lymphadenopathy. There is a borderline enlarged right hilar lymph node that measures 12 mm short axis. Mild wall thickening of the thoracic esophagus with fluid filling the lumen. Thyroid gland unremarkable. Central airways are patent. There is mild diffuse bronchial wall thickening. Prominent reticular nodular markings throughout both lungs, left greater than right. Noncalcified pulmonary nodule in the left lower lobe on image 78 measures 6 mm. Left lower lobe noncalcified pulmonary nodule on image 67 measures 7 mm. Numerous additional noncalcified subpleural nodules in the bilateral lower lobes. There is also a vague nodularity of the left upper lobe. No pleural effusion. Limited images of upper abdomen unremarkable. No acute bony abnormality. IMPRESSION: 1. No evidence of central, lobar or segmental pulmonary embolus. 2. Prominent reticular nodular markings throughout both lungs, left greater than right, new from prior study. This is nonspecific but could be related to bronchiolitis or other atypical infection. Given the thickened fluid-filled thoracic esophagus, aspiration is another consideration 3. More dominant noncalcified pulmonary nodules in the left lower lobe are most likely related to the same process. Recommend short-term follow-up exam after treatment to ensure resolution. 4. Borderline enlarged right hilar lymph node, nonspecific. Electronically signed by: Martin Gomez MD (09/09/2017 2:53 AM) [facility] DICTATED AND SIGNED BY: MARTIN GOMEZ MD DATE: 09/09/17244 CC: YOLI CHEW MD; ANDREY AGUIAR DO ~ 0325: Despite 3 L normal saline IV boluses patient remains tachycardic in the 115 to 120 bpm range. ED course: 22-year-old immunocompromised female to the emergency department with symptoms consistent with left ureterolithiasis or pyelonephritis and vital signs indicative of possible sepsis. CT abdomen pelvis negative for stone and urine positive Rocephin 1 g given initially for pyelonephritis. 40 mEq of KCl given by mouth due to hypokalemia, and CTA of the chest negative for PE with d-dimer 6.9. Lactic acid 1.6, patient's blood pressure did drop throughout the ED course to 80s over 50s. She has received 3 L of normal saline intravenously and blood pressure has stabilized currently 112/58, she remains tachycardic. I discussed the need for inpatient admission and IV antibiotics, adding vancomycin and Zosyn (needs pre-treatment for vancomycin has history of red man syndrome). Will also need lower extremity Dopplers to rule out DVT. 0337: Patient discussed with Dr. Darling who accepts inpatient ICU admission. Impressions: SIRS/sepsis Left pyelonephritis Hypokalemia Hypovolemia Elevated d-dimer Immunocompromised Departure Disposition: ADMITTED INPATIENT Condition: STABLE ANDREY AGUIAR DO Sep 08, 2017 21:45
[2017-09-08 22:14] LABS: BASO % 1 % (0-3); EOS % 0 % (0-3); HEMATOCRIT 39.9 % (36.0-47.0); HEMOGLOBIN 13.6 g/dL (12.0-15.5); LYMPH # 0.7 x10^3/uL (1.0-4.8); LYMPH % 26 % (24-48); MEAN CORPUSCULAR HEMOGLOBIN 30 pg (25-35); MEAN CORPUSCULAR HGB CONC 34 g/dL (31-37); MEAN CORPUSCULAR VOLUME 88 fL (79-100); MONO # 0.1 x10^3/uL (0.0-1.1); MONO % 3 % (0-9); NEUT # 1.8 x10^3uL (1.8-7.7); NEUT % 70 % (31-73); PLATELET COUNT 196 x10^3/uL (140-400); RED BLOOD COUNT 4.56 x10^6/uL (3.50-5.40); RED CELL DISTRIBUTION WIDTH 13.3 % (11.5-14.5); WHITE BLOOD COUNT 2.6 x10^3/uL (4.0-11.0)
[2017-09-08 22:14] LABS: BACTERIA,URINE MANY /HPF (0-FEW); BILIRUBIN,URINE NEG (NEG); CLARITY,URINE HAZY; COLOR,URINE STRAW; GLUCOSE,URINE NEG (NEG); NITRITE,URINE POS (NEG); SQUAMOUS EPITHELIAL CELL,UR FEW /LPF; UROBILINOGEN,URINE 0.2 mg/dL (0.2 mg/dL)
[2017-09-08 22:15] LABS: AMORPHOUS SEDIMENT,UR PRESENT /HPF
[2017-09-08 22:24] LABS: ALBUMIN 3.5 g/dL (3.4-5.0); CALCIUM 8.8 mg/dL (8.5-10.1); CREATININE 0.6 mg/dL (0.6-1.0); DIRECT BILIRUBIN 0.1 mg/dL (0.0-0.2); TOTAL BILIRUBIN 0.6 mg/dL (0.2-1.0); TOTAL PROTEIN 7.7 g/dL (6.4-8.2)
--- NOTE | 2017-09-08 22:39 | RAD ---
Indication: Left flank pain. History of kidney stone. TECHNIQUE: CT abdomen and pelvis without IV contrast with multiplanar reformats. COMPARISON: None FINDINGS: Limited study due to lack of IV contrast. Heart is normal in size. No pericardial or pleural effusion. Clear lung bases. Noncontrast appearance of the Liver, spleen, gallbladder, pancreas, adrenals are within normal limits. No nephrolithiasis or hydronephrosis. No enlarged retroperitoneal or pelvic adenopathy. No bowel obstruction. G-tube noted. Appendix not visualized. Anteverted uterus. Bladder show no radiopaque stones. Right gluteal soft tissue spinal cord stimulator noted with its leads in the left presacral soft tissue. No free intraperitoneal air. No suspicious bony lesion. IMPRESSION: Limited study due to lack of IV contrast. 1. No nephrolithiasis or hydronephrosis. 2. No bowel obstruction. Electronically signed by: Edwin Garcia DO (09/08/2017 10:37 PM) [facility]
[2017-09-08] MEDS ORDERED: POTASSIUM CHLORIDE 20 MEQ TABLET.ER. PO ONE (23:00)
[2017-09-08 23:07] LABS: % BANDS 7 % (0-9); % LYMPHS 24 % (24-48); % SEGS 69 % (35-66); PLT ESTIMATE ADEQUATE (ADEQUATE)
[2017-09-08] MEDS ORDERED: PHENAZOPYRIDINE 100 MG TABLET. PO ONE (23:15)
[2017-09-08] MEDS ORDERED: IV NORMAL SALINE 1,000ML 1,000 ML IV SCH (23:30)
[2017-09-09] VITALS (18 sets, daily range): BP systolic 90–125; BP diastolic 48–74
[2017-09-09] MEDS ORDERED: ONDANSETRON PF 4 MG/2 ML VIAL. IV ONE (01:00)
[2017-09-09] MEDS ORDERED: HYDROcodone/APAP 5/325MG 1 TAB TABLET PO ONE (01:00)
[2017-09-09] MEDS ORDERED: CONTRAST GIVEN MC PRN (01:30)
[2017-09-09] MEDS ORDERED: IOHEXOL 300 MG/ML 75 ML VIAL. IV ONE (01:45)
--- NOTE | 2017-09-09 02:56 | RAD ---
CT ANGIOGRAPHY CHEST dated 09/09/2017 1:13 AM Indication: Elevated d-dimer, tachycardiaOmni 300, 75ml IV. SOB, Elevated d-dimer, tachycardia. Hx DVT. Hx powerport in chest. Previous angio test 11/12/2015 . Comparison: 11/12/2015 Technique: Contiguous axial imaging the chest performed following the intravenous administration of 75 cc Omnipaque 300. Study performed as dedicated PE protocol with thin cut coronal MIPS 3-D reconstruction. One or more of the following individualized dose reduction techniques were utilized for this examination: 1. Automated exposure control 2. Adjustment of the mA and/or kV according to patient size 3. Use of iterative reconstruction technique Findings: Contrast bolus is adequate. No evidence of central, lobar or segmental pulmonary embolus. Subsegmental branches not well evaluated based on technique. Heart size within normal limits. No pericardial effusion. No mediastinal or axillary lymphadenopathy. There is a borderline enlarged right hilar lymph node that measures 12 mm short axis. Mild wall thickening of the thoracic esophagus with fluid filling the lumen. Thyroid gland unremarkable. Central airways are patent. There is mild diffuse bronchial wall thickening. Prominent reticular nodular markings throughout both lungs, left greater than right. Noncalcified pulmonary nodule in the left lower lobe on image 78 measures 6 mm. Left lower lobe noncalcified pulmonary nodule on image 67 measures 7 mm. Numerous additional noncalcified subpleural nodules in the bilateral lower lobes. There is also a vague nodularity of the left upper lobe. No pleural effusion. Limited images of upper abdomen unremarkable. No acute bony abnormality. IMPRESSION: 1. No evidence of central, lobar or segmental pulmonary embolus. 2. Prominent reticular nodular markings throughout both lungs, left greater than right, new from prior study. This is nonspecific but could be related to bronchiolitis or other atypical infection. Given the thickened fluid-filled thoracic esophagus, aspiration is another consideration 3. More dominant noncalcified pulmonary nodules in the left lower lobe are most likely related to the same process. Recommend short-term follow-up exam after treatment to ensure resolution. 4. Borderline enlarged right hilar lymph node, nonspecific. Electronically signed by: Martin Gomez MD (09/09/2017 2:53 AM) [facility]
[2017-09-09] MEDS ORDERED: ACETAMINOPHEN 325 MG TABLET PO PRN (03:30)
[2017-09-09] MEDS ORDERED: POTASSIUM CHLORIDE IV SCH (03:30)
[2017-09-09] MEDS ORDERED: MORPHINE SULFATE 2 MG/ML DISP.SYRIN. IV PRN (03:30)
[2017-09-09] MEDS ORDERED: NORMAL SALINE IV SCH (03:30)
[2017-09-09] MEDS ORDERED: VANCOMYCIN 1 GM in IV NORMAL SALINE 250ML 250 ML IV ONE (04:00)
[2017-09-09] MEDS ORDERED: PIPERACILLIN/TAZOBACTAM 3.375 GM in IV NORMAL SALINE 50ML 50 ML IV ONE (04:00)
--- NOTE | 2017-09-09 04:31 | NUR ---
Pt had positive SIRS screening in ER, protocol started in ER via orders by Dr Whiting.
--- NOTE | 2017-09-09 05:10 | NUR ---
Shana Whatley a 22 y/o female was admitted by Dr Darling, ICU status dx of SIRS, hypovolemia, hypokalemia, pyelonephritis. Pt and mother were given written copies of hospital polices and procedures. Pt and mother oriented to unit, room. Admission assessment and process completed. Reviewed poc with pt and mother, both in agreement. Will proceed with poc.
[2017-09-09] MEDS ORDERED: diphenhydrAMINE 50 MG/ML VIAL ONE (05:43)
[2017-09-09] MEDS: ONDANSETRON PF 4 MG/2 ML VIAL. IV PRN ×3 (05:54→21:07)
[2017-09-09] MEDS: POTASSIUM CL 20MEQ IN 0.9%NACL 1,000 ML IV SCH ×4 (05:54→17:00)
[2017-09-09] MEDS ORDERED: ENOXAPARIN ** NOTE DOSE ** SYRINGE SQ SCH (06:00)
[2017-09-09] MEDS: diphenhydrAMINE 50 MG/ML VIAL IVP PRN ×3 (06:06→21:28)
[2017-09-09] MEDS: VANCOMYCIN PER PHARMACY MC PRN ×4 (06:15→15:49)
--- NOTE | 2017-09-09 06:35 | NUR ---
Pharmacy Vancomycin Dosing Note S:Consulted to monitor and dose vancomycin started 09/09/17. O:МАРИЯ HARRIS is a 22 year old F with Sepsis SIRS . Height: 5 feet, 6 inches Weight: 44.6 kg [place] Body Weight: 59.30 Adjusted Body Weight: 53.38 Dosing Weight: Adjusted Other Antibiotics: ZOSYN 3.375 Q6H LABS: Last BUN: 9 Last Creatinine: 0.6 Creatinine Clearance: 103 Last WBC: 2.6 Last Platelets: 196 Tmax (past 24 hours): Microbiology: I/O: Drug Levels: Last level: on at Last dose given 09/09/17 at 0614 Vancomycin Dosing: Loading Dose: 1000 mg x1 Dosing Weight: Adjusted Target Trough: 15-20 A: Based on: WT AND CRCL P: 1. Begin Vancomycin 750 mg IV q8h 2. Follow up Trough level on 09/10/17 at 0530 3. Pharmacy will continue to monitor, follow and adjust therapy as needed. GLORIA RANDLE RPH, 09/09/17 0635 Signed: 09/09/17 at 0636 by GLORIA RANDLE RPH PHA
[2017-09-09] MEDS: POTASSIUM CHLORIDE 20 MEQ TABLET.ER. PO SCH ×2 (08:00→16:00)
--- NOTE | 2017-09-09 08:29 | NUR ---
IP: patient has long hx of MRSA, requires contact precautions until 2 negative results 7 days apart.
[2017-09-09 08:35] LABS: BASO % 0 % (0-3); EOS % 0 % (0-3); HEMATOCRIT 30.3 % (36.0-47.0); HEMOGLOBIN 10.3 g/dL (12.0-15.5); LYMPH # 0.6 x10^3/uL (1.0-4.8); LYMPH % 6 % (24-48); MEAN CORPUSCULAR HEMOGLOBIN 30 pg (25-35); MEAN CORPUSCULAR HGB CONC 34 g/dL (31-37); MEAN CORPUSCULAR VOLUME 89 fL (79-100); MONO # 0.2 x10^3/uL (0.0-1.1); MONO % 2 % (0-9); NEUT # 8.6 x10^3uL (1.8-7.7); NEUT % 91 % (31-73); PLATELET COUNT 125 x10^3/uL (140-400); RED BLOOD COUNT 3.42 x10^6/uL (3.50-5.40); RED CELL DISTRIBUTION WIDTH 13.2 % (11.5-14.5); WHITE BLOOD COUNT 9.4 x10^3/uL (4.0-11.0)
[2017-09-09 08:43] LABS: ALBUMIN 2.5 g/dL (3.4-5.0); ALBUMIN/GLOBULIN RATIO 0.7 (1.0-1.7); CALCIUM 7.3 mg/dL (8.5-10.1); CREATININE 0.7 mg/dL (0.6-1.0); GFR 104.6; TOTAL BILIRUBIN 0.4 mg/dL (0.2-1.0); TOTAL PROTEIN 5.9 g/dL (6.4-8.2)
[2017-09-09] MEDS: LACTOBACILLUS RHAMNOSUS GG 1 CAPSULE. PO SCH ×2 (09:00→21:00)
[2017-09-09 09:09] LABS: % BANDS 14 % (0-9); % LYMPHS 15 % (24-48); % MONOS 3 % (0-10); % SEGS 68 % (35-66); PLT ESTIMATE ADEQUATE (ADEQUATE)
[2017-09-09] MEDS: FAMOTIDINE 20 MG/2 ML VIAL IVP SCH ×2 (09:31→21:07)
[2017-09-09] MEDS: HYDROmorphone PF 1 MG/ML DISP.SYRIN IV PRN ×4 (10:10→21:07)
[2017-09-09 11:09] LABS: INFLUENZA A PATIENT NEGATIVE (NEGATIVE); INFLUENZA B PATIENT NEGATIVE (NEGATIVE)
--- NOTE | 2017-09-09 11:36 | RAD ---
Bilateral lower extremity venous ultrasound, 09/09/2017: History: Elevated d-dimer Duplex evaluation of the deep veins in the lower extremities was performed including grayscale, color-flow and spectral Doppler analysis. The femoral and popliteal veins demonstrate normal compressibility and normal responses to distal augmentation maneuvers. Color imaging of those vessels shows no evidence of intraluminal clot. The visualized deep veins in both calves are patent. IMPRESSION: There is no sonographic evidence of deep vein thrombosis in either lower extremity.
[2017-09-09] MEDS: PIPERACILLIN/TAZOBACTAM 3.375 GM in IV NORMAL SALINE 50ML 50 ML IV SCH ×2 (11:39→16:57)
[2017-09-09] MEDS ORDERED: TRAM50TA PO (14:09)
[2017-09-09] MEDS: PROMETHAZINE 25 MG TABLET. PO PRN (14:14)
[2017-09-09] MEDS: VANCOMYCIN 750 MG in IV NORMAL SALINE 250ML 250 ML IV SCH ×2 (14:15→21:08)
[2017-09-09] MEDS ORDERED: METOCLOPRAMIDE 10 MG TABLET PO PRN (14:30)
[2017-09-09] MEDS ORDERED: ALBUTEROL SULFATE 8GM INHALER. IH PRN (14:30)
[2017-09-09] MEDS ORDERED: ALBUTEROL SULFATE 2.5 MG/3 ML NEBU. NEB PRN (14:45)
--- NOTE | 2017-09-09 15:38 | HP ---
ADMIT DATE: 09/09/2017 HISTORY OF PRESENT ILLNESS: The patient is a 22-year-old female patient who was brought to the Emergency Room by her mother for possible sepsis. The patient stated that she developed left flank pain during the night last night and awoke this morning with severe left-sided flank pain. She has had urinary frequency and thirst throughout the day. She has become achy all over and nauseous with face and lip tingling. She stated this is how she usually typically presents with sepsis. The patient has neurogenic bladder and her mom catheterize her. She apparently has history of kidney stones and DVT among others. She has also history of immunodeficiency treated with Privigen and the last time she received her injection was last Tuesday. The patient denied any cough, sore throat, dyspnea, nasal discharge, hematuria, or diarrhea. The patient was investigated in the Emergency Room and her urinalysis showed only 5-10 wbc's but too many bacteria, was sent for culture and sensitivity. Her chemistry showed that her lactic acid went up slightly higher at 2.1. She has hypomagnesemia and her white cell count initially was low at 2.6. She has had a CT scan of the abdomen and pelvis, which basically showed that her heart is normal in size, no pericardial or pleural effusion, clear lung bases. Non-contrasted appearance of the liver, spleen, gallbladder, pancreas, and adrenals are within normal limits. No nephrolithiasis or hydronephrosis, no enlarged peritoneal or pelvic adenopathy. No bowel obstruction. G-tube noted. Appendix not visualized, anteverted uterus. Bladder swab, no radiopaque stones. Right gluteal soft tissue spinal cord stimulator noted with its leads in the left presacral soft tissue. No free intraperitoneal air. No suspicious bony lesions and the impression is that the patient has no nephrolithiasis or hydronephrosis, no bowel obstruction. Given that she has a history of DVT, she has had venous Doppler ultrasound of both lower extremities, which showed there is no sonographic evidence of deep vein thrombosis in either lower extremity. Her CT angio was done for elevated D-dimer and history of DVT showed that she has no evidence of central lobar or segmental pulmonary emboli. She has prominent reticular nodular markings throughout both lungs, left greater than right, new from prior study. This is nonspecific, but could be related to bronchiolitis or other atypical infection given the thickened fluid filled thoracic esophagus. Aspiration is another consideration. More dominant calcified pulmonary nodule in the left lower lobe are most likely related to the same process and she has borderline enlarged right hilar lymph nodes, nonspecific. Her mother stated that she did have esophageal stricture that was dilated about a year ago by dining room helper at [facility]. In any case, the patient was admitted with sepsis and was started on IV vancomycin as well as Zosyn. I will probably add Levaquin to cover atypical bacteria. We will cover her also with the stress dose of steroids as she is known to have Roland's disease. PAST MEDICAL HISTORY: Significant for: 1. Immunodeficiency syndrome diagnosed about 6 years ago. She is followed by Dr. Huddleston. 2. She has traumatic brain injury. 3. 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 She is normally wheelchair bound. 4. She has neurogenic bladder requiring straight catheterization. 5. Joseph's thyroiditis. 6. Adrenal insufficiency. 7. Iron deficiency anemia for which she received iron infusion intravenously. She also has B12 deficiency anemia. She had a history of septic ascending cholangitis, multiple bacterial infection, gastroesophageal reflux disease, DVT, nephrolithiasis, and bronchial asthma. She is also known to have esophageal stricture that required dilatation. PAST SURGICAL HISTORY: Significant for Sarai fundoplication x 2, percutaneous endoscopic gastrostomy tube placement, nerve stimulator, Port-A-Cath placement, tonsillectomy, adenoidectomy, and esophageal stricture. FAMILY HISTORY: Unremarkable. She has 2 brothers who are healthy and her parents are healthy. SOCIAL HISTORY: She does not smoke, drink alcohol, or recreational drugs. She lives with her parents. ALLERGIES: She is allergic to ERYTHROMYCIN. MEDICATIONS: She is currently on following medications: She is on albuterol sulfate 2 puffs every 4 hours as needed, Symbicort 2 puffs twice a day, Nexium 40 mg noon. She is on hydrocodone/APAP 5/325 one to two tablets every 4-6 hours, linaclotide or Linzess 290 mcg p.o. daily p.r.n. for constipation, metoclopramide 10 mg 3 times a day, metoprolol tartrate 25 mg p.o. b.i.d., ondansetron 8 mg every 4 hours p.r.n. for nausea and vomiting, potassium chloride 20 mEq 3 times a day, promethazine 25 mg every 4 hours as needed for nausea and vomiting, tramadol 50 mg every 6 hours as needed. REVIEW OF SYSTEMS: As per history of present illness. PHYSICAL EXAMINATION: GENERAL: On arrival to the Emergency Room, the patient looked pale, cachectic, but not jaundiced, cyanosed from thyromegaly. No jugular venous distension. No lower limb edema. VITAL SIGNS: Her heart rate was 116, blood pressure was 104/59, her temperature was 99.2, respiratory rate 20, and oxygen saturation was 97% on room air. HEAD, EYES, EARS, NOSE, AND THROAT: Showed normocephalic, atraumatic. NECK: Supple. HEART: Showed normal first and second heart sounds. No gallop, rub, or murmur. CHEST: Clear to auscultation. No crepitation or rhonchi. ABDOMEN: Scaphoid, soft, nontender. No guarding or rigidity. No organomegaly. All hernial orifices intact. Bowel sounds normal. NEUROLOGIC: She is awake, alert, responding appropriately. All cranial nerves intact. She has left upper and bilateral lower extremity weakness. She has neurogenic bladder requiring straight catheterization. She is able to move her right upper extremity without difficulty. LABORATORY DATA: Her lab work on arrival to the Emergency Room showed that her white cell count was 2600, hemoglobin 13.6, hematocrit 39.9, MCV 88, and platelet count of 196,000. Her D-dimer was high at 6.9 mg/dL. Her chemistry on arrival showed a serum sodium of 138, potassium 3, chloride 104, bicarbonate 22, anion gap of 12, BUN 9, creatinine 0.6. Estimated GFR was 125 mL per minute. Her glucose was 98, calcium was 8.8. Total bilirubin, AST, ALT, alkaline phosphatase were normal. Her total protein was 7.7, albumin 3.5 and serum lipase was 250. Her urinalysis showed the urine was straw colored, hazy with a pH of 5.5, specific gravity 1.015. There is large amount of protein. The urine was negative for glucose, negative for ketones, just small amount of blood, positive for nitrite and negative for leukocyte esterase, 1-2 rbc's, 5-10 wbc's, many bacteria. The urine test was negative. Her influenza A and B were negative. As stated, her CT scan of the abdomen and pelvis was basically unremarkable and showed no evidence of nephrolithiasis or hydronephrosis. No bowel obstruction. CT angio showed no evidence of pulmonary emboli, however, did show prominent reticular nodular markings throughout both lungs, left greater than right, new from previous study. This is nonspecific, but could be related to bronchiolitis or other atypical infection given the thickened fluid filled thoracic esophagus. Aspiration is another consideration. Borderline enlarged hilar lymph nodes. Given her history of DVT and also high D-dimer, she underwent venous ultrasound of both lower extremities which showed no sonographic evidence of deep vein thrombosis in either lower extremity. PLAN: My plan is to continue with IV fluid, continue with IV antibiotic. Continue to monitor her electrolytes as she came in with hypokalemia. We will start her on stress dose of steroids and add Levaquin and await the results of culture and sensitivity. There are multiple possible sources of infection including aspiration pneumonia, community-acquired pneumonia, and urosepsis due to urinary tract infection. SHANNAN COYNE MD DR: KERVIN/anthony JOB#: [id number] / [id number]
[2017-09-09] MEDS: ALBUTEROL SULFATE 2.5 MG/3 ML NEBU. NEB SCH ×2 (16:57→20:00)
[2017-09-09] MEDS: PROMETHAZINE 12.5 MG in IV NORMAL SALINE 50ML 50 ML IV PRN (18:58)
[2017-09-09] MEDS: BUDESONIDE 0.5 MG/2 ML NEBU NEB SCH (20:00)
[2017-09-09] MEDS ORDERED: NON FORMULARY ITEM (Budesonide/Formoterol Fumarate (Symbicort 80-4.5 Mcg Inhaler) 2 PUFF) IH SCH (21:00)
[2017-09-09] MEDS: METOPROLOL TART IMMED RELEASE 25 MG TABLET PO SCH (21:00)
[2017-09-09] MEDS: HYDROCORTISONE SOD SUCC/PF 100 MG/2 ML VIAL. IV SCH (21:07)
[2017-09-09] MEDS ORDERED: ACETAMINOPHEN 650 MG SUPP.RECT. PR PRN (21:45)
[2017-09-10] VITALS (16 sets, daily range): BP systolic 86–132; BP diastolic 52–85
[2017-09-10] MEDS: HYDROmorphone PF 1 MG/ML DISP.SYRIN IV PRN ×8 (00:03→22:10)
[2017-09-10] MEDS: PIPERACILLIN/TAZOBACTAM 3.375 GM in IV NORMAL SALINE 50ML 50 ML IV SCH ×4 (00:03→18:19)
[2017-09-10] MEDS: PROMETHAZINE 12.5 MG in IV NORMAL SALINE 50ML 50 ML IV PRN ×4 (01:19→22:37)
[2017-09-10] MEDS: POTASSIUM CL 20MEQ IN 0.9%NACL 1,000 ML IV SCH ×3 (04:11→14:26)
[2017-09-10] MEDS: ALBUTEROL SULFATE 2.5 MG/3 ML NEBU. NEB SCH ×4 (05:05→20:19)
[2017-09-10] MEDS: HYDROCORTISONE SOD SUCC/PF 100 MG/2 ML VIAL. IV SCH ×3 (05:39→21:12)
[2017-09-10] MEDS: ENOXAPARIN 40 MG/0.4 ML DISP.SYRIN. SQ SCH (05:39)
[2017-09-10 06:11] LABS: ALBUMIN 2.7 g/dL (3.4-5.0); ALBUMIN/GLOBULIN RATIO 0.7 (1.0-1.7); CALCIUM 8.3 mg/dL (8.5-10.1); CREATININE 0.5 mg/dL (0.6-1.0); GFR 154.3; POTASSIUM 4.1 mmol/L (3.5-5.1); TOTAL BILIRUBIN 0.3 mg/dL (0.2-1.0); TOTAL PROTEIN 6.6 g/dL (6.4-8.2)
[2017-09-10 06:16] LABS: VANC TR 7.8 mcg/mL (10.0-20.0)
[2017-09-10 06:23] LABS: BASO % 0 % (0-3); EOS % 0 % (0-3); HEMATOCRIT 32.1 % (36.0-47.0); HEMOGLOBIN 10.8 g/dL (12.0-15.5); LYMPH # 0.4 x10^3/uL (1.0-4.8); LYMPH % 11 % (24-48); MEAN CORPUSCULAR HEMOGLOBIN 30 pg (25-35); MEAN CORPUSCULAR HGB CONC 34 g/dL (31-37); MEAN CORPUSCULAR VOLUME 89 fL (79-100); MONO # 0.1 x10^3/uL (0.0-1.1); MONO % 3 % (0-9); NEUT # 3.5 x10^3uL (1.8-7.7); NEUT % 86 % (31-73); PLATELET COUNT 124 x10^3/uL (140-400); RED BLOOD COUNT 3.62 x10^6/uL (3.50-5.40); RED CELL DISTRIBUTION WIDTH 13.2 % (11.5-14.5); WHITE BLOOD COUNT 4.1 x10^3/uL (4.0-11.0)
[2017-09-10] MEDS: VANCOMYCIN 750 MG in IV NORMAL SALINE 250ML 250 ML IV SCH (06:42)
[2017-09-10] MEDS: diphenhydrAMINE 50 MG/ML VIAL IVP PRN ×3 (06:42→22:10)
[2017-09-10] MEDS ORDERED: LINACLOTIDE 145 MCG CAPSULE. PO PRN (07:00)
[2017-09-10] MEDS: PIP/TAZO PER PHARMACY MC PRN (08:15)
[2017-09-10] MEDS: VANCOMYCIN PER PHARMACY MC PRN (08:22)
[2017-09-10] MEDS: FAMOTIDINE 20 MG/2 ML VIAL IVP SCH ×2 (08:33→21:12)
--- NOTE | 2017-09-10 08:48 | NUR ---
Pharmacy Vancomycin Dosing Note S:Consulted to monitor and dose vancomycin started 09/09/17. O:МАРИЯ HARRIS is a 22 year old F with Sepsis SIRS . Height: 5 feet, 6.5 inches Weight: 52.524324 kg [place] Body Weight: 60.45 Adjusted Body Weight: 57.15 Dosing Weight: Adjusted Other Antibiotics: ZOSYN 3.375 Q6H [place] LABS: Last BUN: 5 Last Creatinine: 0.5 Creatinine Clearance: 145.49 Last WBC: 4.1 Last Platelets: 124 Drug Levels: Last Trough level: 7.8 on 09/10/17 at 0530 Last dose given 09/10/17 at 0600 Vancomycin Dosing: Loading Dose: 1000 mg x1 Dosing Weight: Adjusted Target Trough: 15-20 A: Based on: Trough and increased renal function P: 1. Begin Vancomycin 1000 mg IV q8h 2. Follow up Trough level on 09/11/17 at 1330 3. Pharmacy will continue to monitor, follow and adjust therapy as needed. ALBERTA MC, 09/10/17 0843
[2017-09-10] MEDS ORDERED: POTASSIUM CHLORIDE 20 MEQ TABLET.ER. PO SCH (09:00)
[2017-09-10] MEDS: BUDESONIDE 0.5 MG/2 ML NEBU NEB SCH ×2 (09:43→20:19)
[2017-09-10] MEDS: METOPROLOL TART IMMED RELEASE 25 MG TABLET PO SCH ×2 (11:04→21:13)
[2017-09-10] MEDS: PANTOPRAZOLE 40 MG TABLET. PO SCH (12:20)
[2017-09-10] MEDS: VANCOMYCIN 1 GM in IV NORMAL SALINE 250ML 250 ML IV SCH ×2 (14:43→22:09)
[2017-09-10] MEDS ORDERED: MAGNESIUM SULFATE 2GM 50 ML IV ONE (15:00)
--- NOTE | 2017-09-10 19:37 | PN ---
DATE: 09/10/2017 SUBJECTIVE: The patient is resting slightly propped up in bed, in no apparent distress. She is awake, alert, feeling generally better, although she has itching, although no obvious rash. OBJECTIVE: GENERAL: When I examined her, she was pale, but no jaundice, cyanosis, lymphadenopathy or thyromegaly. No jugular venous distension. No lower limb edema. VITAL SIGNS: Her heart rate was 74, blood pressure was 101/59, temperature was 98.6, respiratory rate was 16, and oxygen saturation was 98%. HEAD, EYES, EARS, NOSE AND THROAT: Showed normocephalic, atraumatic. NECK: Supple. HEART: Showed normal first and second heart sounds with no gallop, rub or murmur. CHEST: Clear to auscultation. No crepitation or rhonchi. ABDOMEN: Distended, soft, nontender. NEUROLOGIC: She is awake, alert, responding appropriately. She moves her upper extremities, her right upper extremity to much good extent than the left upper extremity. She has paraplegia. She was mostly bedbound, chair bound. Her intake was 4750, output was 3700. LABORATORY DATA: This morning, her serum sodium was 135, potassium 4.1, chloride 104, bicarbonate 21, anion gap of 10, BUN 5, creatinine 0.5, estimated GFR was 154 mL per minute. Her glucose was 98, calcium was 8.3. Total bilirubin, AST, ALT, alkaline phosphatase were normal. Total protein 6.6, albumin 2.7. Her white cell count was 4100, hemoglobin 11, hematocrit 32, MCV 89 and platelet count of 124,000. Her vancomycin trough level was 7.8. Her urine culture showed gram-negative rods, greater than 100,000 colony forming units per mL. Her blood culture showed gram-positive cocci in chains, seen in 2 out of 2 bottles. ASSESSMENT: 1. Sepsis with possible multiple potential sources of infection including her UTI, aspiration pneumonia. She has a Port-A-Cath also, with a possible potential source of infection. 2. Hypomagnesemia. 3. Esophageal stricture, possible aspiration pneumonia. 4. Adrenal insufficiency, on stress dose of steroids. PLAN: My plan is to continue with all the antibiotics and await the identification and sensitivity tomorrow. We will replenish her magnesium today and once we have the identity and sensitivity, we will deescalate her antibiotic. SHANNAN COYNE MD DR: KERVIN/anthony JOB#: [id number] / [id number]
[2017-09-10] MEDS: PROMETHAZINE 25 MG TABLET. PO PRN (21:12)
[2017-09-10] MEDS ORDERED: PROMETHAZINE 25 MG/ML VIAL IV ONE (22:05)
[2017-09-11] VITALS (9 sets, daily range): BP systolic 110–146; BP diastolic 69–99
[2017-09-11] MEDS: HYDROmorphone PF 1 MG/ML DISP.SYRIN IV PRN ×2 (02:03→05:59)
[2017-09-11] MEDS: PROMETHAZINE 12.5 MG in IV NORMAL SALINE 50ML 50 ML IV PRN ×3 (04:45→18:06)
[2017-09-11] MEDS: ALBUTEROL SULFATE 2.5 MG/3 ML NEBU. NEB SCH ×4 (05:40→20:10)
[2017-09-11] MEDS: ENOXAPARIN 40 MG/0.4 ML DISP.SYRIN. SQ SCH (05:58)
[2017-09-11] MEDS: PIPERACILLIN/TAZOBACTAM 3.375 GM in IV NORMAL SALINE 50ML 50 ML IV SCH ×5 (05:58→18:30)
[2017-09-11] MEDS: HYDROCORTISONE SOD SUCC/PF 100 MG/2 ML VIAL. IV SCH ×3 (05:58→21:20)
[2017-09-11] MEDS: diphenhydrAMINE 50 MG/ML VIAL IVP PRN ×3 (05:59→21:21)
[2017-09-11] MEDS: VANCOMYCIN 1 GM in IV NORMAL SALINE 250ML 250 ML IV SCH ×3 (06:40→21:22)
[2017-09-11] MEDS: FAMOTIDINE 20 MG/2 ML VIAL IVP SCH ×2 (08:41→21:21)
[2017-09-11] MEDS: POTASSIUM CL 20MEQ IN 0.9%NACL 1,000 ML IV SCH ×2 (08:41→14:21)
[2017-09-11] MEDS: HYDROmorphone PF 2 MG/ML VIAL IV PRN ×5 (08:44→21:26)
[2017-09-11] MEDS: BUDESONIDE 0.5 MG/2 ML NEBU NEB SCH ×2 (09:12→20:10)
[2017-09-11 09:18] LABS: HEMATOCRIT 28.9 % (36.0-47.0); HEMOGLOBIN 9.9 g/dL (12.0-15.5); RED BLOOD COUNT 3.31 x10^6/uL (3.50-5.40); RED CELL DISTRIBUTION WIDTH 12.8 % (11.5-14.5); WHITE BLOOD COUNT 4.7 x10^3/uL (4.0-11.0)
[2017-09-11 09:20] LABS: CALCIUM 8.2 mg/dL (8.5-10.1); CREATININE 0.4 mg/dL (0.6-1.0); GFR 199.6; MAGNESIUM 1.9 mg/dL (1.8-2.4)
[2017-09-11 09:29] LABS: POTASSIUM 2.9 mmol/L (3.5-5.1)
[2017-09-11] MEDS: METOPROLOL TART IMMED RELEASE 25 MG TABLET PO SCH ×2 (09:46→21:22)
[2017-09-11] MEDS: POTASSIUM CHLORIDE 20MEQ 100 ML IV SCH ×2 (10:02→12:09)
[2017-09-11] MEDS: POTASSIUM CL 40MEQ IN 0.9%NACL 1,000 ML IV SCH ×2 (10:03→18:06)
[2017-09-11] MEDS: PANTOPRAZOLE 40 MG TABLET. PO SCH (12:01)
--- NOTE | 2017-09-11 14:37 | PN ---
DATE: 09/11/2017 SUBJECTIVE: The patient is resting, slightly propped up in bed, awake, alert, continued to complain of back pain and able to lie flat on her back, continued to have difficulty swallowing; however, she is afebrile and otherwise hemodynamically stable. Nursing staff were concerned about her hypokalemia as her potassium dropped down to 2.9. OBJECTIVE: GENERAL: When I examined her, she looked pale, but no jaundice, cyanosis, or thyromegaly. No jugular venous distension. No limb edema. VITAL SIGNS: Her heart rate was 73, blood pressure 128/83, temperature was 98.8, respiratory rate was 16, and oxygen saturation was 98% on room air. HEAD, EYES, EARS, NOSE AND THROAT: Showed normocephalic, atraumatic. NECK: Supple. HEART: Showed normal first and second heart sounds. No gallop, rub or murmur. CHEST: Clear to auscultation. No crepitation or rhonchi. ABDOMEN: Distended, soft, nontender. NEUROLOGIC: She is awake, alert, responding appropriately. All cranial nerves intact. She moves the right upper extremity to a greater extent than her left upper extremity. She has paraplegia. She is mostly bedbound, chair bound. She has neurogenic bladder requiring indwelling Sharpe catheter. Her intake was 900, output was 2300. LABORATORY DATA: Showed a white cell count of 4700, hemoglobin 10, hematocrit 29, MCV 87, and platelet count of 142,000. Her chemistry showed a serum sodium 141, potassium 2.9, chloride 108, bicarbonate 25, anion gap of 8, BUN 3, creatinine 0.4, estimated GFR was 199 mL per minute. Her glucose was 110, calcium was 8.2, magnesium was 1.9. Her urine culture has grown more than 100,000 colony forming units per mL of gram-negative rods. The identification and sensitivity is still pending at the time of this dictation. Her blood culture has grown gram-positive cocci in chains, seen in 2/2. Again, the identification and sensitivity is still pending. ASSESSMENT: 1. Sepsis with multiple possible potential source of infection including her urinary tract infection, aspiration pneumonia, she has a Port-A-Cath that was a potential also source of infection. CT scan showed fluid in her esophagus and her mom stated that she has esophageal stricture. 2. She has already grown gram-positive cocci and gram-negative rods. Unfortunately, the identification and sensitivity is still pending at the time of this dictation, 3. Hypomagnesemia, resolved. 4. Adrenal insufficiency, on stress dose of steroids. 5. Neurogenic bladder, requiring indwelling Sharpe catheter. 6. She has history of deep venous thrombosis; however, Doppler ultrasound and a CT angio revealed no evidence of deep venous thrombosis or pulmonary embolism. PLAN: 1. My plan is to continue with antibiotic in the form of vancomycin, Zosyn and Levaquin. 2. Continue with deep venous thrombosis prophylaxis in the form of Lovenox 40 mg subq once a day. Continue with pain medication in the form of hydromorphone. 3. 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 4. Continue with albuterol sulfate as well as budesonide. She is known to have bronchial asthma. 5. Once we have the identification and sensitivity, antibiotics can be deescalated. SHANNAN COYNE MD DR: KERVIN/anthony JOB#: [id number] / [id number]
[2017-09-11 14:39] LABS: CALCIUM 8.3 mg/dL (8.5-10.1); CREATININE 0.5 mg/dL (0.6-1.0); GFR 154.3; POTASSIUM 3.9 mmol/L (3.5-5.1)
[2017-09-11 14:44] LABS: VANC TR 11.7 mcg/mL (10.0-20.0)
[2017-09-11] MEDS: PIP/TAZO PER PHARMACY MC PRN (15:32)
[2017-09-11] MEDS: VANCOMYCIN PER PHARMACY MC PRN (15:53)
--- NOTE | 2017-09-11 16:15 | NUR ---
Pharmacy Vancomycin Dosing Note S:Consulted to monitor and dose vancomycin started 09/09/17. O:МАРИЯ HARRIS is a 22 year old F with Sepsis SIRS . Height: 5 feet, 6.5 inches Weight: 52.548943 kg [place] Body Weight: 198.45 Adjusted Body Weight: 139.95 Dosing Weight: Adjusted Other Antibiotics: ZOSYN 3.375 Q6H LEVAQUIN LABS: Last BUN: 3 Last Creatinine: 0.4 Creatinine Clearance: 146.83 Last WBC: 4.7 Last Platelets: 142 Tmax (past 24 hours): Microbiology: I/O: Drug Levels: Last Trough level: 11.7 on 09/11/17 at 1330 Last dose given 09/11/17 at 0600 Vancomycin Dosing: Loading Dose: 1000 mg x1 Dosing Weight: Adjusted Target Trough: 15-20 A: Based on: Trough P: 1. Continue Vancomycin 1000 mg IV q8h 2. Follow up Trough level on 09/12/17 at 2130 3. Pharmacy will continue to monitor, follow and adjust therapy as needed. ALBERTA MC, 09/11/17 [id number]
[2017-09-11] MEDS ORDERED: PROMETHAZINE 25 MG/ML VIAL IV ONE (23:43)
[2017-09-12] MEDS: PIPERACILLIN/TAZOBACTAM 3.375 GM in IV NORMAL SALINE 50ML 50 ML IV SCH ×4 (00:13→17:06)
[2017-09-12] MEDS: HYDROmorphone PF 2 MG/ML VIAL IV PRN ×6 (00:13→22:41)
[2017-09-12] MEDS: PROMETHAZINE 12.5 MG in IV NORMAL SALINE 50ML 50 ML IV PRN ×3 (00:14→18:09)
[2017-09-12 05:29] VITALS: BP 121/82
[2017-09-12] MEDS: ALBUTEROL SULFATE 2.5 MG/3 ML NEBU. NEB SCH ×4 (05:47→21:20)
[2017-09-12] MEDS: HYDROCORTISONE SOD SUCC/PF 100 MG/2 ML VIAL. IV SCH ×3 (05:51→22:41)
[2017-09-12] MEDS: ENOXAPARIN 40 MG/0.4 ML DISP.SYRIN. SQ SCH (05:51)
[2017-09-12] MEDS: diphenhydrAMINE 50 MG/ML VIAL IVP PRN ×3 (05:52→22:51)
[2017-09-12 06:34] LABS: HEMATOCRIT 29.7 % (36.0-47.0); RED BLOOD COUNT 3.38 x10^6/uL (3.50-5.40); RED CELL DISTRIBUTION WIDTH 13.3 % (11.5-14.5); WHITE BLOOD COUNT 5.6 x10^3/uL (4.0-11.0)
[2017-09-12 06:38] LABS: CALCIUM 8.3 mg/dL (8.5-10.1); CREATININE 0.5 mg/dL (0.6-1.0); GFR 154.3; POTASSIUM 3.8 mmol/L (3.5-5.1)
[2017-09-12 06:46] LABS: BGAS PH 7.41 (7.35-7.45)
[2017-09-12] MEDS ORDERED: ALBUTEROL SULFATE 2.5 MG/3 ML NEBU. CONT NEB ONE (07:00)
[2017-09-12] MEDS ORDERED: FUROSEMIDE 20 MG/2 ML VIAL IVP ONE (07:00)
[2017-09-12] MEDS: VANCOMYCIN 1 GM in IV NORMAL SALINE 250ML 250 ML IV SCH ×3 (07:23→22:38)
--- NOTE | 2017-09-12 07:26 | RAD ---
Portable AP upright view CXR: Clinical indications: Low O2 saturation. Difficulty breathing. It started this morning. Comparison: March 17, 2017. Findings: Infiltrate is present within the left lung base. Chong B-lines are seen within the right lateral costophrenic angle. Typically seen with interstitial pulmonary edema. No pleural effusion or pneumothorax is seen. Right IJ Port-A-Cath is in place and the tip is seen within the lower SVC above the level of the right atrium. The heart size, pulmonary vasculature, mediastinum and both mikki are unremarkable. Impression: Left lung base infiltrate. Chong B lines are seen within the right lateral costophrenic angle typically noted with interstitial pulmonary edema..
[2017-09-12] MEDS: FAMOTIDINE 20 MG/2 ML VIAL IVP SCH ×2 (09:23→21:17)
[2017-09-12] MEDS: METOPROLOL TART IMMED RELEASE 25 MG TABLET PO SCH ×2 (09:23→21:16)
[2017-09-12] MEDS: POTASSIUM CL 40MEQ IN 0.9%NACL 1,000 ML IV SCH ×2 (09:24→09:25)
[2017-09-12] MEDS: BUDESONIDE 0.5 MG/2 ML NEBU NEB SCH ×2 (09:24→21:20)
[2017-09-12 11:03] VITALS: BP 140/99
[2017-09-12] MEDS: PANTOPRAZOLE 40 MG TABLET. PO SCH (12:06)
[2017-09-12 15:03] VITALS: BP 128/91
[2017-09-12 19:00] VITALS: BP 141/98
[2017-09-12 21:41] LABS: VANC TR 17.4 mcg/mL (10.0-20.0)
[2017-09-12 23:00] VITALS: BP 151/110
[2017-09-12 23:45] VITALS: BP 138/88
[2017-09-13] MEDS: PIPERACILLIN/TAZOBACTAM 3.375 GM in IV NORMAL SALINE 50ML 50 ML IV SCH ×5 (00:16→23:59)
[2017-09-13] MEDS ORDERED: PROMETHAZINE 25 MG/ML VIAL IV ONE (01:28)
[2017-09-13] MEDS: PROMETHAZINE 12.5 MG in IV NORMAL SALINE 50ML 50 ML IV PRN ×3 (01:33→19:35)
--- NOTE | 2017-09-13 02:02 | PN ---
DATE: 09/12/2017 CURRENT PROBLEMS: 1. Sepsis with urinary tract infection. 2. Sepsis with left upper lobe pneumonia. 3. Sepsis with Gram-positive bacteremia, but this may be a contaminant. 4. Hypomagnesemia. 5. Adrenal insufficiency. 6. Neurogenic bladder with Sharpe. 7. Abdominal pain. 8. Fluid overload with pulmonary edema. 9. Acute hypoxic respiratory failure. 10. Deep vein thrombosis prophylaxis, on Lovenox. 11. MRSA screen positive. SUBJECTIVE: This is a 22-year-old female who was admitted for sepsis. This morning she became acutely short of breath. Her saturations were down in the 80s and chest x-ray showing pulmonary edema. She was given 20 mg of Lasix as well as 1-hour breathing treatment and recovered very nicely, sats are back up now. She did have some good output from the Lasix and will need to cut back on her IV fluids. Labs, spoke to me regarding the gram-positive cocci in her blood cultures and this may be a contaminant, but we will pursue identification. OBJECTIVE: VITAL SIGNS: Blood pressure 121/82, pulse 75, respirations 14, temperature 99.1, pulse ox is 95% on room air. GENERAL: Her color is pale. She looks a little puffy. She is up 8 pounds. LUNGS: With crackles in the left base. CARDIOVASCULAR: Regular rhythm and rate. ABDOMEN: Soft, mildly tender in the lower quadrants. EXTREMITIES: Without edema. Poor muscle tone and development noted. LABORATORY DATA: Today, white blood cell count is 5.6, hemoglobin 10, hematocrit 29.7. ABG this morning at 6:20, her pO2 was 56 with a sat of 88. Other values were normal. BMP very delusional appearing BUN of 4, creatinine of 0.5, potassium 3.8. MRSA screen is positive. PLAN: Monitor for fluid overload. Await the identification on the blood cultures, but may be a contaminant. Continue the IV antibiotics for now. They give her another dose of Lasix later on today and monitor closely. YOLI FINLEY DO DR: LISA/anthony JOB#: [id number] / [id number]
[2017-09-13 03:00] VITALS: BP 129/89
[2017-09-13] MEDS: HYDROCORTISONE SOD SUCC/PF 100 MG/2 ML VIAL. IV SCH ×3 (05:32→21:55)
[2017-09-13] MEDS: ENOXAPARIN 40 MG/0.4 ML DISP.SYRIN. SQ SCH (05:33)
[2017-09-13] MEDS: VANCOMYCIN 1 GM in IV NORMAL SALINE 250ML 250 ML IV SCH ×3 (05:39→21:56)
[2017-09-13] MEDS: diphenhydrAMINE 50 MG/ML VIAL IVP PRN ×3 (05:43→21:55)
[2017-09-13] MEDS: ALBUTEROL SULFATE 2.5 MG/3 ML NEBU. NEB SCH ×4 (05:49→21:35)
[2017-09-13] MEDS: HYDROmorphone PF 2 MG/ML VIAL IV PRN ×4 (05:54→19:35)
[2017-09-13 06:25] LABS: BASO % 0 % (0-3); EOS % 0 % (0-3); HEMATOCRIT 32.2 % (36.0-47.0); HEMOGLOBIN 11.1 g/dL (12.0-15.5); LYMPH # 0.8 x10^3/uL (1.0-4.8); LYMPH % 13 % (24-48); MEAN CORPUSCULAR HEMOGLOBIN 30 pg (25-35); MEAN CORPUSCULAR HGB CONC 34 g/dL (31-37); MEAN CORPUSCULAR VOLUME 87 fL (79-100); MONO # 0.6 x10^3/uL (0.0-1.1); MONO % 10 % (0-9); NEUT % 78 % (31-73); PLATELET COUNT 186 x10^3/uL (140-400); RED BLOOD COUNT 3.72 x10^6/uL (3.50-5.40); RED CELL DISTRIBUTION WIDTH 13.1 % (11.5-14.5); WHITE BLOOD COUNT 6.4 x10^3/uL (4.0-11.0)
[2017-09-13 06:37] LABS: ALBUMIN 2.6 g/dL (3.4-5.0); ALBUMIN/GLOBULIN RATIO 0.7 (1.0-1.7); CALCIUM 8.3 mg/dL (8.5-10.1); CREATININE 0.6 mg/dL (0.6-1.0); MAGNESIUM 1.7 mg/dL (1.8-2.4); TOTAL BILIRUBIN 0.3 mg/dL (0.2-1.0); TOTAL PROTEIN 6.2 g/dL (6.4-8.2)
[2017-09-13 06:38] LABS: POTASSIUM 2.6 mmol/L (3.5-5.1)
[2017-09-13 07:35] VITALS: BP 105/75
[2017-09-13] MEDS: FAMOTIDINE 20 MG/2 ML VIAL IVP SCH ×2 (07:51→20:53)
[2017-09-13] MEDS: POTASSIUM CHLORIDE 20MEQ 100 ML IV SCH ×2 (08:08→10:15)
[2017-09-13] MEDS: BUDESONIDE 0.5 MG/2 ML NEBU NEB SCH ×2 (09:14→21:35)
[2017-09-13 11:03] VITALS: BP 128/97
[2017-09-13] MEDS: METOPROLOL TART IMMED RELEASE 25 MG TABLET PO SCH ×2 (11:30→20:52)
[2017-09-13] MEDS: PANTOPRAZOLE 40 MG TABLET. PO SCH (12:30)
[2017-09-13 15:03] VITALS: BP 134/96
--- NOTE | 2017-09-13 18:41 | PN ---
DATE: 09/13/2017 CURRENT PROBLEMS: 1. Sepsis with urinary tract infection, gram-negative. 2. Sepsis with left upper lobe pneumonia, probably aspiration. 3. Sepsis with Gram-positive bacteremia growing out Strep viridans. 4. Hypomagnesemia. 5. Adrenal insufficiency. 6. Neurogenic bladder with a Sharpe catheter. 7. Abdominal pain. 8. Fluid overload, pulmonary edema. Good response to Lasix. 9. Acute hypoxic respiratory failure, resolved. 10. Deep vein thrombosis prophylaxis. 11. Methicillin-resistant Staphylococcus aureus screen positive. The patient is doing better today, did very well with the Lasix IV, a amount of apparently very dilute urine over 6000 mL. Much less short of breath now. The patient is still on antibiotics. Discontinue the IV fluids. She is drinking some, but probably has an esophageal stricture and will need an EGD, which mother plans on having done as an outpatient. OBJECTIVE: VITAL SIGNS: Blood pressure 128/97, pulse 66, respirations 13, pulse ox 96% on room air. GENERAL: Puffiness has improved in her face. Color is pale. HEENT: Tongue moist. NECK: Supple. LUNGS: Clear without crackles or wheezes. CARDIOVASCULAR: Regular rhythm and rate. ABDOMEN: Soft, mild midepigastric tenderness. GENITOURINARY: Sharpe catheter draining clear yellow urine. LABORATORY DATA: Today, CBC is unremarkable. Chemistry: Potassium was 2.6. Liver function tests slightly elevated. Albumin 2.6. PLAN: Move toward discharge, wait for the sensitivity on the culture. YOLI FINLEY DO DR: LISA/anthony JOB#: [id number] / [id number]
[2017-09-13 19:00] VITALS: BP 119/87
[2017-09-13 23:00] VITALS: BP 148/97
[2017-09-14 03:03] VITALS: BP 112/76
[2017-09-14] MEDS: HYDROmorphone PF 2 MG/ML VIAL IV PRN ×2 (04:04→14:26)
[2017-09-14] MEDS: PIPERACILLIN/TAZOBACTAM 3.375 GM in IV NORMAL SALINE 50ML 50 ML IV SCH (05:17)
[2017-09-14] MEDS: ALBUTEROL SULFATE 2.5 MG/3 ML NEBU. NEB SCH ×2 (05:45→09:23)
[2017-09-14] MEDS: diphenhydrAMINE 50 MG/ML VIAL IVP PRN (05:53)
[2017-09-14] MEDS: HYDROCORTISONE SOD SUCC/PF 100 MG/2 ML VIAL. IV SCH ×3 (05:53→20:38)
[2017-09-14] MEDS: VANCOMYCIN 1 GM in IV NORMAL SALINE 250ML 250 ML IV SCH (05:54)
[2017-09-14] MEDS: ENOXAPARIN 40 MG/0.4 ML DISP.SYRIN. SQ SCH (05:54)
[2017-09-14 06:38] LABS: BASO % 0 % (0-3); EOS % 0 % (0-3); HEMATOCRIT 32.2 % (36.0-47.0); HEMOGLOBIN 11.2 g/dL (12.0-15.5); LYMPH # 0.9 x10^3/uL (1.0-4.8); LYMPH % 16 % (24-48); MEAN CORPUSCULAR HEMOGLOBIN 30 pg (25-35); MEAN CORPUSCULAR HGB CONC 35 g/dL (31-37); MEAN CORPUSCULAR VOLUME 86 fL (79-100); MONO # 0.6 x10^3/uL (0.0-1.1); MONO % 11 % (0-9); NEUT # 3.9 x10^3uL (1.8-7.7); NEUT % 73 % (31-73); PLATELET COUNT 171 x10^3/uL (140-400); RED BLOOD COUNT 3.74 x10^6/uL (3.50-5.40); RED CELL DISTRIBUTION WIDTH 13.2 % (11.5-14.5); WHITE BLOOD COUNT 5.4 x10^3/uL (4.0-11.0)
[2017-09-14 06:49] LABS: ALBUMIN 2.5 g/dL (3.4-5.0); ALBUMIN/GLOBULIN RATIO 0.7 (1.0-1.7); CREATININE 0.7 mg/dL (0.6-1.0); GFR 104.6; MAGNESIUM 1.8 mg/dL (1.8-2.4); TOTAL BILIRUBIN 0.3 mg/dL (0.2-1.0)
[2017-09-14 06:51] LABS: POTASSIUM 2.2 mmol/L (3.5-5.1)
[2017-09-14 07:00] VITALS: BP 134/92
[2017-09-14] MEDS ORDERED: POTASSIUM CHLORIDE 20 MEQ/15 ML ORAL LIQUID. PEG SCH (07:30)
[2017-09-14] MEDS: METOPROLOL TART IMMED RELEASE 25 MG TABLET PO SCH ×2 (07:54→20:38)
[2017-09-14] MEDS: PROMETHAZINE 25 MG TABLET. PO PRN ×3 (07:54→20:37)
[2017-09-14] MEDS: FAMOTIDINE 20 MG/2 ML VIAL IVP SCH ×2 (07:55→20:38)
[2017-09-14] MEDS ORDERED: POTASSIUM CHLORIDE 20 MEQ TABLET.ER. PO ONE ×4 (08:30→23:59)
[2017-09-14] MEDS: BUDESONIDE 0.5 MG/2 ML NEBU NEB SCH (09:23)
--- NOTE | 2017-09-14 10:00 | NUR ---
Pt sitting up in bed this morning, seems to be doing much better today. Potassium critically low at 2.2, plan is to replace with oral potassium and then recheck labs. Pt breathing treatments discontinued and changed to PRN. Lungs clear to auscultate, no soa or dyspnea noted. Pt able to tolerate food today and plans to try lunch to increase potassium level.
[2017-09-14 12:34] VITALS: BP 126/86
[2017-09-14] MEDS: PANTOPRAZOLE 40 MG TABLET. PO SCH (14:10)
[2017-09-14 14:47] LABS: CREATININE 0.6 mg/dL (0.6-1.0)
[2017-09-14 14:49] LABS: POTASSIUM 2.3 mmol/L (3.5-5.1)
[2017-09-14] MEDS: POTASSIUM CHLORIDE 20MEQ 100 ML IV SCH ×2 (15:21→17:07)
[2017-09-14 15:39] VITALS: BP 127/80
--- NOTE | 2017-09-14 16:11 | NUR ---
Pt Potassium critically low at 2.3, plan is to place with IV potassium then recheck. Physician and patient aware of plan of care, will continue to monitor.
[2017-09-14] MEDS ORDERED: HYDROmorphone PF 2 MG/ML VIAL IV PRN (18:45)
[2017-09-14 19:10] VITALS: BP 131/88
[2017-09-14 21:03] LABS: CALCIUM 8.3 mg/dL (8.5-10.1); CREATININE 0.9 mg/dL (0.6-1.0); GFR 78.3
[2017-09-14 21:07] LABS: POTASSIUM 2.4 mmol/L (3.5-5.1)
--- NOTE | 2017-09-14 21:48 | PN ---
DATE: 09/14/2017 CURRENT PROBLEMS: 1. Sepsis with urinary tract infection, gram-negative. 2. Sepsis with left upper lobe pneumonia. 3. Gram-positive blood culture; however, most likely contaminant. 4. Hypomagnesemia. 5. Severe hypokalemia. 6. Neurogenic bladder. 7. Abdominal pain. 8. Fluid overload, good response to Lasix. 9. Acute hypoxic respiratory failure, resolved. 10. Deep vein thrombosis prophylaxis. 11. MRSA positive screen. SUBJECTIVE: The patient is doing a little bit better except her potassium. She is really asymptomatic and not particularly complaining of any cramping. She received 120 mEq p.o., which increased her potassium from 2.2 to 2.3. We will go ahead and start IV. Discussed with the laboratory specialist, the gram-positive cocci and the microbiology states that there are at least 5 different organisms, mostly respiratory and most likely contaminant and not recommended to pursue sensitivities. So, some of her antibiotics will be discontinued. Overall, we are moving toward discharge. PHYSICAL EXAMINATION: VITAL SIGNS: Blood pressure 126/86, pulse is 70, temperature is 97.5, pulse ox 97% on room air. Her weight today is 110 pounds, up less than a pound and she had lost about 5 pounds from the Lasix. GENERAL: Color is still pale. HEENT: Tongue is moist. NECK: Supple. LUNGS: Clear. No wheezes or rhonchi. CARDIOVASCULAR: Regular rhythm and rate. ABDOMEN: Soft, mild epigastric tenderness. EXTREMITIES: Without ankle edema. LABORATORY DATA: As stated, potassium 2.3. PLAN: Continue with potassium protocol, try to adding potassium rich foods as well. Also, p.o. intake has been very poor since admission, noted the low albumin also. Mother can resume the tube feedings if she would like and will work toward discharge tomorrow. YOLI FINLEY DO DR: LISA/anthony JOB#: [id number] / [id number]
[2017-09-14] MEDS ORDERED: POTASSIUM CHLORIDE 40 MEQ in IV DEXTROSE 5% 500 ML IV ONE (22:00)
[2017-09-14 23:00] VITALS: BP 116/74
[2017-09-15] MEDS: diphenhydrAMINE 50 MG/ML VIAL IVP PRN (00:55)
[2017-09-15] MEDS: HYDROCORTISONE SOD SUCC/PF 100 MG/2 ML VIAL. IV SCH ×2 (05:47→13:59)
[2017-09-15] MEDS: ENOXAPARIN 40 MG/0.4 ML DISP.SYRIN. SQ SCH (05:47)
[2017-09-15] MEDS: KETOROLAC 30 MG/ML VIAL. IV PRN ×2 (06:02→14:14)
[2017-09-15 06:10] VITALS: BP 131/83
[2017-09-15 06:33] LABS: ALBUMIN 2.4 g/dL (3.4-5.0); ALBUMIN/GLOBULIN RATIO 0.7 (1.0-1.7); CALCIUM 7.9 mg/dL (8.5-10.1); CREATININE 0.6 mg/dL (0.6-1.0); MAGNESIUM 1.7 mg/dL (1.8-2.4); TOTAL BILIRUBIN 0.3 mg/dL (0.2-1.0); TOTAL PROTEIN 5.7 g/dL (6.4-8.2)
[2017-09-15 06:39] LABS: POTASSIUM 2.9 mmol/L (3.5-5.1)
[2017-09-15] MEDS ORDERED: MAGNESIUM SULFATE 2GM 50 ML IV ONE (07:00)
[2017-09-15] MEDS ORDERED: D5W IV ONE (07:00)
[2017-09-15] MEDS ORDERED: POTASSIUM CL IV ONE (07:00)
--- NOTE | 2017-09-15 07:00 | NUR ---
Potassium 2.9 this AM, Dr. Ramon notified. Orders to do IV K+ 40MEQ, will recheck once completed. Plan is to discharge today if potassium level starts to become within normal limits. Pt is hoping to go home as she is feeling much better. Lungs CTA, no soa or dyspnea noted. VSS. No complaints of pain or discomfort noted. Will continue to monitor.
[2017-09-15] MEDS: METOPROLOL TART IMMED RELEASE 25 MG TABLET PO SCH (07:42)
[2017-09-15] MEDS: FAMOTIDINE 20 MG/2 ML VIAL IVP SCH (07:43)
--- NOTE | 2017-09-15 10:43 | PDOC ---
SUBJECTIVE: SEEN ON 09/15 DOING BETTER. WANTS TO GO HOME. POTASSIUM UP TO 2.9 THIS MORNING. CONTINUING WITH REPLACEMENT OBJECTIVE: Problems: Problems Medical Problems: (1) Pyelonephritis Status: Acute (2) SIRS (systemic inflammatory response syndrome) Status: Acute CURRENT PROBLEMS: 1. Sepsis with urinary tract infection, gram-negative. 2. Sepsis with left upper lobe pneumonia. 3. Gram-positive blood culture; however, most likely contaminant. 4. Hypomagnesemia. 5. Severe hypokalemia. 6. Neurogenic bladder. 7. Abdominal pain. 8. Fluid overload, good response to Lasix. 9. Acute hypoxic respiratory failure, resolved. 10. Deep vein thrombosis prophylaxis. 11. MRSA positive screen. Vital Signs: Vital Signs Date Time Temp Pulse Resp B/P (MAP) Pulse Ox O2 Delivery O2 Flow Rate FiO2 09/15/17 08:16 Room Air 09/15/17 07:42 70 131/80 09/15/17 06:10 98.4 18 98 09/14/17 14:26 3.0 I & O Intake and Output 09/15/17 07:00 Intake Total 2385 ml Output Total 2325 ml Balance 60 ml Intake Oral 1060 ml IV Total 1325 ml Output Urine Total 2325 ml Labs: Laboratory Tests Test 09/14/17 05:30 09/14/17 14:30 09/14/17 20:40 09/15/17 06:05 White Blood Count 5.4 x10^3/uL (4.0-11.0) Red Blood Count 3.74 x10^6/uL (3.50-5.40) Hemoglobin 11.2 g/dL (12.0-15.5) Hematocrit 32.2 % (36.0-47.0) Mean Corpuscular Volume 86 fL (79-100) Mean Corpuscular Hemoglobin 30 pg (25-35) Mean Corpuscular Hemoglobin Concent 35 g/dL (31-37) Red Cell Distribution Width 13.2 % (11.5-14.5) Platelet Count 171 x10^3/uL (140-400) Neutrophils (%) (Auto) 73 % (31-73) Lymphocytes (%) (Auto) 16 % (24-48) Monocytes (%) (Auto) 11 % (0-9) Eosinophils (%) (Auto) 0 % (0-3) Basophils (%) (Auto) 0 % (0-3) Neutrophils # (Auto) 3.9 x10^3uL (1.8-7.7) Lymphocytes # (Auto) 0.9 x10^3/uL (1.0-4.8) Monocytes # (Auto) 0.6 x10^3/uL (0.0-1.1) Eosinophils # (Auto) 0.0 x10^3/uL (0.0-0.7) Basophils # (Auto) 0.0 x10^3/uL (0.0-0.2) Sodium Level 141 mmol/L (136-145) 140 mmol/L (136-145) 139 mmol/L (136-145) 139 mmol/L (136-145) Potassium Level 2.2 mmol/L (3.5-5.1) 2.3 mmol/L (3.5-5.1) 2.4 mmol/L (3.5-5.1) 2.9 mmol/L (3.5-5.1) Chloride Level 102 mmol/L (98-107) 102 mmol/L (98-107) 102 mmol/L (98-107) 104 mmol/L (98-107) Carbon Dioxide Level 32 mmol/L (21-32) 32 mmol/L (21-32) 30 mmol/L (21-32) 31 mmol/L (21-32) Anion Gap 7 (6-14) 6 (6-14) 7 (6-14) 4 (6-14) Blood Urea Nitrogen 6 mg/dL (7-20) 7 mg/dL (7-20) 9 mg/dL (7-20) 8 mg/dL (7- 20) Creatinine 0.7 mg/dL (0.6-1.0) 0.6 mg/dL (0.6-1.0) 0.9 mg/dL (0.6-1.0) 0.6 mg/dL (0.6-1.0) Estimated GFR (Cockcroft-Gault) 104.6 125.0 78.3 125.0 BUN/Creatinine Ratio 9 (6-20) 13 (6-20) Glucose Level 101 mg/dL (70-99) 108 mg/dL (70-99) 166 mg/dL (70-99) 101 mg/dL (70-99) Calcium Level 8.0 mg/dL (8.5-10.1) 8.0 mg/dL (8.5-10.1) 8.3 mg/dL (8.5-10.1) 7.9 mg/dL (8.5-10.1) Magnesium Level 1.8 mg/dL (1.8-2.4) 1.7 mg/dL (1.8-2.4) Total Bilirubin 0.3 mg/dL (0.2-1.0) 0.3 mg/dL (0.2-1.0) Aspartate Amino Transf (AST/SGOT) 25 U/L (15-37) 16 U/L (15-37) Alanine Aminotransferase (ALT/SGPT) 51 U/L (14-59) 34 U/L (14-59) Alkaline Phosphatase 36 U/L (46-116) 32 U/L (46-116) Total Protein 6.0 g/dL (6.4-8.2) 5.7 g/dL (6.4-8.2) Albumin 2.5 g/dL (3.4-5.0) 2.4 g/dL (3.4-5.0) Albumin/Globulin Ratio 0.7 (1.0-1.7) 0.7 (1.0-1.7) Physical Exam: PALE TONGUE MOIST, THROAT CLEAR LUNGS CTA CV RRR ABDOMEN FLAT AND SOFT, NON TENDER TODAY EXTREMITIES WITHOUT EDEMA. ASSESSMENT: ABOVE PLAN: WILL CONTINUE TO REPLACE POTASSIUM. IF WE CAN GET IT INTO THE NORMAL RANGE WILL DISCHARGE TO HOME. YOLI FINLEY DO Sep 15, 2017 10:43
[2017-09-15] MEDS ORDERED: LEVO500T59 PO (10:48)
[2017-09-15 13:01] LABS: CREATININE 0.6 mg/dL (0.6-1.0); POTASSIUM 3.3 mmol/L (3.5-5.1)
[2017-09-15] MEDS ORDERED: POTASSIUM CHLORIDE 20 MEQ TABLET.ER. PO ONE (13:30)
[2017-09-15] MEDS: PANTOPRAZOLE 40 MG TABLET. PO SCH (13:59)
[2017-09-15 14:41] VITALS: BP 101/53
--- NOTE | 2017-09-15 14:45 | NUR ---
Discharge paperwork given to mother, patient and mother understand POC. Pt to come to hospital tomorrow for outpatient blood work. Portacath to remain accessed due to having blood draw tomorrow. Sharpe discontinued at this time, pt does straight catheterization at home by mother. Pt VSS prior to discharge. Levaquin and evening medication given at this time, understands that they will be on Levaquin for 6 more days. Also understands that they will need to take Potassium TID for supplement. Pt understands POC at this time.
[2017-09-15] MEDS ORDERED: levoFLOXacin 500 MG TABLET PO SCH (15:00)
--- NOTE | 2017-09-15 15:19 | NUR ---
Pt discharged at this time, ambulated off unit via wheelchair to parents vehicle. Pt and mother understand POC, will be up to hospital tomorrow for outpatient labs. Belongings left with patient at this time.
--- NOTE | 2017-09-16 12:39 | PDOC3 ---
Discharge Summary Visit Information Date of Admission: Sep 09, 2017 Date of Discharge: Sep 15, 2017 Final Diagnosis Problems Medical Problems: (1) Pyelonephritis Status: Acute (2) SIRS (systemic inflammatory response syndrome) Status: Acute Problems: (1) Pyelonephritis Status: Acute (2) SIRS (systemic inflammatory response syndrome) Status: Acute CURRENT PROBLEMS: 1. Sepsis with urinary tract infection, gram-negative. 2. Sepsis with left upper lobe pneumonia. 3. Gram-positive blood culture; however, most likely contaminant. 4. Hypomagnesemia. 5. Severe hypokalemia. 6. Neurogenic bladder. 7. Abdominal pain. 8. Fluid overload, good response to Lasix. 9. Acute hypoxic respiratory failure, resolved. 10. Deep vein thrombosis prophylaxis. 11. MRSA positive screen. Problems: Brief Hospital Course Allergies Allergies Coded Allergies Type Severity Reaction Last Updated Verified erythromycin base Allergy Intermediate 11/12/15 Yes I S O L A T I O N *CONTACT* Allergy Unknown 11/13/15 Yes Vital Signs Vital Signs Date Time Temp Pulse Resp B/P (MAP) Pulse Ox O2 Delivery O2 Flow Rate FiO2 09/15/17 14:41 98.6 70 16 101/53 (69) 97 Room Air 09/14/17 14:26 3.0 Lab Results Laboratory Tests Test 09/14/17 14:30 09/14/17 20:40 09/15/17 06:05 09/15/17 12:47 Sodium Level 140 mmol/L (136-145) 139 mmol/L (136-145) 139 mmol/L (136-145) 137 mmol/L (136-145) Potassium Level 2.3 mmol/L (3.5-5.1) 2.4 mmol/L (3.5-5.1) 2.9 mmol/L (3.5-5.1) 3.3 mmol/L (3.5-5.1) Chloride Level 102 mmol/L (98-107) 102 mmol/L (98-107) 104 mmol/L (98-107) 102 mmol/L (98-107) Carbon Dioxide Level 32 mmol/L (21-32) 30 mmol/L (21-32) 31 mmol/L (21-32) 31 mmol/L (21-32) Anion Gap 6 (6-14) 7 (6-14) 4 (6-14) 4 (6-14) Blood Urea Nitrogen 7 mg/dL (7-20) 9 mg/dL (7-20) 8 mg/dL (7-20) 9 mg/dL (7- 20) Creatinine 0.6 mg/dL (0.6-1.0) 0.9 mg/dL (0.6-1.0) 0.6 mg/dL (0.6-1.0) 0.6 mg/dL (0.6-1.0) Estimated GFR (Cockcroft-Gault) 125.0 78.3 125.0 125.0 Glucose Level 108 mg/dL (70-99) 166 mg/dL (70-99) 101 mg/dL (70-99) 127 mg/dL (70-99) Calcium Level 8.0 mg/dL (8.5-10.1) 8.3 mg/dL (8.5-10.1) 7.9 mg/dL (8.5-10.1) 8.0 mg/dL (8.5-10.1) BUN/Creatinine Ratio 13 (6-20) Magnesium Level 1.7 mg/dL (1.8-2.4) Total Bilirubin 0.3 mg/dL (0.2-1.0) Aspartate Amino Transf (AST/SGOT) 16 U/L (15-37) Alanine Aminotransferase (ALT/SGPT) 34 U/L (14-59) Alkaline Phosphatase 32 U/L (46-116) Total Protein 5.7 g/dL (6.4-8.2) Albumin 2.4 g/dL (3.4-5.0) Albumin/Globulin Ratio 0.7 (1.0-1.7) Brief Hospital Course Ms. Whatley is a 22 old [sex] who presented with [ ] ADM Status: ADM IN ADM Date: 09/09/17 ADMIT DATE: 09/09/2017 HISTORY OF PRESENT ILLNESS: The patient is a 22-year-old female patient who was brought to the Emergency Room by her mother for possible sepsis. The patient stated that she developed left flank pain during the night last night and awoke this morning with severe left-sided flank pain. She has had urinary frequency and thirst throughout the day. She has become achy all over and nauseous with face and lip tingling. She stated this is how she usually typically presents with sepsis. The patient has neurogenic bladder and her mom catheterize her. She apparently has history of kidney stones and DVT among others. She has also history of immunodeficiency treated with Privigen and the last time she received her injection was last Tuesday. The patient denied any cough, sore throat, dyspnea, nasal discharge, hematuria, or diarrhea. The patient was investigated in the Emergency Room and her urinalysis showed only 5-10 wbc's but too many bacteria, was sent for culture and sensitivity. Her chemistry showed that her lactic acid went up slightly higher at 2.1. She has hypomagnesemia and her white cell count initially was low at 2.6. She has had a CT scan of the abdomen and pelvis, which basically showed that her heart is normal in size, no pericardial or pleural effusion, clear lung bases. Non-contrasted appearance of the liver, spleen, gallbladder, pancreas, and adrenals are within normal limits. No nephrolithiasis or hydronephrosis, no enlarged peritoneal or pelvic adenopathy. No bowel obstruction. G-tube noted. Appendix not visualized, anteverted uterus. Bladder swab, no radiopaque stones. Right gluteal soft tissue spinal cord stimulator noted with its leads in the left presacral soft tissue. No free intraperitoneal air. No suspicious bony lesions and the impression is that the patient has no nephrolithiasis or hydronephrosis, no bowel obstruction. Given that she has a history of DVT, she has had venous Doppler ultrasound of both lower extremities, which showed there is no sonographic evidence of deep vein thrombosis in either lower extremity. Her CT angio was done for elevated D-dimer and history of DVT showed that she has no evidence of central lobar or segmental pulmonary emboli. She has prominent reticular nodular markings throughout both lungs, left greater than right, new from prior study. This is nonspecific, but could be related to bronchiolitis or other atypical infection given the thickened fluid filled thoracic esophagus. Aspiration is another consideration. More dominant calcified pulmonary nodule in the left lower lobe are most likely related to the same process and she has borderline enlarged right hilar lymph nodes, nonspecific. Her mother stated that she did have esophageal stricture that was dilated about a year ago by promotions executive at [facility]. In any case, the patient was admitted with sepsis and was started on IV vancomycin as well as Zosyn. I will probably add Levaquin to cover atypical bacteria. We will cover her also with the stress dose of steroids as she is known to have Roland's disease. bLOOD CULTURES FELT TO BE A CONTAMINANT, SSMIGUEL WAS TREAATED WITH ONE DOSE OF LASIX FOR ACUTE FLUID OVERLOAD AND HYPOXIA TO WHICH SHE RESPONDED NICELY, HOWEVER SHE DEVELOPED HYPOKALEMIA WHICH TOOK A LONG TIME TO CORRECT. SHE WAS IN IMPROVED ENOUGH CONDITION TO BE DISCHARGED ON 09/15 IN THE CARE OF HER MOTHER. Discharge Information Condition at Discharge: Improved, Stable Disposition/Orders: D/C to Home Dischare Medications Current Medications Ceftriaxone Sodium 1 gm/ Sodium Chloride 50 ml @ 100 mls/hr 1X ONCE IV ; Start 09/08/17 at 21:15; Stop 09/08/17 at 21:44; Status UNV Morphine Sulfate (Morphine 4mg Syringe) 4 mg PRN Q15MIN PRN IV/SQ PAIN GREATER THAN 3/10 Last administered on 09/08/17at 21:47; Start 09/08/17 at 21:15; Stop 09/09 at 21:14; Status DC Sodium Chloride 500 ml @ 1,000 mls/hr Q30M IV Last administered on 09/08/17at 21 :11; Start 09/08/17 at 21:11; Stop 09/08/17 at 21:40; Status DC Ondansetron HCl (Zofran) 4 mg 1X ONCE IV Last administered on 09/08/17at 21:50; Start 09/08/17 at 21:30; Stop 09/08/17 at 21:31; Status DC Ketorolac Tromethamine (Toradol) 30 mg 1X ONCE IV Last administered on at 21:45; Start 09/08/17 at 21:30; Stop 09/08/17 at 21:31; Status DC Ceftriaxone Sodium (Rocephin) 1 gm 1X ONCE IVP Last administered on 09/08/17at 21:30; Start 09/08/17 at 21:30; Stop 09/08/17 at 21:31; Status DC Potassium Chloride (Klor-Con) 40 meq 1X ONCE PO Last administered on 09/08/17at 23:01; Start 09/08/17 at 23:00; Stop 09/08/17 at 23:01; Status DC Phenazopyridine HCl (Pyridium) 100 mg 1X ONCE PO Last administered on at 23:01; Start 09/08/17 at 23:15; Stop 09/08/17 at 23:16; Status DC Sodium Chloride 1,000 ml @ 1,000 mls/hr Q1H IV Last administered on 09/08/17at 23:36; Start 09/08/17 at 23:30; Stop 09/09/17 at 00:29; Status DC Acetaminophen/ Hydrocodone Bitart (Lortab 5/325) 1 tab 1X ONCE PO Last administered on 09/09/17at 00:43; Start 09/09/17 at 01:00; Stop 09/09/17 at 01:01; Status DC Ondansetron HCl (Zofran) 4 mg 1X ONCE IV ; Start 09/09/17 at 01:00; Stop at 01:01; Status DC Iohexol (Omnipaque 300 Mg/ml) 75 ml 1X ONCE IV Last administered on 09/09/17at 02:01; Start 09/09/17 at 01:45; Stop 09/09/17 at 01:46; Status DC Info (Do NOT chart on this entry -- for MONITORING) 1 each PRN DAILY PRN MC SEE COMMENTS; Start 09/09/17 at 01:30; Stop 09/11/17 at 01:30; Status DC Ondansetron HCl (Zofran) 4 mg PRN Q4HRS PRN IV NAUSEA/VOMITING Last administered on 09/09/17at 21:07; Start 09/09/17 at 03:30; Stop 09/10/17 at 03:29; Status DC Morphine Sulfate (Morphine 2mg Syringe) 2 mg PRN Q2HR PRN IV SEVERE PAIN Last administered on 09/09/17at 04:35; Start 09/09/17 at 03:30; Stop 09/10/17 at 03:29; Status DC Potassium Chloride 20 meq/ Sodium Chloride 1,010 ml @ 200 mls/hr Q5H3M IV ; Start 09/09/17 at 03:30; Stop 09/10/17 at 03:29; Status UNV Acetaminophen (Tylenol) 650 mg PRN Q4HRS PRN PO FEVER; Start 09/09/17 at 03:30; Stop 09/10/17 at 03:29; Status DC Vancomycin HCl (Vanco Per Pharmacy) 1 each PRN DAILY PRN MC SEE COMMENTS Last administered on 09/11/17at 15:53; Start 09/09/17 at 03:30; Stop 09/14/17 at 10:46; Status DC Piperacillin Sod/ Tazobactam Sod (Zosyn Per Pharmacy) 1 each PRN DAILY PRN MC SEE COMMENTS Last administered on 09/11/17at 15:32; Start 09/09/17 at 03:30; Stop 09/14/17 at 10:46; Status DC Famotidine (Pepcid Vial) 20 mg BID IVP Last administered on 09/14/17at 20:38; Start 09/09/17 at 09:00; Stop 09/15/17 at 07:45; Status DC Potassium Chloride/Sodium Chloride 1,000 ml @ 125 mls/hr Q8H IV Last administered on 09/10/17at 04:11; Start 09/09/17 at 03:45; Stop 09/10/17 at 03:44; Status DC Vancomycin HCl 1 gm/Sodium Chloride 250 ml @ 250 mls/hr 1X ONCE IV Last administered on 09/09/17at 06:15; Start 09/09/17 at 04:00; Stop 09/09/17 at 04:59; Status DC Piperacillin Sod/ Tazobactam Sod 3.375 gm/Sodium Chloride 50 ml @ 100 mls/hr 1X ONCE IV Last administered on 09/09/17at 04:11; Start 09/09/17 at 04:00; Stop 09/09/17 at 04:30; Status DC Potassium Chloride (Klor-Con) 20 meq Q8H PO ; Start 09/09/17 at 08:00; Stop at 17:03; Status DC Enoxaparin Sodium (Lovenox 80mg Syringe) 40 mg DAILY06 SQ Last administered on 09/09/17at 05:55; Start 09/09/17 at 06:00; Stop 09/09/17 at 07:23; Status DC Piperacillin Sod/ Tazobactam Sod 3.375 gm/Sodium Chloride 50 ml @ 100 mls/hr Q6HRS IV Last administered on 09/14/17at 05:17; Start 09/09/17 at 12:00; Stop 09/14 at 10:46; Status DC Lactobacillus Rhamnosus (Culturelle) 1 cap BID PO ; Start 09/09/17 at 09:00; Stop 09/10/17 at 08:53; Status DC Diphenhydramine HCl (Benadryl) 50 mg STK-MED ONCE .ROUTE ; Start 09/09/17 at 05: 43; Stop 09/09/17 at 05:44; Status DC Diphenhydramine HCl (Benadryl) 25 mg PRN Q6HRS PRN IVP ITCHING Last administered on 09/15/17at 00:55; Start 09/09/17 at 06:00; Stop 09/15/17 at 15:24; Status DC Vancomycin HCl 750 mg/Sodium Chloride 250 ml @ 250 mls/hr Q8HRS IV Last administered on 09/10/17at 06:42; Start 09/09/17 at 14:00; Stop 09/10/17 at 08:11; Status DC Vancomycin HCl (Vancomycin Trough Level) 1 each 1X ONCE MC Last administered on 09/10/17at 05:30; Start 09/10/17 at 05:30; Stop 09/10/17 at 05:31; Status DC Enoxaparin Sodium (Lovenox) 40 mg DAILY06 SQ Last administered on 09/15/17at 05: 47; Start 09/10/17 at 06:00; Stop 09/15/17 at 15:24; Status DC Hydromorphone HCl (Dilaudid) 1 mg PRN Q3HRS PRN IV PAIN Last administered on 09/11/17at 05:59; Start 09/09/17 at 10:00; Stop 09/11/17 at 08:39; Status DC Promethazine HCl (Phenergan) 25 mg PRN Q4HRS PRN PO NAUSEA/VOMITING Last administered on 09/14/17at 20:37; Start 09/09/17 at 14:00; Stop 09/15/17 at 15:24; Status DC Hydrocortisone Sodium Succinate (Solu-CORTEF) 100 mg Q8HRS IV Last administered on 09/15/17at 13:59; Start 09/09/17 at 22:00; Stop 09/15/17 at 15:24; Status DC Levofloxacin/ Dextrose 100 ml @ 100 mls/hr Q24H IV Last administered on at 14:10; Start 09/09/17 at 15:00; Stop 09/15/17 at 08:52; Status DC Albuterol Sulfate (Ventolin Hfa) 2 puff PRN Q4HRS PRN IH SHORTNESS OF BREATH; Start 09/09/17 at 14:30; Stop 09/09/17 at 14:43; Status DC Metoclopramide HCl (Reglan) 10 mg PRN TID PRN PO NAUSEA/VOMITING; Start at 14:30; Stop 09/15/17 at 15:24; Status DC Metoprolol Tartrate (Lopressor) 25 mg BID PO Last administered on 09/15/17at 07: 42; Start 09/09/17 at 21:00; Stop 09/15/17 at 15:24; Status DC Non-Formulary Medication 2 puff BID IH ; Start 09/09/17 at 21:00; Stop 09/09/17 at 21:00; Status DC Pantoprazole Sodium (Protonix) 40 mg NOON PO Last administered on 09/15/17at 13: 59; Start 09/10/17 at 12:00; Stop 09/15/17 at 15:24; Status DC Non-Formulary Medication 290 mcg PRN DAILY PRN PO CONSTIPATION; Start 09/09/17 at 14:30; Stop 09/15/17 at 15:24; Status UNV Potassium Chloride (Klor-Con) 20 meq TID PO ; Start 09/10/17 at 09:00; Stop at 09:00; Status DC Albuterol Sulfate (Ventolin) 2.5 mg PRN Q4HRS PRN NEB SHORTNESS OF BREATH; Start 09/09/17 at 14:45; Stop 09/15/17 at 15:24; Status DC Albuterol Sulfate (Ventolin) 2.5 mg RTQID NEB Last administered on 09/14/17at 09: 23; Start 09/09/17 at 16:00; Stop 09/14/17 at 10:11; Status DC Budesonide (Pulmicort) 0.5 mg RTBID NEB Last administered on 09/14/17at 09:23; Start 09/09/17 at 20:00; Stop 09/14/17 at 10:11; Status DC Promethazine HCl 12.5 mg/Sodium Chloride 50.5 ml @ 101 mls/hr PRN Q6HRS PRN IV NAUSEA/VOMITING Last administered on 09/13/17at 19:35; Start 09/09/17 at 17:30; Stop 09/14/17 at 10:11; Status DC Acetaminophen (Tylenol) 650 mg PRN Q6HRS PRN OK PAIN / TEMP Last administered on 09/09/17at 21:54; Start 09/09/17 at 21:45; Stop 09/15/17 at 15:24; Status DC Potassium Chloride/Sodium Chloride 1,000 ml @ 125 mls/hr Q8H IV Last administered on 09/10/17at 14:26; Start 09/10/17 at 06:00; Stop 09/11/17 at 09:46; Status DC Vancomycin HCl 1 gm/Sodium Chloride 250 ml @ 250 mls/hr Q8HRS IV Last administered on 09/14/17at 05:54; Start 09/10/17 at 14:00; Stop 09/14/17 at 10:46; Status DC Vancomycin HCl (Vancomycin Trough Level) 1 each 1X ONCE MC Last administered on 09/11/17at 14:00; Start 09/11/17 at 13:30; Stop 09/11/17 at 13:31; Status DC Magnesium Sulfate 50 ml @ 25 mls/hr 1X ONCE IV Last administered on 09/10/17at 15:28; Start 09/10/17 at 15:00; Stop 09/10/17 at 16:59; Status DC Promethazine HCl (Phenergan) 25 mg STK-MED ONCE IV ; Start 09/10/17 at 22:05; Stop 09/10/17 at 22:06; Status DC Hydromorphone HCl (Dilaudid) 1 mg PRN Q3HRS PRN IV PAIN Last administered on 09/12/17at 05:52; Start 09/11/17 at 08:45; Stop 09/12/17 at 11:23; Status DC Potassium Chloride/Sodium Chloride 1,000 ml @ 125 mls/hr Q8H IV Last administered on 09/12/17at 09:24; Start 09/11/17 at 10:00; Stop 09/12/17 at 11:23; Status DC Potassium Chloride 100 ml @ 50 mls/hr Q1H IV Last administered on 09/11/17at 12: 09; Start 09/11/17 at 10:00; Stop 09/11/17 at 11:59; Status DC Vancomycin HCl (Vancomycin Trough Level) 1 each 1X ONCE MC Last administered on 09/12/17at 21:30; Start 09/12/17 at 21:30; Stop 09/12/17 at 21:31; Status DC Promethazine HCl (Phenergan) 25 mg STK-MED ONCE IV ; Start 09/11/17 at 23:43; Stop 09/11/17 at 23:44; Status DC Albuterol Sulfate (Ventolin) 10 mg 1X ONCE CONT NEB Last administered on at 07:17; Start 09/12/17 at 07:00; Stop 09/12/17 at 07:14; Status DC Furosemide (Lasix) 20 mg 1X ONCE IVP Last administered on 09/12/17at 07:23; Start 09/12/17 at 07:00; Stop 09/12/17 at 07:14; Status DC Hydromorphone HCl (Dilaudid) 0.5 mg PRN Q3HRS PRN IV PAIN Last administered on 09/14/17at 14:26; Start 09/12/17 at 11:30; Stop 09/14/17 at 18:37; Status DC Promethazine HCl (Phenergan) 25 mg STK-MED ONCE IV ; Start 09/13/17 at 01:28; Stop 09/13/17 at 01:29; Status DC Potassium Chloride 100 ml @ 50 mls/hr Q2H IV Last administered on 09/13/17at 10: 15; Start 09/13/17 at 07:30; Stop 09/13/17 at 11:30; Status DC Ketorolac Tromethamine (Toradol) 30 mg PRN Q6HRS PRN IV PAIN Last administered on 09/15/17at 14:14; Start 09/14/17 at 07:15; Stop 09/15/17 at 15:24; Status DC Potassium Chloride (KCl Oral Soln) 40 meq Q2H PEG Last administered on at 07:56; Start 09/14/17 at 07:30; Stop 09/14/17 at 08:43; Status DC Potassium Chloride (Klor-Con) 20 meq 1X ONCE PO Last administered on 09/14/17 08:53; Start 09/14/17 at 08:30; Stop 09/14/17 at 08:31; Status DC Potassium Chloride (Klor-Con) 80 meq 1X ONCE PO Last administered on 09/14/17at 09:52; Start 09/14/17 at 09:00; Stop 09/14/17 at 09:01; Status DC Potassium Chloride 100 ml @ 50 mls/hr Q2H IV Last administered on 09/14/17at 17: 07; Start 09/14/17 at 15:30; Stop 09/14/17 at 19:30; Status DC Hydromorphone HCl (Dilaudid) 0.5 mg PRN Q4HRS PRN IV PAIN Last administered on 09/14/17 22:59; Start 09/14/17 at 18:45; Stop 09/15/17 at 15:24; Status DC Potassium Chloride 40 meq/ Dextrose 520 ml @ 130 mls/hr 1X ONCE IV Last administered on 09/14/17at 21:46; Start 09/14/17 at 22:00; Stop 09/15/17 at 01:59; Status DC Potassium Chloride (Klor-Con) 40 meq 1X ONCE PO Last administered on 09/14/17at 21:46; Start 09/14/17 at 21:15; Stop 09/14/17 at 21:37; Status DC Potassium Chloride (Klor-Con) 40 meq 1X ONCE PO Last administered on 09/15/17at 00:10; Start 09/14/17 at 23:59; Stop 09/15/17 at 00:00; Status DC Magnesium Sulfate 50 ml @ 25 mls/hr 1X ONCE IV Last administered on 09/15/17 07:43; Start 09/15/17 at 07:00; Stop 09/15/17 at 08:59; Status DC Potassium Chloride/Dextrose 500 ml @ 130 mls/hr 1X ONCE IV Last administered on 09/15/17 07:43; Start 09/15/17 at 07:00; Stop 09/15/17 at 10:50; Status DC Levofloxacin (Levaquin) 500 mg Q24H PO Last administered on 09/15/17at 13:58; Start 09/15/17 at 15:00; Stop 09/15/17 at 15:24; Status DC Potassium Chloride (Klor-Con) 40 meq 1X ONCE PO Last administered on 09/15/17at 13:59; Start 09/15/17 at 13:30; Stop 09/15/17 at 13:31; Status DC Active Scripts Active Levaquin (Levofloxacin) 500 Mg Tablet 1 Tab PO DAILY Potassium Chloride 20 Meq Tablet.er 20 Meq PO TID 30 Days Reported Tramadol Hcl (Tramadol HCl) 50 Mg Tablet 50 Mg PO PRN Q6HRS PRN Ventolin Hfa Inhaler (Albuterol Sulfate) 18 Gm Hfa.aer.ad 2 Puff IH PRN Q4HRS PRN USE NEEDED Symbicort 80-4.5 Mcg Inhaler (Budesonide/Formoterol Fumarate) 10.2 Gm Hfa.aer.ad 2 Puff IH BID RESUME TONIGHT [place] 5-325 Tablet (Hydrocodone Bit/Acetaminophen) 1 Each Tablet 1-2 Tab PO Q4- 6HRS LAST DOSE THIS MORNING NEXT DOSE NEEDED Reglan (Metoclopramide Hcl) 10 Mg Tablet 10 Mg PO PRN TID PRN USE NEEDED Promethazine Hcl 25 Mg Tablet 25 Mg PO PRN Q4HRS PRN LAST DOSE THIS MORNING USE NEEDED Zofran Odt (Ondansetron) 8 Mg Tab.rapdis 8 Mg PO PRN Q4HRS PRN USE NEEDED Metoprolol Tartrate 25 Mg Tablet 25 Mg PO BID LAST DOSE THIS MORNING NEXT DOSE TONIGHT Nexium Capsule (Esomeprazole Magnesium) 40 Mg Capsule.dr 40 Mg PO NOON LAST DOSE LUNCHTIME NEXT DOSE TOMORROW LUNCHTIME Linzess (Linaclotide) 290 Mcg Capsule 290 Mcg PO PRN DAILY PRN USE NEEDED Patient Instructions Patient Instuctions DISCHARGE TO HAVE BLOOD WORK AND K CHECKED TOMORROW. YOLI FINLEY DO Sep 16, 2017 12:39
== END 2017-09-15 15:15 | disposition home or self-care (01) | DRG 871 ==
LOC: ER 20:38 → ICU 09-09 03:37
PROVIDERS: ADMIT Internal Medicine; ATTEND Internal Medicine
DX: A41.59 Other Gram-negative sepsis (principal); J96.01 Acute respiratory failure with hypoxia; J18.1 Lobar pneumonia, unspecified organism; E27.1 Primary adrenocortical insufficiency; K22.2 Esophageal obstruction; E83.42 Hypomagnesemia; N10 Acute pyelonephritis; E86.1 Hypovolemia; E87.70 Fluid overload, unspecified; J45.909 Unspecified asthma, uncomplicated; B95.62 Methicillin resistant Staphylococcus aureus infection as the cause of diseases classified elsewhere; R91.1 Solitary pulmonary nodule; E06.3 Autoimmune thyroiditis; G57.93 Unspecified mononeuropathy of bilateral lower limbs; N85.4 Malposition of uterus; R79.1 Abnormal coagulation profile; E87.6 Hypokalemia; K21.9 Gastro-esophageal reflux disease without esophagitis; N31.9 Neuromuscular dysfunction of bladder, unspecified; Z79.51 Long term (current) use of inhaled steroids; Z99.3 Dependence on wheelchair; Z79.899 Other long term (current) drug therapy; Z93.1 Gastrostomy status; Z86.718 Personal history of other venous thrombosis and embolism; Z87.442 Personal history of urinary calculi; Z88.1 Allergy status to other antibiotic agents; Z87.440 Personal history of urinary (tract) infections; Z86.14 Personal history of Methicillin resistant Staphylococcus aureus infection; Z87.820 Personal history of traumatic brain injury
CPT/HCPCS: 36415; 71045; 71275; 74176; 80048; 80053; 80076; 80202; 81001; 81025; 82803; 83605; 83690; 83735; 85007; 85025; 85027; 85379; 87040; 87086; 87186; 87205; 87641; 87804; 93970; 94640; 94644; 96365; 96374; 96375; J0696; J1170; J1200; J1650; J1885; J1956; J2270; J2405; J2543; J2550; J3370; J3475; J3480; J7050; J7613; J7626; Q0169; Q9967; S0028; 99285-25; J7030

== ENCOUNTER 2018-01-21 12:28 | Emergency (ER) | payer OTHER ==
[~2018-01-21] VITALS: Ht 170.2 cm; Wt 45.8 kg
[~2018-01-21 12:28] MED LIST changes: +LEVO500T59 PO; +TRAM50TA PO
[2018-01-21] MEDS ORDERED: IPRATRPIUM/ALBUTEROL 0.5/2.5MG 3 ML NEBU. NEB ONE (13:00)
[2018-01-21] MEDS ORDERED: IPRATRPIUM/ALBUTEROL 0.5/2.5MG 3 ML NEBU. ONE (13:00)
--- NOTE | 2018-01-21 13:25 | PHYS DOC ---
Past History Past Medical History: Other Additional Past Medical Histor: history of TBI, history of autoimmune disorder. Past Surgical History: No Surgical History Smoking: Non-smoker Alcohol Use: None Drug Use: None Adult General Chief Complaint Chief Complaint: My lungs hurts [facility] 22-year-old female patient with history of TBI and asthma states she had one episode of shortness of breath and pain in her lungs one week ago with temperature of 99.9 that resolved with Tylenol. Patient had a temperature of 99.1 last night and this morning complaining of hurting in posterior chest bilaterally with feeling of shortness of breath. Patient rated her pain 8/10 at home and denies any pain at this time or shortness of breath. She denies sore throat, earache, nasal congestion, sick contact. Most of the history was taking from patient mother who is her guardian. Review of Systems Review of Systems Constitutional: Low-grade fever] Eyes: Denies change in visual acuity, redness, or eye pain [] HENT: Denies nasal congestion or sore throat [] Respiratory: Denies cough, reports shortness of breath [] Cardiovascular: No additional information not addressed in HPI [] GI: Denies abdominal pain, nausea, vomiting, bloody stools or diarrhea [] : Denies dysuria or hematuria [] Musculoskeletal: Denies back pain or joint pain [] Integument: Denies rash or skin lesions [] Neurologic: Denies headache, focal weakness or sensory changes [] Endocrine: Denies polyuria or polydipsia [] All other systems were reviewed and found to be within normal limits, except as documented in this note. Allergies Allergies Allergies Coded Allergies Type Severity Reaction Last Updated Verified erythromycin base Allergy Intermediate 11/12/15 Yes I S O L A T I O N *CONTACT* Allergy Unknown 11/13/15 Yes Physical Exam Physical Exam Constitutional: Well nourished, mild distress, non-toxic appearance. [] HENT: Normocephalic, atraumatic, bilateral external ears normal, oropharynx moist, no oral exudates, nose normal. [] Eyes: PERRLA, EOMI, conjunctiva normal, no discharge. [] Neck: Normal range of motion, no tenderness, supple, no stridor. [] Cardiovascular:Heart rate regular rhythm, no murmur [] Lungs & Thorax: Bilateral breath sounds clear to auscultation [] Abdomen: Bowel sounds normal, soft, no tenderness, no masses, no pulsatile masses. [] Skin: Warm, dry, no erythema, no rash. [] Back: No tenderness, no CVA tenderness. [] Extremities: No tenderness, no cyanosis, no clubbing, paraplegic. Neurologic: Alert and oriented X 3 Psychologic: Affect normal, judgement normal, mood normal. [] EKG EKG [] Radiology/Procedures Radiology/Procedures [address] [address] IMAGING REPORT Signed PATIENT: МАРИЯ HARRIS ACCOUNT: [id number] : 1995 LOCATION: ER AGE: 22 SEX: F EXAM STATUS: REG ER ORD. PHYSICIAN: WILMA FAITH MD REASON: shortness of breath PROCEDURE: CHEST PA & LATERAL CHEST PA LATERAL Technique: PA and lateral views of the chest were obtained. Clinical History: cough, weakness, hx of asthma, shielded Comparison: None. Findings: The heart and pulmonary vasculature appear within normal limits. There is vague linear opacities in the lower lungs. The pleural margins are clear. There is a right-sided Port-A-Cath. Impression: Vague basal infiltrates could be early pneumonia. Electronically signed by: Jean Conley III, MD (01/21/2018 2:07 PM) [id number] DICTATED AND SIGNED BY: JEAN CONLEY III, MD DATE: 01/21/18 [id number] CC: WILMA FAITH MD; YOLI CHEW MD ~ Course & Med Decision Making Course & Med Decision Making Pertinent Imaging studies reviewed. (See chart for details) Evaluation of patient in ER showed 22-year-old male patient with paraplegia and asthma brought in because of pain in bilateral lung since last night. She had stable vital signs without fever or tachycardia or hypoxia. X-ray was questionable for possible pneumonia. Plan discharge patient home with diagnosis of asthma exacerbation and any pneumonia and prescription of Augmentin and Medrol Dosepak and instruction to follow up with her primary care physician. [] Dragon Disclaimer Dragon Disclaimer This electronic medical record was generated, in whole or in part, using a voice recognition dictation system. Departure Departure: Impression: Primary Impression: Asthma exacerbation Additional Impressions: Pneumonia History of traumatic brain injury Disposition: HOME, SELF-CARE (at 1420) Condition: IMPROVED Referrals: YOLI CHEW MD (PCP) Patient Instructions: Asthma, Adult, Pneumonia, Adult Additional Instructions: Drink plenty of liquids Follow-up with your primary care physician in 3-5 days Return to emergency room if not getting better in 24 hours Scripts Amoxicillin/Potassium Clav (AUGMENTIN ES-600 SUSPENSION) 600 Mg/5 Ml Susp.recon 6 ML PO BID, #120 ML Prov: WILMA FAITH MD 01/21/18 Methylprednisolone (MEDROL) 4 Mg Tab.ds.pk 1 PKG PO UD, #1 PKG Prov: WILMA FAITH MD 01/21/18 Problem Qualifiers WILMA FAITH MD Jan 21, 2018 13:25
[2018-01-21] MEDS ORDERED: predniSONE 20 MG TABLET PO ONE (14:00)
[2018-01-21] MEDS ORDERED: methylPREDNISolone SOD SUCC PF 125 MG/2 ML VIAL. IM ONE (14:00)
--- NOTE | 2018-01-21 14:10 | RAD ---
CHEST PA LATERAL Technique: PA and lateral views of the chest were obtained. Clinical History: cough, weakness, hx of asthma, shielded Comparison: None. Findings: The heart and pulmonary vasculature appear within normal limits. There is vague linear opacities in the lower lungs. The pleural margins are clear. There is a right-sided Port-A-Cath. Impression: Vague basal infiltrates could be early pneumonia. Electronically signed by: Donte Ruggiero III, MD (01/21/2018 2:07 PM) [id number]
[2018-01-21] MEDS ORDERED: METH4TAB2 PO (14:40)
[2018-01-21] MEDS ORDERED: AMOX600S19 PO (14:40)
[2018-01-21 14:54] VITALS: BP 120/65
== END 2018-01-21 14:55 | disposition home or self-care (01) ==
LOC: ER 12:28
DX: J45.909 Unspecified asthma, uncomplicated (principal); J18.9 Pneumonia, unspecified organism; Z87.820 Personal history of traumatic brain injury; Z88.1 Allergy status to other antibiotic agents; Z91.041 Radiographic dye allergy status
CPT/HCPCS: 71046; 94640; 96372; 99284; J2930; J7620

== ENCOUNTER 2018-02-25 21:48 | Emergency (ER) | payer OTHER ==
[~2018-02-25] VITALS: Ht 170.2 cm; Wt 52.2 kg
[~2018-02-25 21:48] MED LIST changes: +AMOX600S19 PO; +METH4TAB2 PO
--- NOTE | 2018-02-25 22:20 | PHYS DOC ---
Past History Past Medical History: Asthma, GERD, Other Additional Past Medical Histor: history of TBI, history of autoimmune disorder. Past Surgical History: No Surgical History Smoking: Non-smoker Alcohol Use: None Drug Use: None Adult General Chief Complaint Chief Complaint: FEVER HPI HPI 22-year-old female presents with fever of 100.5. The patient had a port removed from her chest yesterday and wound has had drainage. The patient's mother became concerned when she had a fever of 100.5 today. She was worried that it might be getting infected so she brought her in for evaluation. The patient has a port because she is getting IVIG injections. They will install a new port soon as she has further treatment needed. Patient denies chills. She is feeling normal for her. She has had some mild tightness in her chest but is unsure if that is related to removal of the port as the pain is on the same side. She denies shortness of breath or difficulty breathing. She denies dysuria or urinary frequency. Review of Systems Review of Systems Constitutional: Denies fever or chills [] Eyes: Denies change in visual acuity, redness, or eye pain [] HENT: Denies nasal congestion or sore throat [] Respiratory: Mild shortness of breath [] Cardiovascular: No additional information not addressed in HPI [] GI: Denies abdominal pain, nausea, vomiting, bloody stools or diarrhea [] : Denies dysuria or hematuria [] Musculoskeletal: Denies back pain or joint pain [] Integument: Denies rash or skin lesions. Concern for skin infection at port site. [] Neurologic: Denies headache, focal weakness or sensory changes [] Endocrine: Denies polyuria or polydipsia [] All other systems were reviewed and found to be within normal limits, except as documented in this note. Allergies Allergies Allergies Coded Allergies Type Severity Reaction Last Updated Verified erythromycin base Allergy Intermediate 11/12/15 Yes I S O L A T I O N *CONTACT* Allergy Unknown 11/13/15 Yes Physical Exam Physical Exam Constitutional: Well developed, well nourished, no acute distress, non-toxic appearance. [] HENT: Normocephalic, atraumatic, bilateral external ears normal, oropharynx moist, no oral exudates, nose normal. [] Eyes: PERRLA, EOMI, conjunctiva normal, no discharge. [] Neck: Normal range of motion, no tenderness, supple, no stridor. [] Cardiovascular:Heart rate regular rhythm, no murmur [] Lungs & Thorax: Bilateral breath sounds clear to auscultation [] Abdomen: Bowel sounds normal, soft, no tenderness, no masses, no pulsatile masses. [] Skin: Warm, dry, no erythema, no rash. 2 sutures around a wick where the port on the right side of her chest was located. The drainage appears to have been serosanguineous. The wound is CDI. There is no sign of infection and in fact the site is in excellent condition. No current drainage.[] Back: No tenderness, no CVA tenderness. [] Extremities: No tenderness, no cyanosis, no clubbing, ROM intact, no edema. [] Neurologic: Alert and oriented X 3, normal motor function, normal sensory function, no focal deficits noted. [] Psychologic: Affect normal, judgement normal, mood normal. [] EKG EKG [] Radiology/Procedures Radiology/Procedures [] Impressions: PORTABLE CHEST 1V History: Chest wall pain, right sided. Comparison: January 21, 2018 Heart size: Within normal limits. Juli/mediastinum: Within normal limits Lungs: Small opacity identified over the right lower lung, not seen previously. Pleura: No evidence of pleural effusion. Pneumothorax: None visualized Bones: Mild right convexity thoracic scoliosis. Miscellaneous: None Impression: Development of a small opacity over the right lower lung. Nonspecific, but could represent a small infiltrate. Recommend short-term follow-up chest x-ray to document that this resolves. Electronically signed by: Martin Owens MD (02/25/2018 11:58 PM) [place] [id number] DICTATED AND SIGNED BY: MARTIN OWENS MD DATE: 02/25/18 9415 CC: GUILLERMO SPARKS DO; YOLI CHEW MD ~ Course & Med Decision Making Course & Med Decision Making Pertinent Labs and Imaging studies reviewed. (See chart for details) The patient's labs are unremarkable. Her urine is unremarkable. Her chest x-ray however shows possible small infiltrate in the right lower lobe. Given the patient's history of significant infections and rapid development, I will treat her with Levofloxacin as she is allergic to erythromycin and recommend short- term follow-up on Tuesday. I discussed these results with the patient and her mother and they're in agreement with this plan. She is stable for discharge at this time. [] Dragon Disclaimer Dragon Disclaimer This electronic medical record was generated, in whole or in part, using a voice recognition dictation system. Departure Departure: Referrals: YOLI CHEW MD (PCP) Scripts Levofloxacin (LEVOFLOXACIN) 750 Mg Tablet 1 TAB PO DAILY, #7 TAB Prov: GUILLERMO SPARKS DO 02/26/18 GUILLERMO SPARKS DO Feb 25, 2018 22:20
[2018-02-25 22:48] LABS: BASO # 0.1 x10^3/uL (0.0-0.2); BASO % 1 % (0-3); EOS % 0 % (0-3); HEMATOCRIT 41.8 % (36.0-47.0); HEMOGLOBIN 14.4 g/dL (12.0-15.5); LYMPH # 1.6 x10^3/uL (1.0-4.8); LYMPH % 18 % (24-48); MEAN CORPUSCULAR HEMOGLOBIN 29 pg (25-35); MEAN CORPUSCULAR HGB CONC 34 g/dL (31-37); MEAN CORPUSCULAR VOLUME 86 fL (79-100); MONO # 0.5 x10^3/uL (0.0-1.1); MONO % 5 % (0-9); NEUT % 76 % (31-73); PLATELET COUNT 333 x10^3/uL (140-400); RED BLOOD COUNT 4.89 x10^6/uL (3.50-5.40); RED CELL DISTRIBUTION WIDTH 14.2 % (11.5-14.5); WHITE BLOOD COUNT 9.1 x10^3/uL (4.0-11.0)
[2018-02-25 22:54] LABS: CALCIUM 9.6 mg/dL (8.5-10.1); CREATININE 0.7 mg/dL (0.6-1.0); GFR 104.6; POTASSIUM 3.9 mmol/L (3.5-5.1)
[2018-02-25 23:01] LABS: BILIRUBIN,URINE NEG (NEG); CLARITY,URINE CLEAR; COLOR,URINE YELLOW; GLUCOSE,URINE NEG (NEG)
[2018-02-25 23:02] LABS: BACTERIA,URINE FEW /HPF (0-FEW); NITRITE,URINE NEG (NEG); RBC,URINE RARE /HPF (0-2); SQUAMOUS EPITHELIAL CELL,UR FEW /LPF; UROBILINOGEN,URINE 0.2 mg/dL (0.2 mg/dL); WBC,URINE OCC /HPF (0-4)
--- NOTE | 2018-02-26 00:02 | RAD ---
PORTABLE CHEST 1V History: Chest wall pain, right sided. Comparison: January 21, 2018 Heart size: Within normal limits. Juli/mediastinum: Within normal limits Lungs: Small opacity identified over the right lower lung, not seen previously. Pleura: No evidence of pleural effusion. Pneumothorax: None visualized Bones: Mild right convexity thoracic scoliosis. Miscellaneous: None Impression: Development of a small opacity over the right lower lung. Nonspecific, but could represent a small infiltrate. Recommend short-term follow-up chest x-ray to document that this resolves. Electronically signed by: Martin Owens MD (02/25/2018 11:58 PM) [place] [id number]
[2018-02-26 00:21] VITALS: BP 109/68
[2018-02-26] MEDS ORDERED: LEVO750T5 PO (00:27)
[2018-02-26] MEDS ORDERED: levoFLOXacin 500 MG TABLET PO ONE (00:30)
== END 2018-02-26 00:35 | disposition home or self-care (01) ==
LOC: ER 21:48
DX: R50.9 Fever, unspecified (principal); R07.89 Other chest pain; R91.8 Other nonspecific abnormal finding of lung field; J45.909 Unspecified asthma, uncomplicated; K21.9 Gastro-esophageal reflux disease without esophagitis; Z88.1 Allergy status to other antibiotic agents; Z91.041 Radiographic dye allergy status
CPT/HCPCS: 36415; 71045; 80048; 81001; 85025; 99285

== ENCOUNTER → 2018-04-10 | Outpatient (CLI) | payer OTHER ==
[2018-03-20 15:18] VITALS: BP 101/61
[~2018-04-10] MED LIST changes: +LEVO750T5 PO
--- NOTE | 2018-04-10 16:59 | RAD ---
CT of the left lower leg without contrast, 04/10/2018: HISTORY: Pain Noncontrast scans were obtained as requested. No fracture or destructive bony lesion is seen. No abnormal fluid collection or mass is evident. IMPRESSION: No significant abnormality is detected. PQRS Compliance Statement: One or more of the following individualized dose reduction techniques were utilized for this examination: 1. Automated exposure control 2. Adjustment of the mA and/or kV according to patient size 3. Use of iterative reconstruction technique Electronically signed by: Thad Stephens MD (04/10/2018 4:56 PM) [facility]
== END | disposition home or self-care (01) ==
LOC: CT 12:00
PROVIDERS: ATTEND Internal Medicine
DX: M79.662 Pain in left lower leg (principal)
CPT/HCPCS: 73700

== ENCOUNTER 2018-12-12 15:10 | Emergency (ER) | payer OTHER ==
[~2018-12-12] VITALS: Ht 170.2 cm; Wt 47.6 kg
[~2018-12-12 15:10] MED LIST changes: -ALBU18HF IH; +ALBU2.5V8 IH; +HYDR-3165 PO; -HYDR-971 PO; -OXYC-323 PO; +OXYC1TAB15 PO; +OXYC5TAB4 PO; -OXYC5TAB95 PO
[2018-12-12] MEDS ORDERED: IOHEXOL 240 MG/ML 50ML VIAL. ONE (15:26)
[2018-12-12] MEDS ORDERED: KETOROLAC 15 MG/ML VIAL. IV ONE (15:30)
[2018-12-12] MEDS ORDERED: IV NORMAL SALINE 1,000ML 1,000 ML IV ONE (15:30)
[2018-12-12] MEDS ORDERED: FAMOTIDINE 20 MG/2 ML VIAL IVP ONE (15:30)
[2018-12-12] MEDS ORDERED: ONDANSETRON PF 4 MG/2 ML VIAL. IV ONE (15:30)
[2018-12-12] MEDS ORDERED: IOHEXOL 300 MG/ML 75 ML VIAL. IV ONE (15:45)
[2018-12-12 15:56] LABS: BASO # 0.1 x10^3/uL (0.0-0.2); BASO % 1 % (0-3); EOS # 0.2 x10^3/uL (0.0-0.7); EOS % 4 % (0-3); HEMATOCRIT 38.9 % (36.0-47.0); HEMOGLOBIN 13.4 g/dL (12.0-15.5); LYMPH # 1.8 x10^3/uL (1.0-4.8); LYMPH % 33 % (24-48); MEAN CORPUSCULAR HEMOGLOBIN 30 pg (25-35); MEAN CORPUSCULAR HGB CONC 34 g/dL (31-37); MEAN CORPUSCULAR VOLUME 87 fL (79-100); MONO # 0.5 x10^3/uL (0.0-1.1); MONO % 8 % (0-9); NEUT % 54 % (31-73); PLATELET COUNT 235 x10^3/uL (140-400); RED BLOOD COUNT 4.47 x10^6/uL (3.50-5.40); RED CELL DISTRIBUTION WIDTH 12.9 % (11.5-14.5); WHITE BLOOD COUNT 5.5 x10^3/uL (4.0-11.0)
[2018-12-12 16:04] LABS: ALBUMIN 3.9 g/dL (3.4-5.0); CALCIUM 9.1 mg/dL (8.5-10.1); CREATININE 0.6 mg/dL (0.6-1.0); GFR 123.9; POTASSIUM 3.8 mmol/L (3.5-5.1); TOTAL BILIRUBIN 0.5 mg/dL (0.2-1.0)
[2018-12-12 16:36] LABS: CLARITY,URINE HAZY; COLOR,URINE YELLOW
[2018-12-12 16:37] LABS: BACTERIA,URINE MANY /HPF (0-FEW); BILIRUBIN,URINE NEG (NEG); GLUCOSE,URINE NEG (NEG); NITRITE,URINE NEG (NEG); RBC,URINE OCC /HPF (0-2); SQUAMOUS EPITHELIAL CELL,UR OCC /LPF; UROBILINOGEN,URINE 0.2 mg/dL (0.2 mg/dL)
--- NOTE | 2018-12-12 16:41 | PHYS DOC ---
Past History Past Medical History: Asthma, GERD, Other Additional Past Medical Histor: history of TBI, history of autoimmune disorder. Past Surgical History: Tonsillectomy Additional Past Surgical Histo: PEG tube Smoking: Non-smoker Alcohol Use: None Drug Use: None Adult General Chief Complaint Chief Complaint: ABDOMINAL PAIN HPI HPI 23-year-old female presents with 2 day history of upper abdominal pain primarily to epigastrium with associated nausea. Denies any constipation, diarrhea, or vomiting. Denies fever or chills. Patient does have a history of frequent urinary tract/kidney infections. Patient requires straight catheterizations. Denies . Review of Systems Review of Systems Constitutional: Denies fever or chills Eyes: Denies redness or eye pain HENT: Denies nasal congestion or sore throat Respiratory: Denies cough or shortness of breath Cardiovascular: Denies chest pain or palpitations GI: Reports abdominal pain and nausea /POT FILLER: Denies dysuria or hematuria or Musculoskeletal: Denies back pain or joint pain Integument: Denies rash or skin lesions Neurologic: Denies headache, focal weakness or sensory changes Complete systems were reviewed and found to be within normal limits, except as documented in this note. Current Medications Current Medications Current Medications Medications (Trade) Dose Ordered Sig/Jimmy Start Time Stop Time Status Last Admin Dose Admin Famotidine (Pepcid Vial) 20 mg 1X ONCE 12/12/18 15:30 12/12/18 15:31 DC 12/12/18 15:45 20 MG Iohexol (Omnipaque 240 Mg/ml) 50 ml STK-MED ONCE 12/12/18 15:26 12/12/18 15:27 DC Iohexol (Omnipaque 300 Mg/ml) 75 ml 1X ONCE 12/12/18 15:45 12/12/18 15:48 DC Ketorolac Tromethamine (Toradol 15mg Vial) 15 mg 1X ONCE 12/12/18 15:30 12/12/18 15:31 DC 12/12/18 15:45 15 MG Ondansetron HCl (Zofran) 4 mg 1X ONCE 12/12/18 15:30 12/12/18 15:31 DC 12/12/18 15:45 4 MG Sodium Chloride 1,000 ml @ 1,000 mls/hr 1X ONCE 12/12/18 15:30 12/12/18 16:30 DC 12/12/18 15:45 1,000 MLS/HR Allergies Allergies Allergies Coded Allergies Type Severity Reaction Last Updated Verified erythromycin base Allergy Intermediate 02/25/18 Yes I S O L A T I O N *CONTACT* Allergy Unknown 02/25/18 Yes Physical Exam Physical Exam Constitutional: Well developed, well nourished, no acute distress, non-toxic appearance HENT: Normocephalic, atraumatic, oropharynx moist Eyes: Conjunctiva normal, no discharge Neck: Normal range of motion, no tenderness, supple Cardiovascular: Heart rate normal, regular rhythm Lungs & Thorax: Bilateral breath sounds clear to auscultation, no wheezing/rales/rhonchi Abdomen: Soft, epigastric tenderness on palpation, PEG tube to left upper quadrant Skin: Warm, dry, no erythema, no rash Back: No tenderness, mild left CVA tenderness Extremities: No tenderness, ROM intact, no edema Neurologic: Alert and oriented X 3, speech normal, patient with limited movement of lower extremities at baseline Psychologic: Affect flat, judgement normal Current Patient Data Vital Signs Vital Signs Date Time Temp Pulse Resp B/P (MAP) Pulse Ox O2 Delivery O2 Flow Rate FiO2 12/12/18 15:24 98.8 79 16 97 Room Air Lab Results Laboratory Tests Test 12/12/18 15:30 White Blood Count 5.5 x10^3/uL (4.0-11.0) Red Blood Count 4.47 x10^6/uL (3.50-5.40) Hemoglobin 13.4 g/dL (12.0-15.5) Hematocrit 38.9 % (36.0-47.0) Mean Corpuscular Volume 87 fL (79-100) Mean Corpuscular Hemoglobin 30 pg (25-35) Mean Corpuscular Hemoglobin Concent 34 g/dL (31-37) Red Cell Distribution Width 12.9 % (11.5-14.5) Platelet Count 235 x10^3/uL (140-400) Neutrophils (%) (Auto) 54 % (31-73) Lymphocytes (%) (Auto) 33 % (24-48) Monocytes (%) (Auto) 8 % (0-9) Eosinophils (%) (Auto) 4 % (0-3) H Basophils (%) (Auto) 1 % (0-3) Neutrophils # (Auto) 3.0 x10^3uL (1.8-7.7) Lymphocytes # (Auto) 1.8 x10^3/uL (1.0-4.8) Monocytes # (Auto) 0.5 x10^3/uL (0.0-1.1) Eosinophils # (Auto) 0.2 x10^3/uL (0.0-0.7) Basophils # (Auto) 0.1 x10^3/uL (0.0-0.2) Sodium Level 137 mmol/L (136-145) Potassium Level 3.8 mmol/L (3.5-5.1) Chloride Level 103 mmol/L (98-107) Carbon Dioxide Level 26 mmol/L (21-32) Anion Gap 8 (6-14) Blood Urea Nitrogen 10 mg/dL (7-20) Creatinine 0.6 mg/dL (0.6-1.0) Estimated GFR (Cockcroft-Gault) 123.9 BUN/Creatinine Ratio 17 (6-20) Glucose Level 80 mg/dL (70-99) Lactic Acid Level 0.8 mmol/L (0.4-2.0) Calcium Level 9.1 mg/dL (8.5-10.1) Magnesium Level 2.0 mg/dL (1.8-2.4) Total Bilirubin 0.5 mg/dL (0.2-1.0) Aspartate Amino Transferase (AST) 14 U/L (15-37) L Alanine Aminotransferase (ALT) 18 U/L (14-59) Alkaline Phosphatase 56 U/L (46-116) Total Protein 8.0 g/dL (6.4-8.2) Albumin 3.9 g/dL (3.4-5.0) Albumin/Globulin Ratio 1.0 (1.0-1.7) Lipase 126 U/L (73-393) EKG EKG [] Radiology/Procedures Radiology/Procedures PROCEDURE: CT ABD PELV W/ORAL&IV CONTRAST EXAM: Abdomen and pelvis CT with intravenous contrast. HISTORY: Pain and nausea. TECHNIQUE: Computed tomographic images of the abdomen and pelvis were obtained following the administration of 75 cc Isovue 370 intravenous contrast. Multiplanar reformatting was performed. *One or more of the following individualized dose reduction techniques were utilized for this examination: 1. Automated exposure control. 2. Adjustment of the mA and/or kV according to patient size. 3. Use of iterative reconstruction technique. COMPARISON: 09/08/2017. FINDINGS: Evaluation of the lower thorax demonstrates no infiltrate or pleural effusion. There is a tiny hiatal hernia or patulous distal esophagus. No focal hepatic lesion is seen. The gallbladder, pancreas, spleen and adrenal glands are unremarkable. There is a gastrostomy tube within the stomach. There is wall thickening involving the gastric antrum which may be due to relative under distention. There is a prominent renal collecting system, without clear obstructive uropathy. The urinary bladder is unremarkable. There is a 4.9 cm cyst within the posterior cul-de-sac, likely ovarian or paraovarian in etiology. There are multiple bilateral ovarian follicles. There is moderate colonic stool. The appendix is not seen. There is no evidence of bowel obstruction. There is a stimulator lead within the left presacral space. IMPRESSION: 1. Moderate colonic stool. There is no evidence of obstruction or colitis. The appendix is not seen. 2. Gastric antral wall thickening. This may be due to relative under distention or gastritis. There is a gastrostomy tube in expected position. 3. 4.9 cm cystic lesion within the right posterior cul-de-sac, likely ovarian in etiology. Course & Med Decision Making Course & Med Decision Making Pertinent Labs and Imaging studies reviewed. (See chart for details) Patient presents with 2 day history of epigastric abdominal pain with associated nausea. Afebrile. Symptomatic treatment provided. IV fluid hydration given. Labs obtained and posted to chart. CT abdomen/pelvis with findings of possible gastritis and moderate constipation. Patient stable for discharge with outpatient follow-up with PCP/GI. GI referral provided. Discussed findings and plan with patient and family, who acknowledge understanding and agreement. Dragon Disclaimer Dragon Disclaimer This electronic medical record was generated, in whole or in part, using a voice recognition dictation system. Departure Departure: Impression: Primary Impression: Epigastric abdominal pain Additional Impression: Constipation Disposition: 01 HOME, SELF-CARE Condition: STABLE Referrals: YOLI CHEW MD (PCP) XANDER ALMONTE MD Patient Instructions: Abdominal Pain (Nonspecific), Gastritis, Adult, [id number] Scripts Sucralfate (CARAFATE) 1 Gm/10 Ml Oral.susp 10 ML PO QID for gastritis, #1200 ML Prov: DEBI HILL DO 12/12/18 Magnesium Citrate (MAGNESIUM CITRATE) 296 Ml Solution 296 ML PO ONCE PRN for CONSTIPATION, #296 ML Prov: DEBI HILL DO 12/12/18 Sennosides/Docusate Sodium (Colace 2-in-1 Tablet) 1 Each Tablet 1 EACH PO QHS PRN for CONSTIPATION, #20 TAB Prov: DEBI HILL DO 12/12/18 Ondansetron (ONDANSETRON ODT) 4 Mg Tab.rapdis 1 TAB PO PRN Q6-8HRS for NAUSEA, #16 TAB Prov: DEBI HILL DO 12/12/18 Famotidine (PEPCID) 20 Mg Tablet 1 TAB PO BID for Gastritis, #30 TAB Prov: DEBI HILL DO 12/12/18 Problem Qualifiers Additional Impression: Constipation Constipation type: unspecified constipation type Qualified Codes: K59.00 - Constipation, unspecified DEBI HILL DO Dec 12, 2018 16:41
--- NOTE | 2018-12-12 17:19 | RAD ---
EXAM: Abdomen and pelvis CT with intravenous contrast. HISTORY: Pain and nausea. TECHNIQUE: Computed tomographic images of the abdomen and pelvis were obtained following the administration of 75 cc Isovue 370 intravenous contrast. Multiplanar reformatting was performed. *One or more of the following individualized dose reduction techniques were utilized for this examination: 1. Automated exposure control. 2. Adjustment of the mA and/or kV according to patient size. 3. Use of iterative reconstruction technique. COMPARISON: 09/08/2017. FINDINGS: Evaluation of the lower thorax demonstrates no infiltrate or pleural effusion. There is a tiny hiatal hernia or patulous distal esophagus. No focal hepatic lesion is seen. The gallbladder, pancreas, spleen and adrenal glands are unremarkable. There is a gastrostomy tube within the stomach. There is wall thickening involving the gastric antrum which may be due to relative under distention. There is a prominent renal collecting system, without clear obstructive uropathy. The urinary bladder is unremarkable. There is a 4.9 cm cyst within the posterior cul-de-sac, likely ovarian or paraovarian in etiology. There are multiple bilateral ovarian follicles. There is moderate colonic stool. The appendix is not seen. There is no evidence of bowel obstruction. There is a stimulator lead within the left presacral space. IMPRESSION: 1. Moderate colonic stool. There is no evidence of obstruction or colitis. The appendix is not seen. 2. Gastric antral wall thickening. This may be due to relative under distention or gastritis. There is a gastrostomy tube in expected position. 3. 4.9 cm cystic lesion within the right posterior cul-de-sac, likely ovarian in etiology. Electronically signed by: Astrid Yancey MD (12/12/2018 5:16 PM) [facility]
[2018-12-12] MEDS ORDERED: MAGN296S9 PO (17:26)
[2018-12-12] MEDS ORDERED: ONDA4TAB12 PO (17:26)
[2018-12-12] MEDS ORDERED: SENN-121 PO (17:26)
[2018-12-12] MEDS ORDERED: FAMO-63 PO (17:26)
[2018-12-12] MEDS ORDERED: SUCR1ORA5 PO (17:43)
[2018-12-12 17:46] VITALS: BP 104/67
== END 2018-12-12 17:46 | disposition home or self-care (01) ==
LOC: ER 15:10
DX: K59.00 Constipation, unspecified (principal); K21.9 Gastro-esophageal reflux disease without esophagitis; J45.909 Unspecified asthma, uncomplicated; Z88.1 Allergy status to other antibiotic agents; Z91.041 Radiographic dye allergy status
CPT/HCPCS: 36415; 74177; 80053; 81001; 83605; 83690; 83735; 85025; 87086; 96374; 96375; 99285; J1885; J2405; J3490; Q9967; 87186; J7030

== ENCOUNTER → 2019-03-12 | Outpatient (CLI) | payer OTHER ==
[~2019-03-12] MED LIST changes: +ACETAMINOPHEN 325 MG TABLET PO ONE; +FAMO-63 PO; +IMMUNE GLOBULIN GAMMA 10% IV ONE; +IMMUNE GLOBULIN,GAMMA(IGG) 10% 200 ML IV ONE; +MAGN296S9 PO; +ONDA4TAB12 PO; +SENN-121 PO; +SUCR1ORA5 PO; +diphenhydrAMINE HCL 25 MG CAPSULE PO ONE; +methylPREDNISolone SOD SUCC PF 125 MG/2 ML VIAL. IV ONE
[2019-03-12 16:19] LABS: BASO # 0.1 x10^3/uL (0.0-0.2); BASO % 3 % (0-3); EOS # 0.1 x10^3/uL (0.0-0.7); EOS % 2 % (0-3); HEMATOCRIT 38.2 % (36.0-47.0); HEMOGLOBIN 12.6 g/dL (12.0-15.5); LYMPH # 1.7 x10^3/uL (1.0-4.8); LYMPH % 42 % (24-48); MEAN CORPUSCULAR HEMOGLOBIN 29 pg (25-35); MEAN CORPUSCULAR HGB CONC 33 g/dL (31-37); MEAN CORPUSCULAR VOLUME 89 fL (79-100); MONO # 0.3 x10^3/uL (0.0-1.1); MONO % 8 % (0-9); NEUT # 1.9 x10^3uL (1.8-7.7); NEUT % 46 % (31-73); PLATELET COUNT 267 x10^3/uL (140-400); RED BLOOD COUNT 4.28 x10^6/uL (3.50-5.40); RED CELL DISTRIBUTION WIDTH 12.2 % (11.5-14.5); WHITE BLOOD COUNT 4.1 x10^3/uL (4.0-11.0)
[2019-03-12 16:31] VITALS: BP 107/62
[2019-03-12 16:33] LABS: ALBUMIN 3.8 g/dL (3.4-5.0); ALBUMIN/GLOBULIN RATIO 1.1 (1.0-1.7); CALCIUM 8.9 mg/dL (8.5-10.1); CREATININE 0.6 mg/dL (0.6-1.0); GFR 123.9; POTASSIUM 3.6 mmol/L (3.5-5.1); TOTAL BILIRUBIN 0.4 mg/dL (0.2-1.0); TOTAL PROTEIN 7.2 g/dL (6.4-8.2)
[2019-03-12 16:45] VITALS: BP 118/62
[2019-03-12 17:07] VITALS: BP 121/65
[2019-03-12 19:55] VITALS: BP 120/68
[2019-03-14 22:11] LABS: IGG1 797 mg/dL (248-810); IGG2 476 mg/dL (130-555); IGG3 28 mg/dL (15-102); IGG4 30 mg/dL (2-96); TOTAL IGG 1327 mg/dL (700-1600)
== END | disposition home or self-care (01) ==
LOC: LAB 15:40
PROVIDERS: ATTEND Internal Medicine Infectious Disease
DX: D83.9 Common variable immunodeficiency, unspecified (principal); K21.9 Gastro-esophageal reflux disease without esophagitis; J45.909 Unspecified asthma, uncomplicated
CPT/HCPCS: 36415; 80053; 82787; 85025; 96365; 96366; 96375; J1459; J2930; Q0163

== ENCOUNTER → 2020-04-14 | Outpatient (CLI) | payer OTHER ==
[~2020-04-14] MED LIST changes: +MAGN296S68 PO; -MAGN296S9 PO; +POTA20TA4 PO; -POTA20TA82 PO; +diphenhydrAMINE 50 MG/ML VIAL IVP ONE
[2020-04-14 12:57] VITALS: BP 100/59
[2020-04-14 13:01] LABS: BASO # 0.1 x10^3/uL (0.0-0.2); BASO % 1 % (0-3); EOS # 0.1 x10^3/uL (0.0-0.7); EOS % 1 % (0-3); HEMATOCRIT 37.1 % (36.0-47.0); HEMOGLOBIN 12.1 g/dL (12.0-15.5); LYMPH # 2.1 x10^3/uL (1.0-4.8); LYMPH % 44 % (24-48); MEAN CORPUSCULAR HEMOGLOBIN 29 pg (25-35); MEAN CORPUSCULAR HGB CONC 33 g/dL (31-37); MEAN CORPUSCULAR VOLUME 89 fL (79-100); MONO # 0.4 x10^3/uL (0.0-1.1); MONO % 7 % (0-9); NEUT # 2.2 x10^3uL (1.8-7.7); NEUT % 46 % (31-73); PLATELET COUNT 219 x10^3/uL (140-400); RED BLOOD COUNT 4.17 x10^6/uL (3.50-5.40); RED CELL DISTRIBUTION WIDTH 13.1 % (11.5-14.5); WHITE BLOOD COUNT 4.7 x10^3/uL (4.0-11.0)
[2020-04-14 13:10] LABS: ALBUMIN 3.6 g/dL (3.4-5.0); ALBUMIN/GLOBULIN RATIO 0.9 (1.0-1.7); CALCIUM 8.8 mg/dL (8.5-10.1); CREATININE 0.6 mg/dL (0.6-1.0); GFR 122.8; TOTAL BILIRUBIN 0.1 mg/dL (0.2-1.0); TOTAL PROTEIN 7.4 g/dL (6.4-8.2)
[2020-04-14 13:12] VITALS: BP 98/58
[2020-04-14 13:28] VITALS: BP 98/60
[2020-04-14 13:50] VITALS: BP 98/63
[2020-04-14 14:05] VITALS: BP 99/59
[2020-04-14 14:59] VITALS: BP 98/61
--- NOTE | 2020-04-14 16:12 | NUR ---
NURSING NOTE OUTPATIENT PT WHEELED TO ROOM 132 FOR OUTPATIENT INFUSION. VITALS OBTAINED. PORT ACCESSED WITH 20G 1INCH TOWNSEND NEEDLE. LABS COLLECTED. PT GIVEN IV SOLUMEDROL AND ORAL MEDICATIONS PRIOR TO INFUSION. INFUSION STARTED AND PT MONITORED CLOSELY TO INCREASE DOSAGE Q15 MIN. INFUSION INCREASE SLOWLY. INFUSION COMPLETE. PT TOLERATED WELL. PT WHEELED OFF UNIT. NO COMPLICATIONS. SUMIT ARGUELLES.
== END ==
LOC: OPINF 12:21
PROVIDERS: ATTEND Internal Medicine Infectious Disease
DX: D83.9 Common variable immunodeficiency, unspecified (principal); K21.9 Gastro-esophageal reflux disease without esophagitis; J45.909 Unspecified asthma, uncomplicated
CPT/HCPCS: 36415; 80053; 85025; 96365; 96366; 96375; J1561; J2930; Q0163; 36591; 96367; 96374

== ENCOUNTER → 2020-05-05 | Outpatient (CLI) | payer OTHER ==
[~2020-05-05] MED LIST changes: -diphenhydrAMINE 50 MG/ML VIAL IVP ONE
[2020-05-05 12:49] LABS: BASO # 0.1 x10^3/uL (0.0-0.2); BASO % 2 % (0-3); EOS # 0.1 x10^3/uL (0.0-0.7); EOS % 4 % (0-3); HEMATOCRIT 37.1 % (36.0-47.0); HEMOGLOBIN 12.4 g/dL (12.0-15.5); LYMPH # 1.5 x10^3/uL (1.0-4.8); LYMPH % 43 % (24-48); MEAN CORPUSCULAR HEMOGLOBIN 29 pg (25-35); MEAN CORPUSCULAR HGB CONC 33 g/dL (31-37); MEAN CORPUSCULAR VOLUME 88 fL (79-100); MONO # 0.3 x10^3/uL (0.0-1.1); MONO % 8 % (0-9); NEUT # 1.5 x10^3uL (1.8-7.7); NEUT % 43 % (31-73); PLATELET COUNT 185 x10^3/uL (140-400); RED BLOOD COUNT 4.21 x10^6/uL (3.50-5.40); RED CELL DISTRIBUTION WIDTH 13.2 % (11.5-14.5); WHITE BLOOD COUNT 3.4 x10^3/uL (4.0-11.0)
[2020-05-05 12:55] VITALS: BP 110/67
[2020-05-05 13:03] LABS: ALBUMIN 3.5 g/dL (3.4-5.0); CALCIUM 8.9 mg/dL (8.5-10.1); CREATININE 0.5 mg/dL (0.6-1.0); GFR 151.6; POTASSIUM 3.9 mmol/L (3.5-5.1); TOTAL BILIRUBIN 0.2 mg/dL (0.2-1.0); TOTAL PROTEIN 7.1 g/dL (6.4-8.2)
[2020-05-05 13:10] VITALS: BP 110/64
[2020-05-05 13:22] VITALS: BP 106/61
--- NOTE | 2020-05-05 13:34 | NUR ---
NURSING NOTE PT WHEELED TO ROOM 105 FOR OUTPT INFUSION. PORT ACCESSED, LABS OBTAINED, VITALS TAKEN, PT GIVEN PRE-MEDICATIONS STANDING ORDERS. INFUSION STARTED. PT MONITORED CLOSELY. SUMIT ARUGELLES.
[2020-05-05 14:22] VITALS: BP 99/63
[2020-05-05 15:34] VITALS: BP 110/68
[2020-05-05 16:26] VITALS: BP 98/67
--- NOTE | 2020-05-05 16:27 | NUR ---
NURSING NOTE OUTPT INFUSION COMPLETE. PT PORT FLUSHED WITH 20 CC NS AND CAPPED. PT LEFT ACCESSED TO DO HER NIGHT TREATMENT POST INFUSION AT HOME. NO COMPLICATIONS. SUMIT ARGUELLES.
== END | disposition home or self-care (01) ==
LOC: OPINF 12:04
PROVIDERS: ATTEND Internal Medicine Infectious Disease
DX: G61.81 Chronic inflammatory demyelinating polyneuritis (principal); K21.9 Gastro-esophageal reflux disease without esophagitis; J45.909 Unspecified asthma, uncomplicated
CPT/HCPCS: 36415; 80053; 85025; 96365; 96366; 96375; J1561; J2930; Q0163

== ENCOUNTER → 2020-10-23 | Outpatient (CLI) | payer OTHER ==
[~2020-10-23] MED LIST changes: -ACETAMINOPHEN 325 MG TABLET PO ONE; -IMMUNE GLOBULIN GAMMA 10% IV ONE; -IMMUNE GLOBULIN,GAMMA(IGG) 10% 200 ML IV ONE; -diphenhydrAMINE HCL 25 MG CAPSULE PO ONE; -methylPREDNISolone SOD SUCC PF 125 MG/2 ML VIAL. IV ONE
[2020-10-23 12:30] VITALS: BP 136/74
[2020-10-23] MEDS: ACETAMINOPHEN 325 MG TABLET PO ONE (14:00)
[2020-10-23] MEDS: methylPREDNISolone SOD SUCC PF 125 MG/2 ML VIAL. IV ONE (14:57)
[2020-10-23] MEDS: diphenhydrAMINE HCL 25 MG CAPSULE PO ONE (14:57)
[2020-10-23 15:03] LABS: BASO # 0.1 x10^3/uL (0.0-0.2); BASO % 2 % (0-3); EOS # 0.1 x10^3/uL (0.0-0.7); EOS % 1 % (0-3); HEMATOCRIT 37.7 % (36.0-47.0); LYMPH # 1.6 x10^3/uL (1.0-4.8); LYMPH % 41 % (24-48); MEAN CORPUSCULAR HEMOGLOBIN 31 pg (25-35); MEAN CORPUSCULAR HGB CONC 34 g/dL (31-37); MEAN CORPUSCULAR VOLUME 91 fL (79-100); MONO # 0.3 x10^3/uL (0.0-1.1); MONO % 7 % (0-9); NEUT # 1.9 x10^3uL (1.8-7.7); NEUT % 49 % (31-73); PLATELET COUNT 173 x10^3/uL (140-400); RED BLOOD COUNT 4.15 x10^6/uL (3.50-5.40); RED CELL DISTRIBUTION WIDTH 14.3 % (11.5-14.5); WHITE BLOOD COUNT 3.9 x10^3/uL (4.0-11.0)
[2020-10-23] MEDS: IMMUNE GLOBULIN,GAMMA(IGG) 10% 200 ML IV ONE (15:04)
[2020-10-23 15:06] LABS: ALBUMIN 3.7 g/dL (3.4-5.0); CALCIUM 8.5 mg/dL (8.5-10.1); CREATININE 0.6 mg/dL (0.6-1.0); GFR 121.8; POTASSIUM 4.5 mmol/L (3.5-5.1); TOTAL BILIRUBIN 0.3 mg/dL (0.2-1.0); TOTAL PROTEIN 7.4 g/dL (6.4-8.2)
[2020-10-23] MEDS: IMMUNE GLOBULIN GAMMA 10% IV ONE ×2 (17:11→18:18)
[2020-10-23] MEDS: ALTEPLASE 2 MG VIAL INT CAT ONE (18:48)
== END ==
LOC: OPINF 13:27
PROVIDERS: ATTEND Internal Medicine Infectious Disease
DX: D83.9 Common variable immunodeficiency, unspecified (principal); K21.9 Gastro-esophageal reflux disease without esophagitis; J45.909 Unspecified asthma, uncomplicated
CPT/HCPCS: 36415; 36593; 80053; 85025; 96365; 96366; 96375; J1561; J2930; J2997; Q0163

== ENCOUNTER 2020-12-08 19:49 | Emergency (ER) | payer OTHER ==
[~2020-12-08] VITALS: Ht 170.2 cm; Wt 50.5 kg
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
[2020-12-08] MEDS: IV RINGERS SOLUTION,LACTATED 1,000 ML IV SCH (21:06)
--- NOTE | 2020-12-08 21:12 | RAD ---
ACUTE ABDOMEN SERIES Indication: Abdominal pain Date of service:12/08/2020 .Comparison: CT abdomen and pelvis from 12/12/2018 Procedure: PA chest and upright and supine abdomen views are obtained. Findings: Chest: Cardiac size and pulmonary vessels are normal. Pneumonia, pneumothorax or pleural effusion ar e not present. There is a left-sided Port-A-Cath in place. Abdomen: No evidence of free air is present. Gas pattern is normal . There is scattered stool through out the colon. Neurostimulator device battery pack is seen in the right flank Impression: Normal Chest . Normal abdomen without obstruction, ileus or free air . If indicated, CT scan of the abdomen would be useful for further evaluation. Electronically signed by: Lianne Diop MD (12/08/2020 9:10 PM) [facility]
[2020-12-08 21:17] LABS: BASO # 0.1 x10^3/uL (0.0-0.2); BASO % 1 % (0-3); EOS % 0 % (0-3); HEMATOCRIT 36.4 % (36.0-47.0); HEMOGLOBIN 12.6 g/dL (12.0-15.5); LYMPH # 1.7 x10^3/uL (1.0-4.8); LYMPH % 21 % (24-48); MEAN CORPUSCULAR HEMOGLOBIN 32 pg (25-35); MEAN CORPUSCULAR HGB CONC 35 g/dL (31-37); MEAN CORPUSCULAR VOLUME 92 fL (79-100); MONO # 0.5 x10^3/uL (0.0-1.1); MONO % 6 % (0-9); NEUT # 5.6 x10^3uL (1.8-7.7); NEUT % 72 % (31-73); PLATELET COUNT 238 x10^3/uL (140-400); RED BLOOD COUNT 3.97 x10^6/uL (3.50-5.40); RED CELL DISTRIBUTION WIDTH 12.9 % (11.5-14.5); WHITE BLOOD COUNT 7.8 x10^3/uL (4.0-11.0)
[2020-12-08 21:18] LABS: CALCIUM 9.2 mg/dL (8.5-10.1); CREATININE 0.7 mg/dL (0.6-1.0); POTASSIUM 3.9 mmol/L (3.5-5.1)
[2020-12-08 21:22] LABS: ALBUMIN 3.4 g/dL (3.4-5.0); C REACTIVE PROTEIN 24.3 mg/L (0-3.3); DIRECT BILIRUBIN 0.1 mg/dL (0.0-0.2); MAGNESIUM 2.2 mg/dL (1.8-2.4); TOTAL BILIRUBIN 0.4 mg/dL (0.2-1.0); TOTAL PROTEIN 8.6 g/dL (6.4-8.2)
[2020-12-08 21:32] LABS: BILIRUBIN,URINE NEG (NEG); CLARITY,URINE CLEAR; COLOR,URINE YELLOW; GLUCOSE,URINE NEG (NEG); NITRITE,URINE NEG (NEG); RBC,URINE 0 /HPF (0-2); WBC,URINE 0 /HPF (0-4)
[2020-12-08 21:33] LABS: BACTERIA,URINE MOD /HPF (0-FEW); SQUAMOUS EPITHELIAL CELL,UR MANY /LPF
--- NOTE | 2020-12-08 21:53 | EKG ---
[address] [address] Test Date: 2020-12-08 Test Time: 21:06:14 Pat Name: МАРИЯ HARRIS Department: Room: Gender: F Wheel Installer: : 1995 Requested By: NAN MORGAN Order Number: [id number] Reading MD: Te Miranda Measurements Intervals Hibbs Rate: 75 P: 64 WA: 176 QRS: 86 QRSD: 68 T: 47 QT: 380 QTc: 427 Interpretive Statements SINUS RHYTHM NORMAL ECG Electronically Signed On 12-09-2020 14:55:58 CDT by Te Miranda
[2020-12-08] MEDS: KETOROLAC 30 MG/ML VIAL. IVP ONE (22:47)
[2020-12-08 23:08] VITALS: BP 106/56
== END 2020-12-08 23:08 | disposition home or self-care (01) ==
LOC: ER 19:49
DX: M53.3 Sacrococcygeal disorders, not elsewhere classified (principal); M54.5 Low back pain; D84.9 Immunodeficiency, unspecified; Z87.820 Personal history of traumatic brain injury; E06.3 Autoimmune thyroiditis; N31.9 Neuromuscular dysfunction of bladder, unspecified; Z86.2 Personal history of diseases of the blood and blood-forming organs and certain disorders involving the immune mechanism; K21.9 Gastro-esophageal reflux disease without esophagitis; J45.909 Unspecified asthma, uncomplicated; Z99.3 Dependence on wheelchair; Z87.440 Personal history of urinary (tract) infections; Z87.442 Personal history of urinary calculi; Z88.1 Allergy status to other antibiotic agents; Z88.8 Allergy status to other drugs, medicaments and biological substances
CPT/HCPCS: 36415; 51701; 74022; 80048; 80076; 81001; 82550; 83605; 83690; 83735; 84443; 84484; 84702; 85025; 86140; 87040; 87086; 93005; 96361; 96374; 99285; J1885; J7120; 87205

== ENCOUNTER 2020-12-22 12:31 | Inpatient (IN) | payer OTHER ==
[~2020-12-22] VITALS: Ht 171.4 cm; Wt 54.4 kg
[2020-12-22] MEDS ORDERED: IV NORMAL SALINE 1,000ML 1,000 ML IV ONE (13:15)
[2020-12-22] MEDS ORDERED: VANCOMYCIN 1.25 GM in IV NORMAL SALINE 500ML 500 ML IV ONE (13:15)
[2020-12-22] MEDS ORDERED: diphenhydrAMINE 50 MG/ML VIAL ONE (14:11)
--- NOTE | 2020-12-22 14:20 | PHYS DOC ---
Past History Past Medical History: Asthma, GERD, Other Additional Past Medical Histor: TBI, history of autoimmune d/o, Past Surgical History: Cholecystectomy, Tonsillectomy Additional Past Surgical Histo: PEG tube, fundoplicationx3,neurostimulator,port Smoking: Non-smoker Alcohol Use: None Drug Use: None Adult General Chief Complaint Chief Complaint: ABNORMAL LABS [facility] Patient is a 25-year-old female who presents to the emergency room returning after being instructed to come back by infectious disease. Patient was seen here at the end of November and at that time was diagnosed with lower back pain with unknown cause. She had blood cultures drawn at that time which later came back as positive. She was called back today for positive blood cultures that are growing MRSA. Patient has been having diffuse body pain. She has been having low-grade fevers. Mom states she often does not have fevers. She states that she otherwise has been doing fine. Review of Systems Review of Systems Complete ROS is negative unless otherwise documented in HPI Current Medications Current Medications Current Medications Medications (Trade) Dose Ordered Sig/Jimmy Start Time Stop Time Status Last Admin Dose Admin Diphenhydramine HCl (Benadryl) 50 mg STK-MED ONCE 12/22/20 14:11 12/22/20 14:11 DC Sodium Chloride 1,000 ml @ 1,000 mls/hr 1X ONCE 12/22/20 13:15 12/22/20 14:14 Vancomycin HCl 1.25 gm/Sodium Chloride 500 ml @ 250 mls/hr 1X ONCE 12/22/20 13:15 12/22/20 15:14 Allergies Allergies Allergies Coded Allergies Type Severity Reaction Last Updated Verified erythromycin base Allergy Intermediate 12/22/20 Yes I S O L A T I O N *CONTACT* Allergy Unknown 12/08/20 Yes Physical Exam Physical Exam General: Awake, alert, NAD. Well Nourished, well hydrated. Cooperative HEENT: Atraumatic, EOMI, PERRL, airway patent, moist oral mucosa Neck: Supple, trachea midline Respiratory: CTA bilaterally, normal effort, no wheezing/crackles CV: Tachycardia, no murmur, cap refill <2 GI: Soft, nondistended, nontender, no masses, G-tube MSK: No obvious deformities Skin: Warm, dry, intact Neuro: A&O x3, speech NL, sensory and motor grossly intact, no focal deficits Psych: Normal affect, normal mood, not suicidal or homicidal Current Patient Data Vital Signs Vital Signs Date Time Temp Pulse Resp B/P (MAP) Pulse Ox O2 Delivery O2 Flow Rate FiO2 12/22/20 12:44 99.0 114 20 122/78 (93) 98 Room Air EKG EKG [] Radiology/Procedures Radiology/Procedures [] Heart Score C/O Chest Pain: N/A Risk Factors: Risk Factors: DM, Current or recent (<one month) smoker, HTN, HLP, family history of CAD, obesity. Risk Scores: Risk Factors: DM, Current or recent (<one month) smoker, HTN, HLP, family history of CAD, obesity. Course & Med Decision Making Course & Med Decision Making Pertinent Labs and Imaging studies reviewed. (See chart for details) Patient is 25-year-old female presents to the emergency room with known bacteremia. Sepsis work-up was ordered. Patient is tachycardic. She will be placed on fluids and antibiotics. Patient will be put on vancomycin given her sensitivities. She is otherwise stable. Patient discussed with Dr. Giron who will admit the patient for further care and evaluation. Dragon Disclaimer Dragon Disclaimer This electronic medical record was generated, in whole or in part, using a voice recognition dictation system. Departure Departure: Impression: Primary Impression: Immune deficiency disorder Additional Impression: Bacteremia due to methicillin resistant Staphylococcus aureus Disposition: ADMITTED INPATIENT Condition: STABLE Referrals: SERGIO VALERO DO, MPH (PCP) Problem Qualifiers LEXI JAQUEZ MD Dec 22, 2020 14:20
[2020-12-22 14:27] LABS: BASO % 1 % (0-3); EOS % 0 % (0-3); HEMATOCRIT 36.7 % (36.0-47.0); HEMOGLOBIN 12.8 g/dL (12.0-15.5); LYMPH # 1.1 x10^3/uL (1.0-4.8); LYMPH % 15 % (24-48); MEAN CORPUSCULAR HEMOGLOBIN 32 pg (25-35); MEAN CORPUSCULAR HGB CONC 35 g/dL (31-37); MEAN CORPUSCULAR VOLUME 91 fL (79-100); MONO # 0.6 x10^3/uL (0.0-1.1); MONO % 9 % (0-9); NEUT # 5.4 x10^3uL (1.8-7.7); NEUT % 75 % (31-73); PLATELET COUNT 208 x10^3/uL (140-400); RED BLOOD COUNT 4.04 x10^6/uL (3.50-5.40); RED CELL DISTRIBUTION WIDTH 12.7 % (11.5-14.5); WHITE BLOOD COUNT 7.2 x10^3/uL (4.0-11.0)
[2020-12-22] MEDS ORDERED: diphenhydrAMINE 50 MG/ML VIAL IVP ONE (14:30)
[2020-12-22 14:56] LABS: CALCIUM 8.7 mg/dL (8.5-10.1); CREATININE 0.7 mg/dL (0.6-1.0); POTASSIUM 3.5 mmol/L (3.5-5.1)
[2020-12-22 14:59] LABS: ALBUMIN 3.4 g/dL (3.4-5.0); ALBUMIN/GLOBULIN RATIO 0.7 (1.0-1.7); TOTAL BILIRUBIN 0.5 mg/dL (0.2-1.0)
[2020-12-22] MEDS ORDERED: diphenhydrAMINE 50 MG/ML VIAL IVP SCH (15:00)
[2020-12-22] MEDS: VANCOMYCIN PER PHARMACY MC PRN (15:56)
[2020-12-22 16:05] VITALS: BP 130/83
[2020-12-22] MEDS: MORPHINE SULFATE 4 MG/ML DISP.SYRIN. IV PRN ×2 (16:11→20:17)
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
[2020-12-22] MEDS ORDERED: PROMETHAZINE 25 MG TABLET. PO PRN (16:45)
[2020-12-22] MEDS: IV NORMAL SALINE 1,000ML 1,000 ML IV SCH (17:25)
[2020-12-22] MEDS: ACETAMINOPHEN 500 MG TABLET PO PRN (17:25)
[2020-12-22 17:57] VITALS: BP 112/73
[2020-12-22] MEDS ORDERED: IV NORMAL SALINE 500ML 500 ML IV ONE (18:15)
[2020-12-22] MEDS ORDERED: METOPROLOL TART IMMED RELEASE 50 MG TABLET PO ONE (18:15)
[2020-12-22] MEDS: HYDROCORTISONE 10 MG TABLET PO SCH (20:16)
[2020-12-22] MEDS: HYDROXYCHLOROQUINE 200 MG TABLET PO SCH (20:17)
[2020-12-22] MEDS: ONDANSETRON ODT 4 MG TAB.RAPDIS PO PRN (20:17)
[2020-12-22] MEDS: VANCOMYCIN 750 MG in IV NORMAL SALINE 250ML 250 ML IV SCH (21:34)
[2020-12-22] MEDS: diphenhydrAMINE 50 MG/ML VIAL IVP SCH (21:34)
[2020-12-22] MEDS: METOPROLOL TART IMMED RELEASE 25 MG TABLET. PO SCH (21:35)
[2020-12-22 23:42] VITALS: BP 100/66
[2020-12-23] MEDS: ACETAMINOPHEN 500 MG TABLET PO PRN ×4 (00:06→21:01)
[2020-12-23] MEDS: MORPHINE SULFATE 4 MG/ML DISP.SYRIN. IV PRN ×6 (00:10→23:49)
[2020-12-23 05:03] VITALS: BP 95/59
[2020-12-23] MEDS: VANCOMYCIN 750 MG in IV NORMAL SALINE 250ML 250 ML IV SCH (05:41)
[2020-12-23] MEDS: ONDANSETRON ODT 4 MG TAB.RAPDIS PO PRN ×2 (05:42→19:42)
[2020-12-23] MEDS: diphenhydrAMINE 50 MG/ML VIAL IVP SCH ×3 (05:42→21:53)
[2020-12-23] MEDS: LEVOTHYROXINE 50 MCG TABLET PO SCH (05:42)
[2020-12-23] MEDS: IV NORMAL SALINE 1,000ML 1,000 ML IV SCH ×2 (05:43→19:46)
[2020-12-23] MEDS: PANTOPRAZOLE 40 MG TABLET. PO SCH (07:46)
[2020-12-23] MEDS: METOPROLOL TART IMMED RELEASE 25 MG TABLET. PO SCH ×2 (07:47→21:00)
[2020-12-23] MEDS: FLUDROCORTISONE 0.1 MG TABLET PO SCH ×2 (07:48→12:18)
[2020-12-23] MEDS: HYDROXYCHLOROQUINE 200 MG TABLET PO SCH ×2 (07:48→21:00)
[2020-12-23] MEDS: HYDROCORTISONE 10 MG TABLET PO SCH ×3 (07:48→21:01)
[2020-12-23] MEDS: HYDROCORTISONE SOD SUCC/PF 100 MG/2 ML VIAL. IVP SCH (09:26)
[2020-12-23 12:17] VITALS: BP 91/55
[2020-12-23 13:25] LABS: VANC TR 9.1 mcg/mL (10.0-20.0)
[2020-12-23] MEDS: VANCOMYCIN 1.25 GM in IV NORMAL SALINE 250ML 250 ML IV SCH ×2 (14:33→21:55)
[2020-12-23] MEDS: VANCOMYCIN PER PHARMACY MC PRN (14:36)
[2020-12-23 17:24] VITALS: BP 93/55
--- NOTE | 2020-12-23 20:09 | PN ---
DATE: 12/23/2020 ATTENDING PHYSICIAN: Dr. Giron. SUBJECTIVE: The patient is a little more alert. She is still weak and tired. Her blood pressure was marginal at 98 mmHg. She did get some fluids. Tachycardia has improved. OBJECTIVE: VITAL SIGNS: Blood pressure this morning is 95/59, pulse is down to 84 and regular, temperature 99.0 degrees Fahrenheit, oxygen saturation 98% on room air. HEENT: Head is without trauma. Pupils are reactive. Sclerae is nonicteric. The oropharynx is clear. NECK: Supple. LUNGS: Clear. CARDIOVASCULAR: Showed distant heart tones. No gallops. Peripheral pulses are palpable and full. ABDOMEN: Soft, scaphoid, nontender. Hypoactive bowel sounds. EXTREMITIES: Show no cyanosis. Chronic catheter is in place. Urine is somewhat concentrated. SKIN: Warm and dry. ASSESSMENT: 1. A 25-year-old female with Staphylococcus aureus bacteremia. 2. Traumatic brain injury with associated paraplegia. 3. Urinary incontinence with neurogenic bladder. 4. History of Joseph's thyroiditis, on replacement. 5. History of adrenal insufficiency. She may be having symptoms related to addisonian crisis, requiring higher doses of maintenance corticosteroids. PLAN: 1. Continue antibiotics, vancomycin as per pharmacy. 2. Stress dose Solu-Cortef 50 mg IV daily ordered. 3. Continue gentle IV hydration. 4. We will proceed with Benadryl prior to administration of vancomycin due to previous history of red man syndrome. 5. Dr. Coyne knows the case. He will take over the care tomorrow. At that time, he can consult with Dr. Huddleston at [facility] as to duration of therapy. The family wants to go home and do outpatient IV vancomycin. She does have a port already. KALPANA/KASHMIR DR: KALPANA/anthnoy TID: [id number] CC: SHANNAN COYNE MD
[2020-12-23] MEDS: LACTOBACILLUS RHAMNOSUS GG 1 CAPSULE. PO SCH (21:01)
[2020-12-24] MEDS: LEVOTHYROXINE 50 MCG TABLET PO SCH (05:40)
[2020-12-24] MEDS: ONDANSETRON ODT 4 MG TAB.RAPDIS PO PRN ×2 (05:40→14:28)
[2020-12-24] MEDS: diphenhydrAMINE 50 MG/ML VIAL IVP SCH ×2 (05:40→13:38)
[2020-12-24] MEDS: VANCOMYCIN 1.25 GM in IV NORMAL SALINE 250ML 250 ML IV SCH ×2 (05:40→13:38)
[2020-12-24] MEDS: MORPHINE SULFATE 4 MG/ML DISP.SYRIN. IV PRN ×3 (05:40→14:28)
[2020-12-24 08:33] VITALS: BP 94/64
[2020-12-24 08:33] LABS: BASO % 0 % (0-3); EOS % 1 % (0-3); HEMATOCRIT 28.9 % (36.0-47.0); HEMOGLOBIN 9.9 g/dL (12.0-15.5); LYMPH # 1.4 x10^3/uL (1.0-4.8); LYMPH % 25 % (24-48); MEAN CORPUSCULAR HEMOGLOBIN 32 pg (25-35); MEAN CORPUSCULAR HGB CONC 34 g/dL (31-37); MEAN CORPUSCULAR VOLUME 92 fL (79-100); MONO # 0.6 x10^3/uL (0.0-1.1); MONO % 11 % (0-9); NEUT # 3.6 x10^3uL (1.8-7.7); NEUT % 63 % (31-73); PLATELET COUNT 147 x10^3/uL (140-400); RED BLOOD COUNT 3.14 x10^6/uL (3.50-5.40); RED CELL DISTRIBUTION WIDTH 12.4 % (11.5-14.5); WHITE BLOOD COUNT 5.7 x10^3/uL (4.0-11.0)
[2020-12-24 08:40] LABS: ALBUMIN 2.2 g/dL (3.4-5.0); ALBUMIN/GLOBULIN RATIO 0.6 (1.0-1.7); CALCIUM 7.9 mg/dL (8.5-10.1); CREATININE 0.5 mg/dL (0.6-1.0); GFR 150.3; POTASSIUM 3.3 mmol/L (3.5-5.1); TOTAL BILIRUBIN 0.3 mg/dL (0.2-1.0); TOTAL PROTEIN 5.6 g/dL (6.4-8.2)
[2020-12-24] MEDS: LACTOBACILLUS RHAMNOSUS GG 1 CAPSULE. PO SCH (08:50)
[2020-12-24] MEDS: HYDROCORTISONE SOD SUCC/PF 100 MG/2 ML VIAL. IVP SCH (08:50)
[2020-12-24] MEDS: HYDROXYCHLOROQUINE 200 MG TABLET PO SCH (08:51)
[2020-12-24] MEDS: PANTOPRAZOLE 40 MG TABLET. PO SCH (08:51)
[2020-12-24] MEDS: HYDROCORTISONE 10 MG TABLET PO SCH ×2 (08:52→13:38)
[2020-12-24] MEDS: METOPROLOL TART IMMED RELEASE 25 MG TABLET. PO SCH (09:00)
[2020-12-24] MEDS: IV NORMAL SALINE 1,000ML 1,000 ML IV SCH (09:08)
[2020-12-24] MEDS: FLUDROCORTISONE 0.1 MG TABLET PO SCH (12:21)
[2020-12-24] MEDS ORDERED: MEROPENEM 1 GM in IV NORMAL SALINE 100ML 100 ML IV SCH (14:00)
[2020-12-24] MEDS ORDERED: POTASSIUM CL 40MEQ IN 0.9%NACL 1,000 ML IV SCH (14:00)
[2020-12-24 14:20] VITALS: BP 119/77
[2020-12-24] MEDS: ACETAMINOPHEN 500 MG TABLET PO PRN (15:26)
--- NOTE | 2020-12-24 16:34 | DS ---
DATE OF DISCHARGE: 12/24/2020 HOSPITAL COURSE: The patient is a 25-year-old female patient who apparently was treated at urgent care on 11/24/2020 for a community-acquired pneumonia. At that time, she was given a course of Zithromax and a week later, she also continued to have a fever and was treated with another course of Zithromax. She apparently presented on 12/08 to the Emergency Room of [facility]. At that time, she apparently had just finished her second course of Zithromax for pneumonia and she just got her gammaglobulin, but she seems to be not doing as well as she continued to complaining of her back pain and the tramadol is not working. She is repeating her pain is down in her lower back at the sacroiliac joint and her mother wanted her to have a steroid injection. 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 Huddleston and primary care Dr. Saucedo. She does receive gammaglobulin immunotherapy monthly. 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 She is usually wheelchair bound, does have a history of neurogenic bladder requiring frequent catheterization, has a history of Joseph's thyroiditis, adrenal insufficiency and iron deficiency anemia, B12 deficiency anemia, multiple episodes of sepsis, multiple episodes of urinary tract infection. She was basically investigated and has had urine and blood culture and the patient was basically discharged home. Apparently, her blood and urine culture were drawn and they held the antibiotic as she has completed at least 2 courses of Zithromax for suspected pneumonia and was asked to return at any time if there is any concern and apparently on 11/21, they were called by the infectious disease specialist that her blood and urine culture were positive and in fact her blood culture has grown methicillin-resistant Staphylococcus aureus and her urine culture has grown Enterobacter aerogenes. She was started on IV vancomycin; however, she has not received any treatment for Enterobacter aerogenes and I just finished talking with the Dr. Huddleston and the plan was to start her on meropenem and will transfer the patient to [facility] to remove the Port-A-Cath and to arrange for a transthoracic echocardiogram and to consult the surgical team and the Cardiology for evaluation and treatment. PHYSICAL EXAMINATION: GENERAL: When I saw her today, she looked well and was clearly in no apparent respiratory distress. She was pale. Not jaundiced, cyanosed. No lymphadenopathy, no thyromegaly, no jugular venous distention. No limb edema. VITAL SIGNS: Her heart rate was 78, blood pressure is 94/64, temperature was 98.5, respiratory rate was 16 and oxygen saturation was 99% on room air. HEAD, EYES, EARS, NOSE AND THROAT: Normocephalic, atraumatic. NECK: Supple. HEART: Normal first and second heart sounds. No gallop or murmur. CHEST: Clear to auscultation, no crepitation or rhonchi. ABDOMEN: Distended, soft, nontender. NEUROLOGIC: She has paraplegia. She is mostly wheelchair bound. She has a neurogenic bladder requiring indwelling Sharpe catheter. LABORATORY DATA: Her lab work showed a white cell count 5700, hemoglobin 10, hematocrit 29, MCV 92 and platelet count of 147,000. Her chemistry showed a serum sodium 144, potassium 3.3, chloride 111, bicarbonate 25, anion gap 8, BUN 6, creatinine 0.5. Estimated GFR was 150 mL per minute. Her glucose was 73, calcium was 7.9. Total bilirubin, AST, ALT, alkaline phosphatase were normal. Total protein 5.6, albumin was 2.2. Her blood culture has grown gram-positive cocci in cluster suggestive of Staph in 1/4 bottles, 2 sets were drawn. DISCHARGE MEDICATIONS: She will be discharged or transferred to [facility] on lactobacillus rhamnosus 1 capsule twice a day, vancomycin 1.25 grams IV q. 8 hourly, fludrocortisone 100 mcg once a day, hydrocortisone sodium succinate 50 mg IV daily, Protonix 40 mg daily, levothyroxine sodium 50 mcg once a day, diphenhydramine 25 mg IV q. 8 hourly, metoprolol tartrate 25 mg p.o. b.i.d., hydroxychloroquine 200 mg twice a day, hydrocortisone 5 mg 3 times a day, promethazine 25 mg every 6 hours, ondansetron 4 mg IV every 8 hours, normal saline at 75 mL per hour, acetaminophen 1000 mg every 6 hours, morphine sulfate 4 mg IV every 4 hours and meropenem 1 gram IV q. 8 hourly. FINAL DISCHARGE DIAGNOSES: Methicillin-resistant Staphylococcus aureus and Enterococcus faecalis bacteremia with suspicion for infective endocarditis that might be related to infection of her Port-A-Cath, Enterobacter aerogenes urinary tract infection, traumatic brain injury, paraplegia, immune deficiency syndrome, hypothyroidism, Roland's disease. KERVIN/DAYAMI/CECELIA DR: Jessica TID: [id number]
== END 2020-12-24 15:50 | disposition short-term general hospital (02) | DRG 314 ==
LOC: ER 12:31 → 1 SOUTH 13:21
PROVIDERS: ADMIT Hospitalist; ATTEND Hospitalist
DX: T80.218A Other infection due to central venous catheter, initial encounter (principal); I33.0 Acute and subacute infective endocarditis; E27.40 Unspecified adrenocortical insufficiency; G82.20 Paraplegia, unspecified; D84.9 Immunodeficiency, unspecified; R78.81 Bacteremia; E27.1 Primary adrenocortical insufficiency; N39.0 Urinary tract infection, site not specified; B95.62 Methicillin resistant Staphylococcus aureus infection as the cause of diseases classified elsewhere; J45.909 Unspecified asthma, uncomplicated; K21.9 Gastro-esophageal reflux disease without esophagitis; M35.00 Sjogren syndrome, unspecified; N39.498 Other specified urinary incontinence; R53.81 Other malaise; D50.9 Iron deficiency anemia, unspecified; B95.2 Enterococcus as the cause of diseases classified elsewhere; E06.3 Autoimmune thyroiditis; N31.9 Neuromuscular dysfunction of bladder, unspecified; Y83.8 Other surgical procedures as the cause of abnormal reaction of the patient, or of later complication, without mention of misadventure at the time of the procedure; Z88.8 Allergy status to other drugs, medicaments and biological substances; Z87.820 Personal history of traumatic brain injury; Z99.3 Dependence on wheelchair; Y92.89 Other specified places as the place of occurrence of the external cause
CPT/HCPCS: 36415; 80053; 80202; 83605; 85025; 87040; 87077; 87186; 87205; J1200; J2270; J3370; J7040; J7050; Q0162; Q0169; 99285-25; J7030

== ENCOUNTER → 2021-07-13 | Outpatient (CLI) | payer OTHER ==
[2021-07-02 19:08] VITALS: BP 102/59
--- NOTE | 2021-07-13 16:45 | RAD ---
EXAMINATION: CT sinuses without IV contrast INDICATION:26 years, Female, chronic sinusitis. COMPARISON: None TECHNIQUE: Spiral acquisition of images from the maxilla through the frontal sinuses. Sagittal and co oc 2D reformatted series were provided by the technologist. The CT scan was acquired using radiati on reduction techniques, such automated exposure control, adjustment of the mA and/or kV according to the patient's size and use of iterative reconstruction techniques. FINDINGS: MAXILLARY SINUSES: Thin incomplete septation in the right maxillary sinus. Small retention cyst in th e right maxillary antrum. Left maxillary sinus is clear. MAXILLARY SINUS OSTIA: patent UNCINATE PROCESSES AND INFUNDIBULA: within normal limits TURBINATES: Mildly hypertrophic left inferior turbinate. FRONTAL RECESSES: are clear FRONTAL SINUSES: are clear BILATERAL, ANTERIOR, AND POSTERIOR ETHMOID AIR CELLS (including ethmoid bullae, ethmoid roofs, and ba krysta lamellae): normal SPHENOETHMOID RECESSES: clear SPHENOID SINUSES: widely patent CRIBRIFORM PLATE, LATERAL LAMELLA, AND FOVEA ETHMOIDALIS: normal step-like morphology NASAL SEPTUM: normal in appearance. VISUALIZED MASTOID AIR CELLS: clear VISUALIZED DENTITION: normal in appearance IMPRESSION: No evidence of acute or chronic paranasal sinusitis. Electronically signed by: Phyllis Hardy MD (07/13/2021 4:42 PM) [facility]
== END ==
LOC: CT 13:30
PROVIDERS: ATTEND Otolaryngology
DX: J34.1 Cyst and mucocele of nose and nasal sinus (principal); J34.3 Hypertrophy of nasal turbinates; J32.9 Chronic sinusitis, unspecified
CPT/HCPCS: 70486

== ENCOUNTER 2021-10-29 13:11 | Emergency (ER) | payer OTHER ==
[~2021-10-29] VITALS: Ht 171.4 cm; Wt 54.4 kg
--- NOTE | 2021-10-29 13:37 | PHYS DOC ---
Past History Past Medical History: Asthma, GERD, Other Additional Past Medical Histor: TBI, history of autoimmune d/o, NEUROGENIC BLADDER Past Surgical History: Cholecystectomy, Tonsillectomy Additional Past Surgical Histo: PEG tube, fundoplicationx3,neurostimulator,port J-TUBE Smoking: Non-smoker Alcohol Use: None Drug Use: None General Adult EDM: Chief Complaint: HIP PAIN HPI: HPI: 26-year-old female who is wheelchair-bound presents with right hip pain. The patient was lying on the CT table a few days ago for about an hour and a half. She had her legs in awkward position. Since that time, she has had right hip discomfort. He seems to be getting worse. She states that it feels like it is not stable. She normally is able to bear weight and pivot from her wheelchair to another chair but she is unable to do that at this time due to discomfort. The pain is in the posterior aspect and is a sharp cramping sensation mostly with movement. Loading the joint or weightbearing is the most painful. She denies falls or trauma. Review of Systems: Review of Systems: Constitutional: Denies fever or chills Eyes: Denies change in visual acuity HENT: Denies nasal congestion or sore throat Respiratory: Denies cough or shortness of breath Cardiovascular: Denies chest pain or edema GI: Denies abdominal pain, nausea, vomiting, bloody stools or diarrhea : Denies dysuria Musculoskeletal: Right hip pain Integument: Denies rash Neurologic: Denies headache, focal weakness or sensory changes Endocrine: Denies polyuria or polydipsia Lymphatic: Denies swollen glands Psychiatric: Denies depression or anxiety Allergies: Allergies: Allergies Coded Allergies Type Severity Reaction Last Updated Verified erythromycin base Allergy Intermediate 10/29/21 Yes I S O L A T I O N *CONTACT* Allergy Unknown 12/08/20 Yes Physical Exam: PE: Constitutional: Well developed, well nourished, no acute distress, non-toxic appearance. [] HENT: Normocephalic, atraumatic, bilateral external ears normal, oropharynx moist, no oral exudates, nose normal. [] Eyes: PERRLA, EOMI, conjunctiva normal, no discharge. [] Neck: Normal range of motion, no tenderness, supple, no stridor. [] Cardiovascular: Heart rate regular rhythm, no murmur [] Lungs & Thorax: Bilateral breath sounds clear to auscultation [] Abdomen: Left sided open wound of the abdomen without obvious current drainage. [] Skin: Warm, dry, no erythema, no rash. [] Back: No tenderness, no CVA tenderness. [] Extremities: Tenderness over the middle toe lateral buttocks about one third superior from the inferior buttocks border [] Neurologic: Alert and oriented X 3, normal motor function, normal sensory function, no focal deficits noted. [] Psychologic: Affect normal, judgement normal, mood normal. [] Current Patient Data: Vital Signs: Vital Signs Date Time Temp Pulse Resp B/P (MAP) Pulse Ox O2 Delivery O2 Flow Rate FiO2 10/29/21 13:26 99.1 96 18 118/51 (73) 99 EKG: EKG: [] Radiology/Procedures: Radiology/Procedures: [] Impressions: CT right hip without contrast dated 10/29/2021. COMPARISON: Right hip pain. Rule out avascular necrosis. TECHNIQUE: Contiguous axial imaging the right hip was performed with thin cut coronal and sagittal reconstruction. One or more of the following individualized dose reduction techniques were utilized for this examination: 1. Automated exposure control 2. Adjustment of the mA and/or kV according to patient size 3. Use of iterative reconstruction technique FINDINGS: Bony alignment is anatomic. No displaced fracture. No periostitis or bone destruction. No significant subchondral sclerotic or cystic changes or evidence of AVN. No apparent joint effusion or loose body. Visualized soft tissue structures are unremarkable. No significant free pelvic fluid. No pelvic adenopathy. IMPRESSION: No acute bony or soft tissue abnormality. Electronically signed by: Martin Gomez MD (10/29/2021 2:53 PM) [facility] DICTATED AND SIGNED BY: MARTIN GOMEZ MD DATE: 10/29/21 1449 CC: GUILLERMO SPARKS DO; SERGIO VALERO DO, MPH ~ Heart Score: C/O Chest Pain: N/A Risk Factors: Risk Factors: DM, Current or recent (<one month) smoker, HTN, HLP, family history of CAD, obesity. Risk Scores: Score 0 - 3: 2.5% MACE over next 6 weeks - Discharge Home Score 4 - 6: 20.3% MACE over next 6 weeks - Admit for Clinical Observation Score 7 - 10: 72.7% MACE over next 6 weeks - Early Invasive Strategies Course & Med Decision Making: Course & Med Decision Making Pertinent Labs and Imaging studies reviewed. (See chart for details) The patient's hip x-ray is negative for acute findings. When CT of the joint to rule out avascular necrosis as well as higher quality imaging of the area. There are no acute findings. See official read for more details. That will believe this should disrupt the patient's scheduled surgery tomorrow. I have advised that they see how things go over the next few days. If she continues to have significant pain in this joint they can follow-up with orthopedics and consider MRI. Possibilities are gluteus muscle tear, muscle strain. The patient is stable for discharge at this time. [] Devonte Disclaimer: Devonte Disclaimer: This electronic medical record was generated, in whole or in part, using a voice recognition dictation system. Departure Departure: Impression: Primary Impression: Right hip pain Disposition: HOME / SELF CARE / HOMELESS Condition: STABLE Referrals: SERGIO VALERO DO, MPH (PCP) Patient Instructions: Hip Pain GUILLERMO SPARKS DO Oct 29, 2021 13:37
--- NOTE | 2021-10-29 14:55 | RAD ---
CT right hip without contrast dated 10/29/2021. COMPARISON: Right hip pain. Rule out avascular necrosis. TECHNIQUE: Contiguous axial imaging the right hip was performed with thin cut coronal and sagittal reconstructio n. One or more of the following individualized dose reduction techniques were utilized for this examinat ion: 1. Automated exposure control 2. Adjustment of the mA and/or kV according to patient size 3. Use of iterative reconstruction technique FINDINGS: Bony alignment is anatomic. No displaced fracture. No periostitis or bone destruction. No significant subchondral sclerotic or cystic changes or evidence of AVN. No apparent joint effusion or loose body . Visualized soft tissue structures are unremarkable. No significant free pelvic fluid. No pelvic adeno otto. IMPRESSION: No acute bony or soft tissue abnormality. Electronically signed by: Martin Gomez MD (10/29/2021 2:53 PM) [id number]
--- NOTE | 2021-10-29 15:03 | RAD ---
EXAM: XR RIGHT HIP (WITH OR WITHOUT PELVIS) 2 VIEWS 10/29/2021 1:40 PM CLINICAL INDICATION: Pain, wheelchair bound COMPARISON: None TECHNIQUE: AP view of the pelvis. AP and frog-leg lateral view of the right hip FINDINGS: There is no acute fracture. Alignment is normal. The hip joint spaces are maintained. The sacroiliac joints and pubic symphysis are normal. The sacrum is partially obscured by superimposed taqueria wel. There is a stimulator device projecting over the right iliac wing and sacrum. IMPRESSION: No acute osseous abnormality. Electronically signed by: Janae Ambrocio MD (10/29/2021 3:00 PM) [id number]
[2021-10-29 15:05] VITALS: BP 112/61
[2021-10-29] MEDS ORDERED: HYDROcodone/APAP 7.5/325MG 1 TAB TABLET PO ONE (15:15)
[2021-10-29] MEDS ORDERED: HYDR-2759 PO (15:16)
[2021-10-29] MEDS ORDERED: HYDROcodone/APAP 7.5/325MG 1 TAB TABLET ONE (15:18)
== END 2021-10-29 15:21 | disposition home or self-care (01) ==
LOC: ER 13:11
DX: M25.551 Pain in right hip (principal); J45.909 Unspecified asthma, uncomplicated; K21.9 Gastro-esophageal reflux disease without esophagitis; Z88.1 Allergy status to other antibiotic agents; Z88.8 Allergy status to other drugs, medicaments and biological substances
CPT/HCPCS: 73502; 73700; 99284

== ENCOUNTER → 2021-11-05 | Outpatient (CLI) | payer OTHER ==
[2021-10-29 15:05] VITALS: BP 112/61
[~2021-11-05] MED LIST changes: +ACETAMINOPHEN 325 MG TABLET PO ONE; +HEPARIN PF 500 UNIT/5 ML DISP.SYRIN. IVP ONE; +HYDR-2759 PO; +IMMUNE GLOBULIN GAMMA 10% IV ONE; +diphenhydrAMINE HCL 25 MG CAPSULE PO ONE; +methylPREDNISolone SOD SUCC PF 40 MG/ML VIAL. IV ONE
[2021-11-05 18:43] LABS: BASO % 1 % (0-3); EOS # 0.1 x10^3/uL (0.0-0.7); EOS % 1 % (0-3); HEMATOCRIT 36.2 % (36.0-47.0); HEMOGLOBIN 12.1 g/dL (12.0-15.5); LYMPH % 27 % (24-48); MEAN CORPUSCULAR HEMOGLOBIN 30 pg (25-35); MEAN CORPUSCULAR HGB CONC 33 g/dL (31-37); MEAN CORPUSCULAR VOLUME 90 fL (79-100); MONO # 0.4 x10^3/uL (0.0-1.1); MONO % 6 % (0-9); NEUT # 4.8 x10^3uL (1.8-7.7); NEUT % 66 % (31-73); PLATELET COUNT 292 x10^3/uL (140-400); RED BLOOD COUNT 4.01 x10^6/uL (3.50-5.40); RED CELL DISTRIBUTION WIDTH 12.1 % (11.5-14.5); WHITE BLOOD COUNT 7.3 x10^3/uL (4.0-11.0)
[2021-11-05 18:50] LABS: CALCIUM 8.7 mg/dL (8.5-10.1); CREATININE 0.5 mg/dL (0.6-1.0); GFR 149.1; POTASSIUM 3.2 mmol/L (3.5-5.1)
[2021-11-05 18:56] LABS: ALBUMIN 2.9 g/dL (3.4-5.0); ALBUMIN/GLOBULIN RATIO 0.8 (1.0-1.7); TOTAL BILIRUBIN 0.4 mg/dL (0.2-1.0); TOTAL PROTEIN 6.6 g/dL (6.4-8.2)
[2021-11-05 20:28] LABS: % BANDS 4 % (0-9); % EOS 1 % (0-5); % LYMPHS 34 % (24-48); % MONOS 5 % (0-10); % MYELOS 2 % (0-0); % SEGS 54 % (35-66)
[2021-11-05 20:29] LABS: PLT ESTIMATE ADEQUATE (ADEQUATE)
== END | disposition home or self-care (01) ==
LOC: LAB 17:40 → OPINF 17:40
PROVIDERS: ATTEND Internal Medicine Infectious Disease
DX: L02.211 Cutaneous abscess of abdominal wall (principal); D83.9 Common variable immunodeficiency, unspecified; K21.9 Gastro-esophageal reflux disease without esophagitis; J45.909 Unspecified asthma, uncomplicated
CPT/HCPCS: 36415; 80053; 85007; 85025

== ENCOUNTER → 2021-11-09 | Outpatient (CLI) | payer OTHER ==
[2021-10-29 15:05] VITALS: BP 112/61
[~2021-11-09] MED LIST changes: -ACETAMINOPHEN 325 MG TABLET PO ONE; -HEPARIN PF 500 UNIT/5 ML DISP.SYRIN. IVP ONE; -IMMUNE GLOBULIN GAMMA 10% IV ONE; -diphenhydrAMINE HCL 25 MG CAPSULE PO ONE; -methylPREDNISolone SOD SUCC PF 40 MG/ML VIAL. IV ONE
[2021-11-09 16:41] LABS: BASO % 1 % (0-3); EOS % 2 % (0-3); HEMATOCRIT 42.1 % (36.0-47.0); HEMOGLOBIN 14.1 g/dL (12.0-15.5); LYMPH % 27 % (24-48); MEAN CORPUSCULAR HEMOGLOBIN 31 pg (25-35); MEAN CORPUSCULAR HGB CONC 34 g/dL (31-37); MEAN CORPUSCULAR VOLUME 91 fL (79-100); MONO % 7 % (0-9); NEUT # 5.6 x10^3uL (1.8-7.7); NEUT % 64 % (31-73); PLATELET COUNT 375 x10^3/uL (140-400); RED CELL DISTRIBUTION WIDTH 12.8 % (11.5-14.5); WHITE BLOOD COUNT 8.7 x10^3/uL (4.0-11.0)
[2021-11-09 16:42] LABS: BASO # 0.1 x10^3/uL (0.0-0.2); EOS # 0.1 x10^3/uL (0.0-0.7); LYMPH # 2.4 x10^3/uL (1.0-4.8); MONO # 0.6 x10^3/uL (0.0-1.1)
[2021-11-09 16:43] LABS: ALBUMIN 3.4 g/dL (3.4-5.0); ALBUMIN/GLOBULIN RATIO 0.7 (1.0-1.7); CALCIUM 9.5 mg/dL (8.5-10.1); CREATININE 0.6 mg/dL (0.6-1.0); GFR 120.8; POTASSIUM 4.1 mmol/L (3.5-5.1); TOTAL BILIRUBIN 0.3 mg/dL (0.2-1.0); TOTAL PROTEIN 8.5 g/dL (6.4-8.2)
== END ==
LOC: LAB 15:49
PROVIDERS: ATTEND Internal Medicine Infectious Disease
DX: D83.9 Common variable immunodeficiency, unspecified (principal)
CPT/HCPCS: 36415; 80053; 85025